=== PATIENT | female | born 1950 | race Caucasian/White ===

== ENCOUNTER 2022-05-03 10:42 | Inpatient (IN) | payer MEDICARE, SELFPAY ==
[2022-05-03] VITALS (8 sets, daily range): BP systolic 100–172; BP diastolic 61–92; PULSE 74–117; RESP 13–20; TEMP 36.4–37.1; O2SAT 96–98; BMI 41.6
--- NOTE | ~2022-05-03 | XR_ITS ---
EXAMINATION: XR CHEST CLINICAL INFORMATION: Weakness COMPARISON: None TECHNIQUE: 2 views of the chest were obtained. FINDINGS: Lungs are adequately expanded and clear. No consolidation, edema or pleural effusion. Cardiac silhouette is normal in size. The hilar contours are normal. The left diaphragm is mildly elevated. No acute skeletal findings. XR/XR chest 2V IMPRESSION: No acute cardiopulmonary disease.
--- NOTE | 2022-05-03 11:01 | ED_ITS ---
HPI - General Adult General Chief complaint: General Medical Stated complaint: Afib Time Seen by Provider: 05/03/22 11:01 Source: patient Mode of arrival: ambulatory Limitations: no limitations History of Present Illness HPI narrative: Patient is a 71 year old female presenting to the emergency department today with requesting a medication refill. Patient states that in November, her PCP retired and filled her prescriptions one last time. Patient states that she has a history of atrial fibrillation and is taking Warfarin, her last dose being last night. Patient states that she has called and talked to many PCP offices but she cannot get into a new PCP until September 2022. Patient states that she has been off of her blood pressure medications diltiazem and hydrochlorothyazide for multiple days now. Patient denies any dizziness, lightheadedness, abdominal pain, nausea, vomiting, fever, chills, blurry vision, double vision, loss of vision, chest pain, difficulty breathing, shortness of breath, back pain, night sweats, pain with urination, increased urinary frequency, increased urinary urgency, blood in her urine or stool, syncope or a near syncopal episode, recent trauma or falls, bowel incontinence, bladder incontinence, bowel retention, bladder retention, or any other complaints at this time. Exacerbating factors: none Associated symptoms: denies other symptoms Treatments prior to arrival: none Related Data Home Medications Medication Instructions Recorded Confirmed alprazolam 1 mg tablet,extended 1 tab PO DAILY 05/03/22 05/03/22 release 24 hr diltiazem HCl 240 mg 1 cap PO BID 05/03/22 05/03/22 capsule,extended release 24 hr duloxetine 60 mg capsule,delayed 1 cap PO DAILY 05/03/22 05/03/22 release ezetimibe 10 mg tablet 1 tab PO DAILY 05/03/22 05/03/22 hydrochlorothiazide 25 mg tablet 1 tab PO DAILY 05/03/22 05/03/22 warfarin 5 mg tablet (Jantoven) 5 mg PO SUTUTHSA@1800 05/03/22 05/03/22 warfarin 5 mg tablet (Jantoven) 7.5 mg PO MOWEFR@1800 05/03/22 05/03/22 Allergies Allergy/AdvReac Type Severity Reaction Status Date / Time Unable to Assess Allergy Verified 05/03/22 11:23 Review of Systems Constitutional: Constitutional: Reports no additional constitutional complain ts, Denies chills, Denies fever(s) and Denies night sweats Eyes: Eyes: Reports no additional eye complaints, Denies blurry vision, Denies change in vision, Denies diplopia, Denies eye discharge, Denies loss of vision and Denies eye pain ENT: Denies dizziness Cardiovascular: Cardiovascular: Reports no additional cardiovascular complaints, Denies chest pain, Denies lightheadedness, Denies Loss of Consciousness and Denies dyspnea Respiratory: Respiratory: Reports no additional respiratory complaints and De nies dyspnea Gastrointestinal: Gastrointestinal: Reports no additional gastrointestinal complaints, Denies abdominal pain, Denies melena, Denies hematochezia, Denies change in bowel habits and Denies change in stool character Genitourinary: Genitourinary: Denies hematuria, Denies urinary frequency, Denies dysuria, Denies urinary incontinence, Denies urinary hesitancy and Denies urinary urgency Musculoskeletal: Musculoskeletal: Reports no additional musculoskeletal complaints, Denies numbness and Denies tingling Neurologic: Denies dizziness, Denies loss of vision, Denies numbness and Denies tingling Psychiatric: Psychiatric: Reports no additional psychiatric complaints Endocrine: Endocrine: Reports no additional endocrine complaints Hematologic/Lymphatic: Hematologic/Lymphatic: Reports no additional hematologic/lymphatic complaints Allergic/Immunologic: Allergic/Immunologic: Reports no additional allergic/immunologic complaints PMFSH Past Medical History Attestation statement: The following information was validated with the patient. Source: old records reviewed Social History Social History Advance Directives: No Advance Directives Information Provided: Yes Physical Exam ED Vital Signs: Vital Signs - 24 hr 05/03/22 10:47 05/03/22 13:36 Pulse Rate 112 H 99 Respiratory Rate 19 16 Blood Pressure 134/92 H 122/68 Pulse Oximetry 98 98 Oxygen Delivery Method Room Air Room Air BMI result Body Mass Index 41.6 Const General: cooperative, no acute distress, alert and awake Nutritional Appearance: well nourished Orientation/consciousness: patient oriented x3 Limitations: no limitations HENMT Head: Yes normal to inspection and Yes atraumatic Ears: hearing grossly normal bilaterally and external ears normal General nose exam: Normal external nose present, no nasal discharge noted and no epistaxis Face and sinus: Yes normal facial exam, No abrasion and No laceration Mouth: Normal oral and palatal mucosa present, no drooling and no muffled voice Eyes General: appearance normal, both eyes and all related structures Periorbital: periorbital findings normal Eyelids: Yes eyelids normal Conjunctivae: conjunctivae normal Pupils: Equal, round and reactive pupils present EOM: EOMs intact bilaterally Neck Neck: Yes normal visual inspection, Yes full ROM and Yes no lymphadenopathy Chest Chest palpation & inspection: normal inspection of the chest Resp Effort & Inspection: normal respiratory effort and able to speak in complete sentences Auscultation: clear to auscultation bilaterally Cardio Rate: tachycardic Rhythm: abnormal rhythm irregularly irregular GI Inspection: Yes normal to inspection Neuro General: patient oriented x3 and moves all extremities Cranial nerves: Yes Equal, round and reactive pupils present Cognition (Neuro): normal cognition Motor exam (neuro): 5/5 motor strength present throughout Sensory Exam: Normal double simultaneous stimulation for sensation Coordination: [id number] test normal Extrem General: Yes normal to inspection, Yes full ROM and Yes capillary refill normal Psych Appearance: grossly normal Mental Status: mental status grossly normal Affect: normal affect Attitude: cooperative Thought process: Normal thought process present Thought content: Normal thought content present Insight: Good insight present (Psych) Medical Decision Making MDM Narrative Medical decision making narrative: Patient is a 71 year old female presenting to the emergency department today for a medication refill. Patient's physical exam showed a tachycardic, irregularly irregular, cardiac rhythm. Patient's blood work showed an INR of 2.8. Patient's EKG showed atrial fibrillation with RVR. I explained my physical exam findings as well as all test results to the patient. I answered all questions asked by the patient. Patient received IV Cardizem which decreased her heart rate. Spoke to Dr. Franklin who agreed to admission of the patient. Patient verbalized agreement and understanding with this treatment plan and admission. Differential Diagnosis Differential Diagnosis: atrial fibrillation, atrial fibrillation with rapid ventricular response Medical Records Medical records reviewed: Yes I reviewed the patient's medical records. Lab Data Lab results reviewed: Yes I reviewed the patient's lab results. Result diagrams: 05/03/22 11:33 05/03/22 11:33 Labs: Lab Results 05/03/22 05/03/22 05/03/22 Range/Units 11:33 11:33 11:33 WBC 7.9 (4.8-10.8) X10*3/uL RBC 5.26 (4.20-5.50) X10*6/uL Hgb 15.2 (12.0-16.0) g/dl Hct 47.2 H (37.0-47.0) % MCV 89.7 (80.0-98.0) fL MCH 28.9 (27.0-33.0) pg MCHC 32.2 (31.0-35.0) g/dl RDW 13.1 (11.0-16.0) % Plt Count 300 (160-400) X10*3/uL MPV 8.9 L (9.4-12.3) fL Immature Gran % (Auto) 0.3 (0.0-0.4) % Neut % (Auto) 65.1 (45-73) % Lymph % (Auto) 22.4 (20-40) % [place] % (Auto) 9.3 (2-11) % Eos % (Auto) 2.5 (0-4) % Baso % (Auto) 0.4 (0-2) % Lymph # (Auto) 1.8 (1.2-4.9) X10*3/uL [place] # (Auto) 0.7 (0.1-1.2) X10*3/uL Eos # (Auto) 0.2 (0.0-0.4) X10*3/uL Baso # (Auto) 0.0 (0.0-0.2) X10*3/uL Abs Immat Gran (auto) 0.02 (0.00-0.03) X10*3/uL Absolute Neuts (auto) 5.1 (2.0-8.3) x10*3/uL Absolute Nucleated RBC 0.000 (0.0-0.012) X10*3/uL Nucleated RBC % (auto) 0.0 (0.0-0.2) /100WBC PT 33.0 H (9.9-13.0) SEC INR 2.8 H (0.9-1.1) APTT 66.9 H* (24.1-38.0) SEC Sodium 143 (135-145) mmol/L Potassium 5.1 (3.3-5.1) mmol/L Chloride 101 (96-108) mmol/L Carbon Dioxide 31 H (22-29) mmol/L Anion Gap 16 (12-20) BUN 18 H (9-16) mg/dL Creatinine 1.28 (0.5-1.4) mg/dL Estim Creat Clear Calc 46.4 Estimated GFR 41 Random Glucose 80 (60-115) mg/dL Calcium 10.4 H (8.4-10.2) mg/dL Magnesium 2.3 (1.6-2.6) mg/dL Total Bilirubin 0.9 (0.0-1.0) mg/dL AST 17 (5-31) U/L ALT 13 (0-31) U/L Alkaline Phosphatase 62 (39-117) U/L Troponin I High Sens (<3.5-17.0) ng/L Total Protein 7.4 (6.5-8.0) g/dL Albumin 4.0 (3.5-5.0) g/dL 05/03/22 Range/Units 11:33 WBC (4.8-10.8) X10*3/uL RBC (4.20-5.50) X10*6/uL Hgb (12.0-16.0) g/dl Hct (37.0-47.0) % MCV (80.0-98.0) fL MCH (27.0-33.0) pg MCHC (31.0-35.0) g/dl RDW (11.0-16.0) % Plt Count (160-400) X10*3/uL MPV (9.4-12.3) fL Immature Gran % (Auto) (0.0-0.4) % Neut % (Auto) (45-73) % Lymph % (Auto) (20-40) % [place] % (Auto) (2-11) % Eos % (Auto) (0-4) % Baso % (Auto) (0-2) % Lymph # (Auto) (1.2-4.9) X10*3/uL [place] # (Auto) (0.1-1.2) X10*3/uL Eos # (Auto) (0.0-0.4) X10*3/uL Baso # (Auto) (0.0-0.2) X10*3/uL Abs Immat Gran (auto) (0.00-0.03) X10*3/uL Absolute Neuts (auto) (2.0-8.3) x10*3/uL Absolute Nucleated RBC (0.0-0.012) X10*3/uL Nucleated RBC % (auto) (0.0-0.2) /100WBC PT (9.9-13.0) SEC INR (0.9-1.1) APTT (24.1-38.0) SEC Sodium (135-145) mmol/L Potassium (3.3-5.1) mmol/L Chloride (96-108) mmol/L Carbon Dioxide (22-29) mmol/L Anion Gap (12-20) BUN (9-16) mg/dL Creatinine (0.5-1.4) mg/dL Estim Creat Clear Calc Estimated GFR Random Glucose (60-115) mg/dL Calcium (8.4-10.2) mg/dL Magnesium (1.6-2.6) mg/dL Total Bilirubin (0.0-1.0) mg/dL AST (5-31) U/L ALT (0-31) U/L Alkaline Phosphatase (39-117) U/L Troponin I High Sens 5.3 (<3.5-17.0) ng/L Total Protein (6.5-8.0) g/dL Albumin (3.5-5.0) g/dL Imaging Data Chest x-ray: Attestation: I personally reviewed and interpreted this imaging study as follows: My impression: No acute process. Radiologist's impression: EXAMINATION: XR CHEST CLINICAL INFORMATION: Weakness COMPARISON: None TECHNIQUE: 2 views of the chest were obtained. FINDINGS: Lungs are adequately expanded and clear. No consolidation, edema or pleural effusion. Cardiac silhouette is normal in size. The hilar contours are normal. The left diaphragm is mildly elevated. No acute skeletal findings. XR/XR chest 2V IMPRESSION: No acute cardiopulmonary disease. Dictated By: Lennox Abdullahi MD Signed By: Electronically signed by Lennox Abdullahi MD 05/03/22 8474 ECG Data Attestation: I personally reviewed and interpreted this ECG as follows: Prior ECG tracings: not available for review Interpretation: Vent. Rate: 143 BPM ? ? Atrial Rate: 000 BPM P-R Int: 000 ms? QRS Dur: 080 ms QT Int: 312 ms ? ? ? P-R-T Axes: 000 075 -54 degrees QTc Int: 481 ms ? Atrial fibrillation with rapid ventricular response Nonspecific ST and T wave abnormality Abnormal ECG No previous ECGs available DD/ 1128 Discharge Plan Discharge Clinical Impression: Atrial fibrillation with RVR Patient Disposition: Admitted As Inpatient Prescriptions: No Action diltiazem HCl 240 mg capsule,extended release 24hr 1 cap PO BID warfarin [Jantoven] 5 mg tablet 5 mg PO SUTUTHSA@1800 warfarin [Jantoven] 5 mg tablet 7.5 mg PO MOWEFR@1800 hydrochlorothiazide 25 mg tablet 1 tab PO DAILY ezetimibe 10 mg tablet 1 tab PO DAILY alprazolam 1 mg tablet extended release 24 hr 1 tab PO DAILY duloxetine 60 mg capsule,delayed release(DR/EC) 1 cap PO DAILY Print Language: Divehi
--- NOTE | 2022-05-03 11:24 | ECG_ITS ---
Test Reason : TACHY Blood Pressure : / mmHG Vent. Rate : 143 BPM Atrial Rate : 000 BPM P-R Int : 000 ms QRS Dur : 080 ms QT Int : 312 ms P-R-T Axes : 000 075 -54 degrees QTc Int : 481 ms Atrial fibrillation with rapid ventricular response Nonspecific ST and T wave abnormality Abnormal ECG No previous ECGs available Referred By: Marianne Russell Electronically Signed By:Adeel Philippe
[2022-05-03 11:38] LABS: MANUAL DIFF FLAG NO
[2022-05-03 11:39] LABS: Basophils Percent Auto 0.4 % (0-2); Eosinophils Absolute Auto 0.2 X10*3/uL (0.0-0.4); Eosinophils Percent Auto 2.5 % (0-4); Hematocrit 47.2 % (37.0-47.0); Hemoglobin 15.2 g/dl (12.0-16.0); Imm Gran Abs Auto 0.02 X10*3/uL (0.00-0.03); Imm Gran Pct Auto 0.3 % (0.0-0.4); Lymphocytes Absolute Auto 1.8 X10*3/uL (1.2-4.9); Lymphocytes Percent Auto 22.4 % (20-40); Mean Corpuscular HGB Conc 32.2 g/dl (31.0-35.0); Mean Corpuscular Hemoglobin 28.9 pg (27.0-33.0); Mean Corpuscular Volume 89.7 fL (80.0-98.0); Mean Platelet Volume 8.9 fL (9.4-12.3); Monocytes Absolute Auto 0.7 X10*3/uL (0.1-1.2); Monocytes Percent Auto 9.3 % (2-11); Neutrophils Absolute Auto 5.1 x10*3/uL (2.0-8.3); Neutrophils Percent Auto 65.1 % (45-73); Platelet Count 300 X10*3/uL (160-400); Red Blood Count 5.26 X10*6/uL (4.20-5.50); Red Cell Distribution Width 13.1 % (11.0-16.0); White Blood Count 7.9 X10*3/uL (4.8-10.8)
[2022-05-03 11:48] LABS: INTERNATIONAL NORM RATIO 2.8 (0.9-1.1)
[2022-05-03] MEDS: dilTIAZem HCL 50 MG/10 ML VIAL 10 MG IVPUSH (12:00)
--- NOTE | 2022-05-03 12:09 | PHA.MEDREC ---
Pharmacy Consult ? Medication Reconciliation Pharmacy has completed the medication reconciliation.
[2022-05-03 12:12] LABS: Partial Thromboplastin Time 66.9 SEC (24.1-38.0)
[2022-05-03 12:21] LABS: Alanine Aminotransferase 13 U/L (0-31); Alkaline Phosphatase 62 U/L (39-117); Anion Gap 16 (12-20); Aspartate Amino Transferase 17 U/L (5-31); Bilirubin Total 0.9 mg/dL (0.0-1.0); Blood Urea Nitrogen 18 mg/dL (9-16); Calcium 10.4 mg/dL (8.4-10.2); Carbon Dioxide 31 mmol/L (22-29); Chloride 101 mmol/L (96-108); Creatinine Clr Calc Pharmacy 46.4; Estimated Glomerular Filt Rate 41; Glucose Random 80 mg/dL (60-115); Magnesium 2.3 mg/dL (1.6-2.6); Potassium 5.1 mmol/L (3.3-5.1); Sodium 143 mmol/L (135-145); Total Protein 7.4 g/dL (6.5-8.0)
[2022-05-03 13:20] LABS: Troponin-I High Sensitivity 5.3 ng/L (<3.5-17.0)
--- NOTE | 2022-05-03 14:05 | P.HPHOSP_ITS ---
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 She reports that she ran out of her medications as she lost her primary care physician by November and does not have a primary until September this year. She did not other medications for the last 5 days and noticed worsening shortness of breath and episodes of palpitation for the last 2 days. Denies any chest pain, headache, lightheadedness, abdominal pain, nausea, vomiting or change in bowel habit but reports feeling of epigastric discomfort upon laying down at night time. She uses a cane at home to ambulate for short distances and does not do much during the day. Denies any falls this year. For the last 2 days she noticed more difficulty breathing upon walking for short distances associated with palpitations. She mention that she does not feel her heart racing most of times. In the emergency she was found to be in atrial fibrillation with rapid ventricular response requiring IV dose of Cardizem. Noticed to have mildly elevated calcium level. She will be admitted for monitoring overnight and establish care with contact center analyst. Review of Systems Review of Systems: No fever, chills but feeling increase weakness No chest pain, occasional palpitation No coughing but has dyspnea on exertion No abdominal pain, nausea or vomiting No urinary symptoms No any rash or wounds PMFSH Social History Advance Directives: No Advance Directives Information Provided: Yes Meds Allergies Allergy/AdvReac Type Severity Reaction Status Date / Time Unable to Assess Allergy Verified 05/03/22 11:23 Active Medications: Current Medications Acetaminophen (Acetaminophen 325 Mg Tablet) 650 mg PO Q6H PRN PRN Reason: Pain, Mild (Pain Scale 1-3) Diltiazem HCl (Diltiazem Hcl Cd 240 Mg Cap.Er.Deg) 240 mg PO BID VINNY; Protocol Duloxetine HCl (Duloxetine Hcl 60 Mg Capsule.Dr) 60 mg PO DAILY VINNY Ezetimibe (Ezetimibe 10 Mg Tablet) 10 mg PO DAILY VINNY Hydrochlorothiazide (Hydrochlorothiazide 25 Mg Tablet) 25 mg PO DAILY VINNY; Protocol Ondansetron HCl (Ondansetron Hcl 4 Mg/2 Ml Vial) 4 mg IVPUSH Q8H PRN PRN Reason: Nausea and Vomiting Pharmacy Consult (Consult Rx Perform Med Rec) 1 each MISCELLANE ONCE PRN PRN Reason: Consult order Sodium Chloride (0.9 % Sodium Chloride Flush 3 Ml Syringe) 3 ml IVFLUSH QSHIFT [facility] Warfarin Sodium (Warfarin Sodium 5 Mg Tablet) 5 mg PO SUTUTHSA@1800 [facility] Warfarin Sodium (Warfarin Sodium 7.5 Mg Tablet) 7.5 mg PO MOWEFR@1800 [facility] Home Medications Medication Instructions Recorded Confirmed Last Taken Type alprazolam 1 mg tablet,extended 1 tab PO DAILY 05/03/22 05/03/22 05/03/22 History release 24 hr diltiazem HCl 240 mg 1 cap PO BID 05/03/22 05/03/22 04/23/22 History capsule,extended release 24 hr duloxetine 60 mg capsule,delayed 1 cap PO DAILY 05/03/22 05/03/22 05/03/22 History release ezetimibe 10 mg tablet 1 tab PO DAILY 05/03/22 05/03/22 04/23/22 History hydrochlorothiazide 25 mg tablet 1 tab PO DAILY 05/03/22 05/03/22 05/03/22 History warfarin 5 mg tablet (Jantoven) 5 mg PO SUTUTHSA@1800 05/03/22 05/03/22 05/01/22 History warfarin 5 mg tablet (Jantoven) 7.5 mg PO MOWEFR@1800 05/03/22 05/03/22 05/02/22 History Physical Exam Vital Signs and Narrative: Vital Signs: Last Vital Signs Pulse 99 05/03/22 13:36 Resp 16 05/03/22 13:36 BP 122/68 05/03/22 13:36 Pulse Ox 98 05/03/22 13:36 O2 Del Method 05/03/22 13:36 BMI result Body Mass Index 41.6 Const: Other: Constitutional : Alert, oriented, not in distress Neck : Normal inspection, Supple Cardiovascular : Irregularly irregular, tachycardia, no JVP, no lower extremity edema Respiratory : fair bilateral air entry, no crackles, wheezes or rhonchi Gastrointestinal: soft, lax, Normal bowel sounds, Non tender Skin : Warm, Dry Neurological : Alert & oriented x3, No focal deficit , CN 2-12 within normal Results Labs CBC and Chem 7: 05/03/22 11:33 05/03/22 11:33 Labs: Laboratory Results - last 24 hr 05/03/22 05/03/22 05/03/22 11:33 11:33 11:33 MCV 89.7 MCH 28.9 MCHC 32.2 RDW 13.1 Plt Count 300 MPV 8.9 L Immature Gran % (Auto) 0.3 Neut % (Auto) 65.1 Lymph % (Auto) 22.4 [place] % (Auto) 9.3 Eos % (Auto) 2.5 Baso % (Auto) 0.4 Lymph # (Auto) 1.8 [place] # (Auto) 0.7 Eos # (Auto) 0.2 Baso # (Auto) 0.0 Abs Immat Gran (auto) 0.02 Absolute Neuts (auto) 5.1 Absolute Nucleated RBC 0.000 Nucleated RBC % (auto) 0.0 PT 33.0 H INR 2.8 H APTT 66.9 H* Anion Gap 16 Estim Creat Clear Calc 46.4 Estimated GFR 41 Random Glucose 80 Calcium 10.4 H Magnesium 2.3 Total Bilirubin 0.9 AST 17 ALT 13 Alkaline Phosphatase 62 Troponin I High Sens Total Protein 7.4 Albumin 4.0 05/03/22 11:33 MCV MCH MCHC RDW Plt Count MPV Immature Gran % (Auto) Neut % (Auto) Lymph % (Auto) [place] % (Auto) Eos % (Auto) Baso % (Auto) Lymph # (Auto) [place] # (Auto) Eos # (Auto) Baso # (Auto) Abs Immat Gran (auto) Absolute Neuts (auto) Absolute Nucleated RBC Nucleated RBC % (auto) PT INR APTT Anion Gap Estim Creat Clear Calc Estimated GFR Random Glucose Calcium Magnesium Total Bilirubin AST ALT Alkaline Phosphatase Troponin I High Sens 5.3 Total Protein Albumin Imaging Radiologist's Impressions: Impressions Chest X-Ray 05/03/22 13:12 IMPRESSION: No acute cardiopulmonary disease. 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 Dyspnea 2/2 Persistent Atrial fibrillation with rapid ventricular response Partially controlled with IV Cardizem Start oral Cardizem 240 CD b.i.d., home dose Continue warfarin, INR therapeutic Keep on telemetry get cardiology evaluation for establishment of care and medication advised HLD Continue Ezitimibe Hypertension Continue HCT Hypercalcemia, secondary Secondary to HCT Mild, monitor DVT PPX Warfarin The patient will likely need to stay 2 nights for management of atrial fibrillation with RVR and possible need for echocardiogram pending cardiology evaluation Quality Stroke Does the patient have a stroke diagnosis?: No VTE Prior VTE?: No VTE Risk Level:: Medical - moderate - high VTE Device Contraindication: Treatment Not Indicated VTE Drug Contraindication: N/A - Med Ordered
[2022-05-03] MEDS: hydroCHLOROthiazide 25 MG TABLET PO (14:59)
[2022-05-03] MEDS: dilTIAZem HCL CD 240 MG CAP.ER.DEG PO ×2 (14:59→22:28)
[2022-05-03] MEDS: DULoxetine HCl 60 MG CAPSULE.DR PO (14:59)
[2022-05-03] MEDS: 0.9 % Sodium Chloride Flush 3 ML SYRINGE IVFLUSH ×2 (16:07→22:30)
[2022-05-03 16:30] LABS: COVID-19 Test Negative (Negative)
--- NOTE | 2022-05-03 18:40 | PC.NURSE ---
called to give report, the floor will call back
[2022-05-03] MEDS: Warfarin Sodium 5 MG TABLET PO (20:11)
--- NOTE | 2022-05-03 20:16 | PC.NURSE ---
Report given to BOO Burroughs-patient to be transferred to room 445 bed 1.
[2022-05-04] VITALS (7 sets, daily range): BP systolic 102–120; BP diastolic 44–78; PULSE 56–80; RESP 18–21; TEMP 36–36.7; O2SAT 96–98
[2022-05-04 07:03] LABS: INTERNATIONAL NORM RATIO 3.4 (0.9-1.1); Prothrombin Time 40.2 SEC (9.9-13.0)
[2022-05-04] MEDS: dilTIAZem HCL CD 240 MG CAP.ER.DEG PO ×2 (07:43→21:00)
[2022-05-04] MEDS: Ezetimibe 10 MG TABLET PO (07:44)
[2022-05-04] MEDS: hydroCHLOROthiazide 25 MG TABLET PO (07:44)
[2022-05-04] MEDS: DULoxetine HCl 60 MG CAPSULE.DR PO (07:44)
[2022-05-04] MEDS: Acetaminophen 325 MG TABLET 650 MG PO ×2 (07:47→21:00)
[2022-05-04] MEDS: 0.9 % Sodium Chloride Flush 3 ML SYRINGE IVFLUSH ×3 (07:49→21:01)
--- NOTE | 2022-05-04 08:40 | MHC.CM.PN ---
CM met with Patient at bedside and addressed IMM with her, providing her with the original and placing a copy on the chart. Patient lives in an apartment with her and 2 Adult children and she uses a cane to assist with mobility. Home no services is the goal and CM has initiated and will follow for dc planning. Patient received Covid vax X2 and she has no PCP. Patient's Daughter is her HCP.
--- NOTE | 2022-05-04 10:09 | P.CONCA_ITS ---
History of Present Illness History of Present Illness Date of Service: 05/04/22 Requesting physician: Ga Franklin Chief complaint: sob, afib Narrative: 71-year-old female who has background history of chronic atrial fibrillation presenting for shortness of breath and AFib with RVR. She ran out of her medications after the of her daughter few months ago. She said she is trying to find a new primary care physician and currently had no medications av ailable. She was feeling short of breath with minimal exertion and finally decided to come to the emergency department. In the ER she was noted to be in AFib with RVR. She was started on her home dose of Cardizem 240 mg twice a day which has improved her heart rate. She is saying her breathing is good and she has not shortness of breath. [facility] Social History Social History Household Members: Spouse and Children Housing: Apartment Patient Tobacco Use Status: Tobacco use Unknown service: No Current occupational status: retired [employer] Allergies Allergy/AdvReac Type Severity Reaction Status Date / Time Unable to Assess Allergy Verified 05/03/22 11:23 Active Medications: Current Medications Acetaminophen (Acetaminophen 325 Mg Tablet) 650 mg PO Q6H PRN PRN Reason: Pain, Mild (Pain Scale 1-3) Last Admin: 05/04/22 07:47 Dose: 650 mg Diltiazem HCl (Diltiazem Hcl Cd 240 Mg Cap.Er.Deg) 240 mg PO BID [facility]; Protocol Last Admin: 05/04/22 07:43 Dose: 240 mg Duloxetine HCl (Duloxetine Hcl 60 Mg Capsule.Dr) 60 mg PO DAILY VINNY Last Admin: 05/04/22 07:44 Dose: 60 mg Ezetimibe (Ezetimibe 10 Mg Tablet) 10 mg PO DAILY VINNY Last Admin: 05/04/22 07:44 Dose: 10 mg Hydrochlorothiazide (Hydrochlorothiazide 25 Mg Tablet) 25 mg PO DAILY [facility]INNY; Protocol Last Admin: 05/04/22 07:44 Dose: 25 mg Ondansetron HCl (Ondansetron Hcl 4 Mg/2 Ml Vial) 4 mg IVPUSH Q8H PRN PRN Reason: Nausea and Vomiting Pharmacy Consult (Consult Rx Perform Med Rec) 1 each MISCELLANE ONCE PRN PRN Reason: Consult order Sodium Chloride (0.9 % Sodium Chloride Flush 3 Ml Syringe) 3 ml IVFLUSH QSHIFT [facility] Last Admin: 05/04/22 07:49 Dose: 3 ml Warfarin Sodium (Warfarin Sodium 5 Mg Tablet) 5 mg PO SUTUTHSA@1800 [facility] Last Admin: 05/03/22 20:11 Dose: 5 mg Warfarin Sodium (Warfarin Sodium 7.5 Mg Tablet) 7.5 mg PO MOWEFR@1800 [facility] Home Medications Medication Instructions Recorded Confirmed Last Taken Type alprazolam 1 mg tablet,extended 1 tab PO DAILY 05/03/22 05/03/22 05/03/22 Histo ry release 24 hr diltiazem HCl 240 mg 1 cap PO BID 05/03/22 05/03/22 04/23/22 History capsule,extended release 24 hr duloxetine 60 mg capsule,delayed 1 cap PO DAILY 05/03/22 05/03/22 05/03/22 History release ezetimibe 10 mg tablet 1 tab PO DAILY 05/03/22 05/03/22 04/23/22 History hydrochlorothiazide 25 mg tablet 1 tab PO DAILY 05/03/22 05/03/22 05/03/22 History warfarin 5 mg tablet (Jantoven) 5 mg PO SUTUTHSA@1800 05/03/22 05/03/22 05/01/22 History warfarin 5 mg tablet (Jantoven) 7.5 mg PO MOWEFR@1800 05/03/22 05/03/22 05/02/22 History Physical Exam Vital Signs: Vital Signs: Last Vital Signs Temp 97.3 F 05/04/22 08:00 Pulse 80 05/04/22 08:00 Resp 21 H 05/04/22 08:00 BP 120/76 05/04/22 08:00 Pulse Ox 96 05/04/22 08:00 O2 Del Method 05/04/22 08:00 BMI result Body Mass Index 41.6 GENERAL APPEARANCE: in no acute distress, pleasant. NECK: no carotid bruit, mild jugular venous distention. SKIN: no suspicious lesions, warm and dry. HEART: no murmurs, irregularly irregular rhythm. LUNGS: clear to auscultation bilaterally. ABDOMEN: soft, nontender. EXTREMITIES: no edema. PERIPHERAL PULSES: equal. NEUROLOGIC: No gross deficits, AAO X 3 Objective Labs and Meds Result diagrams: 05/03/22 11:33 05/03/22 11:33 Lab results: Laboratory Results - last 24 hr 05/03/22 05/03/22 05/03/22 11:33 11:33 11:33 WBC 7.9 RBC 5.26 Hgb 15.2 Hct 47.2 H MCV 89.7 MCH 28.9 MCHC 32.2 RDW 13.1 Plt Count 300 MPV 8.9 L Immature Gran % (Auto) 0.3 Neut % (Auto) 65.1 Lymph % (Auto) 22.4 [place] % (Auto) 9.3 Eos % (Auto) 2.5 Baso % (Auto) 0.4 Lymph # (Auto) 1.8 [place] # (Auto) 0.7 Eos # (Auto) 0.2 Baso # (Auto) 0.0 Abs Immat Gran (auto) 0.02 Absolute Neuts (auto) 5.1 Absolute Nucleated RBC 0.000 Nucleated RBC % (auto) 0.0 PT 33.0 H INR 2.8 H APTT 66.9 H* Sodium 143 Potassium 5.1 Chloride 101 Carbon Dioxide 31 H Anion Gap 16 BUN 18 H Creatinine 1.28 Estim Creat Clear Calc 46.4 Estimated GFR 41 Random Glucose 80 Calcium 10.4 H Magnesium 2.3 Total Bilirubin 0.9 AST 17 ALT 13 Alkaline Phosphatase 62 Troponin I High Sens Total Protein 7.4 Albumin 4.0 COVID-19 ([facility]ASQUEZ) COVID-19 Clin Com 05/03/22 05/03/22 05/04/22 11:33 16:03 06:19 WBC RBC Hgb Hct MCV MCH MCHC RDW Plt Count MPV Immature Gran % (Auto) Neut % (Auto) Lymph % (Auto) [place] % (Auto) Eos % (Auto) Baso % (Auto) Lymph # (Auto) [place] # (Auto) Eos # (Auto) Baso # (Auto) Abs Immat Gran (auto) Absolute Neuts (auto) Absolute Nucleated RBC Nucleated RBC % (auto) PT 40.2 H INR 3.4 H APTT Sodium Potassium Chloride Carbon Dioxide Anion Gap BUN Creatinine Estim Creat Clear Calc Estimated GFR Random Glucose Calcium Magnesium Total Bilirubin AST ALT Alkaline Phosphatase Troponin I High Sens 5.3 Total Protein Albumin COVID-19 ([facility]ASQUEZ) Negative COVID-19 Clin Com See Note Imaging Radiologist's impression: Impressions Chest X-Ray 05/03/22 13:12 IMPRESSION: No acute cardiopulmonary disease. Assessment and Plan (1) Atrial fibrillation with RVR: Status: Acute Plan [age] year female with chronic atrial fibrillation on diltiazem and Coumadin was presenting for shortness of breath and AFib with RVR because she was not getting her medications. She ran out of her medications and is in the process of getting a primary care physician. Her home medications were resumed and she is feeling much better. I think she can continue same medications for now. Echocardiography to assess LVEF as she has been in rapid AFib for some time. If LVEF is low then diltiazem should be stopped when she changed to beta-trey +/- digoxin. Thank you for allowing me to participate in the care of your patient. Please feel free to contact me if you have any questions. Procedures Date of Service Date of Service: 05/04/22
--- NOTE | 2022-05-04 11:14 | P.PNIM_ITS ---
Subjective Subjective Date of Service: 05/04/22 Interval History: the patient was seen and evaluated this morning Laying in bed, feels tired with no energy Heart rate better controlled Denies any fever, chills or shortness of breath No reported other overnight events. Review of Systems No fever, chills but feeling increase weakness No chest pain, occasional palpitation No coughing but has dyspnea on exertion No abdominal pain, nausea or vomiting No urinary symptoms No any rash or wounds Physical Exam Vital Signs: Vital Signs: Last Vital Signs Temp 97.3 F 05/04/22 08:00 Pulse 80 05/04/22 08:00 Resp 21 H 05/04/22 08:00 BP 120/76 05/04/22 08:00 Pulse Ox 96 05/04/22 08:00 O2 Del Method 05/04/22 08:00 BMI result Body Mass Index 41.6 Const: Other: Constitutional : Alert, oriented, not in distress Neck : Normal inspection, Supple Cardiovascular : Irregularly irregular, no JVP, no lower extremity edema Respiratory : fair bilateral air entry, no crackles, wheezes or rhonchi Gastrointestinal: soft, lax, Normal bowel sounds, Non tender Skin : Warm, Dry Neurological : Alert & oriented x3, No focal deficit , CN 2-12 within normal Objective Data Active Medications Acetaminophen (Acetaminophen 325 Mg Tablet) 650 mg PO Q6H PRN PRN Reason: Pain, Mild (Pain Scale 1-3) Last Admin: 05/04/22 07:47 Dose: 650 mg Documented By: ANTHONY Diltiazem HCl (Diltiazem Hcl Cd 240 Mg Cap.Er.Deg) [address] [facility]; Protocol Last Admin: 05/04/22 07:43 Dose: 240 mg Documented By: ANTHONY Duloxetine HCl (Duloxetine Hcl 60 Mg Capsule.Dr) [address] [facility] Last Admin: 05/04/22 07:44 Dose: 60 mg Documented By: ANTHONY Ezetimibe (Ezetimibe 10 Mg Tablet) [address] [facility] Last Admin: 05/04/22 07:44 Dose: 10 mg Documented By: ANTHONY Hydrochlorothiazide (Hydrochlorothiazide 25 Mg Tablet) [address] [facility]; Protocol Last Admin: 05/04/22 07:44 Dose: 25 mg Documented By: ANTHONY Ondansetron HCl (Ondansetron Hcl 4 Mg/2 Ml Vial) 4 mg IVPUSH Q8H PRN PRN Reason: Nausea and Vomiting Pharmacy Consult (Consult Rx Perform Med Rec) 1 each MISCELLANE ONCE PRN PRN Reason: Consult order Sodium Chloride (0.9 % Sodium Chloride Flush 3 Ml Syringe) [address] [facility] Last Admin: 05/04/22 07:49 Dose: 3 ml Documented By: ANTHONY Warfarin Sodium (Warfarin Sodium 5 Mg Tablet) 5 mg PO SUTUTHSA@1800 [facility] Last Admin: 05/03/22 20:11 Dose: 5 mg Documented By: NAVYA Warfarin Sodium (Warfarin Sodium 7.5 Mg Tablet) 7.5 mg PO MOWEFR@1800 [facility] Labs CBC & Chem 7: 05/03/22 11:33 05/03/22 11:33 Labs: Laboratory Results - last 24 hr 05/03/22 05/03/22 05/03/22 11:33 11:33 11:33 MCV 89.7 MCH 28.9 MCHC 32.2 RDW 13.1 Plt Count 300 MPV 8.9 L Immature Gran % (Auto) 0.3 Neut % (Auto) 65.1 Lymph % (Auto) 22.4 [place] % (Auto) 9.3 Eos % (Auto) 2.5 Baso % (Auto) 0.4 Lymph # (Auto) 1.8 [place] # (Auto) 0.7 Eos # (Auto) 0.2 Baso # (Auto) 0.0 Abs Immat Gran (auto) 0.02 Absolute Neuts (auto) 5.1 Absolute Nucleated RBC 0.000 Nucleated RBC % (auto) 0.0 PT 33.0 H INR 2.8 H APTT 66.9 H* Anion Gap 16 Estim Creat Clear Calc 46.4 Estimated GFR 41 Random Glucose 80 Calcium 10.4 H Magnesium 2.3 Total Bilirubin 0.9 AST 17 ALT 13 Alkaline Phosphatase 62 Troponin I High Sens Total Protein 7.4 Albumin 4.0 COVID-19 ([facility]) COVID-19 Clin Com 05/03/22 05/03/22 05/04/22 11:33 16:03 06:19 MCV MCH MCHC RDW Plt Count MPV Immature Gran % (Auto) Neut % (Auto) Lymph % (Auto) [place] % (Auto) Eos % (Auto) Baso % (Auto) Lymph # (Auto) [place] # (Auto) Eos # (Auto) Baso # (Auto) Abs Immat Gran (auto) Absolute Neuts (auto) Absolute Nucleated RBC Nucleated RBC % (auto) PT 40.2 H INR 3.4 H APTT Anion Gap Estim Creat Clear Calc Estimated GFR Random Glucose Calcium Magnesium Total Bilirubin AST ALT Alkaline Phosphatase Troponin I High Sens 5.3 Total Protein Albumin COVID-19 ([facility]) Negative COVID-19 Clin Com See Note Assessment and Plan (1) Hypercalcemia due to a drug: Status: Acute (2) Atrial fibrillation with RVR: Status: Acute Plan A 71 years old lady with PMH of atrial fibrillation, HTN, anxiety who presents to the hospital complaining of worsening shortness of breath and 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 Persistent Atrial fibrillation with rapid ventricular response Partially controlled with IV Cardizem Continue oral Cardizem 240 CD b.i.d., home dose Continue warfarin, INR therapeutic Keep on telemetry Pending cardiology evaluation for establishment of care and medication advised HLD Continue Ezitimibe Hypertension Continue HCT Hypercalcemia, secondary Secondary to HCT Mild, monitor DVT PPX Warfarin The patient will likely need to stay overnight pending PT evaluation as she does not feel strong enough to go back home and possible need for echocardiogram pending cardiology evaluation Quality Stroke Does the patient have a stroke diagnosis?: No VTE Prior VTE?: No VTE Risk Level:: Medical - moderate - high VTE Device Contraindication: Treatment Not Indicated VTE Drug Contraindication: N/A - Med Ordered
[2022-05-05] VITALS: BP 111/51; PULSE 64; RESP 18; TEMP 36.9; O2SAT 95
[2022-05-05 04:00] VITALS: BP 112/58; PULSE 58; RESP 18; TEMP 36.1; O2SAT 97
[2022-05-05 06:32] LABS: INTERNATIONAL NORM RATIO 3.4 (0.9-1.1); Prothrombin Time 39.4 SEC (9.9-13.0)
[2022-05-05 06:46] LABS: Anion Gap 12 (12-20); Blood Urea Nitrogen 18 mg/dL (9-16); Calcium 9.3 mg/dL (8.4-10.2); Carbon Dioxide 31 mmol/L (22-29); Chloride 101 mmol/L (96-108); Creatinine Clr Calc Pharmacy 63.9; Estimated Glomerular Filt Rate 59; Glucose Random 105 mg/dL (60-115); Potassium 3.6 mmol/L (3.3-5.1); Sodium 140 mmol/L (135-145)
[2022-05-05] MEDS: hydroCHLOROthiazide 25 MG TABLET PO (07:38)
[2022-05-05] MEDS: DULoxetine HCl 60 MG CAPSULE.DR PO (07:38)
[2022-05-05] MEDS: Ezetimibe 10 MG TABLET PO (07:38)
[2022-05-05] MEDS: 0.9 % Sodium Chloride Flush 3 ML SYRINGE IVFLUSH (07:39)
[2022-05-05 07:58] VITALS: BP 117/62; PULSE 82; RESP 18; TEMP 36.2; O2SAT 95
[2022-05-05] MEDS: dilTIAZem HCL CD 240 MG CAP.ER.DEG PO (08:21)
[2022-05-05 11:23] VITALS: BP 111/55; PULSE 76; RESP 18; TEMP 36; O2SAT 94
--- NOTE | 2022-05-05 11:46 | P.PNCA_ITS ---
Subjective Subjective Date of Service: 05/05/22 <DALJIT Win - Last Filed: 05/05/22 11:56> 05/05/22 <Joo Michelle MD - Last Filed: 05/05/22 12:47> Principal diagnosis: Afib <DALJIT Win - Last Filed: 05/05/22 11:56> Interval history: Seen at 0825. Today she reports feeling well. Will notice some heart palpitations when she is up walking. No sob, palpitation at rest, CPs, dizziness, swelling. Ate breakfast. Tele shows Afib with rate controlled at rest and afib RVR with activity. <DALJIT Win - Last Filed: 05/05/22 11:56> Review of Systems Review of Systems as above <DALJIT Win - Last Filed: 05/05/22 11:56> Yes all other systems are reviewed and are negative <DALJIT Win - Last Filed: 05/05/22 11:56> Physical Exam Vital Signs: Last Vital Signs Temp 96.8 F 05/05/22 11:23 Pulse 76 05/05/22 11:23 Resp 18 05/05/22 11:23 BP 111/55 L 05/05/22 11:23 Pulse Ox 94 05/05/22 11:23 O2 Del Method 05/05/22 11:23 BMI result Body Mass Index 41.6 <DALJIT Win - Last Filed: 05/05/22 11:56> Const General: cooperative, no acute distress, alert and awake <DALJIT Win - Last Filed: 05/05/22 11:56> Orientation/consciousness: patient oriented x3 <DALJIT Win - Last Filed: 05/05/22 11:56> Neck Neck: Yes normal visual inspection and Yes no JVD <DALJIT Win Last Filed: 05/05/22 11:56> Resp Effort & Inspection: normal respiratory effort, able to speak in complete sentences and not lab ored <DALJIT Win - Last Filed: 05/05/22 11:56> Auscultation: clear to auscultation bilaterally, no crackles, no rales, no rhonchi and no wheezes <Kajal LedbetterADELAIDA - Last Filed: 05/05/22 11:56> Cardio Jugular venous distension: JVD present <Kajal Ledbetter [facility] - Last Filed: 05/05/22 11:56> Palpation: normal PMI <Kajal Ledbetter [facility] - Last Filed: 05/05/22 11:56> Rate: regular rate <Kajal Anatoly [facility] Last Filed: 05/05/22 11:56> Rhythm: abnormal rhythm irregularly irregular <Kajal Anatoly [facility] Last Filed: 05/05/22 11:56> Heart sounds: S1 normal heart sound present and S2 normal heart sound present <Kajal Anatoly [facility] - Last Filed: 05/05/22 11:56> Peripheral pulses: Peripheral pulses 2+ throughout <Kajal Anatoly [facility] Last Filed: 05/05/22 11:56> Neuro General: patient oriented x3 <Kajal Anatoly [facility] Last Filed: 05/05/22 11:56> Extrem General: Yes normal to inspection and No edema <Kajal Ledbetter [facility] - Last Filed: 05/05/22 11:56> Objective Labs and Meds Result diagrams: : 05/03/22 11:33 05/05/22 05:38 <Kajal Ledbetter [facility] - Last Filed: 05/05/22 11:56> Lab results: Laboratory Results - last 24 hr 05/05/22 05/05/22 05:38 05:38 PT 39.4 H INR 3.4 H Sodium 140 Potassium 3.6 D Chloride 101 Carbon Dioxide 31 H Anion Gap 12 BUN 18 H Creatinine 0.93 Estim Creat Clear Calc 63.9 Estimated GFR 59 Random Glucose 105 Calcium 9.3 D <Kajal LedbetterADELAIDA - Last Filed: 05/05/22 11:56> Progress Note: A&P Assessment and plan (1) Atrial fibrillation with RVR: Status: Acute <[facility] Last Filed: 05/05/22 11:56> Assessment and Plan: Hx of chronic afib. Ran out of rate slowing meds in months prior to admit. ( PCP left and she does not have new PCP yet). Admit with sob and afib RVR. She was started back on her prior Diltiazem at 240mg bid. Tele is showing heart rate controlled during night, rate 50s, then with activity rate up to 160 this am. She can feel heart palpitations with activity. Breathing normal. Not in acute HF. Echo is ordered however will Cx and arrange for outpt echo. She is on coumadin for anticoagulation. INR was 2.8 on admit, so likely recent compliance as outpt. No bleeding issues. INR goal 2-3. INR 3.4 today. Coumadin being managed by hospitalist. At present will continue current Diltiazem. Dr Michelle to eval rate when he is rounding. If acceptable, can likely be discharged and we will arrange for outpt Holter, echo and cardiology follow up. <Kajal Ledbetter, ADELAIDA-C - Last Filed: 05/05/22 11:56> Hx of chronic afib. Ran out of rate slowing meds in months prior to admit. ( PCP left and she does not have new PCP yet). Admit with sob and afib RVR. She was started back on her prior Diltiazem at 240mg bid. Tele is showing heart rate controlled during night, rate 50s, then with activity rate up to 160 this am. She can feel heart palpitations with activity. Breathing normal. Not in acute HF. Echo is ordered however will Cx and arrange for outpt echo. She is on coumadin for anticoagulation. INR was 2.8 on admit, so likely recent compliance as outpt. No bleeding issues. INR goal 2-3. INR 3.4 today. Coumadin being managed by hospitalist. At present will continue current Diltiazem. Dr Michelle to eval rate when he is rounding. If acceptable, can likely be discharged and we will arrange for outpt Holter, echo and cardiology follow up. Patient seen and examined. Case discussed with Kajal Ledbetter. Patient continues to have labile heart rate response with low exercise going up to 140-150. Otherwise generally at rest heart rate well control and nighttime on the bradycardic side. She is tolerating Cardizem therapy at this point time. Continue the same. Came with significant shortness of breath could be related to rapid rate. Chronic long-standing atrial fibrillation, no recent workup. Currently on full oral anticoagulation warfarin. Discussed about switch to an alternative agent, discussed with case management about the cost either with Eliquis or Xarelto. For now patient can be discharged but she insisted on staying over to get an echocardiogram. Which is reasonable. Echocardiogram when it was done will review it. For now will pursue rate control may require rhythm control approach as outpatient remains significantly symptomatic. Will follow up as outpatient. <Joo Michelle MD - Last Filed: 05/05/22 12:47> (2) Anticoagulant long-term use: Status: Acute <DALJIT Win - Last Filed: 05/05/22 11:56> Time Spent With Patient Time: Total time spent is greater than 50% in coordination of care (as documented) at patient's floor/unit and/or counseling patient: 22 <DALJIT Win - Last Filed: 05/05/22 11:56> Progress Note: Quality Stroke Does the patient have a stroke diagnosis?: No <DALJIT Win - Last Filed: 05/05/22 11:56> Procedures Date of Service Date of Service: 05/05/22 <DALJIT Win - Last Filed: 05/05/22 11:56>
--- NOTE | 2022-05-05 12:32 | PM.DS ---
DS: Providers Provider Date of Service: 05/05/22 Date of admission: 05/03/22 14:00 Primary care physician: None Physician Consults: 05/03/22 14:00 Consult to Cardiology Routine Consulting Provider: Adeel Philippe Reason for consultation: Afib w RvR, med problem, establishment of care (pending PCP) DS: Diagnosis Discharge Diagnosis (1) Atrial fibrillation with RVR: Status: Acute (2) Anticoagulant long-term use: Status: Acute (3) Hypercalcemia due to a drug: Status: Acute DS: Summary Hospital Course Hospital Course: Admission note HPI A 71 years old lady with PMH of atrial fibrillation, HTN, anxiety who presents to the hospital complaining of worsening shortness of breath and 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 She reports that she ran out of her medications as she lost her primary care physician by November and does not have a primary until September this year.? She did not other medications for the last 5 days and noticed worsening shortness of breath and episodes of palpitation for the last 2 days.? Denies any chest pain, headache, lightheadedness, abdominal pain, nausea, vomiting or change in bowel habit but reports feeling of epigastric discomfort upon laying down at night time.? She uses a cane at home to ambulate for short distances and does not do much during the day.? Denies any falls this year.? For the last 2 days she noticed more difficulty breathing upon walking for short distances associated with palpitations.? She mention that she does not feel her heart racing most of times.? In the emergency she was found to be in atrial fibrillation with rapid ventricular response requiring IV dose of Cardizem.? Noticed to have mildly elevated calcium level.? 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 Hospital course The patient was admitted to the hospital for evaluation of dyspnea and atrial fibrillation with rapid ventricular response after running out of her home medications. Heart rate responded to IV and oral Cardizem with better rate controlled. Evaluated by Cardiology team who recommended continue current medication follow-up as outpatient for echo. INR was noted to be elevated and warfarin was held with recommendations to decrease the warfarin dose to 5 mg daily at time of discharge and to follow-up with cardiology clinic. Noted to have mild hypercalcemia believed to be secondary to hydrochlorothiazide which improved during the hospital stay. Continue home medications as prescribed Decrease warfarin to 5 mg only with goal of INR 2-3 to follow up with Cardiology as outpatient. Time Spent with Patient Time attestation: Total time spent providing and/or coordinating discharge services: Discharge coordination time: Greater than 30 minutes Quality: Safe Use of Opioids Does Pt have an Active Cancer Diagnosis on the Problem List?: No Quality: Stroke Does the patient have a stroke diagnosis?: No Physical Exam Vital Signs: Vital Signs: Last Vital Signs Temp 96.8 F 05/05/22 11:23 Pulse 76 05/05/22 11:23 Resp 18 05/05/22 11:23 BP 111/55 L 05/05/22 11:23 Pulse Ox 94 05/05/22 11:23 O2 Del Method 05/05/22 11:23 BMI result Body Mass Index 41.6 Const: Other: Constitutional : Alert, oriented, not in distress Neck : Normal inspection, Supple Cardiovascular : Irregularly irregular, no JVP, no lower extremity edema Respiratory : fair bilateral air entry, no crackles, wheezes or rhonchi Gastrointestinal: soft, lax, Normal bowel sounds, Non tender Skin : Warm, Dry Neurological : Alert & oriented x3, No focal deficit , CN 2-12 within normal DS: Data Data Completed and Pending Labs on day of discharge: Laboratory Results - last 24 hr 05/05/22 05/05/22 05:38 05:38 PT 39.4 H INR 3.4 H Sodium 140 Potassium 3.6 D Chloride 101 Carbon Dioxide 31 H Anion Gap 12 BUN 18 H Creatinine 0.93 Estim Creat Clear Calc 63.9 Estimated GFR 59 Random Glucose 105 Calcium 9.3 D Discharge Plan Discharge Patient Disposition: Home, Self-Care Discharge Diagnosis: Persistent atrial fibrillation Referrals: Physician,None [Primary Care Provider] - 1 Week Discharge Medications: Continued alprazolam 1 mg tablet extended release 24 hr 1 tab PO DAILY diltiazem HCl 240 mg capsule,extended release 24hr 1 cap PO BID 30 Days Qty: 60 5RF duloxetine 60 mg capsule,delayed release(DR/EC) 1 cap PO DAILY 30 Days Qty: 0 5RF Changed warfarin [Jantoven] 5 mg tablet 5 mg PO DAILY 30 Days Qty: 30 5RF ezetimibe 10 mg tablet 10 mg PO DAILY 30 Days Qty: 30 5RF hydrochlorothiazide 25 mg tablet 25 mg PO DAILY 30 Days Qty: 30 5RF Discontinued warfarin [Novtoven] 5 mg tablet 7.5 mg PO MOWEFR@1800 Diet: advance to usual diet Activity on Discharge: As tolerated Stand Alone Forms: Patient Portal Discharge page Print Language: Macanese Care Plan Goals: Read below Health Concerns: Read below Plan of Treatment: Read below Assessment: You were admitted to the hospital for evaluation of palpitation. Found to be in atrial fibrillation with rapid ventricular response. Controlled with IV and oral medications. Evaluated by Cardiology team who recommended an outpatient echo and to follow-up in the clinic. Continue home medications as prescribed Decrease warfarin to 5 mg only with goal of INR 2-3 to follow up with Cardiology as outpatient.
--- NOTE | 2022-05-05 12:52 | MHC.CM.PN ---
pt dcd home will no skilled servcies ordered by
--- NOTE | 2022-05-06 08:48 | P.CDIR_ITS ---
Documented by User: Vandana Dang CCS, CDIS 05/06/22 08:50 Retrospective Query PHYSICIAN'S DOCUMENTATION REQUEST Date of Query: 05/06/2248 Patient Name: Melissa Benson Admit Date: 05/03/22 Dear Doctor, A review of the medical record indicates additional documentation may be needed. Please review below and update the documentation accordingly. Clinical Indicators: Risk Factors/Clinical Indicators/Treatments Body Mass Index: 41.6 5' 3 in height If possible, please provide an associated diagnosis related to the abnormal BMI, such as: For a BMI >= 40: * Overweight * Obesity * Due to excess calories * Drug induced * Due to other cause * Severe or Morbid Obesity * With alveolar hypoventilation * Without alveolar hypoventilation Or: * BMI is not significant * Other (please specify) * Unable to determine Use of terms such as suspected, likely, concern for, or probable (associated with a specific diagnosis that is being evaluated, monitored, or treated as if it exists) are acceptable and can be coded in the inpatient setting, when documented at the time of discharge. Thank you, Vandana Dang CCS, CDIS Extension: [phone] Please use your independent medical judgment in providing your response. THIS QUERY IS PART OF THE PERMANENT MEDICAL RECORD Documented by User: Ga Franklin MD 05/06/22 14:51 Retrospective Query Provider Response: Morbid Obesity
== END 2022-05-05 14:24 | disposition home or self-care (01) | DRG 309 ==
LOC: HO.ED 14:03 → HO.EDOVER 14:10 → HO.IMC 18:34
PROVIDERS: Physician Assistant Medical; Admitting Provider Student in an Organized Health Care Education/Training Program; Emergency Provider Student in an Organized Health Care Education/Training Program; Visit Provider Student in an Organized Health Care Education/Training Program
DX: I48.91 Unspecified atrial fibrillation (principal); Z68.41 Body mass index [BMI] 40.0-44.9, adult; F41.9 Anxiety disorder, unspecified; T50.2X5A Adverse effect of carbonic-anhydrase inhibitors, benzothiadiazides and other diuretics, initial encounter; E78.5 Hyperlipidemia, unspecified; Z91.14 Patient's other noncompliance with medication regimen; E66.01 Morbid (severe) obesity due to excess calories; E83.52 Hypercalcemia; Z20.822 Contact with and (suspected) exposure to COVID-19; Z88.8 Allergy status to other drugs, medicaments and biological substances; Z79.01 Long term (current) use of anticoagulants; Z79.899 Other long term (current) drug therapy
CPT/HCPCS: 36415; 71046; 80048; 80053; 83735; 84484; 85025; 85610; 85730; 87635; 93005; 97161; 99219; 99284

== ENCOUNTER → 2022-05-09 12:53 | Outpatient (REF) | payer MEDICARE, SELFPAY ==
--- NOTE | 2022-05-09 12:57 | CA_ITS ---
Transthoracic Echocardiogram Patient (Last, First, Middle): Melissa Benson, Gender: Female Date of : 1950 Age: 71 Procedure Date: 05/09/2022 Procedure Type: Transthoracic Echocardiogram Location: OP Height: 160.02 cm Weight: 104.33 kg BSA: 2.05 m2 Heart Rate: 100 bpm BP: 111 / 60 mmHg Pond Scaler: SB Referring MD: Kajal Ledbetter TRANSPORTER DRIVER-Christi Floral Design Teacher: Joo Michelle MD Symptoms: I48.91 - Unspecified atrial fibrillation Study Quality: Adequate ECG Rhythm: Atrial Fibrillation Conclusions: - 1. Normal LV systolic function 2. Mild biatrial enlargement 3. Moderate mitral and calcification with normal cardiac valvular Dopplers 4. No gross pericardial effusion Findings Left Ventricle Normal left ventricular size, thickness, and systolic function. The visually estimated ejection fraction is between 55-60%. Diastolic function is indeterminate on the basis of available data. Right Ventricle Mildly increased right ventricular cavity size. There is normal right ventricular systolic function. Atria The left atrium is mildly dilated. There is lipomatous hypertrophy of the interatrial septum. There is no evidence of interatrial shunt. The right atrium is mildly dilated. Aortic Valve The aortic valve structure and function is likely normal. There is no aortic valve stenosis. There is no aortic valve regurgitation. Mitral Valve There is mild anterior and moderate posterior mitral leaflet thickening. There is moderate mitral annular calcification. There is trace mitral valve regurgitation. There is no mitral valve stenosis. Pulmonic Valve The pulmonic valve was not well visualized. Tricuspid Valve The tricuspid valve was not well visualized. Tricuspid regurgitation envelope is inadequate for calculation of right ventricular systolic pressure. Great Vessels All visible segments of the aorta are normal in size. The pulmonary artery was not well visualized. Venous The inferior vena cava was not well visualized. Pericardium/Pleural There is no evidence of pericardial effusion. Prior Study Comparison No prior study available for comparison. Measurements 2D Linear Measurements IVSd: 0.93 0.6-0.9/0.6-1.0 cm LVIDd: 4.49 3.9-5.3/4.2-5.9 cm LVIDd Index: 2.19 2.4-3.2/2.2-3.1 cm/m2 LVIDs: 2.43 2.0-3.6 cm LVPWd: 0.63 0.7-1.1 cm LA Diam: 4.70 2.7-3.8/3.0-4.0 cm LAIDs Index: 2.29 1.5-2.3 cm/m2 LV Mass: 136.05 67-162/88-224 g LV Mass Index: 66.37 43-95/49-115 g/m2 LVOT Diam: 2.10 3.0+(-)1.3 cm 2D Systolic Function EF 4C: 55.80 >55% Mitral Valve MV Pk E: 1.13 E'Medial: 9.17 E/E' Med: 12.30 Aortic Valve AoV Pk Channing: 1.24 AoV Mn Channing: 0.91 AoV VTI: 0.22 AoV Pk Grad: 6.00 Aov Mn Grad: 4.00 ORALIA Cont.VTI: 2.80 LVOT LVOT Pk Channing: 1.09 LVOT Mn Channing: 0.76 LVOT VTI: 0.18 LVOT Pk Grad: 5.00 LVOT Mn Grad: 3.00 LVOT Diam: 2.10 LVOT Area: 3.46 Diastolic Function MV Pk E: 1.13 E'Medial: 9.17 E/E' Med: 12.30 Right Ventricle TAPSE (mm): 18.00 TVS' Channing: 10.10 Great Vessels Aorta Sinus of Valsalva: 2.80 2.0-3.5 cm Ao Asc: 3.40 2.1-3.4 cm Pulmonary Valve PV Pk Channing: 0.85 Peak PV Grad: 3.00 Updated in Other Vendor System with Status of Final Joo Michelle MD electronically signed on 05/10/2022 2:14:16 PM with status of Final
== END ==
LOC: HO.CARD 12:53
PROVIDERS: Visit Provider Nurse Practitioner Family
DX: I48.91 Unspecified atrial fibrillation (principal)
CPT/HCPCS: 93306

== ENCOUNTER 2022-05-14 11:02 | Outpatient (REF) | payer MEDICARE, SELFPAY ==
[2022-05-14 14:24] LABS: Cholesterol 288 mg/dL; HDL Cholesterol 67 mg/dL; LDL Cholesterol Calculated 181 mg/dl; Triglycerides 200 mg/dL
[2022-05-14 14:46] LABS: TSH reflex Free T4 1.47 uIU/mL (0.32-4.0); Vitamin D 25-OH Total 32.4 ng/mL (>30)
== END 2022-05-14 11:03 | disposition home or self-care (01) ==
LOC: HO.HMGCLDS 11:02
PROVIDERS: PCP Internal Medicine; Visit Provider Internal Medicine
DX: E78.2 Mixed hyperlipidemia (principal); I48.91 Unspecified atrial fibrillation; Z78.0 Asymptomatic menopausal state
CPT/HCPCS: 36415; 80061; 82306; 84443

== ENCOUNTER → 2022-05-21 11:21 | Outpatient (REF) | payer MEDICARE, SELFPAY ==
--- NOTE | 2022-05-21 11:25 | HM_ITS ---
Conclusion: 1. Patient was monitor for total period of 3 days and 2 hours 2. Baseline rhythm is atrial fibrillation with average heart of 75 beats per minute which is well optimized with fastest heart rate of 174 beats per minute 3. 2 3 beat salvos of nonsustained VT, could represent aberrant conduction 4. Total of 19,079 PVCs accounting for 5.6% of total beats account for frequent PVCs 5. No patient reported events MTDD
== END ==
LOC: HO.CARD 11:21
PROVIDERS: Visit Provider Nurse Practitioner Family
DX: I48.91 Unspecified atrial fibrillation (principal)
CPT/HCPCS: 93242

== ENCOUNTER 2022-05-28 11:18 | Outpatient (REF) | payer MEDICARE, SELFPAY ==
--- NOTE | ~2022-05-28 | MM_ITS ---
EXAMINATION: MM SCREENING DIGITAL BREAST TOMOSYNTHESIS, BILATERAL CLINICAL INFORMATION: Screening. Asymptomatic. Family history breast cancer, sister. The lifetime risk of breast cancer based on the Tyrer-Cuzick Model is 7%. COMPARISON: None (current study represents new baseline exam). Prior outside exam from 01/11/2014 purged and no longer available. TECHNIQUE: Digital breast tomosynthesis is performed in both the craniocaudal and mediolateral oblique views along with computer-aided detection (CAD). Synthesized 2D images are generated from the tomosynthesis. Additional views are provided: Right CC, right MLO, left MLO x2. FINDINGS: The breasts are almost entirely fatty (ACR BI-RADS breast composition Category a). Background stromal markings are normal. There are no significant masses, abnormal calcifications, or other abnormalities. No architectural abnormality. The axilla and skin contours are unremarkable. MM/MM tomosynthesis screening BI IMPRESSION: No mammographic evidence of malignancy. ASSESSMENT: BI-RADS 1: Negative RECOMMENDATION: Routine annual mammography screening. This patient's information was entered into a reminder system with a target due date for their next mammogram.
== END 2022-05-28 11:19 | disposition home or self-care (01) ==
LOC: HO.MAMMO 11:18
PROVIDERS: PCP Internal Medicine; Visit Provider Internal Medicine
DX: Z12.31 Encounter for screening mammogram for malignant neoplasm of breast (principal)
CPT/HCPCS: 77063; 77067

== ENCOUNTER → 2022-08-06 14:38 | Outpatient (BNVA) | payer MEDICARE, SELFPAY | PROVIDERS: PCP Internal Medicine; Referring Provider Internal Medicine; Visit Provider Nurse Practitioner Family | DX: I48.20 Chronic atrial fibrillation, unspecified (principal); Z79.01 Long term (current) use of anticoagulants | CPT/HCPCS: 99212 ==

== ENCOUNTER → 2022-08-20 13:17 | Outpatient (BNVA) | payer MEDICARE, SELFPAY | PROVIDERS: PCP Internal Medicine; Visit Provider Internal Medicine | DX: I48.19 Other persistent atrial fibrillation (principal); Z79.01 Long term (current) use of anticoagulants; Z51.81 Encounter for therapeutic drug level monitoring | CPT/HCPCS: 85610; 99202 ==

== ENCOUNTER → 2022-08-26 13:21 | Outpatient (BNVA) | payer MEDICARE, SELFPAY | PROVIDERS: PCP Internal Medicine; Visit Provider Internal Medicine | DX: I48.19 Other persistent atrial fibrillation (principal); Z79.01 Long term (current) use of anticoagulants; Z51.81 Encounter for therapeutic drug level monitoring | CPT/HCPCS: 85610; 99211 ==

== ENCOUNTER → 2022-09-10 13:03 | Outpatient (BNVA) | payer MEDICARE, SELFPAY | PROVIDERS: PCP Internal Medicine; Visit Provider Internal Medicine | DX: I48.19 Other persistent atrial fibrillation (principal); Z79.01 Long term (current) use of anticoagulants; Z51.81 Encounter for therapeutic drug level monitoring | CPT/HCPCS: 85610; 99211 ==

== ENCOUNTER → 2022-10-13 13:06 | Outpatient (BNVA) | payer MEDICARE, SELFPAY | PROVIDERS: PCP Internal Medicine; Visit Provider Internal Medicine | DX: I48.19 Other persistent atrial fibrillation (principal); Z79.01 Long term (current) use of anticoagulants; Z51.81 Encounter for therapeutic drug level monitoring | CPT/HCPCS: 85610; 99211 ==

== ENCOUNTER → 2022-11-03 13:26 | Outpatient (BNVA) | payer MEDICARE, SELFPAY | PROVIDERS: PCP Internal Medicine; Visit Provider Internal Medicine | DX: I48.19 Other persistent atrial fibrillation (principal); Z79.01 Long term (current) use of anticoagulants; Z51.81 Encounter for therapeutic drug level monitoring | CPT/HCPCS: 85610; 99211 ==

== ENCOUNTER → 2022-11-24 13:11 | Outpatient (BNVA) | payer MEDICARE, SELFPAY | PROVIDERS: PCP Internal Medicine; Visit Provider Internal Medicine | DX: I48.19 Other persistent atrial fibrillation (principal); Z79.01 Long term (current) use of anticoagulants; Z51.81 Encounter for therapeutic drug level monitoring | CPT/HCPCS: 85610; 99211 ==

== ENCOUNTER 2023-01-01 10:16 | Outpatient (REF) | payer MEDICARE, SELFPAY ==
[2023-01-01 12:44] LABS: Alanine Aminotransferase 14 U/L (0-31); Aspartate Amino Transferase 16 U/L (5-31); Cholesterol 283 mg/dL; HDL Cholesterol 66 mg/dL; LDL Cholesterol Calculated 183 mg/dl; Triglycerides 170 mg/dL
== END 2023-01-01 10:17 | disposition home or self-care (01) ==
LOC: HO.HMGCLDS 10:16
PROVIDERS: PCP Internal Medicine; Visit Provider Internal Medicine
DX: E78.2 Mixed hyperlipidemia (principal); I48.19 Other persistent atrial fibrillation; Z51.81 Encounter for therapeutic drug level monitoring; Z79.01 Long term (current) use of anticoagulants
CPT/HCPCS: 36415; 80061; 84450; 84460; 85610; 99211

== ENCOUNTER 2023-01-12 09:47 | Outpatient (AMB) | payer MEDICARE, SELFPAY ==
--- NOTE | 2023-01-12 10:59 | A.OFFPC_ITS ---
Vital Signs 01/12/23 11:00 Height 5 ft 3.5 in Weight 242 lb BMI 42.2 BP 110/68 Blood Pressure Location Lt brachial Position Sitting Pulse 84 Pulse Source Pulse Oximeter Pulse Oximetry (%) 98 Oxygen Delivery Method Room Air Intake Visit Reasons: Follow up labs Intake Note: Pt is here to follow up on her recent lab work. Allergies metoprolol Adverse Reaction (Verified 08/04/23 13:31) Rash olmesartan [From Benicar] Adverse Reaction (Verified 08/04/23 13:31) Rash Medication List - Last Reconciled 01/12/23 by Norma Hinds MD cholecalciferol (vitamin D3) 50 mcg PO BID diltiazem HCl 240 mg PO BID 30 days duloxetine 60 mg PO DAILY ezetimibe 10 mg PO DAILY 30 days hydrochlorothiazide 25 mg PO DAILY 30 days warfarin (Jantoven) 5 mg See Protocol PO DAILY Tobacco use date assessed: 01/12/23 Fall risk assessment: No Falls in past year Last assessed Fall Risk: 01/12/23 HPI Follow up labs HPI Details 73-year-old lady here today for follow-u p on her recent labs. She has mixed dyslipidemia, currently taking only ezetimibe 10 mg once a day. Recent fasting labs however showed markedly elevated triglycerides and LDL cholesterol despite taking medication. 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 1. Little interest or pleasure in doing things: several days 2. Feeling down, depressed, or hopeless: several days 3. Trouble falling or staying asleep, or sleeping too much: not at all 4. Feeling tired or having little energy: several days 5. Poor appetite or overeating: not at all 6. Feeling bad about yourself - or that you are a failure or have let yourself or your family down: not at all 7. Trouble concentrating on things, such as reading the newspaper or watching television: several days 8. Moving or speaking so slowly that other people could have noticed. Or the opposite - being so fidgety or restless that you have been moving around a lot more than usual: not at all 9. Thoughts that you would be better off or of hurting yourself in some way: not at all Total score: 4 Depression Screening Interpretation: Positive Depression Screening Follow-up: Existing condition, In treatment and Community Mental Health Worker F/U 75026 - PHQ-9 Billing: Yes Source: Developed by Drs. Khris Stephenson, Muna Lopez, Preston Pace and colleagues, with an educational adam from [employer]. Thrive Questionnaire Declines Thrive assessment: No Date Thrive assessed: 01/12/23 I am a: Patient What is your living situation today?: I have a steady place to live Within the past 12 months, did the food you bought not last and you didn't have the money to get more?: Sometimes True Within the past 12 months, did you worry whether your food would run out before you got money to buy more?: Sometimes True Do you have trouble paying for medicines?: No Do you have trouble getting transportation to medical appointments?: No Do you have trouble paying your heating and electricity bill?: No Do you have trouble taking care of your child, family member or friend?: No Do you have trouble with day-to-day activities such as bathing, preparing meals, shopping, managing finances, etc.?: No Are you currently unemployed and looking for a job?: No Are you interested in more education?: No AUDIT C Alcohol Use Questionnaire (AUDIT-C) 1. How often do you have a drink containing alcohol?: Never 3. How often do you have six or more drinks on one occasion?: Never Total Score: 0 LINDSEY-7 AMB Questionnaire LINDSEY-7 Date LINDSEY - 7 assessed: 01/12/23 Feeling nervous, anxious, or on edge: 1 = Several days Not being able to stop or control worryin = Several days Worrying too much about different things: 1 = Several days Trouble relaxin = Not at all Being so restless that it is hard to sit still: 0 = Not at all Becoming easily annoyed or irritable: 1 = Several days Feeling afraid as if something awful might happen: 0 = Not at all Total LINDSEY-7 score (0-4 normal; 5-9 mild; 10-14 moderate; 15-21 severe): 4 Source: Developed by Drs. Khris Stephenson, Muna Lopez, Preston Pace and colleagues, with an educational adam from [employer]. LINDSEY-7 Assessment Billing LINDSEY-7 Assessment Tool: LINDSEY-7 Assessment 66522 Review of Systems Const All systems reviewed & are unremarkable except as noted in HPI and below Denies headache(s) and Denies weakness ENT Reports no additional complaints, Denies dizziness and Denies headache(s) Card Denies chest pain, Denies chest pain with activity, Denies rapid heart rate, Denies pedal edema, Denies lightheadedness, Denies palpitations, Denies dyspnea and Denies dyspnea on exertion Resp Denies cough, Denies dyspnea and Denies dyspnea on exertion GI Denies abdominal pain, Denies change in bowel habits and Denies heartburn Musc Denies muscle weakness, Denies numbness, Denies radiating pain into limb, Reports stiffness and Denies tingling Neuro Denies dizziness, Denies headache(s), Denies numbness, Denies tingling and Denies weakness Psych Reports no additional complaints Endo Denies palpitations Physical exam (Primary Care) Vital Signs: Last Vital Signs Pulse 84 01/12/23 11:00 BP 110/68 01/12/23 11:00 Pulse Ox 98 01/12/23 11:00 Oxygen Delivery Method Room Air 01/12/23 11:00 BMI result Body Mass Index 42.2 BMI Assessment/Plan discussion: High Tobacco/Smoking Status: Tobacco use Status Tobacco use date assessed 01/12/23 01/12/23 11:03 Patient Tobacco Use Status Former Tobacco user 01/12/23 11:03 Tobacco use type Cigarette 01/12/23 11:03 e-Cigarette/Vaping Use Never Used 01/12/23 11:03 PHQ-9: PHQ-9 Score PHQ-9: Total score 6 01/12/23 11:40 Depression Screening Interpretation: Positive Depression Screening Follow-up: Existing condition, In treatment and Community Mental Health Worker F/U Thrive Assessment: Date of Thrive Assessment Date Thrive assessed 01/12/23 01/12/23 11:05 Const Other: Alert elderly female, no acute distress noted ambulatory normal gait Orientation/consciousness: patient oriented x3 HENMT Head: Yes normocephalic General nose exam: Normal external nose present and No nasal discharge present Face and sinus: Yes face symmetric Mouth: Normal oral and palatal mucosa present and moist mucous membranes Eyes General: appearance normal, both eyes and all related structures Neck Other: Supple, no lymphadenopathy, thyroid gland nonpalpable Resp Auscultation: clear to auscultation bilaterally Cardio Other: Irregularly irregular rhythm noted GI Palpation (GI): Soft to palpation, nontender, no guarding and no masses Auscultation: normal bowel sounds Back/Spine/Pelvis Back: No back tenderness Neuro General: patient oriented x3, gait normal, tone normal, Normal light touch and pain sensation, no focal motor deficits and CN's II-XI intact bilaterally Extrem General: Yes full ROM, Yes no joint enlargement, Yes no pedal edema and Yes normal gait Psych Appearance: grossly normal and well kempt Mental Status: mental status grossly normal Speech and movement: Normal speech and movement present Affect: normal affect Thought process: Normal thought process present Results Reviewed Results Reviewed: Name: Melissa Benson Age/Sex: 72/F : 1950 Unit#: [id number] Attend Dr: Norma Hinds MD Re01/01/23 Status: DEP REF Location: [facility] Disch: SPEC : [id number] MARKEL: 01/01/23 STATUS: COMP REQ : [id number] RECD: 01/01/[address]: Norma Hinds MD COMP: 01/01/23 ENTERED: 01/01/[address]: ORDERED: AST, ALT, Lipid Panel Test Result Flag Reference Site AST (GOT) 16 5-31 U/L ALT (GPT) 14 0-31 U/L Triglyceride 170 mg/dL Desirable Triglyceride: less than 150 mg/dL Borderline High Triglyceride 150-199 mg/dL High Triglyceride: 200-499 mg/dL Very High Triglyceride: greater than or equal to 5OO mg/dL Chol 283 mg/dL Desirable Cholesterol: less than 200 mg/dL Borderline High Cholesterol: 200-239 mg/dL High Cholesterol: greater than 239 mg/dL LDL Calculated 183 mg/dl Desirable LDL: less than 100 mg/dL Near Optimal/Above Optimal LDL: 110-129 mg/dL Borderline High LDL: 130-159 mg/dL High LDL: 160-189 mg/dL Very High LDL: greater than or equal to 190 mg/dL HDL 66 mg/dL Desirable HDL: greater than 40 mg/dL Assessment and Plan Assessment & Plan (1) Mixed dyslipidemia: Code(s): E78.2 - Mixed hyperlipidemia Plan: Discontinued ezetimibe, will switch to rosuvastatin 5 mg 1 tablet once a day. Reinforced adherence to healthy eating habits and getting regular exercise. 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 of anticoagulants, F41.9 - Anxiety disorder, unspecified, I48.19 - Other persistent atrial fibrillation, E78.2 - Mixed hyperlipidemia, N95.9 - Unspecified menopausal and perimenopausal disorder Alanine Aminotransferase 03/27/23 Z79.01 - [facility] (current) use of anticoagulants, F41.9 - Anxiety disorder, unspecified, I48.19 - Other persistent atrial fibrillation, E78.2 - Mixed hyperlipidemia, N95.9 - Unspecified menopausal and perimenopausal disorder Vitamin D 25-OH Total 03/27/23 Z79.01 - [facility] (current) use of anticoagulants, F41.9 - Anxiety disorder, unspecified, I48.19 - Other persistent atrial fibrillation, E78.2 - Mixed hyperlipidemia, N95.9 - Unspecified menopausal and perimenopausal disorder Complete Blood Count Auto Diff 03/27/23 Z79.01 - [facility] (current) use of anticoagulants, F41.9 - Anxiety disorder, unspecified, I48.19 - Other persistent atrial fibrillation, E78.2 - Mixed hyperlipidemia, N95.9 - Unspecified menopausal and perimenopausal disorder Medications: New rosuvastatin 5 mg PO DAILY 30 tabs 5RF E78.2 - Mixed hyperlipidemia, I48.19 - Other persistent atrial fibrillation Refilled duloxetine 60 mg PO DAILY 90 caps 1RF Coding Level of Care Code Est Pt Level 3 (05007) Diagnoses Mixed dyslipidemia E78.2 Persistent atrial fibrillation I48.19 Anticoagulant long-term use Z79.01 Additional Codes LINDSEY-7 Assessment Billing - LINDSEY-7 Assessment Tool: LINDSEY-7 Assessment 02123 ([id number])
[2023-01-12 11:00] VITALS: BP 110/68; PULSE 84; O2SAT 98; BMI 42.2
== END 2023-01-12 12:28 | disposition home or self-care (01) ==
LOC: HO.HMGC 09:48
PROVIDERS: PCP Internal Medicine; Visit Provider Internal Medicine
DX: E78.2 Mixed hyperlipidemia (principal); I48.19 Other persistent atrial fibrillation; Z79.01 Long term (current) use of anticoagulants
CPT/HCPCS: 99213

== ENCOUNTER → 2023-01-22 13:02 | Outpatient (BNVA) | payer MEDICARE, SELFPAY | PROVIDERS: PCP Internal Medicine; Visit Provider Internal Medicine | DX: I48.19 Other persistent atrial fibrillation (principal); Z79.01 Long term (current) use of anticoagulants; Z51.81 Encounter for therapeutic drug level monitoring | CPT/HCPCS: 85610; 99211 ==

== ENCOUNTER 2023-02-04 13:04 | Outpatient (REF) | payer MEDICARE, SELFPAY ==
[2023-02-04 14:08] LABS: INTERNATIONAL NORM RATIO 2.4 (0.9-1.1)
== END 2023-02-04 13:05 | disposition home or self-care (01) ==
LOC: HO.LAB 13:04
PROVIDERS: PCP Internal Medicine; Referring Provider Nurse Practitioner Family; Visit Provider Internal Medicine
DX: I48.19 Other persistent atrial fibrillation (principal); Z51.81 Encounter for therapeutic drug level monitoring; Z79.01 Long term (current) use of anticoagulants
CPT/HCPCS: 36415; 85610; 99211

== ENCOUNTER → 2023-02-10 12:58 | Outpatient (BNVA) | payer MEDICARE, SELFPAY | PROVIDERS: PCP Internal Medicine; Referring Provider Internal Medicine; Visit Provider Nurse Practitioner Family | DX: I48.20 Chronic atrial fibrillation, unspecified (principal); Z79.01 Long term (current) use of anticoagulants | CPT/HCPCS: 99212 ==

== ENCOUNTER → 2023-03-04 13:01 | Outpatient (BNVA) | payer MEDICARE, SELFPAY | PROVIDERS: PCP Internal Medicine; Visit Provider Internal Medicine | DX: I48.19 Other persistent atrial fibrillation (principal); Z79.01 Long term (current) use of anticoagulants; Z51.81 Encounter for therapeutic drug level monitoring | CPT/HCPCS: 85610; 99211 ==

== ENCOUNTER 2023-03-30 10:26 | Outpatient (REF) | payer MEDICARE, SELFPAY ==
[2023-03-30 11:20] LABS: MANUAL DIFF FLAG NO
[2023-03-30 11:38] LABS: Basophils Absolute Auto 0.1 X10*3/uL (0.0-0.2); Basophils Percent Auto 0.7 % (0-2); Eosinophils Absolute Auto 0.2 X10*3/uL (0.0-0.4); Hemoglobin 14.8 g/dl (12.0-16.0); Imm Gran Abs Auto 0.03 X10*3/uL (0.00-0.03); Imm Gran Pct Auto 0.3 % (0.0-0.4); Lymphocytes Absolute Auto 2.8 X10*3/uL (1.2-4.9); Lymphocytes Percent Auto 28.9 % (20-40); Mean Corpuscular HGB Conc 32.2 g/dl (31.0-35.0); Mean Corpuscular Hemoglobin 29.8 pg (27.0-33.0); Mean Corpuscular Volume 92.7 fL (80.0-98.0); Mean Platelet Volume 9.5 fL (9.4-12.3); Monocytes Absolute Auto 0.8 X10*3/uL (0.1-1.2); Monocytes Percent Auto 8.6 % (2-11); Neutrophils Absolute Auto 5.8 x10*3/uL (2.0-8.3); Neutrophils Percent Auto 59.5 % (45-73); Platelet Count 389 X10*3/uL (160-400); Red Blood Count 4.96 X10*6/uL (4.20-5.50); White Blood Count 9.8 X10*3/uL (4.8-10.8)
[2023-03-30 12:14] LABS: Alanine Aminotransferase 12 U/L (0-31); Anion Gap 20 (12-20); Aspartate Amino Transferase 13 U/L (5-31); Blood Urea Nitrogen 19 mg/dL (9-16); Calcium 9.8 mg/dL (8.4-10.2); Carbon Dioxide 27 mmol/L (22-29); Chloride 100 mmol/L (96-108); Cholesterol 208 mg/dL; Estimated Glomerular Filt Rate 42; Glucose Fasting 120 mg/dL (60-99); HDL Cholesterol 66 mg/dL; LDL Cholesterol Calculated 113 mg/dl; Potassium 4.2 mmol/L (3.3-5.1); Sodium 143 mmol/L (135-145); Triglycerides 148 mg/dL
[2023-03-30 12:18] LABS: Vitamin D 25-OH Total 44.7 ng/mL (>30)
== END 2023-03-30 10:27 | disposition home or self-care (01) ==
LOC: HO.HMGCLDS 10:26
PROVIDERS: PCP Internal Medicine; Visit Provider Internal Medicine
DX: E78.2 Mixed hyperlipidemia (principal); F41.9 Anxiety disorder, unspecified; I48.19 Other persistent atrial fibrillation; N95.9 Unspecified menopausal and perimenopausal disorder; Z79.01 Long term (current) use of anticoagulants
CPT/HCPCS: 36415; 80048; 80061; 82306; 84450; 84460; 85025

== ENCOUNTER → 2023-04-03 13:30 | Outpatient (BNVA) | payer MEDICARE, SELFPAY | PROVIDERS: PCP Internal Medicine; Visit Provider Internal Medicine | DX: I48.19 Other persistent atrial fibrillation (principal); Z79.01 Long term (current) use of anticoagulants; Z51.81 Encounter for therapeutic drug level monitoring | CPT/HCPCS: 85610; 99211 ==

== ENCOUNTER → 2023-05-01 13:07 | Outpatient (BNVA) | payer MEDICARE, SELFPAY | PROVIDERS: PCP Internal Medicine; Visit Provider Internal Medicine | DX: I48.19 Other persistent atrial fibrillation (principal); Z79.01 Long term (current) use of anticoagulants; Z51.81 Encounter for therapeutic drug level monitoring | CPT/HCPCS: 85610; 99211 ==

== ENCOUNTER 2023-06-02 12:54 | Outpatient (REF) | payer MEDICARE, SELFPAY ==
--- NOTE | ~2023-06-02 | MM_ITS ---
EXAMINATION: MM SCREENING DIGITAL BREAST TOMOSYNTHESIS, BILATERAL CLINICAL INFORMATION: Screening. Asymptomatic. The lifetime risk of breast cancer based on the Tyrer-Cuzick Model is 6.6%. COMPARISON: Mammography: 05/28/2022 TECHNIQUE: Digital breast tomosynthesis is performed in both the craniocaudal and mediolateral oblique views along with computer-aided detection (CAD). Synthesized 2D images are generated from the tomosynthesis. FINDINGS: The breasts are almost entirely fatty (ACR BI-RADS breast composition Category a). There are no suspicious masses, no suspicious grouped calcifications, or areas of architectural distortion. There are mild benign vascular calcifications. There are a few scattered benign skin calcifications. MM/MM tomosynthesis screening BI IMPRESSION: No mammographic evidence of malignancy. ASSESSMENT: BI-RADS BI-RADS 2 - Benign Findings RECOMMENDATION: Routine annual mammography screening. 1 year F/U This examination should not preclude the clinical evaluation of a suspicious palpable abnormality. This patient's information was entered into a reminder system with a target due date for their next mammogram.
--- NOTE | ~2023-06-02 | MM_ITS ---
EXAMINATION: BONE DENSITOMETRY CLINICAL INDICATION: Screening. COMPARISON: This is the patient's baseline examination. TECHNIQUE: Using a Geek[employer] DXA System (software version: 13.1) manufactured by [employer], dual-energy x-ray absorptiometry was performed of the lumbar spine and left hip. The images are of good technical quality. Summary results are attached. FINDINGS: LEFT FEMUR, NECK: BMD 0.695 g/cm2, Z-score -1.4, T-score -2.5, osteoporosis. LEFT FEMUR, TOTAL: BMD 0.705 g/cm2, Z-score -1.6, T-score -2.4, osteopenia. AP SPINE L1-L4: BMD 1.179 g/cm2, Z-score 0.6, T-score 0.0, normal. IDENTIFIED RISK FACTORS: Menopause, recurrent falls. HISTORY OF FRACTURE: None listed. MEDICATIONS: Vitamin D. MM/XR DEXA axial skeleton IMPRESSION: 1. DIAGNOSIS: Osteoporosis based on the lowest T-score value of -2.5 in the femoral neck applying World Health Organization criteria. 2. 10-YEAR FRACTURE RISK PREDICTION, FRAX: According to the guidelines, FRAX calculation should only be performed on patients in the osteopenia bone density category. Therefore, FRAX was not performed on this patient. 3. Treatment Recommendations: NOF guidelines recommend consideration for treatment in postmenopausal women and men age 50 and older presenting with the following: -A hip or vertebral (clinical or morphometric) fracture. -T-score less than or equal to -2.5 at the femoral neck or spine after appropriate evaluation to exclude secondary causes. -Low bone mass at the hip or spine and a 10-year fracture probability by FRAX of greater than or equal to 3% for hip fracture or greater than or equal to 20% for major osteoporotic fracture based on the [place] adapted WHO algorithm. 4. Other Recommendations: All treatment decisions require clinical judgment and consideration of individual patient factors, including patient preferences, comorbidities, previous drug use, risk factors not captured in the FRAX model (e.g. frailty, falls, vitamin D deficiency, increased bone turnover, interval significant decline in bone density) and possible under or overestimation of fracture risk by FRAX. Additional medical evaluation for secondary cause of low bone mineral density may be appropriate. FUTURE SCAN RECOMMENDATION: People with diagnosed cases of osteoporosis or at high risk for fracture should have regular bone mineral density tests. For patients eligible for Medicare, routine testing is allowed once every 2 years. The testing frequency can be increased to one year for patients who have rapidly progressing disease, those who are receiving or discontinuing medical therapy to restore bone mass, or have additional risk factors.
== END 2023-06-02 12:55 | disposition home or self-care (01) ==
LOC: HO.MAMMO 12:54
PROVIDERS: PCP Internal Medicine; Visit Provider Internal Medicine
DX: Z12.31 Encounter for screening mammogram for malignant neoplasm of breast (principal); Z13.820 Encounter for screening for osteoporosis; Z78.0 Asymptomatic menopausal state
CPT/HCPCS: 77063; 77067; 77080

== ENCOUNTER → 2023-06-02 13:15 | Outpatient (BNV) | payer MEDICARE, SELFPAY | PROVIDERS: PCP Internal Medicine; Visit Provider Radiology Diagnostic Radiology | DX: Z12.31 Encounter for screening mammogram for malignant neoplasm of breast (principal) | CPT/HCPCS: 77063; 77067 ==

== ENCOUNTER 2023-06-08 13:04 | Outpatient (AMB) | payer MEDICARE, SELFPAY ==
--- NOTE | 2023-06-08 13:12 | MHC.OFFVISCO ---
Intake Intake Visit Reasons: Anticoagulation Allergies metoprolol Adverse Reaction (Verified 06/08/23 13:08) Rash olmesartan [From Benicar] Adverse Reaction (Verified 06/08/23 13:08) Rash Medication List - Last Reconciled 06/08/23 by Lynda Liu RN cholecalciferol (vitamin D3) 50 mcg PO BID diltiazem HCl 240 mg PO BID 90 days duloxetine 60 mg PO DAILY hydrochlorothiazide 25 mg PO DAILY 90 days rosuvastatin 5 mg PO DAILY warfarin (Chapintoven) 5 mg See Protocol PO DAILY Nursing Note INR: 2.7- in therapeutic range Medications and supplements reviewed- no changes No changes in health, diet, medications, or supplements, Denies any signs and symptoms of bleeding or bruising or clotting. Bleeding, bruising, clotting discussed Nutritional guidance given Dose: 7.5mg x 2, 5mg x 5 F/U INR: 4 weeks Patient verbalizes understanding of instructions given Anti-Coag Initial Assessment Social Hx Patient Tobacco Use Status: Former Tobacco user Tobacco use type: Cigarette alcohol intake: current Alcohol intake frequency: holidays/special occasions only Cardiovascular Hx: HTN and Arrhythmias Musculoskeletal Hx: Arthritis Blood Disorder Hx: Other (mixed dyslipidemia) GI Hx: Diverticulosis and Hemorrhoids Hx: Bladder Disorders (urinary incont) Cancer HX: No Psych. 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
[2023-06-08 13:13] LABS: Prothrombin Time Whole Bld POC 32.8 sec (11.1-13.5); ~PT, ~INR - Anti Coag Clinic 2.7 (0.9-1.1)
== END 2023-06-08 13:17 | disposition home or self-care (01) ==
LOC: HO.ACS 13:05
PROVIDERS: PCP Internal Medicine; Visit Provider Internal Medicine
DX: Z79.01 Long term (current) use of anticoagulants (principal)

== ENCOUNTER → 2023-06-08 13:04 | Outpatient (BNVA) | payer MEDICARE, SELFPAY | PROVIDERS: PCP Internal Medicine; Visit Provider Internal Medicine | DX: I48.19 Other persistent atrial fibrillation (principal); Z51.81 Encounter for therapeutic drug level monitoring; Z79.01 Long term (current) use of anticoagulants | CPT/HCPCS: 85610; 99211 ==

== ENCOUNTER 2023-08-04 12:52 | Outpatient (AMB) | payer MEDICARE, SELFPAY ==
--- NOTE | 2023-08-04 13:18 | MHC.PC.OV ---
Vital Signs 08/04/23 13:19 Height 5 ft 3.5 in Weight 243 lb BMI 42.4 BP 130/72 Blood Pressure Location Rt radial Position Sitting Pulse 69 Pulse Source Pulse Oximeter Pulse Oximetry (%) 95 Oxygen Delivery Method Room Air Intake Visit Reasons: 4m lipids,anxiety,htn Intake Note: Pt is here today for her f/u HTN Allergies metoprolol Adverse Reaction (Verified 08/04/23 13:31) Rash olmesartan [From Benicar] Adverse Reaction (Verified 08/04/23 13:31) Rash Medication List - Last Reconciled 08/04/23 by Norma Hinds MD cholecalciferol (vitamin D3) 50 mcg PO BID diltiazem HCl 240 mg PO BID 90 days duloxetine 60 mg PO DAILY hydrochlorothiazide 25 mg PO DAILY 90 days rosuvastatin 5 mg PO DAILY warfarin (Jantoven) 5 mg See Protocol PO DAILY Tobacco use date assessed: 08/04/23 Fall risk assessment: No Falls in past year Last assessed Fall Risk: 08/04/23 Dental Screening Dental Screen Date: 08/04/23 Did you have a dental visit in the last 12 months?: No Was dental information given to patient?: Patient declined HPI 4m lipids,anxiety,htn HPI Details 73-year-old lady with history of persistent atrial fibrillation currently on Coumadin, here today for follow-up on her mixed dyslipidemia , hypertension and anxiety disorder. She is currently taking diltiazem 240 mg daily, hydrochlorothiazide 25 mg daily rosuvastatin 5 mg daily and duloxetine 60 mg daily. She has been following recommended diet, forgot to get her fasting labs done prior to today's visit however. She had her baseline bone density scan done which showed presence of osteoporosis in her left femoral neck, osteopenia in her left femur and normal bone density in her spine . Has she has no history of fractures or frequent falls. [facility], [facility] Medical History (Updated 08/05/23 @ 00:29 by Norma Hinds MD) Osteoporosis Blurred vision, bilateral Family history of colon cancer in father Anxiety disorder Persistent atrial fibrillation Anticoagulant long-term use Social History Household Members: Spouse and Children Housing: Apartment Alcohol intake: current Alcohol intake frequency: holidays/special occasions only Alcohol type: wine Patient Tobacco Use Status: Former Tobacco user Tobacco use type: Cigarette e-Cigarette/Vaping Use: Never Used service: No Current occupational status: retired 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 1. Little interest or pleasure in doing things: not at all 2. Feeling down, depressed, or hopeless: several days 3. Trouble falling or staying asleep, or sleeping too much: several days 4. Feeling tired or having little energy: several days 5. Poor appetite or overeating: not at all 6. Feeling bad about yourself - or that you are a failure or have let yourself or your family down: not at all 7. Trouble concentrating on things, such as reading the newspaper or watching television: not at all 8. Moving or speaking so slowly that other people could have noticed. Or the opposite - being so fidgety or restless that you have been moving around a lot more than usual: not at all 9. Thoughts that you would be better off or of hurting yourself in some way: not at all Total score: 3 Depression Screening Interpretation: Positive Depression Screening Follow-up: Existing condition and In treatment 72175 - PHQ-9 Billing: Yes Source: Developed by Drs. Khris Stephenson, Muna Lopez, Preston Pace and colleagues, with an educational adam from [employer]. Thrive Questionnaire Date Thrive assessed: 01/12/23 AUDIT C Alcohol Use Questionnaire (AUDIT-C) 1. How often do you have a drink containing alcohol?: Never Total Score: 0 LINDSEY-7 AMB Questionnaire LINDSEY-7 Date LINDSEY - 7 assessed: 08/04/23 Feeling nervous, anxious, or on edge: 0 = Not at all Not being able to stop or control worryin = Not at all Worrying too much about different things: 0 = Not at all Trouble relaxin = Not at all Being so restless that it is hard to sit still: 0 = Not at all Becoming easily annoyed or irritable: 0 = Not at all Feeling afraid as if something awful might happen: 0 = Not at all Total LINDSEY-7 score (0-4 normal; 5-9 mild; 10-14 moderate; 15-21 severe): 0 Source: Developed by Drs. Khris Stephenson, Muna Lopez, Preston Pace and colleagues, with an educational adam from [employer]. LINDSEY-7 Assessment Billing LINDSEY-7 Assessment Tool: LINDSEY-7 Assessment 45702 Review of Systems Const Denies daytime sleepiness, Denies fever(s), Denies frequent falls, Denies headache(s), Denies lethargy, Denies night sweats and Denies weakness Eyes Reports change in vision and Reports other (has cataracts) ENT Denies headache(s) Card Denies chest pain, Denies chest pain with activity, Denies syncope, Denies rapid heart rate, Denies pedal edema, Denies lightheadedness, Denies palpitations and Denies dyspnea Resp Denies cough and Denies dyspnea GI Denies abdominal pain, Denies melena, Denies bloating, Denies hematochezia and Denies change in bowel habits Reports no additional complaints Musc Denies muscle weakness, Denies numbness and Denies tingling Neuro Denies syncope, Denies frequent falls, Denies headache(s), Denies numbness, Denies tingling and Denies weakness Psych Reports no additional complaints Endo Denies palpitations Dale/Lymph Reports no additional complaints Aller/Immun Reports no additional complaints Physical exam (Primary Care) Vital Signs: Last Vital Signs Pulse 69 08/04/23 13:19 BP 130/72 08/04/23 13:19 Pulse Ox 95 08/04/23 13:19 Oxygen Delivery Method Room Air 08/04/23 13:19 BMI result Body Mass Index 42.4 BMI Assessment/Plan discussion: High Tobacco/Smoking Status: Tobacco use Status Tobacco use date assessed 08/04/23 08/04/23 13:26 Patient Tobacco Use Status Former Tobacco user 08/04/23 13:19 Tobacco use type Cigarette 08/04/23 13:19 e-Cigarette/Vaping Use Never Used 08/04/23 13:19 Depression Screening Interpretation: Positive Depression Screening Follow-up: Existing condition and In treatment Thrive Assessment: Date of Thrive Assessment Date Thrive assessed 01/12/23 08/04/23 13:19 Const Other: Alert elderly female, no acute distress noted ambulatory normal gait Orientation/consciousness: patient oriented x3 HENNJ Head: Yes normocephalic General nose exam: Normal external nose present and No nasal discharge present Face and sinus: Yes face symmetric Mouth: Normal oral and palatal mucosa present and moist mucous membranes Eyes General: appearance normal, both eyes and all related structures Neck Other: Supple, no lymphadenopathy, thyroid gland nonpalpable Resp Auscultation: clear to auscultation bilaterally Cardio Other: Irregularly irregular rhythm noted GI Palpation (GI): Soft to palpation, nontender, no guarding and no masses Auscultation: normal bowel sounds Back/Spine/Pelvis Back: No back tenderness Neuro General: patient oriented x3, gait normal, tone normal, Normal light touch and pain sensation, no focal motor deficits and CN's II-XI intact bilaterally Extrem General: Yes full ROM, Yes no joint enlargement, Yes no pedal edema and Yes normal gait Psych Appearance: grossly normal and well kempt Mental Status: mental status grossly normal Speech and movement: Normal speech and movement present Affect: normal affect Attitude: cooperative Thought process: Normal thought process present Assessment and Plan Assessment & Plan (1) Osteoporosis: Code(s): M81.0 - Age-related osteoporosis without current pathological fracture Qualifiers: Osteoporosis type: age-related Presence of current pathological fracture: without current pathological fracture Qualified Code(s): M81.0 - Age-related osteoporosis without current pathological fracture Plan: Results of latest bone density scan discussed with patient which showed presence of osteoporosis in left femoral neck, osteopenia left femur will bone density in her lumbar spine. Advised to continue taking adequate calcium from dietary sources and continue with taking vitamin-D 3 supplements at least 2000 units daily. Other treatment options discussed with patient which includes alendronate. Patient however states that she could not stay upright for an hour after taking that medicine due to her bad back, will refer to endocrine clinic to discuss other treatment options other than alendronate. (2) Anxiety disorder: Code(s): F41.9 - Anxiety disorder, unspecified Qualifiers: Anxiety disorder type: generalized anxiety disorder Qualified Code(s): F41.1 - Generalized anxiety disorder Plan: Stable and controlled on duloxetine, will continue. (3) Mixed dyslipidemia: Code(s): E78.2 - Mixed hyperlipidemia Plan: Reminded to get her fasting labs done, already ordered In the meantime will continue with rosuvastatin 5 mg daily, adherence to healthy eating habits again reinforced. Orders: Referrals Endocrinology Referral M81.0 - Age-related osteoporosis without current pathological fracture Coding Level of Care Code Est Pt Level 4 (27706) Diagnoses Age-related osteoporosis without current pathological fracture M81.0 Osteoporosis type: age-related Presence of current pathological fracture: without current pathological fracture Generalized anxiety disorder F41.1 Anxiety disorder type: generalized anxiety disorder Mixed dyslipidemia E78.2 Additional Codes LINDSEY-7 Assessment Billing - LINDSEY-7 Assessment Tool: LINDSEY-7 Assessment 29345 ([id number])
[2023-08-04 13:19] VITALS: BP 130/72; PULSE 69; O2SAT 95; BMI 42.4
== END 2023-08-04 13:50 | disposition home or self-care (01) ==
PROVIDERS: Visit Provider Internal Medicine
DX: M81.0 Age-related osteoporosis without current pathological fracture (principal); F41.1 Generalized anxiety disorder; E78.2 Mixed hyperlipidemia
CPT/HCPCS: 99214

== ENCOUNTER 2023-08-13 13:12 | Outpatient (AMB) | payer MEDICARE, SELFPAY ==
--- NOTE | 2023-08-13 13:15 | A.OFFVIS_ITS ---
Intake Vital Signs 08/13/23 13:16 08/13/23 15:39 Height 5 ft 3.5 in Weight 241 lb 2.971 oz BMI 42.0 BP 130/72 120/72 Blood Pressure Location Lt brachial Position Sitting Pulse 115 H 86 Pulse Source Pulse Oximeter Intake Visit Reasons: 6 MON FUP Extension Course Coordinator Required: No Allergies metoprolol Adverse Reaction (Verified 08/13/23 13:22) Rash olmesartan [From Benicar] Adverse Reaction (Verified 08/13/23 13:22) Rash Medication List - Last Reconciled 08/13/23 by Kajal Ledbetter NP-C cholecalciferol (vitamin D3) 50 mcg PO BID diltiazem HCl 240 mg PO BID 90 days duloxetine 60 mg PO DAILY hydrochlorothiazide 25 mg PO DAILY 90 days rosuvastatin 5 mg PO DAILY warfarin (Jantoven) 5 mg See Protocol PO DAILY HPI 6 MON FUP HPI Details Melissa is a 73-year-old female with past medical history of hypertension, hyperlipidemia, chronic atrial fibrillation who presents for follow-up. Today she reports that she has been doing well since her last visit 6 months ago. She denies any heart palpitations. No chest discomfort at rest or with activity. She has some shortness of breath with activity which is not new. She has not been able to lose weight. She ambulates with a cane. No presyncope, syncope, falls. No PND, orthopnea or edema. No bleeding issues reported. Taking meds as directed. She has interest in switching from Coumadin to Eliquis. 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 Current occupational exposures/hazards: No Cognitive needs: No Hearing needs: No Vision needs: No Review of Systems Const All systems reviewed & are unremarkable except as noted in HPI and below ENT Denies dizziness Card Denies chest pain, Denies chest pain at rest, Denies chest pain with activity, Denies rapid heart rate, Denies pedal edema, Denies edema, Denies leg edema, Denies lightheadedness, Denies palpitations, Denies dyspnea, Denies dyspnea on exertion and Denies orthopnea Resp Denies cough, Denies dyspnea and Denies dyspnea on exertion GI Denies hematochezia and Denies change in stool character Musc Denies abnormal gait, Denies limited range of motion, Denies muscle cramps, Denies muscle weakness, Denies numbness, Denies radiating pain into limb, Denies stiffness and Denies tingling Neuro Denies abnormal gait, Denies dizziness, Denies numbness and Denies tingling Endo Denies palpitations Physical Exam Vital Signs: Last Vital Signs Pulse 86 08/13/23 15:39 BP 120/72 08/13/23 15:39 BMI result Body Mass Index 42.0 Const General: cooperative, healthy appearing, comfortable and no acute distress Orientation/consciousness: patient oriented x3 Neck Neck: Yes normal visual inspection Resp Effort & Inspection: normal respiratory effort Auscultation: clear to auscultation bilaterally, no crackles, no rales, no rhonchi and no wheezes Cardio Jugular venous distension: no JVD Rate: regular rate Rhythm: regular rhythm Heart sounds: S1 normal heart sound present, S2 normal heart sound present, no murmurs and no rubs Neuro General: patient oriented x3 Extrem General: Yes normal to inspection Psych Appearance: grossly normal Mental Status: mental status grossly normal Speech and movement: Normal speech and movement present Office Procedures EKG Details: Today, read by me, atrial fibrillation with rapid ventricular response, right axis, ST and T-wave abnormality inferior lateral leads, no significant change f rom prior with the exception of heart rate. QTC 4 9 millisecond [id number], Complete Assessment & Plan Assessment & Plan (1) Chronic atrial fibrillation: Code(s): I48.20 - Chronic atrial fibrillation, unspecified Plan: History of chronic atrial fibrillation. She is being treated with heart rate control using diltiazem. She had been on metoprolol in the past is tells me she did not feel well with fatigue. EKG done today showing AFib, rate 115. She tells me that when she 1st came into the office she was angry over the new check in system. Pulse recheck done by me in the office and when ambulating to the check out area her heart rate was in the 80s. She reports compliance with her diltiazem. Considered adding digoxin however with improvement in her heart rate will hold off at this time. She tells me that she is mostly sedentary and does not notice heart palpitations. She is on Coumadin for anticoagulation. She did check with her insurance and is now interested in switching over to Eliquis. Will send script to her pharmacy. Instructed to start Eliquis when INR is less than 2. She will work with the anticoagulation clinic on this. Last Echocardiogram done 05/09/2022 showed EF 55-60%, mild biatrial enlargement. Holter monitor done 05/21/2022 for 3 days shows atrial fibrillation with average heart rate 75, max heart rate 174, frequent PVCs, 5.6% of the time with two 3 beat salvos of NSVT. 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
[2023-08-13 13:16] VITALS: BP 130/72; PULSE 115; BMI 42.0
[2023-08-13 15:39] VITALS: BP 120/72; PULSE 86
== END 2023-08-13 13:40 | disposition home or self-care (01) ==
PROVIDERS: PCP Internal Medicine; Visit Provider Nurse Practitioner Family
DX: I48.20 Chronic atrial fibrillation, unspecified (principal); Z79.01 Long term (current) use of anticoagulants
CPT/HCPCS: 93010; 99213

== ENCOUNTER → 2023-08-13 13:12 | Outpatient (BNVA) | payer MEDICARE, SELFPAY | PROVIDERS: PCP Internal Medicine; Visit Provider Nurse Practitioner Family | DX: I48.20 Chronic atrial fibrillation, unspecified (principal); Z79.01 Long term (current) use of anticoagulants | CPT/HCPCS: 93005; 99212 ==

== ENCOUNTER 2023-09-07 13:02 | Outpatient (AMB) | payer MEDICARE, SELFPAY ==
[2023-09-07 13:11] LABS: Prothrombin Time Whole Bld POC 33.7 sec (11.1-13.5); ~PT, ~INR - Anti Coag Clinic 2.8 (0.9-1.1)
--- NOTE | 2023-09-07 13:19 | MHC.OFFVISCO ---
Intake Intake Visit Reasons: Anticoagulation Allergies metoprolol Adverse Reaction (Verified 09/07/23 13:06) Rash olmesartan [From Benicar] Adverse Reaction (Verified 09/07/23 13:06) Rash Medication List - Last Reconciled 09/07/23 by Carine Watt RN cholecalciferol (vitamin D3) 50 mcg PO BID diltiazem HCl 240 mg PO BID 90 days duloxetine 60 mg PO DAILY hydrochlorothiazide 25 mg PO DAILY 90 days rosuvastatin 5 mg PO DAILY warfarin (Jantoven) 5 mg See Protocol PO DAILY Nursing Note INR: 2.8 in therapeutic range Medications and supplements reviewed No changes in health, diet, medications, or supplements, Denies any signs and symptoms of bleeding or bruising or clotting. Bleeding, bruising, clotting discussed Nutritional guidance given - EAT A MIX OF FRUITS AND VEGETABLES AND REVIEW THE FOOD LIST WEEKLY Dose: 7.5MG X 2 DAYS/ 5MG X 5 DAYS F/U INR: 1 MONTH Patient verbalizes understanding of instructions given SHE WAS GIVEN PHONE NUMBERS FOR [facility] [employer] SERVICE AND OTHER LOCAL AREAS SUCH [employer] [facility] [employer] AND [employer] SHE DID NOT FEEL HER SPOUSE SHOULD DRIVE. SHE IS GOING TO HOLD OFF ON DOAC UNTIL THEY BECOME GENERIC Anti-Coag Initial Assessment Social Hx Patient Tobacco Use Status: Former Tobacco user Tobacco use type: Cigarette alcohol intake: current Alcohol intake frequency: holidays/special occasions only Cardiovascular Hx: HTN and Arrhythmias Musculoskeletal Hx: Arthritis Blood Disorder Hx: Other (mixed dyslipidemia) GI Hx: Diverticulosis and Hemorrhoids Hx: Bladder Disorders (urinary incont) Cancer HX: No Psych. 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
== END 2023-09-07 13:22 | disposition home or self-care (01) ==
LOC: HO.ACS 13:02
PROVIDERS: PCP Internal Medicine; Visit Provider Internal Medicine
DX: Z79.01 Long term (current) use of anticoagulants (principal)

== ENCOUNTER → 2023-09-07 13:02 | Outpatient (BNVA) | payer MEDICARE, SELFPAY | PROVIDERS: PCP Internal Medicine; Visit Provider Internal Medicine | DX: I48.20 Chronic atrial fibrillation, unspecified (principal); Z79.01 Long term (current) use of anticoagulants; Z51.81 Encounter for therapeutic drug level monitoring | CPT/HCPCS: 85610; 99211 ==

== ENCOUNTER 2023-10-12 13:20 | Outpatient (AMB) | payer MEDICARE, SELFPAY ==
--- NOTE | 2023-10-12 13:29 | MHC.OFFVISCO ---
Intake Intake Visit Reasons: Anticoagulation Allergies metoprolol Adverse Reaction (Verified 10/12/23 13:22) Rash olmesartan [From Benicar] Adverse Reaction (Verified 10/12/23 13:22) Rash Medication List - Last Reconciled 10/12/23 by Carine Watt RN cholecalciferol (vitamin D3) 50 mcg PO BID diltiazem HCl 240 mg PO BID 90 days duloxetine 60 mg PO DAILY hydrochlorothiazide 25 mg PO DAILY 90 days rosuvastatin 5 mg PO DAILY warfarin (Novtoven) 5 mg See Protocol PO DAILY Nursing Note INR: 2.4 in therapeutic range Medications and supplements reviewed No changes in health, diet, medications, or supplements, Denies any signs and symptoms of bleeding or bruising or clotting. Bleeding, bruising, clotting discussed Nutritional guidance given Dose: 7.5MG X 2 DAYS / 5MG X 5 DAYS F/U INR: 1 MONTH Patient verbalizes understanding of instructions given Anti-Coag Initial Assessment Social Hx Patient Tobacco Use Status: Former Tobacco user Tobacco use type: Cigarette alcohol intake: current Alcohol intake frequency: holidays/special occasions only Cardiovascular Hx: HTN and Arrhythmias Musculoskeletal Hx: Arthritis Blood Disorder Hx: Other (mixed dyslipidemia) GI Hx: Diverticulosis and Hemorrhoids Hx: Bladder Disorders (urinary incont) Cancer HX: No Psych. Illness/Depression: Yes Coding Level of Care Code Est Patient Level 1 Results AMB INR Fingerstick AMB INR Fingerstick 2.4 Last Edit by Carine Watt RN on 10/12/23 13:28 INTERFACE EXPANSE FAILURE MANUAL ENTRY
[2023-10-13 08:13] LABS: Prothrombin Time Whole Bld POC 28.6 sec (11.1-13.5); ~PT, ~INR - Anti Coag Clinic 2.4 (0.9-1.1)
== END 2023-10-12 13:34 | disposition home or self-care (01) ==
LOC: HO.ACS 13:20
PROVIDERS: PCP Internal Medicine; Visit Provider Internal Medicine
DX: Z79.01 Long term (current) use of anticoagulants (principal)

== ENCOUNTER → 2023-10-12 13:20 | Outpatient (BNVA) | payer MEDICARE, SELFPAY | PROVIDERS: PCP Internal Medicine; Visit Provider Internal Medicine | DX: I48.20 Chronic atrial fibrillation, unspecified (principal); Z79.01 Long term (current) use of anticoagulants; Z51.81 Encounter for therapeutic drug level monitoring | CPT/HCPCS: 85610; 99211 ==

== ENCOUNTER 2023-11-18 13:00 | Outpatient (AMB) | payer MEDICARE, SELFPAY ==
--- NOTE | 2023-11-18 13:06 | MHC.OFFVISCO ---
Intake Intake Visit Reasons: Anticoagulation Allergies metoprolol Adverse Reaction (Verified 11/18/23 13:03) Rash olmesartan [From Benicar] Adverse Reaction (Verified 11/18/23 13:03) Rash Medication List - Last Reconciled 11/18/23 by Lynda Liu, RN cholecalciferol (vitamin D3) 50 mcg PO BID diltiazem HCl 240 mg PO BID 90 days duloxetine 60 mg PO DAILY hydrochlorothiazide 25 mg PO DAILY 90 days rosuvastatin 5 mg PO DAILY warfarin (Chapintoven) 5 mg See Protocol PO DAILY Nursing Note INR: 2.2- in therapeutic range of 2-3 Medications and supplements reviewed- no changes No changes in health, diet, medications, or supplements, Denies any signs and symptoms of bleeding or bruising or clotting. Bleeding, bruising, clotting discussed Nutritional guidance given Dose: 7.5mg x 2, 5mg x 5 F/U INR: 4 weeks Patient verbalizes understanding of instructions given Anti-Coag Initial Assessment Social Hx Patient Tobacco Use Status: Former Tobacco user Tobacco use type: Cigarette alcohol intake: current Alcohol intake frequency: holidays/special occasions only Cardiovascular Hx: HTN and Arrhythmias Musculoskeletal Hx: Arthritis Blood Disorder Hx: Other GI Hx: Diverticulosis and Hemorrhoids Hx: Bladder Disorders Cancer HX: No Psych. 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
== END 2023-11-18 13:11 | disposition home or self-care (01) ==
LOC: HO.ACS 13:00
PROVIDERS: PCP Internal Medicine; Visit Provider Internal Medicine
DX: Z79.01 Long term (current) use of anticoagulants (principal)

== ENCOUNTER → 2023-11-18 13:00 | Outpatient (BNVA) | payer MEDICARE, SELFPAY | PROVIDERS: PCP Internal Medicine; Visit Provider Internal Medicine | DX: I48.20 Chronic atrial fibrillation, unspecified (principal); Z79.01 Long term (current) use of anticoagulants; Z51.81 Encounter for therapeutic drug level monitoring | CPT/HCPCS: 85610; 99211 ==

== ENCOUNTER 2023-12-23 13:04 | Outpatient (AMB) | payer MEDICARE, SELFPAY ==
[2023-12-23 13:10] LABS: Prothrombin Time Whole Bld POC 29.2 sec (11.1-13.5); ~PT, ~INR - Anti Coag Clinic 2.4 (0.9-1.1)
--- NOTE | 2023-12-23 13:11 | MHC.OFFVISCO ---
Intake Intake Visit Reasons: Anticoagulation Allergies metoprolol Adverse Reaction (Verified 12/23/23 13:05) Rash olmesartan [From Benicar] Adverse Reaction (Verified 12/23/23 13:05) Rash Medication List - Last Reconciled 12/23/23 by Carine Watt RN cholecalciferol (vitamin D3) 50 mcg PO BID diltiazem HCl 240 mg PO BID 90 days duloxetine 60 mg PO DAILY hydrochlorothiazide 25 mg PO DAILY 90 days rosuvastatin 5 mg PO DAILY warfarin (Chapintoven) 5 mg See Protocol PO DAILY Nursing Note INR: 2.4 in therapeutic range Medications and supplements reviewed No changes in health, diet, medications, or supplements, Denies any signs and symptoms of bleeding or bruising or clotting. Bleeding, bruising, clotting discussed Nutritional guidance given Dose: 7.5mg x 2 days/ 5mg x 5 days F/U INR: 1month Patient verbalizes understanding of instructions given Anti-Coag Initial Assessment Social Hx Patient Tobacco Use Status: Former Tobacco user Tobacco use type: Cigarette alcohol intake: current Alcohol intake frequency: holidays/special occasions only Cardiovascular Hx: HTN and Arrhythmias Musculoskeletal Hx: Arthritis Blood Disorder Hx: Other GI Hx: Diverticulosis and Hemorrhoids Hx: Bladder Disorders Cancer HX: No Psych. 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
== END 2023-12-23 13:15 | disposition home or self-care (01) ==
LOC: HO.ACS 13:04
PROVIDERS: PCP Internal Medicine; Visit Provider Internal Medicine
DX: Z79.01 Long term (current) use of anticoagulants (principal)

== ENCOUNTER → 2023-12-23 13:04 | Outpatient (BNVA) | payer MEDICARE, SELFPAY | PROVIDERS: PCP Internal Medicine; Visit Provider Internal Medicine | DX: I48.20 Chronic atrial fibrillation, unspecified (principal); Z79.01 Long term (current) use of anticoagulants; Z51.81 Encounter for therapeutic drug level monitoring | CPT/HCPCS: 85610; 99211 ==

== ENCOUNTER 2024-01-20 13:02 | Outpatient (AMB) | payer MEDICARE, SELFPAY ==
--- NOTE | 2024-01-20 13:09 | MHC.OFFVISCO ---
Intake Intake Visit Reasons: Anticoagulation Allergies metoprolol Adverse Reaction (Verified 01/20/24 13:05) Rash olmesartan [From Benicar] Adverse Reaction (Verified 01/20/24 13:05) Rash Medication List - Last Reconciled 01/20/24 by Lynda Liu RN cholecalciferol (vitamin D3) 50 mcg PO BID diltiazem HCl 240 mg PO BID 90 days duloxetine 60 mg PO DAILY hydrochlorothiazide 25 mg PO DAILY 90 days rosuvastatin 5 mg PO DAILY warfarin (Jantoven) 5 mg See Protocol PO DAILY Nursing Note INR: 2.3- in therapeutic range OF 2-3 Medications and supplements reviewed- no changes No changes in health, diet, medications, or supplements, Denies any signs and symptoms of bleeding or bruising or clotting. Bleeding, bruising, clotting discussed Nutritional guidance given Dose: 7.5mg x 2, 5mg x 5 F/U INR: 4 weeks Patient verbalizes understanding of instructions given pt amb with walker Anti-Coag Initial Assessment Social Hx Patient Tobacco Use Status: Former Tobacco user Tobacco use type: Cigarette alcohol intake: current Alcohol intake frequency: holidays/special occasions only Cardiovascular Hx: HTN and Arrhythmias Musculoskeletal Hx: Arthritis Blood Disorder Hx: Other GI Hx: Diverticulosis and Hemorrhoids Hx: Bladder Disorders Cancer HX: No Psych. Illness/Depression: Yes Coding Level of Care Code Est Patient Level 1 Diagnoses Current use of anticoagulant therapy Z79.01 Results AMB INR Fingerstick AMB INR Fingerstick 2.3 Last Edit by Lynda Liu RN on 01/20/24 13:18 Assessment & Plan Assessment & Plan (1) Current use of anticoagulant therapy: Code(s): Z79.01 - half-way (current) use of anticoagulants Category: Medical
[2024-01-20 13:18] LABS: Prothrombin Time Whole Bld POC 27.5 sec (11.1-13.5); ~PT, ~INR - Anti Coag Clinic 2.3 (0.9-1.1)
== END 2024-01-20 13:24 | disposition home or self-care (01) ==
LOC: HO.ACS 13:02
PROVIDERS: PCP Internal Medicine; Visit Provider Internal Medicine
DX: Z79.01 Long term (current) use of anticoagulants (principal)

== ENCOUNTER → 2024-01-20 13:02 | Outpatient (BNVA) | payer MEDICARE, SELFPAY | PROVIDERS: PCP Internal Medicine; Visit Provider Internal Medicine | DX: I48.20 Chronic atrial fibrillation, unspecified (principal); Z79.01 Long term (current) use of anticoagulants; Z51.81 Encounter for therapeutic drug level monitoring | CPT/HCPCS: 85610; 99211 ==

== ENCOUNTER → 2024-03-03 13:11 | Outpatient (BNVA) | payer MEDICARE, SELFPAY | PROVIDERS: PCP Internal Medicine; Visit Provider Internal Medicine | DX: I48.20 Chronic atrial fibrillation, unspecified (principal); Z79.01 Long term (current) use of anticoagulants; Z51.81 Encounter for therapeutic drug level monitoring | CPT/HCPCS: 85610 ==

== ENCOUNTER 2024-03-24 14:34 | Outpatient (AMB) | payer MEDICARE, SELFPAY ==
--- NOTE | 2024-03-24 14:44 | MHC.OFFVIS ---
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 Operator Present Allergies metoprolol Adverse Reaction (Verified 03/24/24 14:47) Rash olmesartan [From Benicar] Adverse Reaction (Verified 03/24/24 14:47) Rash Medication List - Last Reconciled 03/24/24 by Kajal Ledbetter NP-C cholecalciferol (vitamin D3) 50 mcg PO BID diltiazem HCl CD 240 mg PO BID 90 days duloxetine 60 mg PO DAILY hydrochlorothiazide 25 mg PO DAILY 90 days rosuvastatin 5 mg PO DAILY warfarin (Jantoven) 5 mg See Protocol PO DAILY HPI HPI 6 month follow up: Details: Melissa is a 73-year-old female with past medical history HTN, hyperlipidemia, chronic atrial fibrillation who presents for follow up. Today she reports that she has been noticing increasing heart palpitations. She is feeling strong beats in her chest. No dizziness, presyncope, syncope, falls. She has sob with activity which is not new. No PND, orthopnea or edema. No chest discomfort at rest or with activity. Does not sleep well due to frequent urination. Is supposed to wear CPAP but hasnt for years. No bleeding issues. Taking meds as directed. Going to [facility] anticoagulation clinic. 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 Current occupational exposures/hazards: No Cognitive needs: No Hearing needs: No Vision needs: No Review of Systems Const All systems reviewed & are unremarkable except as noted in HPI and below ENT Denies dizziness Card Details: Heart palpitations Denies chest pain, Denies chest pain at rest, Denies chest pain with activity, Denies rapid heart rate, Denies pedal edema, Denies edema, Denies leg edema, Denies lightheadedness, Reports palpitations, Denies dyspnea, Denies dyspnea on exertion and Denies orthopnea Resp Denies cough, Denies dyspnea and Denies dyspnea on exertion GI Denies hematochezia and Denies change in stool character Musc Details: Uses cane Reports abnormal gait, Denies limited range of motion, Denies muscle cramps, Denies muscle weakness, Denies numbness, Denies radiating pain into limb, Denies stiffness and Denies tingling Neuro Reports abnormal gait, Denies dizziness, Denies numbness and Denies tingling Endo Reports palpitations Physical Exam Vital Signs: Last Vital Signs Pulse 102 H 03/24/24 14:45 BP 124/62 03/24/24 14:45 BMI result Body Mass Index 42.7 Const Other: Morbidly obese General: cooperative, comfortable and no acute distress Orientation/consciousness: patient oriented x3 Neck Neck: Yes normal visual inspection Resp Effort & Inspection: normal respiratory effort Auscultation: clear to auscultation bilaterally, no crackles, no rales, no rhonchi and no wheezes Cardio Jugular venous distension: no JVD Rate: regular rate Rhythm: abnormal rhythm Heart sounds: S1 normal heart sound present, S2 normal heart sound present, no murmurs and no rubs Neuro General: patient oriented x3 Extrem Other: Soft, no pitting edema General: Yes normal to inspection Psych Appearance: grossly normal Mental Status: mental status grossly normal Speech and movement: Normal speech and movement present Office Procedures EKG Details: Today, read by me, atrial fibrillation, frequent PVCs/aberrant conducted beats, ST and T-wave abnormality inferior lateral leads, rate 102, QTC 458 milliseconds [id number], Complete Assessment & Plan Assessment & Plan (1) Chronic atrial fibrillation: Code(s): I48.20 - Chronic atrial fibrillation, unspecified Category: Medical Plan: History of chronic atrial fibrillation. She is being treated with heart rate control using diltiazem. She had been on metoprolol in the past is tells me she did not feel well with fatigue. Last Echocardiogram done 05/09/2022 showed EF 55-60%, mild biatrial enlargement. EKG done today showing AFib, frequent PVC/aberrant conducted complexes, rate 102. She reports compliance with her diltiazem. She has been noticing increasing heart palpitations. Unclear at present if this is related to the AFib or PVCs. Will check a Holter monitor to assess frequency of arrhythmia. Last Holter showed PVCs 5.6% of the time. She is on Coumadin for anticoagulation. She previously requested changed to Eliquis however due to cost she is now back on Coumadin. She follows with the [facility] anticoagulation Clinic. No bleeding issues reported. Continue current med management. Plan to call her with Holter results and any medication adjustments. Cardiology office visit in 3 months, sooner if needed. (2) Anticoagulant long-term use: Code(s): Z79.01 - [facility] (current) use of anticoagulants Category: Medical Plan: As above (3) PVC's (premature ventricular contractions): Code(s): I49.3 - Ventricular premature depolarization Category: Medical Plan: As above Plan Time spent on chart review, documentation, interview and assessment Orders: Orders ECG 3 day holter monitor 03/24/24 I48.19 - Other persistent atrial fibrillation, I49.3 - Ventricular premature depolarization Coding Level of Care Code Est Pt Level 3 (58328) Diagnoses Chronic atrial fibrillation I48.20 Anticoagulant long-term use Z79.01 PVC's (premature ventricular contractions) I49.3 CPT Codes EKG - CPT: [id number], Complete ([id number]) Time Spent (min) 26
[2024-03-24 14:45] VITALS: BP 124/62; PULSE 102; BMI 42.7
== END 2024-03-24 15:09 | disposition home or self-care (01) ==
PROVIDERS: PCP Internal Medicine; Visit Provider Nurse Practitioner Family
DX: I48.91 Unspecified atrial fibrillation (principal); I49.3 Ventricular premature depolarization
CPT/HCPCS: 93010; 99213

== ENCOUNTER → 2024-03-24 14:34 | Outpatient (BNVA) | payer MEDICARE, SELFPAY | PROVIDERS: PCP Internal Medicine; Visit Provider Nurse Practitioner Family | DX: I48.20 Chronic atrial fibrillation, unspecified (principal); I49.3 Ventricular premature depolarization; Z79.01 Long term (current) use of anticoagulants; R94.31 Abnormal electrocardiogram [ECG] [EKG] | CPT/HCPCS: 93005; 99212 ==

== ENCOUNTER 2024-04-01 12:06 | Outpatient (REF) | payer MEDICARE, SELFPAY ==
[2024-04-01 14:05] LABS: Alanine Aminotransferase 17 U/L (0-31); Anion Gap 20 (12-20); Aspartate Amino Transferase 18 U/L (5-31); Blood Urea Nitrogen 16 mg/dL (9-16); Calcium 9.6 mg/dL (8.4-10.2); Carbon Dioxide 27 mmol/L (22-29); Chloride 100 mmol/L (96-108); Cholesterol 191 mg/dL (<200); Estimated Glomerular Filt Rate 51; Glucose Fasting 134 mg/dL (60-99); HDL Cholesterol 65 mg/dL (>40); LDL Cholesterol Calculated 99 mg/dL (<100); Potassium 3.8 mmol/L (3.3-5.1); Sodium 143 mmol/L (135-145); Triglycerides 139 mg/dL (<150)
[2024-04-01 14:11] LABS: Vitamin D 25-OH Total 54.7 ng/mL (>30)
== END 2024-04-01 12:07 | disposition home or self-care (01) ==
LOC: HO.HMGCLDS 12:06
PROVIDERS: PCP Internal Medicine; Visit Provider Internal Medicine
DX: I48.20 Chronic atrial fibrillation, unspecified (principal); Z51.81 Encounter for therapeutic drug level monitoring; Z79.01 Long term (current) use of anticoagulants; E78.2 Mixed hyperlipidemia; F41.9 Anxiety disorder, unspecified; I48.19 Other persistent atrial fibrillation; Z78.0 Asymptomatic menopausal state
CPT/HCPCS: 36415; 80048; 80061; 82306; 84450; 84460; 85610; 99211

== ENCOUNTER 2024-04-01 13:06 | Outpatient (AMB) | payer MEDICARE, SELFPAY ==
--- NOTE | 2024-04-01 13:14 | MHC.OFFVISCO ---
Intake Intake Visit Reasons: Anticoagulation Allergies metoprolol Adverse Reaction (Verified 04/01/24 13:06) Rash olmesartan [From Benicar] Adverse Reaction (Verified 04/01/24 13:06) Rash Medication List - Last Reconciled 04/01/24 by Carine Watt RN cholecalciferol (vitamin D3) 50 mcg PO BID diltiazem HCl CD 240 mg PO BID 90 days duloxetine 60 mg PO DAILY hydrochlorothiazide 25 mg PO DAILY 90 days rosuvastatin 5 mg PO DAILY warfarin (Novtoven) 5 mg See Protocol PO DAILY Nursing Note INR: 2.7 in therapeutic range Medications and supplements reviewed No changes in health, diet, medications, or supplements, Denies any signs and symptoms of bleeding or bruising or clotting. Bleeding, bruising, clotting discussed Nutritional guidance given Dose: 7.5MG X 2 DAYS/ 5MG X 5 DAYS F/U INR: 1 MONTH Patient verbalizes understanding of instructions given Anti-Coag Initial Assessment Social Hx Patient Tobacco Use Status: Former Tobacco user Tobacco use type: Cigarette alcohol intake: current Alcohol intake frequency: holidays/special occasions only Cardiovascular Hx: HTN and Arrhythmias Musculoskeletal Hx: Arthritis Blood Disorder Hx: Other GI Hx: Diverticulosis and Hemorrhoids Hx: Bladder Disorders Cancer HX: No Psych. 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
[2024-04-01 15:48] LABS: Prothrombin Time Whole Bld POC 31.8 sec (11.1-13.5); ~PT, ~INR - Anti Coag Clinic 2.6 (0.9-1.1)
== END 2024-04-01 13:17 | disposition home or self-care (01) ==
LOC: HO.ACS 13:06
PROVIDERS: PCP Internal Medicine; Visit Provider Internal Medicine
DX: Z79.01 Long term (current) use of anticoagulants (principal)

== ENCOUNTER → 2024-04-12 14:50 | Outpatient (REF) | payer MEDICARE, SELFPAY ==
--- NOTE | 2024-04-12 14:53 | HM_ITS ---
Conclusion: 1. Patient was monitored for total period of 3 days 2. Baseline was atrial fibrillation with average heart rate of 79 beats per minute with overall good rate control 3. No significant pauses noted 4. Frequent wide complex is consistent with PVCs noted, 20% of the total beats. Aberrant conduction can not be entirely ruled out 5. Patient did not report any symptoms MTDD
--- NOTE | 2024-04-12 14:53 | HM_ITS ---
Conclusion: 1. Patient was monitored for total period of 3 days 2. Baseline was normal sinus rhythm with average heart rate of 79 beats per minute 3. No significant pauses noted 4. Frequent PVCs noted with total burden of 20% with frequent triplets as well as frequent couplets noted 5. No patient reported events MTDD
== END ==
LOC: HO.CARD 14:50
PROVIDERS: PCP Internal Medicine; Visit Provider Nurse Practitioner Family
DX: I48.19 Other persistent atrial fibrillation (principal); I49.3 Ventricular premature depolarization
CPT/HCPCS: 93242

== ENCOUNTER → 2024-04-12 14:53 | Outpatient (BNV) | payer MEDICARE, SELFPAY | PROVIDERS: PCP Internal Medicine; Visit Provider Internal Medicine Cardiovascular Disease | DX: I48.91 Unspecified atrial fibrillation (principal) | CPT/HCPCS: 93244 ==

== ENCOUNTER 2024-04-13 14:34 | Outpatient (AMB) | payer MEDICARE, SELFPAY ==
--- NOTE | 2024-04-13 14:41 | MHC.PC.OV ---
Vital Signs 04/13/24 14:54 Height 5 ft 3.5 in Weight 245 lb BMI 42.7 BP 100/70 Blood Pressure Location Rt brachial Position Sitting Pulse 77 Pulse Source Pulse Oximeter Pulse Oximetry (%) 96 Oxygen Delivery Method Room Air Intake Visit Reasons: PE - see comments Intake Note: Pt is here today for her PE: Allergies metoprolol Adverse Reaction (Verified 05/17/24 00:31) Rash olmesartan [From Benicar] Adverse Reaction (Verified 05/17/24 00:31) Rash Medication List - Last Reconciled 04/13/24 by Norma Hinds MD cholecalciferol (vitamin D3) 50 mcg PO BID diltiazem HCl CD 240 mg PO BID 90 days duloxetine 60 mg PO DAILY hydrochlorothiazide 25 mg PO DAILY 90 days rosuvastatin 5 mg PO DAILY warfarin (Jantoven) 5 mg See Protocol PO DAILY Tobacco use date assessed: 04/13/24 Fall risk assessment: No Falls in past year Dental Screening Dental Screen Date: 04/13/24 Did you have a dental visit in the last 12 months?: No Was dental information given to patient?: No HPI PE - see comments HPI Details 73-year-old lady with mixed dyslipidemia, persistent atrial fibrillation currently on ferrous, anxiety disorder and osteoporosis, here today for her physical exam. She is up-to-date with her screening mammogram and bone density scan done 05/2023, and has had screening colonoscopies in the past but does not want to do further testing.. PFSH Medical History (Updated 04/13/24 @ 15:32 by Norma Hinds MD) Osteoporosis Blurred vision, bilateral Family history of colon cancer in father Anxiety disorder Persistent atrial fibrillation Anticoagulant long-term use Surgical History (Updated 04/13/24 @ 15:19 by Norma Hinds MD) No pertinent past surgical history Social History Household Members: Spouse and Children Housing: Apartment Alcohol intake: current Alcohol intake frequency: holidays/special occasions only Alcohol type: wine Patient Tobacco Use Status: Former Tobacco user Tobacco use type: Cigarette e-Cigarette/Vaping Use: Never Used service: No Current occupational status: retired 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 1. Little interest or pleasure in doing things: not at all 2. Feeling down, depressed, or hopeless: not at all 3. Trouble falling or staying asleep, or sleeping too much: not at all 4. Feeling tired or having little energy: more than half the days 5. Poor appetite or overeating: more than half the days 6. Feeling bad about yourself - or that you are a failure or have let yourself or your family down: not at all 7. Trouble concentrating on things, such as reading the newspaper or watching television: not at all 8. Moving or speaking so slowly that other people could have noticed. Or the opposite - being so fidgety or restless that you have been moving around a lot more than usual: not at all 9. Thoughts that you would be better off or of hurting yourself in some way: not at all Total score: 4 Depression Screening Interpretation: Negative Depression Screening Done: Yes 72409 - PHQ-9 Billing: Yes Source: Developed by Drs. Khris Stephenson, Muna Lopez, Preston Pace and colleagues, with an educational adam from [employer]. Thrive Questionnaire Date Thrive assessed: 04/13/24 I am a: Patient What is your living situation today?: I have a steady place to live Within the past 12 months, did the food you bought not last and you didn't have the money to get more?: Sometimes True Within the past 12 months, did you worry whether your food would run out before you got money to buy more?: Sometimes True Do you have trouble paying for medicines?: No Do you have trouble getting transportation to medical appointments?: No Do you have trouble paying your heating and electricity bill?: No Do you have trouble taking care of your child, family member or friend?: No Do you have trouble with day-to-day activities such as bathing, preparing meals, shopping, managing finances, etc.?: Yes Are you currently unemployed and looking for a job?: Yes Are you interested in more education?: No THRIVE Score: 2 AUDIT C Alcohol Use Questionnaire (AUDIT-C) 1. How often do you have a drink containing alcohol?: Never Total Score: 0 LINDSEY-7 AMB Questionnaire LINDSEY-7 Date LINDSEY - 7 assessed: 04/13/24 Feeling nervous, anxious, or on edge: 1 = Several days Not being able to stop or control worryin = Several days Worrying too much about different things: 0 = Not at all Trouble relaxin = Not at all Being so restless that it is hard to sit still: 0 = Not at all Becoming easily annoyed or irritable: 0 = Not at all Feeling afraid as if something awful might happen: 0 = Not at all Total LINDSEY-7 score (0-4 normal; 5-9 mild; 10-14 moderate; 15-21 severe): 2 Source: Developed by Drs. Khris Stephenson, Muna Lopez, Preston Pace and colleagues, with an educational adam from [employer]. LINDSEY-7 Assessment Billing LINDSEY-7 Assessment Tool: LINDSEY-7 Assessment 41698 Review of Systems Const Reports no additional complaints Eyes Denies change in vision ENT Denies dizziness Card Details: Heart palpitations Denies chest pain at rest, Denies chest pain with activity, Denies rapid heart rate, Denies pedal edema, Denies edema, Denies leg edema, Denies lightheadedness, Denies dyspnea, Denies dyspnea on exertion and Denies orthopnea Resp Denies cough, Denies dyspnea and Denies dyspnea on exertion GI Denies hematochezia and Denies change in stool character Reports no additional complaints Musc Details: Uses cane Denies limited range of motion, Denies muscle cramps, Denies muscle weakness, Denies numbness, Denies radiating pain into limb, Denies stiffness and Denies tingling Skin/Breast Denies breast pain, Denies breast mass, Denies lesions and Denies rash Neuro Denies dizziness, Denies numbness and Denies tingling Psych Reports no additional complaints Endo Reports no additional complaints Dale/Lymph Denies easy bleeding and Denies easy bruising Aller/Immun Reports no additional complaints Physical exam (Primary Care) Vital Signs: Last Vital Signs Pulse 77 04/13/24 14:54 BP 100/70 04/13/24 14:54 Pulse Ox 96 04/13/24 14:54 Oxygen Delivery Method Room Air 04/13/24 14:54 BMI result Body Mass Index 42.7 Tobacco/Smoking Status: Tobacco use Status Tobacco use date assessed 04/13/24 04/13/24 14:57 Patient Tobacco Use Status Former Tobacco user 04/13/24 14:43 Tobacco use type Cigarette 04/13/24 14:43 e-Cigarette/Vaping Use Never Used 04/13/24 14:43 PHQ-9: PHQ-9 Score PHQ-9: Total score 4 04/13/24 15:21 Depression Screening Interpretation: Negative Thrive Assessment: Date of Thrive Assessment Date Thrive assessed 04/13/24 04/13/24 14:57 Const Other: Alert elderly female, no acute distress noted ambulatory normal gait Orientation/consciousness: patient oriented x3 HENMT Head: Yes normocephalic General nose exam: Normal external nose present and No nasal discharge present Face and sinus: Yes face symmetric Mouth: Normal oral and palatal mucosa present and moist mucous membranes Eyes General: appearance normal, both eyes and all related structures Neck Other: Supple, no lymphadenopathy, thyroid gland nonpalpable Chest Breast/axilla palpation: normal palpation of the breasts Resp Auscultation: clear to auscultation bilaterally Cardio Other: Irregularly irregular rhythm noted GI Palpation (GI): Soft to palpation, nontender, no guarding and no masses Auscultation: normal bowel sounds Back/Spine/Pelvis Back: No back tenderness Skin General skin exam: no rashes or lesions noted Neuro General: patient oriented x3, gait normal, tone normal, Normal light touch and pain sensation, no focal motor deficits and CN's II-XI intact bilaterally Extrem General: Yes full ROM, Yes no joint enlargement, Yes no pedal edema and Yes normal gait Psych Appearance: grossly normal and well kempt Mental Status: mental status grossly normal Speech and movement: Normal speech and movement present Affect: normal affect Attitude: cooperative Thought process: Normal thought process present Results AMB Hemoglobin A1c AMB Hemoglobin A1c 5.5 % Last Edit by Aliza Anaya CMA on 04/13/24 15:36 Results Reviewed Results Reviewed: Laboratory Last Values Hgb A1c (Clinic) 5.5 % (4.0-6.0) 04/13/24 15:29 Name: Melissa Benson Age/Sex: 73/F : 1950 Unit#: [id number] Attend Dr: Norma Hinds MD Re04/01/24 Status: DEP REF Location: [facility] Disch: SPEC : [id number] MARKEL: 04/01/24 STATUS: COMP REQ : [id number] RECD: 04/01/24-[address]: Norma Hinds MD COMP: 04/01/24-141 ENTERED: 04/01/24-1218 [facility] DR: ORDERED: Met Prof Fast, AST, ALT, Lipid Panel, Vitamin D 25-OH Test Result Flag Reference Sodium 143 135-145 mmol/L Potassium 3.8 3.3-5.1 mmol/L CL 100 96-108 mmol/L CO2 27 22-29 mmol/L Gap 20 12-20 BUN 16 9-16 mg/dL Creat 1.06 0.5-1.4 mg/dL EGFR 51 NOTE: For -Luxembourger individuals, multiply the result by 1.210. Chronic Kidney Disease: Estimated GFR < 60 mL/min/1.73m2 Severe Kidney Disease: Estimated GFR < 15 mL/min/1.73m2 FBS 134 H 60-99 mg/dL A fasting glucose of 126 mg/dl or greater on more than one occasion is considered diagnostic of diabetes. CA 9.6 8.4-10.2 mg/dL AST (GOT) 18 5-31 U/L ALT (GPT) 17 0-31 U/L Triglyceride 139 <150 mg/dL Desirable Triglyceride: less than 150 mg/dL Borderline High Triglyceride 150-199 mg/dL High Triglyceride: 200-499 mg/dL Very High Triglyceride: greater than or equal to 5OO mg/dL Cholesterol 191 <200 mg/dL Desirable Cholesterol: less than 200 mg/dL Borderline High Cholesterol: 200-239 mg/dL High Cholesterol: greater than 239 mg/dL LDL Calculated 99 <100 mg/dL Desirable LDL: less than 100 mg/dL Near Optimal/Above Optimal LDL: 110-129 mg/dL Borderline High LDL: 130-159 mg/dL High LDL: 160-189 mg/dL Very High LDL: greater than or equal to 190 mg/dL HDL 65 >40 mg/dL Desirable HDL: greater than 40 mg/dL Note: This HDL assay may give artificially low results in patients with liver disease. Vit D 25-OH Tot 54.7 >30 ng/mL Health Based Reference Values* < 20 ng/mL Deficient 20-30 ng/mL Insufficient > 30 ng/mL Sufficient Name: Melissa Benson Age/Sex: 72/F : 1950 Unit#: [id number] Attend Dr: Norma Hinds MD Re03/30/23 Status: DEP REF Location: [facility] Disch: SPEC : [id number] MARKEL: 03/30/23 STATUS: COMP REQ : [id number] RECD: 03/30/[address]: Norma Hinds MD COMP: 03/30/23 ENTERED: 03/30/23 [facility] DR: ORDERED: CBC Auto Diff Test Result Flag Reference WBC 9.8 4.8-10.8 X10*3/uL RBC 4.96 4.20-5.50 X10*6/uL HGB 14.8 12.0-16.0 g/dl HCT 46.0 37.0-47.0 % MCV 92.7 80.0-98.0 fL MCH 29.8 27.0-33.0 pg MCHC 32.2 31.0-35.0 g/dl RDW 13.0 11.0-16.0 % PLT 389 # 160-400 X10*3/uL MPV 9.5 9.4-12.3 fL Neut Pct Auto 59.5 45-73 % ImGran Pct Auto 0.3 0.0-0.4 % Lymp Pct Auto 28.9 20-40 % [place] Pct Auto 8.6 2-11 % Eos Pct Auto 2.0 0-4 % Baso Pct Auto 0.7 0-2 % NRBC Pct Auto 0.0 0.0-0.2 /100WBC ANC Neut Abs # 5.8 2.0-8.3 x10*3/uL ImGran Abs Auto 0.03 0.00-0.03 X10*3/uL Lymph Abs Auto 2.8 1.2-4.9 X10*3/uL [place] Abs Auto 0.8 0.1-1.2 X10*3/uL Eos Abs Auto 0.2 0.0-0.4 X10*3/uL Baso Abs Auto 0.1 0.0-0.2 X10*3/uL NRBC Abs Auto 0.000 0.0-0.012 X10*3/uL Assessment and Plan Assessment & Plan (1) Annual visit for general adult medical examination with abnormal findings: Code(s): Z00.01 - Encounter for general adult medical examination with abnormal findings Plan: Reviewed recent fasting lab results with patient.. Recommended dental visit every 6 months and regular eye exams, at least every 2 years, sees [facility]. Take adequate calcium in diet and vitamin-D 3 at 2000 IU per cap once a day Instructed to do self-breast exam, and recommended to get yearly mammogram but patient declined getting further testing. She also has osteoporosis in her left femoral neck , but does not want to start any treatment and does not want to repeat another bone density scan or treatment.. Patient also has history of tubular adenoma, but declined getting further colonoscopy screening. She has had 3 COVID vaccines does not want to get the booster, advised to get thought, vaccine, up-to-date with her Prevnar 20 and Tdap (2) Osteoporosis: Code(s): M81.0 - Age-related osteoporosis without current pathological fracture Qualifiers: Osteoporosis type: age-related Presence of current pathological fracture: without current pathological fracture Qualified Code(s): M81.0 - Age-related osteoporosis without current pathological fracture Plan: Declined further testing and treatment, advised to get adequate vitamin-D 3 supplements and get calcium from dietary sources, staying active, with regular weight-bearing exercise will help prevent further progression (3) Anxiety disorder: Code(s): F41.9 - Anxiety disorder, unspecified Qualifiers: Anxiety disorder type: generalized anxiety disorder Qualified Code(s): F41.1 - Generalized anxiety disorder Plan: Continue with duloxetine (4) Persistent atrial fibrillation: Code(s): I48.19 - Other persistent atrial fibrillation Plan: Currently on warfarin (5) Anticoagulant long-term use: Code(s): Z79.01 - [facility] (current) use of anticoagulants Plan: Currently on warfarin (6) Mixed dyslipidemia: Code(s): E78.2 - Mixed hyperlipidemia Plan: Continue rosuvastatin (7) Advanced directives, counseling/discussion: Code(s): Z71.89 - Other specified counseling Plan: Initiated the conversation about Advanced Directives. Advanced Directives help patients prepare for current and future decisions about their medical treatment and place of care. Discussed with patient that it is a process where a patients current condition and prognosis are reviewed, their wishes for information regarding their illness are elicited, and likely medical dilemmas are presented and options discussed. MOLST form and healthcare proxy form completed today. These forms can be amended as needed, reviewed yearly and make changes as needed Orders: Orders AMB Hemoglobin A1c 04/13/24 Z13.9 - Encounter for screening, unspecified Coding Level of Care Code Est Pt Prev Care >65y(45298) Diagnoses Annual visit for general adult medical examination with abnormal findings Z00.01 Age-related osteoporosis without current pathological fracture M81.0 Osteoporosis type: age-related Presence of current pathological fracture: without current pathological fracture Generalized anxiety disorder F41.1 Anxiety disorder type: generalized anxiety disorder Persistent atrial fibrillation I48.19 Anticoagulant long-term use Z79.01 Mixed dyslipidemia E78.2 Advanced directives, counseling/discussion Z71.89 Additional Codes LINDSEY-7 Assessment Billing - LINDSEY-7 Assessment Tool: LINDSEY-7 Assessment 36236 ([id number])
[2024-04-13 14:54] VITALS: BP 100/70; PULSE 77; O2SAT 96; BMI 42.7
== END 2024-04-13 15:44 | disposition home or self-care (01) ==
LOC: HO.HMGC 14:34
PROVIDERS: PCP Internal Medicine; Visit Provider Internal Medicine
DX: E78.2 Mixed hyperlipidemia (principal)
CPT/HCPCS: 83036; 99397

== ENCOUNTER 2024-05-10 14:21 | Outpatient (AMB) | payer MEDICARE, SELFPAY ==
[2024-05-10 14:29] LABS: Prothrombin Time Whole Bld POC 26.8 sec (11.1-13.5); ~PT, ~INR - Anti Coag Clinic 2.2 (0.9-1.1)
--- NOTE | 2024-05-10 14:38 | MHC.OFFVISCO ---
Intake Intake Visit Reasons: Anticoagulation Allergies metoprolol Adverse Reaction (Verified 05/10/24 14:22) Rash olmesartan [From Benicar] Adverse Reaction (Verified 05/10/24 14:22) Rash Medication List - Last Reconciled 05/10/24 by Carine Watt RN cholecalciferol (vitamin D3) 50 mcg PO BID diltiazem HCl CD 240 mg PO BID 90 days duloxetine 60 mg PO DAILY hydrochlorothiazide 25 mg PO DAILY 90 days rosuvastatin 5 mg PO DAILY warfarin (Novtoven) 5 mg See Protocol PO DAILY Nursing Note INR: 2.2 in therapeutic range Medications and supplements reviewed No changes in health, diet, medications, or supplements, Denies any signs and symptoms of bleeding or bruising or clotting. Bleeding, bruising, clotting discussed Nutritional guidance given Dose: 7.5MG X 2 DAYS/ 5MG X 5 DAYS F/U INR: 06/16/24 SAME DAY HER NUCLEAR STRESS TEST Patient verbalizes understanding of instructions given Anti-Coag Initial Assessment Social Hx Patient Tobacco Use Status: Former Tobacco user Tobacco use type: Cigarette alcohol intake: current Alcohol intake frequency: holidays/special occasions only Cardiovascular Hx: HTN and Arrhythmias Musculoskeletal Hx: Arthritis Blood Disorder Hx: Other GI Hx: Diverticulosis and Hemorrhoids Hx: Bladder Disorders Cancer HX: No Psych. Illness/Depression: Yes Coding Level of Care Code Est Patient Level 1 Diagnoses Current use of anticoagulant therapy Z79.01 Assessment & Plan Assessment & Plan (1) Current use of anticoagulant therapy: Code(s): Z79.01 - skilled nursing (current) use of anticoagulants
== END 2024-05-10 14:40 | disposition home or self-care (01) ==
LOC: HO.ACS 14:21
PROVIDERS: PCP Internal Medicine; Visit Provider Internal Medicine
DX: Z79.01 Long term (current) use of anticoagulants (principal)

== ENCOUNTER → 2024-05-10 14:41 | Outpatient (REF) | payer MEDICARE, SELFPAY ==
--- NOTE | 2024-05-10 14:45 | CA_ITS ---
Transthoracic Echocardiogram Patient (Last, First, Middle): Melissa Benson, Gender: Female Date of : 1950 Age: 73 Procedure Date: 05/10/2024 Procedure Type: Transthoracic Echocardiogram Location: OP Height: 160.02 cm Weight: 109.77 kg BSA: 2.10 m2 Heart Rate: bpm BP: 120 / 70 mmHg Annealing Operator: MELY Referring MD: Kajal Ledbetter [employer] [employer] Counselor: Joo Michelle MD Symptoms: I49.3 - Ventricular premature depolarization Study Quality: Adequate ECG Rhythm: Atrial Fibrillation Conclusions: - 1. Normal LV ejection fraction of 60 65% with mild LVH 2. At least moderate left atrial enlargement 3. Moderate mitral calcification with normal cardiac valvular Dopplers 4. Normal RV systolic pressure 5. No pericardial effusion Findings Left Ventricle Normal left ventricular size and systolic function. There is mildly increased left ventricular wall thickness. The visually estimated ejection fraction is between 60-65%. Diastolic function is indeterminate on the basis of available data. Right Ventricle Normal right ventricular cavity size and systolic function. Atria The left atrium is moderately dilated. There is no evidence of interatrial shunt. The right atrium is likely dilated. Aortic Valve Normal aortic valve structure and function. There is no aortic valve stenosis. There is no aortic valve regurgitation. Mitral Valve There is mild anterior and severe posterior mitral leaflet thickening. There is moderate mitral annular calcification. There is trace mitral valve regurgitation. There is no mitral valve stenosis. Tricuspid Valve Normal tricuspid valve structure. There is mild tricuspid valve regurgitation. The right ventricular systolic pressure is normal. The right ventricular systolic pressure is 23 mmHg. Normal right atrial pressure. There is no evidence of pulmonary hypertension. Great Vessels The aorta was not well visualized. The pulmonary artery was not well visualized. Venous The inferior vena cava is normal in size and collapses greater than 50% with inspiration. Pericardium/Pleural There is no evidence of pericardial effusion. Prior Study Comparison Changes noted compared to prior study dated: 05/09/2022. left atrial and further enlarged Measurements 2D Linear Measurements IVSd: 1.26 0.6-0.9/0.6-1.0 cm LVIDd: 3.97 3.9-5.3/4.2-5.9 cm LVIDd Index: 1.89 2.4-3.2/2.2-3.1 cm/m2 LVIDs: 2.39 2.0-3.6 cm LVPWd: 1.24 0.7-1.1 cm LA Diam: 4.70 2.7-3.8/3.0-4.0 cm LAIDs Index: 2.24 1.5-2.3 cm/m2 LV Mass: 216.60 67-162/88-224 g LV Mass Index: 103.14 43-95/49-115 g/m2 2D Systolic Function EF 4C: 69.10 >55% EF 2C: 49.90 >55% EF BiP: 63.10 >55% Mitral Valve MV VTI: 0.31 MV Pk Channing: 1.27 MV Mn Channing: 0.73 MV Pk Grad: 6.00 MV Mn Grad: 3.00 MV Pk E: 1.25 MV Decel Time: 257.00 E'Lateral: 11.50 E'Medial: 8.38 E/E' Med: 14.90 E/E' Lat: 10.90 PHT: 75.00 MVA PHT: 2.93 Decel Hand: 4.85 Aortic Valve AoV Pk Channing: 1.44 AoV Mn Channing: 0.96 AoV VTI: 0.30 AoV Pk Grad: 8.00 Aov Mn Grad: 4.00 LVOT LVOT Pk Channing: 1.05 LVOT Mn Channing: 0.67 LVOT VTI: 0.19 LVOT Pk Grad: 4.00 LVOT Mn Grad: 2.00 Diastolic Function MV Pk E: 1.25 E'Medial: 8.38 E/E' Med: 14.90 E' Laterial: 11.50 E/E' Lat: 10.90 Right Ventricle TAPSE (mm): 23.00 TVS' Channing: 12.00 Tricuspid Valve TR Pk Channing: 2.24 TR Pk Grad: 20.00 RA Press: 3.00 RVSP: 23.00 Pulmonary Valve PV Pk Channing: 0.92 Peak PV Grad: 3.00 Updated in Other Vendor System with Status of Final Joo Michelle MD electronically signed on 05/11/2024 2:02:23 PM with status of Final
== END ==
LOC: HO.CARD 14:41
PROVIDERS: PCP Internal Medicine; Visit Provider Nurse Practitioner Family
DX: I49.3 Ventricular premature depolarization (principal); I48.19 Other persistent atrial fibrillation
CPT/HCPCS: 85610; 93306; 99211

== ENCOUNTER → 2024-05-10 14:45 | Outpatient (BNV) | payer MEDICARE, SELFPAY | PROVIDERS: PCP Internal Medicine; Visit Provider Internal Medicine Cardiovascular Disease | DX: I36.1 Nonrheumatic tricuspid (valve) insufficiency (principal); I34.81 Nonrheumatic mitral (valve) annulus calcification | CPT/HCPCS: 93306 ==

== ENCOUNTER → 2024-06-16 09:21 | Outpatient (REF) | payer MEDICARE, SELFPAY ==
--- NOTE | ~2024-06-16 | NM_ITS ---
Myocardial perfusion study Indication: Jarrod for myocardial ischemia Technique: The patient was brought in for a Lexiscan perfusion study on 06/16/2024. Patient performed low-level exercise and was injected 0.4 mg of Lexiscan intravenously. Within a minute of injection, 40 mCi of sestamibi was given intravenously. Images were obtained using the SPECT gamma camera interlaced with the gating device. Images were obtained in supine position. Resting perfusion study was performed on 06/17/2024. Patient was administered 40 mCi of sestamibi intravenously at rest. Images were then obtained in supine position. Images obtained with and without CT attenuation. Total DLP 139 mGy-cm. Images were processed with the software and compared side to side in short axis, horizontal long axis and vertical long axis views. Findings: The stress perfusion study showed non attenuated images show moderately reduced uptake in the distal and mid lateral as well as anteroapical and apical wall of the LV myocardium. Remainder of the LV myocardium is normally perfused.. The gated study shows normal LV systolic function with calculated LVEF of 57%. LV cavity is normal in size. The gated study shows normal systolic wall thickening and contraction of segments. Resting study shows non attenuated images show normal uptake of radiotracer in all segments of LV myocardium. Gating at rest was not performed due to irregular heart beat. The findings are consistent with mild to moderate intensity distal and mid lateral as well as anteroapical and apical ischemia probably in mid to distal LAD territory. NE/NM cardiolite stress test Impression: 1. Myocardial perfusion imaging study shows mild to moderate intensity distal and mid lateral as well as anteroapical and apical ischemia 2. Gated LVEF is 57% 3. Transient ischemic dilatation not present EKG is nondiagnostic for ischemia
--- NOTE | 2024-06-16 09:24 | CA_ITS ---
Acquisition Time: 2024-06-16 09:34:10 Total Exercise Time: 00:02:00 Test Indications: Abnormal ECG AFIB Medications: DILTIAZEM DULOXETINE HCTZ WARFARIN ROSUVASTATIN Protocol: LEXISCAN Max HR: 113 BPM 77% of Pred: 146 BPM Max BP: 124/078 mmHG Max Work Load: 1.0 METS Pharmacological stress test with Lexiscan injection while sitting, without anginal symptoms, with isolated PVCs and venticular cuplet, with normotensive response to injection, with nondiagnoisitic EKGs. Aminophylline 75mg IVP given to reverse Lexiscan. Nuclear images pending. Test reviewed withg Dr. Philippe. Referred By: Kajal Ledbetter Overread By: Wanda Bejarano
== END ==
LOC: HO.CARD 09:21
PROVIDERS: PCP Internal Medicine; Visit Provider Nurse Practitioner Family
DX: I49.3 Ventricular premature depolarization (principal); I48.19 Other persistent atrial fibrillation; Z51.81 Encounter for therapeutic drug level monitoring; Z79.01 Long term (current) use of anticoagulants
CPT/HCPCS: 78452; 85610; 93017; 99211; A9500; J0280; J2785

== ENCOUNTER → 2024-06-16 09:24 | Outpatient (BNV) | payer MEDICARE, SELFPAY | PROVIDERS: PCP Internal Medicine; Visit Provider Nurse Practitioner | DX: I25.5 Ischemic cardiomyopathy (principal); Z95.811 Presence of heart assist device | CPT/HCPCS: 78452; 93016; 93018 ==

== ENCOUNTER 2024-06-16 10:49 | Outpatient (AMB) | payer MEDICARE, SELFPAY ==
[2024-06-16 10:56] LABS: Prothrombin Time Whole Bld POC 26.8 sec (11.1-13.5); ~PT, ~INR - Anti Coag Clinic 2.2 (0.9-1.1)
--- NOTE | 2024-06-16 10:59 | MHC.OFFVISCO ---
Intake Intake Visit Reasons: Anticoagulation Allergies metoprolol Adverse Reaction (Verified 06/16/24 10:49) Rash olmesartan [From Benicar] Adverse Reaction (Verified 06/16/24 10:49) Rash Medication List - Last Reconciled 06/16/24 by Carine Watt RN cholecalciferol (vitamin D3) 50 mcg PO BID diltiazem HCl CD 240 mg PO BID 90 days duloxetine 60 mg PO DAILY hydrochlorothiazide 25 mg PO DAILY 90 days rosuvastatin 5 mg PO DAILY warfarin (Novtoven) 5 mg See Protocol PO DAILY Nursing Note INR: 2.2 in therapeutic range Medications and supplements reviewed Recently had Echo and today a nuclear stress test - has second phase tomorrow Denies any signs and symptoms of bleeding or bruising or clotting. Bleeding, bruising, clotting discussed Nutritional guidance given - eat a mix of fruits and vegetables Dose: keep same dose 7.5mg x 2 days/ 5mg x 5 days F/U INR: 4 weeks unless there are health or med changes Patient verbalizes understanding of instructions given Anti-Coag Initial Assessment Social Hx Patient Tobacco Use Status: Former Tobacco user Tobacco use type: Cigarette alcohol intake: current Alcohol intake frequency: holidays/special occasions only Cardiovascular Hx: HTN and Arrhythmias Musculoskeletal Hx: Arthritis Blood Disorder Hx: Other GI Hx: Diverticulosis and Hemorrhoids Hx: Bladder Disorders Cancer HX: No Psych. 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
== END 2024-06-16 11:06 | disposition home or self-care (01) ==
LOC: HO.ACS 10:49
PROVIDERS: PCP Internal Medicine; Visit Provider Internal Medicine
DX: Z79.01 Long term (current) use of anticoagulants (principal)

== ENCOUNTER 2024-06-23 13:31 | Outpatient (AMB) | payer MEDICARE, SELFPAY ==
[2024-06-23 13:45] VITALS: BP 124/62; PULSE 102; BMI 42.9
--- NOTE | 2024-06-23 13:45 | A.OFFVIS_ITS ---
Vital Signs 06/23/24 13:45 Height 5 ft 3.5 in Weight 246 lb 0.574 oz BMI 42.9 BP 124/62 Blood Pressure Location Rt brachial Position Sitting Pulse 102 H Pulse Source Monitor Intake Visit Reasons: 3m follow up Second Cutter Required: No Allergies metoprolol Adverse Reaction (Verified 06/23/24 13:48) Rash olmesartan [From Benicar] Adverse Reaction (Verified 06/23/24 13:48) Rash Medication List - Last Reconciled 06/23/24 by Kajal Ledbetter NP-C cholecalciferol (vitamin D3) 50 mcg PO BID diltiazem HCl CD 240 mg PO BID 90 days duloxetine 60 mg PO DAILY hydrochlorothiazide 25 mg PO DAILY 90 days rosuvastatin 5 mg PO DAILY warfarin (Jantoven) 5 mg See Protocol PO DAILY HPI HPI 3m follow up: Details: Melissa is a 73-year-old female with past medical history HTN, hyperlipidemia, chronic atrial fibrillation who presents for follow up after recent Holter monitor, echocardiogram and stress test. Today she reports that she she does notice some heart palpitations. She can feel the strong beats in her chest. No dizziness, presyncope, syncope, falls. She has sob with activity which is not new. She does feel her shortness of pallavi th has worsened in the last 6 months. No PND, orthopnea or edema. No chest discomfort at rest or with activity. Does not sleep well due to frequent urination. Is supposed to wear CPAP but hasnt for years. No bleeding issues. Taking meds as directed. Going to [facility] [place]. 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 Current occupational exposures/hazards: No Cognitive needs: No Hearing needs: No Vision needs: No Review of Systems Const All systems reviewed & are unremarkable except as noted in HPI and below ENT Denies dizziness Card Denies chest pain, Denies chest pain at rest, Denies chest pain with activity, Denies rapid heart rate, Denies pedal edema, Denies edema, Denies leg edema, Denies lightheadedness, Denies palpitations, Reports dyspnea, Reports dyspnea on exertion and Denies orthopnea Resp Denies cough, Reports dyspnea and Reports dyspnea on exertion GI Denies hematochezia and Denies change in stool character Musc Reports abnormal gait (Uses walker), Denies limited range of motion, Denies muscle cramps, Denies muscle weakness, Denies numbness, Denies radiating pain into limb, Denies stiffness and Denies tingling Neuro Reports abnormal gait (Uses walker), Denies dizziness, Denies numbness and Denies tingling Endo Denies palpitations Physical Exam Vital Signs: Last Vital Signs Pulse 102 H 06/23/24 13:45 BP 124/62 06/23/24 13:45 BMI result Body Mass Index 42.9 Const Other: Morbidly obese General: cooperative, comfortable and no acute distress Orientation/consciousness: patient oriented x3 Neck Neck: Yes normal visual inspection Resp Effort & Inspection: normal respiratory effort Auscultation: clear to auscultation bilaterally, no crackles, no rales, no rhonchi and no wheezes Cardio Jugular venous distension: no JVD Rate: regular rate Rhythm: abnormal rhythm Heart sounds: S1 normal heart sound present, S2 normal heart sound present, no murmurs and no rubs Neuro General: patient oriented x3 Extrem Other: Soft, no pitting edema General: Yes normal to inspection Psych Appearance: grossly normal Mental Status: mental status grossly normal Speech and movement: Normal speech and movement present Office Procedures EKG Details: Today, read by me, atrial fibrillation with rapid ventricular response, ST and T-wave abnormality inferior and lateral leads, right axis, QTC 456 milliseconds, rate 102 [id number], Complete Assessment & Plan Assessment & Plan (1) PVC's (premature ventricular contractions): Code(s): I49.3 - Ventricular premature depolarization Category: Medical Plan: EKG done last visit did show PVCs. She was reporting heart palpitations consistent with extrasystoles. She underwent a Holter monitor on 04/12/2024 showing atrial fibrillation with average heart rate 79, PVCs 20% of the time, couplets and triplets, aberrant conduction not excluded. An echocardiogram was done 05/10/2024 showing EF 60-65%, mild LVH, moderate left atrial enlargement, moderate mitral annular calcification. She had a pharmacological nuclear stress test on 06/17/2024 showing mild to moderate distal to mid lateral wall, anterior apical and apical ischemia. Test results reviewed with her in detail. Informed her that she may have coronary artery blockage. Use postop to explain this finding with her. She does have some shortness of breath with physical activity which can be explained by sedentary lifestyle and morbid obesity. She has no known history of CAD. She does have cardiac risk factors of obesity, hyperlipidemia. Spent time discussing need for diagnostic cardiac catheterization with her. Risks of the procedure including bleeding, infection, ALEX, PR, stroke reviewed. At this time she is anxious and reluctant to proceed. Spent time reviewing the signs and symptoms of angina with her. Instructed to notify this office if she has any change in symptoms. Emergency care if ever needed. For her PVCs will try to settle with the addition of metoprolol tartrate 25 mg b.i.d.. Her allergy list includes metoprolol with a side effect of rash. She tells me she never had a rash from metoprolol but believes that she had some fatigue. She is willing to retry it at this time. Instructed on taking half a tablet at 1st to see if she has any reaction. If tolerates then increase dose up to 25 mg 2 times daily. Continue diltiazem at 240 mg b.i.d.. Continue rosuvastatin. She is not on aspirin as she is on warfarin. Cardiology follow-up in 4-6 weeks, sooner if needed. (2) Chronic atrial fibrillation: Code(s): I48.20 - Chronic atrial fibrillation, unspecified Category: Medical Plan: History of chronic atrial fibrillation. She is being treated with heart rate control using diltiazem. EKG done today showing AFib, frequent PVC/aberrant conducted complexes, rate 102. She reports compliance with her diltiazem. She does notice intermittent heart palpitations. Unclear at present if this is related to the AFib or PVCs. Holter as above does show good heart rate control however EKG today shows elevated rate. For her frequent PVCs I will be adding metoprolol as above. She is on Coumadin for anticoagulation. She previously requested changed to Eliquis however due to cost she is now back on Coumadin. She follows with the [facility] [place]. No bleeding issues reported. (3) Anticoagulant long-term use: Code(s): Z79.01 - halfway (current) use of anticoagulants Category: Medical Plan: As above (4) Abnormal nuclear stress test: Code(s): R94.39 - Abnormal result of other cardiovascular function study Category: Medical Plan: As above Plan Time spent on chart review, documentation, interview and assessment Medications: New metoprolol tartrate 25 mg PO BID 30 days 60 tabs 3RF Coding Level of Care Code Est Pt Level 4 (38855) Diagnoses PVC's (premature ventricular contractions) I49.3 Chronic atrial fibrillation I48.20 Anticoagulant long-term use Z79.01 Abnormal nuclear stress test R94.39 CPT Codes EKG - CPT: [id number], Complete ([id number]) Time Spent (min) 30
== END 2024-06-23 14:23 | disposition home or self-care (01) ==
PROVIDERS: PCP Internal Medicine; Visit Provider Nurse Practitioner Family
DX: I49.3 Ventricular premature depolarization (principal); I48.20 Chronic atrial fibrillation, unspecified; Z79.01 Long term (current) use of anticoagulants; R94.39 Abnormal result of other cardiovascular function study
CPT/HCPCS: 93010; 99214

== ENCOUNTER → 2024-06-23 13:31 | Outpatient (BNVA) | payer MEDICARE, SELFPAY | PROVIDERS: PCP Internal Medicine; Visit Provider Nurse Practitioner Family | DX: I49.3 Ventricular premature depolarization (principal); I48.20 Chronic atrial fibrillation, unspecified; R94.39 Abnormal result of other cardiovascular function study; Z79.01 Long term (current) use of anticoagulants | CPT/HCPCS: 93005; 99212 ==

== ENCOUNTER 2024-08-01 13:00 | Outpatient (AMB) | payer MEDICARE, SELFPAY ==
[2024-08-01 13:09] LABS: Prothrombin Time Whole Bld POC 35.9 sec (11.1-13.5)
--- NOTE | 2024-08-01 13:18 | MHC.OFFVISCO ---
Intake Intake Visit Reasons: Anticoagulation Allergies olmesartan [From Benicar] Adverse Reaction (Verified 06/23/24 13:48) Rash Medication List - Last Reconciled 08/01/24 by Kerri Hayes, RN cholecalciferol (vitamin D3) 50 mcg PO BID diltiazem HCl CD 240 mg PO BID 90 days duloxetine 60 mg PO DAILY hydrochlorothiazide 25 mg PO DAILY 90 days metoprolol tartrate 25 mg PO BID 30 days rosuvastatin 5 mg PO DAILY warfarin (Jantoven) 5 mg See Protocol PO DAILY Nursing Note Pt to ACS with use of walker INR: 3.0 in therapeutic range 2-3 Medications and supplements reviewed No changes in health, diet, medications, or supplements, Denies any signs and symptoms of bleeding or bruising or clotting. Bleeding, bruising, clotting discussed Nutritional guidance given Dose: 5mg X 5mg and 7.5mg X 2 days F/U INR: 1 month Patient verbalizes understanding of instructions given Anti-Coag Initial Assessment Social Hx Patient Tobacco Use Status: Former Tobacco user Tobacco use type: Cigarette alcohol intake: current Alcohol intake frequency: holidays/special occasions only Cardiovascular Hx: HTN and Arrhythmias Musculoskeletal Hx: Arthritis Blood Disorder Hx: Other GI Hx: Diverticulosis and Hemorrhoids Hx: Bladder Disorders Cancer HX: No Psych. Illness/Depression: Yes Coding Level of Care Code Est Patient Level 1 Diagnoses Current use of anticoagulant therapy Z79.01 Assessment & Plan Assessment & Plan (1) Current use of anticoagulant therapy: Code(s): Z79.01 - assisted (current) use of anticoagulants
== END 2024-08-01 13:24 | disposition home or self-care (01) ==
LOC: HO.ACS 13:00
PROVIDERS: PCP Internal Medicine; Visit Provider Internal Medicine
DX: Z79.01 Long term (current) use of anticoagulants (principal)

== ENCOUNTER → 2024-08-01 13:00 | Outpatient (BNVA) | payer MEDICARE, SELFPAY | PROVIDERS: PCP Internal Medicine; Visit Provider Internal Medicine | DX: I48.20 Chronic atrial fibrillation, unspecified (principal); Z79.01 Long term (current) use of anticoagulants; Z51.81 Encounter for therapeutic drug level monitoring | CPT/HCPCS: 85610; 99211 ==

== ENCOUNTER 2024-08-08 13:02 | Outpatient (AMB) | payer MEDICARE, SELFPAY ==
--- NOTE | 2024-08-08 13:11 | MHC.OFFVISCO ---
Intake Intake Visit Reasons: Anticoagulation Allergies olmesartan [From Benicar] Adverse Reaction (Verified 08/08/24 13:06) Rash Medication List - Last Reconciled 08/08/24 by Lynda Liu RN cholecalciferol (vitamin D3) 50 mcg PO BID diltiazem HCl CD 240 mg PO BID 90 days duloxetine 60 mg PO DAILY hydrochlorothiazide 25 mg PO DAILY 90 days metoprolol tartrate 25 mg PO BID 30 days rosuvastatin 5 mg PO DAILY warfarin (Jantoven) 5 mg See Protocol PO DAILY Nursing Note INR 1.6-?? out of therapeutic range of 2-3 Medications and supplements reviewed Patient status: pt states having dental extraction tomm, was instructed by acs to hold warfarin yesterday. Medications or supplements: no changes Diet: appetite good Denies any signs and symptoms of bleeding or clotting or unusual bruising Bleeding, bruising, clotting discussed Nutritional guidance given: avoid greens Dose: hold today per dentist, then 7.5mg tomm and thu if ok with dmd F/U INR Date : pt ref earlier than thu08/15/24? Patient verbalizing understanding of instructions given. dr yeison wood dentist called with low inr, req to fax inr from today, instruct pt to hold warfarin today as well per dental office, t/c to pt to inform composed note to pcp to inform of warfarin hold Anti-Coag Initial Assessment Social Hx Patient Tobacco Use Status: Former Tobacco user Tobacco use type: Cigarette alcohol intake: current Alcohol intake frequency: holidays/special occasions only Cardiovascular Hx: HTN and Arrhythmias Musculoskeletal Hx: Arthritis Blood Disorder Hx: Other GI Hx: Diverticulosis and Hemorrhoids Hx: Bladder Disorders Cancer HX: No Psych. 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
[2024-08-08 13:12] LABS: Prothrombin Time Whole Bld POC 19.3 sec (11.1-13.5); ~PT, ~INR - Anti Coag Clinic 1.6 (0.9-1.1)
== END 2024-08-08 16:09 | disposition home or self-care (01) ==
LOC: HO.ACS 13:02
PROVIDERS: PCP Internal Medicine; Visit Provider Internal Medicine
DX: Z79.01 Long term (current) use of anticoagulants (principal)

== ENCOUNTER → 2024-08-08 13:02 | Outpatient (BNVA) | payer MEDICARE, SELFPAY | PROVIDERS: PCP Internal Medicine; Visit Provider Internal Medicine | DX: I48.20 Chronic atrial fibrillation, unspecified (principal); Z79.01 Long term (current) use of anticoagulants; Z51.81 Encounter for therapeutic drug level monitoring | CPT/HCPCS: 85610; 99211 ==

== ENCOUNTER 2024-08-16 13:44 | Outpatient (AMB) | payer MEDICARE, SELFPAY ==
--- NOTE | 2024-08-16 13:48 | MHC.OFFVISCO ---
Intake Intake Visit Reasons: Anticoagulation Allergies olmesartan [From Benicar] Adverse Reaction (Verified 08/16/24 13:44) Rash Medication List - Last Reconciled 08/16/24 by Lynda Liu RN cholecalciferol (vitamin D3) 50 mcg PO BID diltiazem HCl CD 240 mg PO BID 90 days duloxetine 60 mg PO DAILY hydrochlorothiazide 25 mg PO DAILY 90 days metoprolol tartrate 25 mg PO BID 30 days rosuvastatin 5 mg PO DAILY warfarin (Jantoven) 5 mg See Protocol PO DAILY Nursing Note INR 1.8-?? out of therapeutic range 2-3 Medications and supplements reviewed Patient status: pt s/p dental extraction 08/09/24, held warfarin x 2 days Medications or supplements: no changes Diet: appetite is good Denies any signs and symptoms of bleeding or clotting or unusual bruising Bleeding, bruising, clotting discussed Nutritional guidance given: no greens for 2 days, eat a red to raise Dose: 7.5mg today and tomm then cont reg 7.5mg x 2, 5mg x 5 F/U INR Date : pt ref earlier appt than 2 weeks Patient verbalizing understanding of instructions given. Anti-Coag Initial Assessment Social Hx Patient Tobacco Use Status: Former Tobacco user Tobacco use type: Cigarette alcohol intake: current Alcohol intake frequency: holidays/special occasions only Cardiovascular Hx: HTN and Arrhythmias Musculoskeletal Hx: Arthritis Blood Disorder Hx: Other GI Hx: Diverticulosis and Hemorrhoids Hx: Bladder Disorders Cancer HX: No Psych. Illness/Depression: Yes Questionnaires HAS-BLED Does the patient had uncontrolled Hypertension?: No Does the patient have renal disease?: No Does the patient have liver disease?: No Does the patient have a history of stroke?: No Has the patient had major bleeding or predisposition to bleeding?: No Does the patient have labile INRs?: No Is the patient over 65 years of age?: Yes Is the patient on medications that gives them a predisposition to bleeding?: Yes Does the patient use alcohol?: No HAS-BLED Score: 2 CHADSVASC Age: 75 or over Gender: Female Does the patient have a history of CHF?: No Does the patient have a history of Hypertension?: Yes Does the patient have a history of Stroke/TIA/Thromboembolism?: No Does the patient have a history of Vascular Disease (prior [place], PAD or aortic plaque)?: No Does the patient have a history of Diabetes?: No CHADS VACS Score: 4 Ekaterina Prediction Score Rsk VTE Active Cancer: No Previous VTE, excluding superficial vein thrombosis: No Reduced mobility: Yes Already known Thrombophilic Condition: No With-in last month Trauma and/or Surgery: No Elderly 70 year or older: Yes Heart and/or Respiratory Failure: No Acute Myocardial infarction and/or Ischemic Stroke: No Acute Infection and/or Rheumatologic Disorder: No Obesity (BMI 30 or greater): Yes Ongoing Hormonal Treatment: No Score: 5 Ekaterina Score less than 4; Low Risk of VTE Ekaterina Score 4 or greater; High Risk of VTE Coding Level of Care Code Est Patient Level 1 Diagnoses Current use of anticoagulant therapy Z79.01 Assessment & Plan Assessment & Plan (1) Current use of anticoagulant therapy: 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
[2024-08-16 13:49] LABS: ~PT, ~INR - Anti Coag Clinic 1.8 (0.9-1.1)
== END 2024-08-16 13:58 | disposition home or self-care (01) ==
LOC: HO.ACS 13:44
PROVIDERS: PCP Internal Medicine; Visit Provider Internal Medicine
DX: Z79.01 Long term (current) use of anticoagulants (principal)

== ENCOUNTER → 2024-08-16 13:44 | Outpatient (BNVA) | payer MEDICARE, SELFPAY | PROVIDERS: PCP Internal Medicine; Visit Provider Internal Medicine | DX: I48.20 Chronic atrial fibrillation, unspecified (principal); Z79.01 Long term (current) use of anticoagulants; Z51.81 Encounter for therapeutic drug level monitoring | CPT/HCPCS: 85610; 99211 ==

== ENCOUNTER 2024-09-08 13:04 | Outpatient (AMB) | payer MEDICARE, SELFPAY ==
--- NOTE | 2024-09-08 13:18 | MHC.OFFVISCO ---
Intake Intake Visit Reasons: Anticoagulation Allergies olmesartan [From Benicar] Adverse Reaction (Verified 09/08/24 13:05) Rash Medication List - Last Reconciled 09/08/24 by Kerri Nava RN cholecalciferol (vitamin D3) 50 mcg PO BID diltiazem HCl CD 240 mg PO BID 90 days duloxetine 60 mg PO DAILY hydrochlorothiazide 25 mg PO DAILY 90 days metoprolol tartrate 25 mg PO BID 30 days rosuvastatin 5 mg PO DAILY warfarin (Jantoven) 5 mg See Protocol PO DAILY Nursing Note Amb to ACS using walker, feeling well Medications and supplements reviewed No changes in health, diet, medications, or supplements, Denies any signs and symptoms of bleeding, bruising, or clotting. Bleeding, bruising, clotting discussed INR 2.7 in therapeutic range Nutritional guidance given, balance greens and reds in diet Dose: continue usual dosing 7.5mg x 2 days and 5mg x 5 days F/U INR: 1 month Patient verbalizes understanding of instructions given Anti-Coag Initial Assessment Social Hx Patient Tobacco Use Status: Former Tobacco user Tobacco use type: Cigarette alcohol intake: current Alcohol intake frequency: holidays/special occasions only Cardiovascular Hx: HTN and Arrhythmias Musculoskeletal Hx: Arthritis Blood Disorder Hx: Other GI Hx: Diverticulosis and Hemorrhoids Hx: Bladder Disorders Cancer HX: No Psych. Illness/Depression: Yes Coding Level of Care Code Est Patient Level 1 Diagnoses Current use of anticoagulant therapy Z79.01 Time Spent (min) 15 Results AMB INR Fingerstick AMB INR Fingerstick 2.7 Last Edit by Kerri Nava RN on 09/08/24 13:13 interface failure Assessment & Plan Assessment & Plan (1) Current use of anticoagulant therapy: Code(s): Z79.01 - group home (current) use of anticoagulants
[2024-09-09 13:00] LABS: Prothrombin Time Whole Bld POC 32.1 sec (11.1-13.5); ~PT, ~INR - Anti Coag Clinic 2.7 (0.9-1.1)
== END 2024-09-08 13:22 | disposition home or self-care (01) ==
LOC: HO.ACS 13:04
PROVIDERS: PCP Internal Medicine; Visit Provider Internal Medicine
DX: Z79.01 Long term (current) use of anticoagulants (principal)

== ENCOUNTER → 2024-09-08 13:04 | Outpatient (BNVA) | payer MEDICARE, SELFPAY | PROVIDERS: PCP Internal Medicine; Visit Provider Internal Medicine | DX: I48.20 Chronic atrial fibrillation, unspecified (principal); Z79.01 Long term (current) use of anticoagulants; Z51.81 Encounter for therapeutic drug level monitoring | CPT/HCPCS: 85610; 99211 ==

== ENCOUNTER 2024-11-21 13:28 | Outpatient (AMB) | payer MEDICARE, SELFPAY ==
[2024-11-21 13:45] LABS: Prothrombin Time Whole Bld POC 37.1 sec (11.1-13.5); ~PT, ~INR - Anti Coag Clinic 3.1 (0.9-1.1)
--- NOTE | 2024-11-21 13:50 | MHC.OFFVISCO ---
Intake Intake Visit Reasons: Anticoagulation Allergies olmesartan [From Benicar] Adverse Reaction (Verified 11/21/24 13:39) Rash Medication List - Last Reconciled 11/21/24 by Kerri Hayes, RN cholecalciferol (vitamin D3) 50 mcg PO BID diltiazem HCl CD 240 mg PO BID 90 days duloxetine 60 mg PO DAILY hydrochlorothiazide 25 mg PO DAILY 90 days metoprolol tartrate 25 mg PO BID 90 days rosuvastatin 5 mg PO DAILY warfarin (Chapintoven) 5 mg See Protocol PO DAILY Nursing Note INR: 3.1 out of therapeutic range of 2-3 Medications and supplements reviewed No changes in health, diet, medications, or supplements, Denies any signs and symptoms of bleeding or bruising or clotting. Bleeding, bruising, clotting discussed Nutritional guidance given to have a serving of greens today. pt states she will have a serving of broccoli. Dose: 5mg X 5 days and 7.5mg X 2 days F/U INR: 4 weeks Patient verbalizes understanding of instructions given Anti-Coag Initial Assessment Social Hx Patient Tobacco Use Status: Former Tobacco user Tobacco use type: Cigarette alcohol intake: current Alcohol intake frequency: holidays/special occasions only Cardiovascular Hx: HTN and Arrhythmias Musculoskeletal Hx: Arthritis Blood Disorder Hx: Other GI Hx: Diverticulosis and Hemorrhoids Hx: Bladder Disorders Cancer HX: No Psych. Illness/Depression: Yes Coding Level of Care Code Est Patient Level 1 Diagnoses Current use of anticoagulant therapy Z79.01 Assessment & Plan Assessment & Plan (1) Current use of anticoagulant therapy: Code(s): Z79.01 - halfway (current) use of anticoagulants
== END 2024-11-21 13:55 | disposition home or self-care (01) ==
PROVIDERS: PCP Internal Medicine; Visit Provider Internal Medicine
DX: Z79.01 Long term (current) use of anticoagulants (principal)

== ENCOUNTER → 2024-11-21 13:28 | Outpatient (BNVA) | payer MEDICARE, SELFPAY | PROVIDERS: PCP Internal Medicine; Visit Provider Internal Medicine | DX: I48.20 Chronic atrial fibrillation, unspecified (principal); Z79.01 Long term (current) use of anticoagulants; Z51.81 Encounter for therapeutic drug level monitoring | CPT/HCPCS: 85610; 99211 ==

== ENCOUNTER 2024-12-04 22:41 | Inpatient (IN) | payer MEDICARE, SELFPAY ==
--- NOTE | 2024-12-04 | ECG_ITS ---
Test Reason : TACHY Blood Pressure : */* mmHG Vent. Rate : 121 BPM Atrial Rate : * BPM P-R Int : * ms QRS Dur : 82 ms QT Int : 318 ms P-R-T Axes : * 60 -82 degrees QTcB Int : 451 ms Atrial fibrillation with rapid ventricular response with premature ventricular or aberrantly conducted complexes ST & T wave abnormality, consider inferior ischemia ST & T wave abnormality, consider anterolateral ischemia Abnormal ECG When compared with ECG of 03-May-2022 11:28, T wave inversion now evident in Anterolateral leads Referred By: Libia Castro Electronically Signed By: LAMINE CUI MD
--- NOTE | ~2024-12-04 | CT_ITS ---
CLINICAL HISTORY: sepsis, abd pain CT abdomen and pelvis without contrast Comparison: None Findings: The gallbladder is not visualized, presumed surgically absent. Mild nonspecific thickening of the adrenal glands. The liver, spleen, and pancreas are within normal limits for appearance The solid organs are unremarkable in appearance. No renal stones. No hydronephrosis or hydroureter. No bowel obstruction, pneumoperitoneum, or pneumatosis. There is colonic diverticulosis. No convincing CT evidence for acute diverticulitis. Pelvic contents unremarkable. Normal appendix. The bones are intact. Multilevel degenerative endplate changes/degenerative disc disease present at the lumbar spine. There is grade 1 anterolisthesis of L4 on L5. Multilevel degenerative central canal stenosis present at the lumbar spine. Heterogeneously hyperattenuating structure present at the right rectus sheath, measuring up to 9.6 x 7.5 x 14.5 cm, consistent with a rectus sheath hematoma. There is adjacent edema within the anterior abdominal wall soft tissues. There appears to be a small amount of blood within the pelvis and also along the left pericolic gutter. Minimal blood present at the right pericolic gutter. IMPRESSION: 9.8 x 7.5 x 14.5 cm right rectus sheath hematoma visualized. A small amount of blood is identified within the pelvis, extending along the left pericolic gutter. Minimal blood present at the right pericolic gutter. No acute findings. Colonic diverticulosis without convincing CT evidence for acute diverticulitis. This document has been electronically signed by: David Shelley MD on 12/05/2024 01:00:35
--- NOTE | ~2024-12-04 | XR_ITS ---
CLINICAL HISTORY: sob 1 view chest x-ray Comparison: CR/SR - XR CHEST 2V - 05/03/22 13:13 EDT Findings: Normal size heart. Atherosclerotic vascular disease of aortic arch. Elevated left hemidiaphragm with left basilar linear opacities likely atelectasis. No significant pleural effusion or pneumothorax. No acute fracture. Unusual position of right humeral head relative to the glenoid could be positional but may represent dislocation. IMPRESSION: 1. Elevated left hemidiaphragm with left basilar atelectasis. 2. Apparent unusual position of right humeral head relative to the glenoid which could be positional but dislocation not excluded. Correlate clinically and if indicated dedicated x-rays of the right shoulder should be obtained. This document has been electronically signed by: Deloris Barbosa MD on 12/05/2024 00:18:05
--- NOTE | ~2024-12-04 | CT_ITS ---
CLINICAL HISTORY: sepsis, unclear source CT chest without contrast Comparison: None Findings: This examination is mildly degraded by artifact related to the patient's arms. Normal heart size. No significant pericardial effusion. Coronary artery calcifications and/or coronary artery stents are visualized. No thoracic aorta aneurysm. The main pulmonary artery is dilated up to 3.8 cm in diameter, suggesting pulmonary arterial hypertension. Minimal to mild streaky opacities are present at the bilateral lung bases. No pneumothorax or pleural effusion. There is [id number] elevation of the left hemidiaphragm. No acute fractures. Multilevel degenerative endplate changes are present at the thoracic spine. Impression: 1. [id number] elevation of the left hemidiaphragm with minimal to mild streaky bibasilar atelectasis. No pneumothorax or pleural effusion. 2. Dilation of the main pulmonary artery up to 3.8 cm in diameter, suggesting pulmonary arterial hypertension. This document has been electronically signed by: David Shelley MD on 12/05/2024 01:03:11
--- NOTE | 2024-12-04 22:56 | ED_ITS ---
HPI - General Adult General Chief complaint: Weakness Stated complaint: sob and weak, afib rvr 130s Source: patient and EMS Mode of arrival: EMS Limitations: other History of Present Illness ED Provider: Dr. Libia Castro HPI narrative: Patient comes to the emergency room via ambulance from home. Patient's called, stating that the patient was very weak. Patient has been complaining of URI symptoms for about a week including coughing, shortness of breath, generalized weakness. No mentioned of fever or chills. When EMS arrived, patient was found to be in AFib with RVR in the heart rate in the 130s. Patient denies any chest pain or shortness of breath. Related Data Home Medications ?Medication ?Instructions ?Recorded ?Confirmed cholecalciferol (vitamin D3) 50 50 mcg PO BID 08/26/22 11/21/24 mcg (2,000 unit) capsule Previous Rx's ?Medication ?Instructions ?Recorded diltiazem HCl 240 mg 240 mg PO BID 90 days #180 caps 05/05/24 capsule,extended release 24 hr hydrochlorothiazide 25 mg tablet 25 mg PO DAILY 90 days #90 tabs 05/25/24 duloxetine 60 mg capsule,delayed 60 mg PO DAILY #90 caps 07/04/24 release rosuvastatin 5 mg tablet 5 mg PO DAILY #90 tabs 07/04/24 metoprolol tartrate 25 mg tablet 25 mg PO BID 90 days #180 tabs 09/30/24 warfarin 5 mg tablet (Jantoven) 5 mg PO DAILY #90 tabs 12/02/24 Allergies Allergy/AdvReac Type Severity Reaction Status Date / Time olmesartan [[facility]] AdvReac Rash Verified 12/04/24 23:18 Review of Systems 2 Review of Systems: Constitutional : No Weight loss, No Fever, No Chills, No Night Sweats, complaining of fatigue, generalized malaise ENT/Mouth : No Hearing loss, No Ear Pain, No Nasal Congestion, No Sinus Pain, No Hoarseness, No sore throat, No Rhinorrhea, No Swallowing Difficulty Eyes: No Eye Pain, No Swelling, No Redness, No Foreign Body, No Discharge, No Vision Changes Cardiovascular : No Chest Pain, no orthopnea no edema no palpitations Respiratory : Complaining of cough, no wheezing, no significant shortness of breath Gastrointestinal : No Nausea, No Vomiting, No Diarrhea, No Constipation, No abdominal Pain, No Hematochezia, No Melena Genitourinary : no irregular bleeding, No Dysuria, No Urinary Frequency, No Hematuria, No Urinary Incontinence, No Urgency, No Flank Pain, No Urinary Flow Changes, No Hesitancy Musculoskeletal : No joint pain, No Myalgias, No Joint Swelling Skin : No Skin Lesions, No rash Neuro : No Weakness, No Numbness, No Paresthesias, No Loss of Consciousness, No Dizziness, No Headache Psych : No Anxiety/Panic, No Depression, No SI/HI/AH/VH, No Social Issues, Heme/Lymph: No Bruising, No Bleeding,No Lymphadenopathy Endocrine : No Polyuria, No Polydipsia, No Temperature Intolerance [facility] Past Medical History Medical History Osteoporosis Blurred vision, bilateral Family history of colon cancer in father Anxiety disorder Persistent atrial fibrillation Anticoagulant long-term use Surgical History No pertinent past surgical history Social History Social History Household Members: Spouse and Children Housing: Apartment Alcohol intake: current Alcohol intake frequency: holidays/special occasions only Alcohol type: wine Patient Tobacco Use Status: Former Tobacco user Tobacco use type: Cigarette Smoked in Last 30 Days: No e-Cigarette/Vaping Use: Never Used Use of substances other than those prescribed or required for medical reasons: No Advance Directives: No Advance Directives Information Provided: Yes Do you have a plan to hurt others: No Plan service: No Current occupational status: retired 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 Current occupational exposures/hazards: No Cognitive needs: No Hearing needs: No Vision needs: No Physical Exam ED Vital Signs: Vital Signs - 24 hr 12/04/24 23:00 12/04/24 23:54 12/05/24 01:01 Temperature 97.4 F 97.6 F Pulse Rate 137 H 85 77 Respiratory Rate 35 H 20 17 Blood Pressure 128/84 100/41 L 89/32 L Pulse Oximetry 93 95 94 Oxygen Delivery Method Room Air Room Air Room Air 12/05/24 01:35 12/05/24 01:47 12/05/24 01:58 Temperature 97.6 F Pulse Rate 65 68 69 Respiratory Rate 15 17 Blood Pressure 108/56 L 115/73 117/69 Pulse Oximetry 97 96 Oxygen Delivery Method Room Air Room Air BMI result Body Mass Index 42.6 Const Other: Appearance: Alert. Seems weak, no acute distress, answering questions Eyes: Pupils equal, round and reactive to light. ENT: Pharynx normal. Neck: Normal inspection. Neck supple. No lymph nodes noted. No crepitus CVS: Irregularly irregular heart rate 130s, Pulses normal. Normal S1 and S2 Respiratory: No respiratory distress. Breath sounds normal. No Wheezing. No rales Abdomen: Soft and nontender. No rigidity. No distention. Patient has no pain to palpation, patient has a small ecchymosis in the abdomen, denies pain to palpation Skin: Skin warm and dry. Normal skin color. Normal skin turgor. Extremities: No lower extremity edema. No Lacerations. No Rash Neuro: Oriented X 3. No motor deficit. No sensory deficit. Moving all extremities. No slurred speech. CN 2 through 12 grossly intact Psych: calm, cooperative Course Course Course Narrative: All of patient's labs pending Patient takes at home metoprolol, patient was given in the ED 5 mg of IV metoprolol. Patient had an episode of hypotension after the initial dose of IV metoprolol. Patient has no fever. All of patient's labs pending. X-rays pending. Patient states that she has been sick at home, reports nonspecific URI like symptoms for couple of weeks. Patient empirically being treated with IV fluids based on ideal weight of 50 kg and IV antibiotics. It was noted that patient has an ecchymosis in the abdomen, patient denies any trauma. Denies any pain. Medications Administered Discontinued Medications Generic Name Dose Route Start Last Admin Trade Name Freq PRN Reason Stop Dose Admin Ceftriaxone Sodium 1 gm 12/04/24 23:39 12/04/24 23:48 Ceftriaxone Sodium 1 Gm Vial IVPUSH 12/04/24 23:40 1 gm ONCE ONE Administration Sodium Chloride 2,000 mls @ 999 mls/hr 12/04/24 23:39 12/05/24 01:27 Ns IVCONT 12/05/24 01:39 Infused .Q2H1M ONE Infusion Lactated Ringer's 1,000 mls @ 999 mls/hr 12/05/24 01:00 12/05/24 02:03 Lr IV 12/05/24 02:00 Infused .Q1H1M VINNY Infusion Albumin Human 100 mls @ 100 mls/hr 12/05/24 01:00 12/05/24 03:03 Kedbumin 25 % IV 12/05/24 02:59 Infused Q1H VINNY Infusion Prothrombin Complex Concent ( 80 mls @ 480 mls/hr 12/05/24 03:00 12/05/24 03:45 Human) 2,000 unit/ IV IV 12/05/24 03:09 Infused Miscellaneous Supplies .Q10M ONE Infusion Loperamide HCl 4 mg 12/05/24 01:51 12/05/24 02:06 Loperamide Hcl 2 Mg Capsule PO 12/05/24 01:52 4 mg ONCE ONE Administration Metoprolol Tartrate 5 mg 12/04/24 22:56 12/04/24 23:16 Metoprolol Tartrate 5 Mg/5 Ml Vial IVPUSH 12/04/24 22:57 5 mg ONCE ONE Administration Protocol Phytonadione 10 mg 12/05/24 01:18 12/05/24 01:25 Phytonadione (Vit K1) Oral 10 Mg/Ml Ampul PO 12/05/24 01:19 10 mg ONCE ONE Administration Medical Decision Making Medical Decision Making MDM Narrative: My interpretation of EKG: Atrial fibrillation with RVR, heart rate 121, occasional PVCs, nonspecific T-wave changes, QTC 451 I was informed that the patient had low blood pressures. However, there was a connection issue with a blood pressure cuff. Manual blood pressures were taken, blood pressure is between 110 and 125 systolic. Patient received a dose of IV metoprolol. Shortly after, patient's blood pressure dropped to the 80s. This was likely secondary to medication. All of patient's labs and imaging pending At this time, 23:59 labs became available, patient's white blood cell count 15.6, creatinine 1.7, lactic acid 13.2, INR 8.5, patient positive for RSV. Sepsis alert was called at 00:00 Last set of vitals signs: Blood pressure 141, heart rate 85, respirations 20, temperature 97.4 degrees, oxygen saturation 95% on room air Patient's lactic acid is significantly elevated. Patient does not have any history of seizures and denies having any seizures. We will go ahead and ordered a CT scan of the chest abdomen and pelvis Patient has an INR of 8.5. Patient has a hematoma in the abdomen. Patient states that it is not painful at all. Patient was given a dose of p.o. vitamin K. after discussing this finding with Dr. Medeiros, with sedative would be best to treat with PCC I was informed by the patient's nurse that patient is having diarrhea. Patient is also hypotensive. Patient receiving a dose of lactated Ringer's. Albumin low, patient receiving IV albumin as well. Since the patient has had multiple L of IV fluids, is expected that when patient is CBCs drawn again, there may be a lower hemoglobin, secondary to hemodilution I discussed the patient with Dr. Hinton, patient being admitted. At 02:15, focused exam was done Patient is given blood pressure 115/46. I discussed the patient with Dr. Hinton, requesting surgery consult. I discussed the patient with Dr. Wright, especially the CT scan findings with a hematoma and the mouth pelvic bleeding. Okay for Medicine to admit the patient. As mentioned above, patient is awake, alert, no abdominal pain, stable. Patient requested to be discharged home because she feels well enough. However, I discussed with the patient that there are lot of abnormalities today that need to be addressed by the medicine team, patient and family agree with the plan for admission. Differential Diagnosis Differential Diagnoses: The differential diagnosis associated with the presentation includes (As above) Admission/Observation Consideration of admission/observation: Escalation of care including admission/observation considered Consult Healthcare Provider Management of the patient was discussed with: Hospitalist and Supervisor Chlorine Liquefaction Lab Data [facility] Lab Attestation statement: I reviewed the patient's lab results. 12/05/24 04:16 12/05/24 04:16 Labs: Lab Results 12/04/24 12/04/24 12/04/24 Range/Units 23:10 23:11 23:12 WBC (4.8-10.8) X10*3/uL RBC (4.20-5.50) X10*6/uL Hgb (12.0-16.0) g/dl Hct (37.0-47.0) % MCV (80.0-98.0) fL MCH (27.0-33.0) pg MCHC (31.0-35.0) g/dl RDW (11.0-16.0) % Plt Count (160-400) X10*3/uL MPV (9.4-12.3) fL Immature Gran % (Auto) (0.0-0.4) % Neut % (Auto) (45-73) % Lymph % (Auto) (20-40) % [place] % (Auto) (2-11) % Eos % (Auto) (0-4) % Baso % (Auto) (0-2) % Lymph # (Auto) (1.2-4.9) X10*3/uL [place] # (Auto) (0.1-1.2) X10*3/uL Eos # (Auto) (0.0-0.4) X10*3/uL Baso # (Auto) (0.0-0.2) X10*3/uL Abs Immat Gran (auto) (0.00-0.03) X10*3/uL Absolute Neuts (auto) (2.0-8.3) x10*3/uL Absolute Nucleated RBC (0.0-0.012) X10*3/uL Nucleated RBC % (auto) (0.0-0.2) /100WBC PT 99.4 H (10.9-12.4) SEC INR 8.5 H* D (0.9-1.1) VBG pH (7.32-7.43) VBG pCO2 mmHg VBG pO2 mmHg VBG HCO3 (22-26) mmol/L VBG O2 Saturation % VBG Base Excess mmol/L Sodium (135-145) mmol/L Potassium (3.3-5.1) mmol/L Chloride (96-108) mmol/L Carbon Dioxide (22-29) mmol/L Anion Gap (12-20) BUN (9-16) mg/dL Creatinine (0.5-1.4) mg/dL Estim Creat Clear Calc Estimated GFR Random Glucose (60-115) mg/dL Lactic Acid 13.2 H* (0.5-2.0) mmol/L Lactic Acid F/U @ 2Hr (0.5-2.0) mmol/L Calcium (8.4-10.2) mg/dL Magnesium (1.6-2.6) mg/dL Total Bilirubin (0.0-1.0) mg/dL Direct Bilirubin (0.0-0.5) mg/dL AST (5-31) U/L ALT (0-31) U/L Alkaline Phosphatase (39-117) U/L Troponin I High Sens 13.4 (<3.5-17.0) ng/L B-Natriuretic Peptide 77 (<100) pg/mL Total Protein (6.5-8.0) g/dL Albumin (3.5-5.0) g/dL TSH (0.32-4.0) uIU/mL Urine Color Urine Appearance Urine pH (5.0-9.0) Ur Specific [place] (1.005-1.025) Urine Protein (Neg-Trace) mg/dL Urine Glucose (UA) (Negative) mg/dL Urine Ketones (Negative) mg/dL Urine Blood (Negative) Urine Nitrite (Negative) Ur Leukocyte Esterase (Negative) Urine RBC (0-2) /HPF Urine WBC (0-5) /HPF Ur Squamous Epith Cells (0-2) /HPF Urine Bacteria (None Seen) Hyaline Casts (0-2) /LPF Influenza Type A (PCR) NEGATIVE (Negative) Influenza Type B (PCR) NEGATIVE (Negative) RSV RNA Qual (PCR) POSITIVE A (Negative) SARS-CoV-2 RNA (RT-PCR) NEGATIVE (Negative) 12/04/24 12/04/24 12/04/24 Range/Units 23:15 23:18 23:50 WBC 15.6 H (4.8-10.8) X10*3/uL RBC 3.18 L D (4.20-5.50) X10*6/uL Hgb 9.5 L D (12.0-16.0) g/dl Hct 29.1 L D (37.0-47.0) % MCV 91.5 (80.0-98.0) fL MCH 29.9 (27.0-33.0) pg MCHC 32.6 (31.0-35.0) g/dl RDW 13.1 (11.0-16.0) % Plt Count 359 (160-400) X10*3/uL MPV 9.9 (9.4-12.3) fL Immature Gran % (Auto) 4.0 H (0.0-0.4) % Neut % (Auto) 67.1 (45-73) % Lymph % (Auto) 24.3 (20-40) % [place] % (Auto) 4.1 (2-11) % Eos % (Auto) 0.2 (0-4) % Baso % (Auto) 0.3 (0-2) % Lymph # (Auto) 3.8 (1.2-4.9) X10*3/uL [place] # (Auto) 0.6 (0.1-1.2) X10*3/uL Eos # (Auto) 0.0 (0.0-0.4) X10*3/uL Baso # (Auto) 0.0 (0.0-0.2) X10*3/uL Abs Immat Gran (auto) 0.63 H (0.00-0.03) X10*3/uL Absolute Neuts (auto) 10.5 H (2.0-8.3) x10*3/uL Absolute Nucleated RBC 0.090 H (0.0-0.012) X10*3/uL Nucleated RBC % (auto) 0.6 H (0.0-0.2) /100WBC PT (10.9-12.4) SEC INR (0.9-1.1) VBG pH 7.37 (7.32-7.43) VBG pCO2 37 mmHg VBG pO2 36 mmHg VBG HCO3 21 L (22-26) mmol/L VBG O2 Saturation 48.0 % VBG Base Excess -2.9 mmol/L Sodium 132 L (135-145) mmol/L Potassium 4.1 (3.3-5.1) mmol/L Chloride 92 L (96-108) mmol/L Carbon Dioxide 18 L (22-29) mmol/L Anion Gap 26 H (12-20) BUN 30 H (9-16) mg/dL Creatinine 1.70 H (0.5-1.4) mg/dL Estim Creat Clear Calc 33.8 Estimated GFR 29 Random Glucose 238 H (60-115) mg/dL Lactic Acid (0.5-2.0) mmol/L Lactic Acid F/U @ 2Hr (0.5-2.0) mmol/L Calcium 8.7 D (8.4-10.2) mg/dL Magnesium 2.2 (1.6-2.6) mg/dL Total Bilirubin 1.2 H (0.0-1.0) mg/dL Direct Bilirubin 0.4 (0.0-0.5) mg/dL AST 42 H (5-31) U/L ALT 13 (0-31) U/L Alkaline Phosphatase 51 (39-117) U/L Troponin I High Sens (<3.5-17.0) ng/L B-Natriuretic Peptide (<100) pg/mL Total Protein 6.8 (6.5-8.0) g/dL Albumin 3.1 L (3.5-5.0) g/dL TSH 1.59 (0.32-4.0) uIU/mL Urine Color Dark Yellow Urine Appearance Turbid Urine pH 5.0 (5.0-9.0) Ur Specific [place] >= 1.030 H (1.005-1.025) Urine Protein 100 (2+) H (Neg-Trace) mg/dL Urine Glucose (UA) 100 H (Negative) mg/dL Urine Ketones Trace (Negative) mg/dL Urine Blood Trace H (Negative) Urine Nitrite Negative (Negative) Ur Leukocyte Esterase Moderate (2+) H (Negative) Urine RBC 11-20 H (0-2) /HPF Urine WBC >50 H (0-5) /HPF Ur Squamous Epith Cells >20 (0-2) /HPF Urine Bacteria 4+ (None Seen) Hyaline Casts 11-20 (0-2) /LPF Influenza Type A (PCR) (Negative) Influenza Type B (PCR) (Negative) RSV RNA Qual (PCR) (Negative) SARS-CoV-2 RNA (RT-PCR) (Negative) 12/05/24 12/05/24 Range/Units 01:20 01:21 WBC (4.8-10.8) X10*3/uL RBC (4.20-5.50) X10*6/uL Hgb (12.0-16.0) g/dl Hct (37.0-47.0) % MCV (80.0-98.0) fL MCH (27.0-33.0) pg MCHC (31.0-35.0) g/dl RDW (11.0-16.0) % Plt Count (160-400) X10*3/uL MPV (9.4-12.3) fL Immature Gran % (Auto) (0.0-0.4) % Neut % (Auto) (45-73) % Lymph % (Auto) (20-40) % [place] % (Auto) (2-11) % Eos % (Auto) (0-4) % Baso % (Auto) (0-2) % Lymph # (Auto) (1.2-4.9) X10*3/uL [place] # (Auto) (0.1-1.2) X10*3/uL Eos # (Auto) (0.0-0.4) X10*3/uL Baso # (Auto) (0.0-0.2) X10*3/uL Abs Immat Gran (auto) (0.00-0.03) X10*3/uL Absolute Neuts (auto) (2.0-8.3) x10*3/uL Absolute Nucleated RBC (0.0-0.012) X10*3/uL Nucleated RBC % (auto) (0.0-0.2) /100WBC PT (10.9-12.4) SEC INR (0.9-1.1) VBG pH (7.32-7.43) VBG pCO2 mmHg VBG pO2 mmHg VBG HCO3 (22-26) mmol/L VBG O2 Saturation % VBG Base Excess mmol/L Sodium 136 (135-145) mmol/L Potassium 3.7 (3.3-5.1) mmol/L Chloride 101 (96-108) mmol/L Carbon Dioxide 21 L (22-29) mmol/L Anion Gap 18 (12-20) BUN 30 H (9-16) mg/dL Creatinine 1.38 (0.5-1.4) mg/dL Estim Creat Clear Calc 41.7 Estimated GFR 37 Random Glucose 111 (60-115) mg/dL Lactic Acid (0.5-2.0) mmol/L Lactic Acid F/U @ 2Hr 6.3 H* (0.5-2.0) mmol/L Calcium 7.6 L D (8.4-10.2) mg/dL Magnesium (1.6-2.6) mg/dL Total Bilirubin (0.0-1.0) mg/dL Direct Bilirubin (0.0-0.5) mg/dL AST (5-31) U/L ALT (0-31) U/L Alkaline Phosphatase (39-117) U/L Troponin I High Sens (<3.5-17.0) ng/L B-Natriuretic Peptide (<100) pg/mL Total Protein (6.5-8.0) g/dL Albumin (3.5-5.0) g/dL TSH (0.32-4.0) uIU/mL Urine Color Urine Appearance Urine pH (5.0-9.0) Ur Specific [place] (1.005-1.025) Urine Protein (Neg-Trace) mg/dL Urine Glucose (UA) (Negative) mg/dL Urine Ketones (Negative) mg/dL Urine Blood (Negative) Urine Nitrite (Negative) Ur Leukocyte Esterase (Negative) Urine RBC (0-2) /HPF Urine WBC (0-5) /HPF Ur Squamous Epith Cells (0-2) /HPF Urine Bacteria (None Seen) Hyaline Casts (0-2) /LPF Influenza Type A (PCR) (Negative) Influenza Type B (PCR) (Negative) RSV RNA Qual (PCR) (Negative) SARS-CoV-2 RNA (RT-PCR) (Negative) Independent Interpretation I performed an independent interpretation of an: CT Scan Radiology Impression Discussion of test interpretation with radiology: I have reviewed the radiologist's reading. Radiologist Impression: This examination is mildly degraded by artifact related to the patient's arms. Normal heart size. No significant pericardial effusion. Coronary artery calcifications and/or coronary artery stents are visualized. No thoracic aorta aneurysm. The main pulmonary artery is dilated up to 3.8 cm in diameter, suggesting pulmonary arterial hypertension. Minimal to mild streaky opacities are present at the bilateral lung bases. No pneumothorax or pleural effusion. There is [id number] elevation of the left hemidiaphragm. No acute fractures. Multilevel degenerative endplate changes are present at the thoracic spine. Impression: 1. [id number] elevation of the left hemidiaphragm with minimal to mild streaky bibasilar atelectasis. No pneumothorax or pleural effusion. 2. Dilation of the main pulmonary artery up to 3.8 cm in diameter, suggesting pulmonary arterial hypertension. The gallbladder is not visualized, presumed surgically absent. Mild nonspecific thickening of the adrenal glands. The liver, spleen, and pancreas are within normal limits for appearance The solid organs are unremarkable in appearance. No renal stones. No hydronephrosis or hydroureter. No bowel obstruction, pneumoperitoneum, or pneumatosis. There is colonic diverticulosis. No convincing CT evidence for acute diverticulitis. Pelvic contents unremarkable. Normal appendix. The bones are intact. Multilevel degenerative endplate changes/degenerative disc disease present at the lumbar spine. There is grade 1 anterolisthesis of L4 on L5. Multilevel degenerative central canal stenosis present at the lumbar spine. Heterogeneously hyperattenuating structure present at the right rectus sheath, measuring up to 9.6 x 7.5 x 14.5 cm, consistent with a rectus sheath hematoma. There is adjacent edema within the anterior abdominal wall soft tissues. There appears to be a small amount of blood within the pelvis and also along the left pericolic gutter. Minimal blood present at the right pericolic gutter. IMPRESSION: 9.8 x 7.5 x 14.5 cm right rectus sheath hematoma visualized. A small amount of blood is identified within the pelvis, extending along the left pericolic gutter. Minimal blood present at the right pericolic gutter. No acute findings. Colonic diverticulosis without convincing CT evidence for acute diverticulitis. Critical Care Time Critical Care Time Critical Care Time: Yes Total Critical Care Time: 75 Attestation: I have personally provided critical care time. Time includes review of lab data, radiology results, discussion with consultants, and monitoring for potential decompensation. Intervention performed as documented. Discharge Plan Discharge Clinical Impression: Atrial fibrillation with RVR, Sepsis, RSV bronchitis, AICHA (acute kidney injury), Supratherapeutic INR, Hematoma, Diarrhea Patient Disposition: Admitted As Inpatient
[2024-12-04 23:00] VITALS: BP 128/84; PULSE 137; PULSE 145; RESP 35; TEMP 36.3; O2SAT 93; O2SAT 98; BMI 42.6
[2024-12-04] MEDS: Metoprolol Tartrate 5 MG/5 ML VIAL IVPUSH (23:16)
[2024-12-04 23:19] LABS: MANUAL DIFF FLAG NO
[2024-12-04 23:23] LABS: Basophils Percent Auto 0.3 % (0-2); Eosinophils Percent Auto 0.2 % (0-4); Hematocrit 29.1 % (37.0-47.0); Hemoglobin 9.5 g/dl (12.0-16.0); Imm Gran Abs Auto 0.63 X10*3/uL (0.00-0.03); Lymphocytes Absolute Auto 3.8 X10*3/uL (1.2-4.9); Lymphocytes Percent Auto 24.3 % (20-40); Mean Corpuscular HGB Conc 32.6 g/dl (31.0-35.0); Mean Corpuscular Hemoglobin 29.9 pg (27.0-33.0); Mean Corpuscular Volume 91.5 fL (80.0-98.0); Mean Platelet Volume 9.9 fL (9.4-12.3); Monocytes Absolute Auto 0.6 X10*3/uL (0.1-1.2); Monocytes Percent Auto 4.1 % (2-11); NRBC Pct Auto 0.6 /100WBC (0.0-0.2); Neutrophils Absolute Auto 10.5 x10*3/uL (2.0-8.3); Neutrophils Percent Auto 67.1 % (45-73); Platelet Count 359 X10*3/uL (160-400); Red Blood Count 3.18 X10*6/uL (4.20-5.50); Red Cell Distribution Width 13.1 % (11.0-16.0); White Blood Count 15.6 X10*3/uL (4.8-10.8)
[2024-12-04 23:23] LABS: Venous Blood Gas Refer to POC result
[2024-12-04 23:24] LABS: VBG Base Excess -2.9 mmol/L; VBG HCO3 21 mmol/L (22-26); VBG pCO2 37 mmHg; VBG pH 7.37 (7.32-7.43); VBG pO2 36 mmHg
[2024-12-04 23:35] LABS: Prothrombin Time 99.4 SEC (10.9-12.4)
[2024-12-04 23:39] LABS: B Type Natriuretic Peptide 77 pg/mL (<100)
[2024-12-04 23:39] LABS: INTERNATIONAL NORM RATIO 8.5 (0.9-1.1)
[2024-12-04 23:40] LABS: Troponin-I High Sensitivity 13.4 ng/L (<3.5-17.0)
--- NOTE | 2024-12-04 23:45 | PC.NURSE ---
pt biba from home, a&ox4, respirations even and unlabored. pt reports sitting on the toilet when she suddenly felt weak, pt reports she also had been feeling palpitations. on ems arrival pt was in rapid afib rvr 130-140s. pt did not receive any medications by ems. on arrival, pt noted to be in rapid afib, pt medicated per mar. 22G placed in right hand and 18G in left ac, labs obtained. pt straight cath per provider order, dark yellow urine voided, urine sample sent. after medication administration, pt normal sinus at 84bpm.
[2024-12-04] MEDS: 0.9 % Sodium Chloride 2,000 ML 999 ML IVCONT (23:48)
[2024-12-04] MEDS: cefTRIAXone sodium 1 GM VIAL IVPUSH (23:48)
[2024-12-04 23:54] VITALS: BP 100/41; PULSE 85; RESP 20; O2SAT 95
[2024-12-04 23:58] LABS: Lactic Acid 13.2 mmol/L (0.5-2.0)
[2024-12-04 23:58] LABS: Alanine Aminotransferase 13 U/L (0-31); Albumin Level 3.1 g/dL (3.5-5.0); Alkaline Phosphatase 51 U/L (39-117); Anion Gap 26 (12-20); Aspartate Amino Transferase 42 U/L (5-31); Bilirubin Direct 0.4 mg/dL (0.0-0.5); Bilirubin Total 1.2 mg/dL (0.0-1.0); Blood Urea Nitrogen 30 mg/dL (9-16); Calcium 8.7 mg/dL (8.4-10.2); Carbon Dioxide 18 mmol/L (22-29); Chloride 92 mmol/L (96-108); Creatinine Clr Calc Pharmacy 33.8; Estimated Glomerular Filt Rate 29; Glucose Random 238 mg/dL (60-115); Magnesium 2.2 mg/dL (1.6-2.6); Potassium 4.1 mmol/L (3.3-5.1); Sodium 132 mmol/L (135-145); Total Protein 6.8 g/dL (6.5-8.0)
[2024-12-04 23:59] LABS: Influenza A PCR NEGATIVE (Negative); Influenza B PCR NEGATIVE (Negative); Resp Syncy Virus RNA Qual PCR POSITIVE (Negative); SARS COV2 PCR INHOUSE NEGATIVE (Negative)
[2024-12-05] VITALS (16 sets, daily range): BP systolic 89–136; BP diastolic 32–78; PULSE 54–89; RESP 15–24; TEMP 36.2–37; O2SAT 94–98
--- NOTE | 2024-12-05 | PC.NURSE ---
sepsis alert called by provider at this time, 2L normal saline admin per order, antibiotics administered. pt to ct at this time.
[2024-12-05 00:36] LABS: Appearance Urine Turbid; Color Urine Dark Yellow; Glucose Urine UA 100 mg/dL (Negative); Leukocyte Esterase Urine Moderate (2+) (Negative); Nitrite Urine Negative (Negative); Specific Gravity - Urine >= 1.030 (1.005-1.025); UMIC TRIGGER UACC YES; Urine Blood Trace (Negative); Urine Ketones Trace mg/dL (Negative); Urine Protein 100 (2+) mg/dL (Neg-Trace)
[2024-12-05 00:44] LABS: Bacteria Urine 4+ (None Seen); Squamous Epithelial Cell Urine >20 /HPF (0-2); UACC Culture Trigger YES; WBC Urine >50 /HPF (0-5)
--- NOTE | 2024-12-05 01:01 | PC.NURSE ---
provider aware of pt bp, new orders as follows.
[2024-12-05] MEDS: Lactated Ringers 1,000 ML 999 ML IV (01:04)
[2024-12-05] MEDS: Albumin Human 25 % 100 ML IV ×2 (01:06→02:03)
[2024-12-05 01:12] LABS: TSH reflex Free T4 1.59 uIU/mL (0.32-4.0)
[2024-12-05 01:16] LABS: Reflex Lactate? Lactic Acid Added
--- NOTE | 2024-12-05 01:22 | MHC.EDTECH ---
T/W assisted with the repeat lactic,drawn and sent to lab
[2024-12-05] MEDS: Phytonadione (Vit K1) Oral 10 MG/ML AMPUL PO (01:25)
[2024-12-05 01:47] LABS: ~Lactic Acid-LAB USE ONLY 6.3 mmol/L (0.5-2.0)
[2024-12-05 01:50] LABS: Anion Gap 18 (12-20); Blood Urea Nitrogen 30 mg/dL (9-16); Calcium 7.6 mg/dL (8.4-10.2); Carbon Dioxide 21 mmol/L (22-29); Chloride 101 mmol/L (96-108); Glucose Random 111 mg/dL (60-115); Potassium 3.7 mmol/L (3.3-5.1); Sodium 136 mmol/L (135-145)
[2024-12-05] MEDS: Loperamide HCl 2 MG CAPSULE 4 MG PO (02:06)
--- NOTE | 2024-12-05 02:09 | PC.NURSE ---
pt passed nursing bedside swallow eval, pt medicated per mar at this time, tolerated well whole with water.
[2024-12-05 02:21] LABS: Creatinine Clr Calc Pharmacy 41.7; Estimated Glomerular Filt Rate 37
--- NOTE | 2024-12-05 03:02 | P.HPHOSP_ITS ---
History of Present Illness Date of Service: 12/05/24 Chief Complaint: Weakness This is a 74-year-old female with pertinent history of persistent atrial fibrillation on Coumadin, hypertension, mixed hyperlipidemia, mood disorder who presents to the emergency department for evaluation of weakness. Patient states that for the last few days she has been having dry cough, runny nose. Patient with poor p.o. intake over the last 2 days and had been feeling weak on the day of presentation. Does endorse increased urinary frequency and urgency. No sick contacts. Is compliant with her p.o. medications. Denies fever, chills, chest pain, abdominal pain, changes in bowel habits. When EMS arrived, patient was in AFib with RVR with heart rate in the 130s. In the emergency department, imaging with rectus sheath hematoma and INR found to be elevated at 8.5. Lactic acidosis present with leukocytosis. Urine concerning for UTI. AICHA with creatinine elevated at 1.7 Review of Systems 2 Constitutional: Constitutional: Reports fatigue, Reports malaise, Reports poor appetite and Reports weakness Cardiovascular: Cardiovascular: Reports dyspnea on exertion Respiratory: Respiratory: Reports cough and Reports dyspnea on exertion Gastrointestinal: Gastrointestinal: Reports no additional gastrointestinal complaints Genitourinary: Genitourinary: Reports urinary urgency Neurologic: Reports weakness Endocrine: Endocrine: Reports fatigue [facility] Medical History Osteoporosis Blurred vision, bilateral Family history of colon cancer in father Anxiety disorder Persistent atrial fibrillation Anticoagulant long-term use Surgical History No pertinent past surgical history Social History Household Members: Spouse and Children Housing: Apartment Alcohol intake: current Alcohol intake frequency: holidays/special occasions only Alcohol type: wine Patient Tobacco Use Status: Former Tobacco user Tobacco use type: Cigarette Smoked in Last 30 Days: No e-Cigarette/Vaping Use: Never Used Use of substances other than those prescribed or required for medical reasons: No Advance Directives: No Advance Directives Information Provided: Yes Do you have a plan to hurt others: No Plan service: No Current occupational status: retired 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 Current occupational exposures/hazards: No Cognitive needs: No Hearing needs: No Vision needs: No Meds Allergies Allergy/AdvReac Type Severity Reaction Status Date / Time olmesartan [From Benicar] AdvReac Rash Verified 12/04/24 23:18 Active Medications: Current Medications Prothrombin Complex Concent ( Human) 2,000 unit/ IV Miscellaneous Supplies 80 mls @ 480 mls/hr IV .Q10M ONE Stop: 12/05/24 03:09 Home Medications ?Medication ?Instructions ?Recorded ?Confirmed ?Last Taken ?Type cholecalciferol (vitamin D3) 50 50 mcg PO BID 08/26/22 11/21/24 Unknown History mcg (2,000 unit) capsule Physical Exam 2 Vital Signs and Narrative: Vital Signs: Last Vital Signs Temp 97.6 F 12/05/24 01:58 Pulse 69 12/05/24 01:58 Resp 17 12/05/24 01:58 BP 117/69 12/05/24 01:58 Pulse Ox 96 12/05/24 01:58 O2 Del Method Room Air 12/05/24 01:58 BMI result Body Mass Index 42.6 Middle-aged female lying in bed in no distress Neck supple, no JVD, dry mucous membrane Regular rate and rhythm, S1-S2 heard Regular breath sounds bilaterally, no wheezing or crackles appreciated Abdomen soft nontender, ecchymosis seen, no guarding, no rigidity Patient is awake, alert and oriented to self, place, time and person ; no focal motor deficit Psych: Normal mood No pedal edema Results Labs 12/04/24 23:15 12/05/24 01:20 Labs: Laboratory Results - last 24 hr 12/04/24 12/04/24 12/04/24 23:10 23:11 23:12 MCV MCH MCHC RDW Plt Count MPV Immature Gran % (Auto) Neut % (Auto) Lymph % (Auto) [place] % (Auto) Eos % (Auto) Baso % (Auto) Lymph # (Auto) [place] # (Auto) Eos # (Auto) Baso # (Auto) Abs Immat Gran (auto) Absolute Neuts (auto) Absolute Nucleated RBC Nucleated RBC % (auto) PT 99.4 H INR 8.5 H* D VBG pH VBG pCO2 VBG pO2 VBG HCO3 VBG O2 Saturation VBG Base Excess Anion Gap Estim Creat Clear Calc Estimated GFR Random Glucose Lactic Acid 13.2 H* Lactic Acid F/U @ 2Hr Calcium Magnesium Total Bilirubin Direct Bilirubin AST ALT Alkaline Phosphatase Troponin I High Sens 13.4 B-Natriuretic Peptide 77 Total Protein Albumin TSH Urine Color Urine Appearance Urine pH Ur Specific [place] Urine Protein Urine Glucose (UA) Urine Ketones Urine Blood Urine Nitrite Ur Leukocyte Esterase Urine RBC Urine WBC Ur Squamous Epith Cells Urine Bacteria Hyaline Casts Influenza Type A (PCR) NEGATIVE Influenza Type B (PCR) NEGATIVE RSV RNA Qual (PCR) POSITIVE A SARS-CoV-2 RNA (RT-PCR) NEGATIVE 12/04/24 12/04/24 12/04/24 23:15 23:18 23:50 MCV 91.5 MCH 29.9 MCHC 32.6 RDW 13.1 Plt Count 359 MPV 9.9 Immature Gran % (Auto) 4.0 H Neut % (Auto) 67.1 Lymph % (Auto) 24.3 [place] % (Auto) 4.1 Eos % (Auto) 0.2 Baso % (Auto) 0.3 Lymph # (Auto) 3.8 [place] # (Auto) 0.6 Eos # (Auto) 0.0 Baso # (Auto) 0.0 Abs Immat Gran (auto) 0.63 H Absolute Neuts (auto) 10.5 H Absolute Nucleated RBC 0.090 H Nucleated RBC % (auto) 0.6 H PT INR VBG pH 7.37 VBG pCO2 37 VBG pO2 36 VBG HCO3 21 L VBG O2 Saturation 48.0 VBG Base Excess -2.9 Anion Gap 26 H Estim Creat Clear Calc 33.8 Estimated GFR 29 Random Glucose 238 H Lactic Acid Lactic Acid F/U @ 2Hr Calcium 8.7 D Magnesium 2.2 Total Bilirubin 1.2 H Direct Bilirubin 0.4 AST 42 H ALT 13 Alkaline Phosphatase 51 Troponin I High Sens B-Natriuretic Peptide Total Protein 6.8 Albumin 3.1 L TSH 1.59 Urine Color Dark Yellow Urine Appearance Turbid Urine pH 5.0 Ur Specific [place] >= 1.030 H Urine Protein 100 (2+) H Urine Glucose (UA) 100 H Urine Ketones Trace Urine Blood Trace H Urine Nitrite Negative Ur Leukocyte Esterase Moderate (2+) H Urine RBC 11-20 H Urine WBC >50 H Ur Squamous Epith Cells >20 Urine Bacteria 4+ Hyaline Casts 11-20 Influenza Type A (PCR) Influenza Type B (PCR) RSV RNA Qual (PCR) SARS-CoV-2 RNA (RT-PCR) 12/05/24 12/05/24 01:20 01:21 MCV MCH MCHC RDW Plt Count MPV Immature Gran % (Auto) Neut % (Auto) Lymph % (Auto) [place] % (Auto) Eos % (Auto) Baso % (Auto) Lymph # (Auto) [place] # (Auto) Eos # (Auto) Baso # (Auto) Abs Immat Gran (auto) Absolute Neuts (auto) Absolute Nucleated RBC Nucleated RBC % (auto) PT INR VBG pH VBG pCO2 VBG pO2 VBG HCO3 VBG O2 Saturation VBG Base Excess Anion Gap 18 Estim Creat Clear Calc 41.7 Estimated GFR 37 Random Glucose 111 Lactic Acid Lactic Acid F/U @ 2Hr 6.3 H* Calcium 7.6 L D Magnesium Total Bilirubin Direct Bilirubin AST ALT Alkaline Phosphatase Troponin I High Sens B-Natriuretic Peptide Total Protein Albumin TSH Urine Color Urine Appearance Urine pH Ur Specific [place] Urine Protein Urine Glucose (UA) Urine Ketones Urine Blood Urine Nitrite Ur Leukocyte Esterase Urine RBC Urine WBC Ur Squamous Epith Cells Urine Bacteria Hyaline Casts Influenza Type A (PCR) Influenza Type B (PCR) RSV RNA Qual (PCR) SARS-CoV-2 RNA (RT-PCR) Assessment and Plan (1) Sepsis: Status: Acute (2) UTI (urinary tract infection): Status: Acute (3) Hematoma: Status: Acute (4) Supratherapeutic INR: Status: Acute (5) AICHA (acute kidney injury): Status: Acute (6) RSV bronchitis: Status: Acute (7) Atrial fibrillation with RVR: Status: Acute Plan This is a 74-year-old female with pertinent history of persistent atrial fibrillation on Coumadin, hypertension, mixed hyperlipidemia, mood disorder who presents to the emergency department for evaluation of weakness. #. Severe sepsis due to acute UTI: Resuscitated with IV crystalloids. Lactic acid and blood culture obtained. Follow urine culture. Initiating empiric IV ceftriaxone. #. Rectus sheath hematoma, spontaneous: General surgery consulted from the ER, appreciate assistance. Closely monitor H&H. #. Supratherapeutic INR leading to above: Vitamin K and PCC given in the ER. Monitor in a.m. #. Persistent AFib with RVR: Rate controlled with IV Lopressor in the ER. Hold Coumadin #. Acute kidney injury stage I, prerenal: Improving with crystalloid resuscitation. Avoid nephrotoxins #. Acute lactic acidosis due to sepsis and hypoperfusion #. RSV infection: Maintain oxygen saturation on room air. Symptomatic treatment and DuoNebs p.r.n. #. Hypertension: Hold hydrochlorothiazide in the setting of AICHA. Hold remaining antihypertensives in the setting of sepsis #. Mood disorder: Continue home mood stabilizers Med rec pending DVT prophylaxis: Mechanical Full code. Discussed with patient at bedside Admit as inpatient and will require two night minimum hospital stay for IV antibiotics, monitoring of CBC, INR, kidney function (as above), which is not possible in a lesser acute setting. Surgical consult pending Quality Stroke Does the patient have a stroke diagnosis?: No VTE Prior VTE?: No VTE Risk Level:: Medical - moderate - high VTE Device Contraindication: N/A - Device Ordered VTE Drug Contraindication: Treatment Not Indicated
[2024-12-05 03:24] LABS: Reflex Lactate? 2 Y
[2024-12-05] MEDS: Hum Prothrombin Cplx(PCC)4Fact 2,000 UNIT in Container,Empty 0 ML 480 UNIT IV (03:32)
[2024-12-05 04:33] LABS: Mean Corpuscular HGB Conc 33.3 g/dl (31.0-35.0); Mean Corpuscular Volume 90.1 fL (80.0-98.0); NRBC Pct Auto 0.3 /100WBC (0.0-0.2); Platelet Count 256 X10*3/uL (160-400); Red Blood Count 2.33 X10*6/uL (4.20-5.50); Red Cell Distribution Width 13.2 % (11.0-16.0); White Blood Count 18.6 X10*3/uL (4.8-10.8)
[2024-12-05 04:38] LABS: INTERNATIONAL NORM RATIO 1.5 (0.9-1.1); Prothrombin Time 17.9 SEC (10.9-12.4)
[2024-12-05 04:48] LABS: Anion Gap 16 (12-20); Blood Urea Nitrogen 32 mg/dL (9-16); Calcium 8.5 mg/dL (8.4-10.2); Carbon Dioxide 25 mmol/L (22-29); Chloride 100 mmol/L (96-108); Creatinine Clr Calc Pharmacy 37.9; Estimated Glomerular Filt Rate 33; Glucose Random 124 mg/dL (60-115); Potassium 4.2 mmol/L (3.3-5.1); Sodium 137 mmol/L (135-145)
[2024-12-05 04:51] LABS: ~Lactic Acid-LAB USE ONLY 3.4 mmol/L (0.5-2.0)
--- NOTE | 2024-12-05 06:08 | PC.NURSE ---
initial 15 minutes of blood transfusion began at this time, vss, pt tolerating well, lung sounds clear bilaterally.
--- NOTE | 2024-12-05 06:19 | PC.NURSE ---
initial 15 minutes completed, pt tolerated well, no acute distress noted, vss.
--- NOTE | 2024-12-05 06:52 | PC.NURSE ---
pt assisted with bed change due to large incontinent loose stool.
--- NOTE | 2024-12-05 07:48 | P.CONGS_ITS ---
History of Present Illness Consult details Consult date: 12/05/24 Narrative: Patient was a 74-year-old female with a plethora of comorbidities intercurrent medical problems. She had recently been feeling unwell with upper respiratory tract symptoms. She also has had significant coughing and had associated weakness. Patient among other medications as on Coumadin. Under workup in the emergency room including exam and CT scan she was found to have a moderately sized left rectus sheath hematoma. She herself has no abdominal symptoms or complaints aside from feeling a fullness in the abdominal wall in her left side. Chart was reviewed and patient evaluated. Patient had a modest drop in her H&H. [facility] Past Medical History Medical History Osteoporosis Blurred vision, bilateral Family history of colon cancer in father Anxiety disorder Persistent atrial fibrillation Anticoagulant long-term use Surgical History Surgical History No pertinent past surgical history Social History Social History Household Members: Spouse and Children Housing: Apartment Alcohol intake: current Alcohol intake frequency: holidays/special occasions only Alcohol type: wine Patient Tobacco Use Status: Former Tobacco user Tobacco use type: Cigarette Smoked in Last 30 Days: No e-Cigarette/Vaping Use: Never Used Use of substances other than those prescribed or required for medical reasons: No Advance Directives: No Advance Directives Information Provided: Yes Do you have a plan to hurt others: No Plan Nutrition Risks: No Nutritional Risk service: No Current occupational status: retired 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 Current occupational exposures/hazards: No Cognitive needs: No Hearing needs: No Vision needs: No Meds Allergies Allergy/AdvReac Type Severity Reaction Status Date / Time olmesartan [From Benicar] AdvReac Rash Verified 12/04/24 23:18 Active Medications: Current Medications Acetaminophen (Acetaminophen 325 Mg Tablet) 650 mg PO Q6H PRN PRN Reason: Pain, Mild 1-3,fever,headache Albuterol/Ipratropium (Albuterol/Iprat 2.5/0.5mg 3 Ml Ampul.Neb) 3 ml INHALE Q4H PRN PRN Reason: Wheezing Benzonatate (Benzonatate 100 Mg Capsule) 200 mg PO TID PRN PRN Reason: Cough Calcium Carbonate (Calcium Carbonate 750 Mg Tab.Chew) 750 mg PO Q4H PRN PRN Reason: Heartburn Ceftriaxone Sodium (Ceftriaxone Sodium 1 Gm Vial) 1 gm IVPUSH Q24H [facility] Guaifenesin/Codeine Phosphate (Guaifen/Codeine Sf 200/20/10ml 10 Ml Liquid) 5 ml PO Q6H PRN PRN Reason: Cough Magnesium Hydroxide (Milk Of Magnesia 30 Ml Oral.Susp) 30 ml PO DAILY PRN PRN Reason: Constipation Melatonin (Melatonin 3 Mg Tablet) 6 mg PO BEDTIME PRN PRN Reason: Insomnia Ondansetron HCl (Ondansetron Hcl 4 Mg/2 Ml Vial) 4 mg IVPUSH Q8H PRN PRN Reason: Nausea and Vomiting Sodium Chloride (0.9 % Sodium Chloride Flush 3 Ml Syringe) 3 ml IVFLUSH QSHIFT [facility] Home Medications ?Medication ?Instructions ?Recorded ?Confirmed ?Last Taken ?Type cholecalciferol (vitamin D3) 50 50 mcg PO BID 08/26/22 11/21/24 Unknown History mcg (2,000 unit) capsule Physical Exam 2 Vital Signs: Vital Signs: Last Vital Signs Temp 97.6 F 12/05/24 06:19 Pulse 65 12/05/24 06:19 Resp 20 12/05/24 06:19 BP 100/78 12/05/24 06:19 Pulse Ox 98 12/05/24 03:05 O2 Del Method Room Air 12/05/24 03:05 BMI result Body Mass Index 42.6 Const: Other: Corpulent elderly female in no acute distress. GI: Other: Very corpulent abdomen. Patient has a left lower quadrant area of fullness and overlying ecchymosis consistent with her underlying rectus sheath hematoma. Abdominal exam is otherwise benign. No evidence of any guarding, rebound, or rigidity. Results Labs 12/05/24 04:16 12/05/24 04:16 Labs: Abnormal lab results 12/04/24 12/04/24 12/04/24 Range/Units 23:11 23:12 23:15 WBC 15.6 H (4.8-10.8) X10*3/uL RBC 3.18 L D (4.20-5.50) X10*6/uL Hgb 9.5 L D (12.0-16.0) g/dl Hct 29.1 L D (37.0-47.0) % Immature Gran % (Auto) 4.0 H (0.0-0.4) % Abs Immat Gran (auto) 0.63 H (0.00-0.03) X10*3/uL Absolute Neuts (auto) 10.5 H (2.0-8.3) x10*3/uL Absolute Nucleated RBC 0.090 H (0.0-0.012) X10*3/uL Nucleated RBC % (auto) 0.6 H (0.0-0.2) /100WBC PT 99.4 H (10.9-12.4) SEC INR 8.5 H* D (0.9-1.1) VBG HCO3 (22-26) mmol/L Sodium 132 L (135-145) mmol/L Chloride 92 L (96-108) mmol/L Carbon Dioxide 18 L (22-29) mmol/L Anion Gap 26 H (12-20) BUN 30 H (9-16) mg/dL Creatinine 1.70 H (0.5-1.4) mg/dL Random Glucose 238 H (60-115) mg/dL Lactic Acid 13.2 H* (0.5-2.0) mmol/L Lactic Acid F/U @ 2Hr (0.5-2.0) mmol/L Lactic Acid F/U @ 4Hr (0.5-2.0) mmol/L Calcium (8.4-10.2) mg/dL Total Bilirubin 1.2 H (0.0-1.0) mg/dL AST 42 H (5-31) U/L Albumin 3.1 L (3.5-5.0) g/dL Ur Specific [place] (1.005-1.025) Urine Protein (Neg-Trace) mg/dL Urine Glucose (UA) (Negative) mg/dL Urine Blood (Negative) Ur Leukocyte Esterase (Negative) Urine RBC (0-2) /HPF Urine WBC (0-5) /HPF RSV RNA Qual (PCR) POSITIVE A (Negative) Crossmatch 12/04/24 12/04/24 12/05/24 Range/Units 23:18 23:50 01:20 WBC (4.8-10.8) X10*3/uL RBC (4.20-5.50) X10*6/uL Hgb (12.0-16.0) g/dl Hct (37.0-47.0) % Immature Gran % (Auto) (0.0-0.4) % Abs Immat Gran (auto) (0.00-0.03) X10*3/uL Absolute Neuts (auto) (2.0-8.3) x10*3/uL Absolute Nucleated RBC (0.0-0.012) X10*3/uL Nucleated RBC % (auto) (0.0-0.2) /100WBC PT (10.9-12.4) SEC INR (0.9-1.1) VBG HCO3 21 L (22-26) mmol/L Sodium (135-145) mmol/L Chloride (96-108) mmol/L Carbon Dioxide 21 L (22-29) mmol/L Anion Gap (12-20) BUN 30 H (9-16) mg/dL Creatinine (0.5-1.4) mg/dL Random Glucose (60-115) mg/dL Lactic Acid (0.5-2.0) mmol/L Lactic Acid F/U @ 2Hr (0.5-2.0) mmol/L Lactic Acid F/U @ 4Hr (0.5-2.0) mmol/L Calcium 7.6 L D (8.4-10.2) mg/dL Total Bilirubin (0.0-1.0) mg/dL AST (5-31) U/L Albumin (3.5-5.0) g/dL Ur Specific [place] >= 1.030 H (1.005-1.025) Urine Protein 100 (2+) H (Neg-Trace) mg/dL Urine Glucose (UA) 100 H (Negative) mg/dL Urine Blood Trace H (Negative) Ur Leukocyte Esterase Moderate (2+) H (Negative) Urine RBC 11-20 H (0-2) /HPF Urine WBC >50 H (0-5) /HPF RSV RNA Qual (PCR) (Negative) Crossmatch 12/05/24 12/05/24 12/05/24 Range/Units 01:21 04:16 04:57 WBC 18.6 H (4.8-10.8) X10*3/uL RBC 2.33 L D (4.20-5.50) X10*6/uL Hgb 7.0 L* D (12.0-16.0) g/dl Hct 21.0 L* D (37.0-47.0) % Immature Gran % (Auto) (0.0-0.4) % Abs Immat Gran (auto) (0.00-0.03) X10*3/uL Absolute Neuts (auto) (2.0-8.3) x10*3/uL Absolute Nucleated RBC 0.060 H (0.0-0.012) X10*3/uL Nucleated RBC % (auto) 0.3 H (0.0-0.2) /100WBC PT 17.9 H D (10.9-12.4) SEC INR 1.5 H D (0.9-1.1) VBG HCO3 (22-26) mmol/L Sodium (135-145) mmol/L Chloride (96-108) mmol/L Carbon Dioxide (22-29) mmol/L Anion Gap (12-20) BUN 32 H (9-16) mg/dL Creatinine 1.52 H (0.5-1.4) mg/dL Random Glucose 124 H (60-115) mg/dL Lactic Acid (0.5-2.0) mmol/L Lactic Acid F/U @ 2Hr 6.3 H* (0.5-2.0) mmol/L Lactic Acid F/U @ 4Hr 3.4 H* (0.5-2.0) mmol/L Calcium (8.4-10.2) mg/dL Total Bilirubin (0.0-1.0) mg/dL AST (5-31) U/L Albumin (3.5-5.0) g/dL Ur Specific [place] (1.005-1.025) Urine Protein (Neg-Trace) mg/dL Urine Glucose (UA) (Negative) mg/dL Urine Blood (Negative) Ur Leukocyte Esterase (Negative) Urine RBC (0-2) /HPF Urine WBC (0-5) /HPF RSV RNA Qual (PCR) (Negative) Crossmatch See Detail Short CBC 12/04/24 12/05/24 Range/Units 23:15 04:16 WBC 15.6 H 18.6 H (4.8-10.8) X10*3/uL Hgb 9.5 L D 7.0 L* D (12.0-16.0) g/dl Hct 29.1 L D 21.0 L* D (37.0-47.0) % Plt Count 359 256 D (160-400) X10*3/uL BMP 12/04/24 12/05/24 12/05/24 23:15 01:20 04:16 Sodium 132 L 136 137 Potassium 4.1 3.7 4.2 Chloride 92 L 101 100 Carbon Dioxide 18 L 21 L 25 BUN 30 H 30 H 32 H Creatinine 1.70 H 1.38 1.52 H Calcium 8.7 D 7.6 L D 8.5 D Liver Function 12/04/24 Range/Units 23:15 Total Bilirubin 1.2 H (0.0-1.0) mg/dL Direct Bilirubin 0.4 (0.0-0.5) mg/dL AST 42 H (5-31) U/L ALT 13 (0-31) U/L Alkaline Phosphatase 51 (39-117) U/L Albumin 3.1 L (3.5-5.0) g/dL Urine 12/04/24 Range/Units 23:50 Urine Color Dark Yellow Urine Appearance Turbid Urine pH 5.0 (5.0-9.0) Ur Specific [place] >= 1.030 H (1.005-1.025) Urine Protein 100 (2+) H (Neg-Trace) mg/dL Urine Glucose (UA) 100 H (Negative) mg/dL All other labs normal. Assessment and Plan (1) Hematoma: Status: Acute Plan Patient was currently being treated for respiratory issues as well as receiving interrupted of blood secondary to rectus sheath hematoma. Once her anticoagulation is fully reverse, this process usually self tamponades and is self-limiting. Continue restorative measures, serial exams and serial H&H. Procedures Date of Service Date of Service: 12/05/24
[2024-12-05] MEDS: 0.9 % Sodium Chloride Flush 3 ML SYRINGE IVFLUSH ×2 (09:45→20:38)
--- NOTE | 2024-12-05 10:28 | PC.NURSE ---
During rounds, Pts IV pump for blood transfusion noted to be beeping reporting a downstream occlusion. Pt reports pump had been beeping for a while. Pt checked for proper positioning and adjusted. Pump restarted with good result. Blood transfusion now noted to behind scheduled infusion time d/t the occurrence of an occlusion at an unknown time.
--- NOTE | 2024-12-05 10:29 | PM.EVENT ---
Event Note Date of Service: 12/05/24 Event Note: Day Team follow up S Seen and examined denies abd pain reports cough O vitals - last documented, low normal BP gen - NAD cvs - s1s2, not tachycardic abd - soft and NT with ecchymosis present neuro - aaox3; non-focal A/P Acute blood loss anemia due to rectus sheet hematoma (non-traumatic) due to supratherapeutic INR H/H dropped -- being transfused 2u prbcs monitor h/h gen surg input appreciated AICHA/HypoNa likely hypovoluemic being given blood, monitor Possible UTI leading to sepsis UA with pyuria+bacteremia empiric rocephin f/u cultures Persistent A. fib on coumadin Supratherapeutic INR given vit K and PCC in the ED INR below 2 now monitor hold rate control drugs in light of low bp RSV symptomatic Rx O2 wnl HTN hold bp meds Mood continue baseline meds Full Code DVT pptx - mechanical due to acute blood loss anemia Time Spent With Patient Time: Total time managing care of this patient today ____ minutes.
--- NOTE | 2024-12-05 11:08 | MHC.CM.PN ---
IMM 12/05/24, Pt lives with her and dtr. She does not have home health services. PCP confirmed: Dr. Hinds. HCP is her dtr Melonie, copy requested. FOr DME:, she has a cane, walker and shower chair. Pt. said she can arrange transport home at [place], but may need assistance. She said she could use home health services at home for herself and her . CM discussed contacting [facility] when she is better to have an intake for their services. DCP: home, with services. CM to follow for DC needs.
--- NOTE | 2024-12-05 11:22 | PHA.MEDREC ---
Pharmacy Consult ? Medication Reconciliation Pharmacy has completed the medication reconciliation.
[2024-12-05 19:06] LABS: Hematocrit 28.1 % (37.0-47.0); Hemoglobin 9.5 g/dl (12.0-16.0); Mean Corpuscular HGB Conc 33.8 g/dl (31.0-35.0); Mean Corpuscular Hemoglobin 30.5 pg (27.0-33.0); Mean Corpuscular Volume 90.4 fL (80.0-98.0); Mean Platelet Volume 9.7 fL (9.4-12.3); NRBC Pct Auto 0.6 /100WBC (0.0-0.2); Platelet Count 269 X10*3/uL (160-400); Red Blood Count 3.11 X10*6/uL (4.20-5.50); Red Cell Distribution Width 13.5 % (11.0-16.0); White Blood Count 17.3 X10*3/uL (4.8-10.8)
[2024-12-05 20:02] LABS: Hematocrit 26.4 % (37.0-47.0); Hemoglobin 9.2 g/dl (12.0-16.0)
[2024-12-05] MEDS: Cholecalciferol (Vitamin D3) 25 MCG TABLET 50 MCG PO (20:37)
[2024-12-05] MEDS: cefTRIAXone sodium 1 GM VIAL IVPUSH (20:37)
[2024-12-06 03:10] VITALS: BP 124/56; PULSE 88; RESP 20; TEMP 36.3; O2SAT 94
[2024-12-06 07:17] VITALS: BP 123/54; PULSE 86; RESP 16; TEMP 36.6; O2SAT 96
[2024-12-06 07:42] LABS: INTERNATIONAL NORM RATIO 1.3 (0.9-1.1); Prothrombin Time 14.7 SEC (10.9-12.4)
[2024-12-06 07:45] LABS: Anion Gap 13 (12-20); Blood Urea Nitrogen 20 mg/dL (9-16); Calcium 8.9 mg/dL (8.4-10.2); Carbon Dioxide 28 mmol/L (22-29); Chloride 101 mmol/L (96-108); Creatinine Clr Calc Pharmacy 67.7; Estimated Glomerular Filt Rate > 60; Glucose Random 104 mg/dL (60-115); Potassium 3.4 mmol/L (3.3-5.1); Sodium 139 mmol/L (135-145)
[2024-12-06 07:50] LABS: MANUAL DIFF FLAG NO
[2024-12-06 07:53] LABS: Basophils Percent Auto 0.2 % (0-2); Eosinophils Absolute Auto 0.1 X10*3/uL (0.0-0.4); Eosinophils Percent Auto 0.7 % (0-4); Hemoglobin 9.1 g/dl (12.0-16.0); Imm Gran Abs Auto 0.28 X10*3/uL (0.00-0.03); Imm Gran Pct Auto 2.1 % (0.0-0.4); Lymphocytes Percent Auto 14.6 % (20-40); Mean Corpuscular HGB Conc 33.7 g/dl (31.0-35.0); Mean Corpuscular Hemoglobin 30.7 pg (27.0-33.0); Mean Corpuscular Volume 91.2 fL (80.0-98.0); Mean Platelet Volume 9.4 fL (9.4-12.3); Monocytes Absolute Auto 1.3 X10*3/uL (0.1-1.2); Monocytes Percent Auto 9.4 % (2-11); NRBC Pct Auto 0.5 /100WBC (0.0-0.2); Platelet Count 282 X10*3/uL (160-400); Red Blood Count 2.96 X10*6/uL (4.20-5.50); Red Cell Distribution Width 13.9 % (11.0-16.0); White Blood Count 13.6 X10*3/uL (4.8-10.8)
[2024-12-06] MEDS: Cholecalciferol (Vitamin D3) 25 MCG TABLET 50 MCG PO ×2 (08:46→20:30)
[2024-12-06] MEDS: DULoxetine HCl 60 MG CAPSULE.DR PO (08:46)
[2024-12-06] MEDS: Atorvastatin Calcium 20 MG TABLET PO (08:46)
[2024-12-06] MEDS: 0.9 % Sodium Chloride Flush 3 ML SYRINGE IVFLUSH ×3 (08:47→20:30)
[2024-12-06 11:07] VITALS: BP 121/59; PULSE 94; RESP 18; TEMP 36.6; O2SAT 98
--- NOTE | 2024-12-06 11:48 | PM.PNGS ---
Subjective Subjective Date of Service: 12/06/24 Interval history: Feels a little improved. Physical Exam Vital Signs: Vital Signs: Last Vital Signs Temp 97.8 F 12/06/24 11:07 Pulse 94 12/06/24 11:07 Resp 18 12/06/24 11:07 BP 121/59 L 12/06/24 11:07 Pulse Ox 98 12/06/24 11:07 O2 Del Method Room Air 12/06/24 11:07 BMI result Body Mass Index 42.6 Const: Orientation/consciousness: patient oriented x3 GI: Other: ecchymosis and fullness of midabdomen, mildly tender Neuro: General: patient oriented x3 Objective Data Active Medications Acetaminophen (Acetaminophen 325 Mg Tablet) 650 mg PO Q6H PRN PRN Reason: Pain, Mild 1-3,fever,headache Albuterol/Ipratropium (Albuterol/Iprat 2.5/0.5mg 3 Ml Ampul.Neb) 3 ml INHALE Q4H PRN PRN Reason: Wheezing Atorvastatin Calcium (Atorvastatin Calcium 20 Mg Tablet) 20 mg PO DAILY [facility] Last Admin: 12/06/24 08:46 Dose: 20 mg Documented By: SHOSHANA Benzonatate (Benzonatate 100 Mg Capsule) 200 mg PO TID PRN PRN Reason: Cough Calcium Carbonate (Calcium Carbonate 750 Mg Tab.Chew) 750 mg PO Q4H PRN PRN Reason: Heartburn Ceftriaxone Sodium (Ceftriaxone Sodium 1 Gm Vial) 1 gm IVPUSH Q24H COUNT [facility]CLUD[facility] Last Admin: 12/05/24 20:37 Dose: 1 gm Documented By: BECCA Duloxetine HCl (Duloxetine Hcl 60 Mg Capsule.) 60 mg PO DAILY [facility] Last Admin: 12/06/24 08:46 Dose: 60 mg Documented By: SHOSHANA Guaifenesin/Codeine Phosphate (Guaifen/Codeine Sf 200/20/10ml 10 Ml Liquid) 5 ml PO Q6H PRN PRN Reason: Cough Magnesium Hydroxide (Milk Of Magnesia 30 Ml Oral.Susp) 30 ml PO DAILY PRN PRN Reason: Constipation Melatonin (Melatonin 3 Mg Tablet) 6 mg PO BEDTIME PRN PRN Reason: Insomnia Nystatin (Nystatin Powder 15 Gm Bottle) 1 appl TOPICAL BID [facility]; Protocol Ondansetron HCl (Ondansetron Hcl 4 Mg/2 Ml Vial) 4 mg IVPUSH Q8H PRN PRN Reason: Nausea and Vomiting Sodium Chloride (0.9 % Sodium Chloride Flush 3 Ml Syringe) 3 ml IVFLUSH QSHIFT COUNT [facility]CLUDES [facility] Last Admin: 12/06/24 08:47 Dose: 3 ml Documented By: SHOSHANA Vitamin D (Cholecalciferol (Vitamin D3) 25 Mcg Tablet) 50 mcg PO BID [facility] Last Admin: 12/06/24 08:46 Dose: 50 mcg Documented By: SHOSHANA Labs 12/06/24 07:15 12/06/24 07:15 Labs: Laboratory Results - last 24 hr 12/05/24 12/05/24 12/06/24 04:57 18:57 07:15 MCV 90.4 91.2 MCH 30.5 30.7 MCHC 33.8 33.7 RDW 13.5 13.9 Plt Count 269 282 MPV 9.7 9.4 Immature Gran % (Auto) 2.1 H Neut % (Auto) 73.0 Lymph % (Auto) 14.[address] [place] % (Auto) 9.4 Eos % (Auto) 0.7 Baso % (Auto) 0.2 Lymph # (Auto) 2.0 [place] # (Auto) 1.3 H Eos # (Auto) 0.1 Baso # (Auto) 0.0 Abs Immat Gran (auto) 0.28 H Absolute Neuts (auto) 10.0 H Absolute Nucleated RBC 0.100 H 0.070 H Nucleated RBC % (auto) 0.6 H 0.5 H Hold Purple Top SEE NOTE SEE NOTE PT 14.7 H INR 1.3 H Anion Gap 13 Estim Creat Clear Calc 67.7 Estimated GFR > 60 Random Glucose 104 Calcium 8.9 Blood Type O Positive Antibody Screen NEGATIVE Crossmatch See Detail Microbiology Microbiology Results: Microbiology 12/05/24 Unknown Urine Culture - Preliminary Urine Catheterized - Leroy Catheter Gram negative lady 12/04/24 23:12 Blood Culture - Preliminary Blood - Venous No growth after 24 hours. 12/04/24 23:12 Blood Culture - Preliminary Blood - Venous No growth after 24 hours. Procedures Date of Service Date of Service: 12/06/24 Progress Note: A&P Assessment and plan (1) Supratherapeutic INR: Status: Acute (2) Hematoma: Status: Acute Plan INR reversed, transfused 2U PRBC yesterday, H/H stable this morning. Hemodynamically stable. Continue supportive measures for rectus sheath hematoma. Time Spent With Patient Time: Total time managing care of this patient today ____ minutes. Quality Stroke Does the patient have a stroke diagnosis?: No VTE Prior VTE?: No VTE Risk Level:: Medical - moderate - high VTE Device Contraindication: N/A - Device Ordered VTE Drug Contraindication: Treatment Not Indicated
--- NOTE | 2024-12-06 12:01 | P.PNIM_ITS ---
Subjective Subjective Date of Service: 12/06/24 Interval History: seen and examined this AM reports feeling generalized malaise no abd pain reports cough Review of Systems Negative except HPI/interval history. Physical Exam 2 Vital Signs: Vital Signs: Last Vital Signs Temp 97.8 F 12/06/24 11:07 Pulse 94 12/06/24 11:07 Resp 18 12/06/24 11:07 BP 121/59 L 12/06/24 11:07 Pulse Ox 98 12/06/24 11:07 O2 Del Method Room Air 12/06/24 11:07 BMI result Body Mass Index 42.6 Const: Other: vitals - last documented, bp improved gen - NAD cvs - s1s2, not tachycardic abd - soft and NT with ecchymosis present neuro - aaox3; non-focal Objective Data Active Medications Acetaminophen (Acetaminophen 325 Mg Tablet) 650 mg PO Q6H PRN PRN Reason: Pain, Mild 1-3,fever,headache Albuterol/Ipratropium (Albuterol/Iprat 2.5/0.5mg 3 Ml Ampul.Neb) 3 ml INHALE Q4H PRN PRN Reason: Wheezing Atorvastatin Calcium (Atorvastatin Calcium 20 Mg Tablet) 20 mg PO DAILY [facility] Last Admin: 12/06/24 08:46 Dose: 20 mg Documented By: SHOSHANA Benzonatate (Benzonatate 100 Mg Capsule) 200 mg PO TID PRN PRN Reason: Cough Calcium Carbonate (Calcium Carbonate 750 Mg Tab.Chew) 750 mg PO Q4H PRN PRN Reason: Heartburn Ceftriaxone Sodium (Ceftriaxone Sodium 1 Gm Vial) 1 gm IVPUSH Q24H [facility] Last Admin: 12/05/24 20:37 Dose: 1 gm Documented By: BECCA Duloxetine HCl (Duloxetine Hcl 60 Mg Capsule.) 60 mg PO DAILY [facility] Last Admin: 12/06/24 08:46 Dose: 60 mg Documented By: SHOSHANA Guaifenesin/Codeine Phosphate (Guaifen/Codeine Sf 200/20/10ml 10 Ml Liquid) 5 ml PO Q6H PRN PRN Reason: Cough Magnesium Hydroxide (Milk Of Magnesia 30 Ml Oral.Susp) 30 ml PO DAILY PRN PRN Reason: Constipation Melatonin (Melatonin 3 Mg Tablet) 6 mg PO BEDTIME PRN PRN Reason: Insomnia Nystatin (Nystatin Powder 15 Gm Bottle) 1 appl TOPICAL BID [facility]; Protocol Ondansetron HCl (Ondansetron Hcl 4 Mg/2 Ml Vial) 4 mg IVPUSH Q8H PRN PRN Reason: Nausea and Vomiting Sodium Chloride (0.9 % Sodium Chloride Flush 3 Ml Syringe) 3 ml IVFLUSH QSHIFT [facility] Last Admin: 12/06/24 08:47 Dose: 3 ml Documented By: SHOSHANA Vitamin D (Cholecalciferol (Vitamin D3) 25 Mcg Tablet) 50 mcg PO BID [facility] Last Admin: 12/06/24 08:46 Dose: 50 mcg Documented By: SHOSHANA Labs 12/06/24 07:15 12/06/24 07:15 Labs: Laboratory Results - last 24 hr 12/05/24 12/05/24 12/06/24 04:57 18:57 07:15 MCV 90.4 91.2 MCH 30.5 30.7 MCHC 33.8 33.7 RDW 13.5 13.9 Plt Count 269 282 MPV 9.7 9.4 Immature Gran % (Auto) 2.1 H Neut % (Auto) 73.0 Lymph % (Auto) 14.6 L [place] % (Auto) 9.4 Eos % (Auto) 0.7 Baso % (Auto) 0.2 Lymph # (Auto) 2.0 [place] # (Auto) 1.3 H Eos # (Auto) 0.1 Baso # (Auto) 0.0 Abs Immat Gran (auto) 0.28 H Absolute Neuts (auto) 10.0 H Absolute Nucleated RBC 0.100 H 0.070 H Nucleated RBC % (auto) 0.6 H 0.5 H Hold Purple Top SEE NOTE SEE NOTE PT 14.7 H INR 1.3 H Anion Gap 13 Estim Creat Clear Calc 67.7 Estimated GFR > 60 Random Glucose 104 Calcium 8.9 Blood Type O Positive Antibody Screen NEGATIVE Crossmatch See Detail Microbiology Microbiology Results: Microbiology 12/05/24 Unknown Urine Culture - Preliminary Urine Catheterized - Leroy Catheter Gram negative lady 12/04/24 23:12 Blood Culture - Preliminary Blood - Venous No growth after 24 hours. 12/04/24 23:12 Blood Culture - Preliminary Blood - Venous No growth after 24 hours. Assessment and Plan (1) Hypercalcemia due to a drug: Status: Resolved (2) Atrial fibrillation with RVR: Status: Resolved Plan 74 yo F on coumadin for a. fib presenting with weakness and found to have Acute blood loss anemia due to rectus sheet hematoma (non-traumatic) due to supratherapeutic INR H/H dropped -- s/p 2 units PRBC with stability of h/h gen surg input appreciated continue holding coumadin AICHA/HypoNa presented with SCr 1.7 now 0.85 Gram neg UTI leading to sepsis urine showing GNR continue rocephin f/u infal cultures Persistent A. fib on coumadin Supratherapeutic INR given vit K and PCC in the ED BP rebounding, will start rate control drugs (on multiple, will start with metoprolol) continue holding coumadin RSV symptomatic Rx O2 wnl HTN slowly restarting -- metoprolol as above Mood continue baseline meds Full Code DVT pptx - mechanical due to acute blood loss anemia Quality Stroke Does the patient have a stroke diagnosis?: No VTE Prior VTE?: No VTE Risk Level:: Medical - moderate - high VTE Device Contraindication: N/A - Device Ordered VTE Drug Contraindication: Treatment Not Indicated
[2024-12-06] MEDS: Metoprolol Tartrate 25 MG TABLET PO ×2 (13:12→20:30)
[2024-12-06] MEDS: Nystatin Powder 15 GM BOTTLE 1 APPL TOPICAL ×2 (13:12→20:34)
[2024-12-06 15:40] VITALS: BP 118/55; PULSE 93; RESP 18; TEMP 36.2; O2SAT 95
[2024-12-06 20:00] VITALS: BP 115/56; PULSE 85; RESP 20; TEMP 36.2; O2SAT 96
[2024-12-06] MEDS: cefTRIAXone sodium 1 GM VIAL IVPUSH (20:30)
[2024-12-07] VITALS (9 sets, daily range): BP systolic 102–138; BP diastolic 56–71; PULSE 78–97; RESP 16–21; TEMP 35.9–36.7; O2SAT 93–97
[2024-12-07] MEDS: Benzonatate 100 MG CAPSULE 200 MG PO ×2 (00:11→21:22)
[2024-12-07] MEDS: guaiFEN/Codeine SF 200/20/10ML 10 ML LIQUID 5 ML PO ×3 (02:56→21:22)
[2024-12-07 07:15] LABS: Hematocrit 28.9 % (37.0-47.0); Hemoglobin 9.5 g/dl (12.0-16.0); Mean Corpuscular HGB Conc 32.9 g/dl (31.0-35.0); Mean Corpuscular Hemoglobin 30.4 pg (27.0-33.0); Mean Corpuscular Volume 92.6 fL (80.0-98.0); Mean Platelet Volume 9.6 fL (9.4-12.3); NRBC Pct Auto 0.4 /100WBC (0.0-0.2); Platelet Count 314 X10*3/uL (160-400); Red Blood Count 3.12 X10*6/uL (4.20-5.50); Red Cell Distribution Width 14.2 % (11.0-16.0); White Blood Count 11.8 X10*3/uL (4.8-10.8)
[2024-12-07 07:27] LABS: INTERNATIONAL NORM RATIO 1.2 (0.9-1.1); Prothrombin Time 13.6 SEC (10.9-12.4)
[2024-12-07 07:29] LABS: Anion Gap 14 (12-20); Blood Urea Nitrogen 18 mg/dL (9-16); Calcium 9.1 mg/dL (8.4-10.2); Carbon Dioxide 29 mmol/L (22-29); Chloride 100 mmol/L (96-108); Creatinine Clr Calc Pharmacy 74.8; Estimated Glomerular Filt Rate > 60; Glucose Random 102 mg/dL (60-115); Potassium 3.5 mmol/L (3.3-5.1); Sodium 139 mmol/L (135-145)
[2024-12-07] MEDS: 0.9 % Sodium Chloride Flush 3 ML SYRINGE IVFLUSH ×2 (08:28→17:09)
[2024-12-07] MEDS: Cholecalciferol (Vitamin D3) 25 MCG TABLET 50 MCG PO ×2 (08:29→21:22)
[2024-12-07] MEDS: DULoxetine HCl 60 MG CAPSULE.DR PO (08:29)
[2024-12-07] MEDS: Metoprolol Tartrate 25 MG TABLET PO ×2 (08:29→21:22)
[2024-12-07] MEDS: Atorvastatin Calcium 20 MG TABLET PO (08:29)
--- NOTE | 2024-12-07 11:40 | HO.PM.IMPN ---
Subjective Subjective Date of Service: 12/07/24 Interval History: wakness, cough Physical Exam Vital Signs: Vital Signs: Last Vital Signs Temp 97.9 F 12/07/24 07:33 Pulse 85 12/07/24 07:33 Resp 18 12/07/24 07:33 BP 121/56 L 12/07/24 07:33 Pulse Ox 96 12/07/24 07:33 O2 Del Method Room Air 12/07/24 07:33 BMI result Body Mass Index 42.6 General: AO X 3, no acute distress Resp: diminsihed bilateral, no accessory muscles used CVS: S1,S2,RRR GI: soft, non tender, non distended Neuro: motor grossly intact, alert Psych: appropriate affect, appropriate insight hematoma over abdomen Objective Data Active Medications Acetaminophen (Acetaminophen 325 Mg Tablet) 650 mg PO Q6H PRN PRN Reason: Pain, Mild 1-3,fever,headache Albuterol/Ipratropium (Albuterol/Iprat 2.5/0.5mg 3 Ml Ampul.Neb) 3 ml INHALE Q4H PRN PRN Reason: Wheezing Atorvastatin Calcium (Atorvastatin Calcium 20 Mg Tablet) 20 mg PO DAILY [facility] Last Admin: 12/07/24 08:29 Dose: 20 mg Documented By: DALY Benzonatate (Benzonatate 100 Mg Capsule) 200 mg PO TID PRN PRN Reason: Cough Last Admin: 12/07/24 00:11 Dose: 200 mg Documented By: HARJIT Calcium Carbonate (Calcium Carbonate 750 Mg Tab.Chew) 750 mg PO Q4H PRN PRN Reason: Heartburn Ceftriaxone Sodium (Ceftriaxone Sodium 1 Gm Vial) 1 gm IVPUSH Q24H [facility] Last Admin: 12/06/24 20:30 Dose: 1 gm Documented By: HARJIT Duloxetine HCl (Duloxetine Hcl 60 Mg Capsule.Dr) 60 mg PO DAILY [facility] Last Admin: 12/07/24 08:29 Dose: 60 mg Documented By: DALY Guaifenesin/Codeine Phosphate (Guaifen/Codeine Sf 200/20/10ml 10 Ml Liquid) 5 ml PO Q6H PRN PRN Reason: Cough Last Admin: 12/07/24 02:56 Dose: 5 ml Documented By: HARJIT Magnesium Hydroxide (Milk Of Magnesia 30 Ml Oral.Susp) 30 ml PO DAILY PRN PRN Reason: Constipation Melatonin (Melatonin 3 Mg Tablet) 6 mg PO BEDTIME PRN PRN Reason: Insomnia Metoprolol Tartrate (Metoprolol Tartrate 25 Mg Tablet) 25 mg PO BID [facility]; Protocol Last Admin: 12/07/24 08:29 Dose: 25 mg Documented By: DALY Nystatin (Nystatin Powder 15 Gm Bottle) 1 appl TOPICAL BID [facility]; Protocol Last Admin: 12/06/24 20:34 Dose: 1 appl Documented By: HARJIT Ondansetron HCl (Ondansetron Hcl 4 Mg/2 Ml Vial) 4 mg IVPUSH Q8H PRN PRN Reason: Nausea and Vomiting Sodium Chloride (0.9 % Sodium Chloride Flush 3 Ml Syringe) 3 ml IVFLUSH QSHIFT [facility] Last Admin: 12/07/24 08:28 Dose: 3 ml Documented By: DALY Vitamin D (Cholecalciferol (Vitamin D3) 25 Mcg Tablet) 50 mcg PO BID [facility] Last Admin: 12/07/24 08:29 Dose: 50 mcg Documented By: DALY Labs 12/07/24 06:22 12/07/24 06:22 Labs: Laboratory Results - last 24 hr 12/07/24 06:22 MCV 92.6 MCH 30.4 MCHC 32.9 RDW 14.2 Plt Count 314 MPV 9.6 Absolute Nucleated RBC 0.050 H Nucleated RBC % (auto) 0.4 H PT 13.6 H INR 1.2 H Anion Gap 14 Estim Creat Clear Calc 74.8 Estimated GFR > 60 Random Glucose 102 Calcium 9.1 Microbiology Microbiology Results: Microbiology 12/05/24 Unknown Urine Culture - Final Urine Catheterized - Leroy Catheter Klebsiella pneumoniae 12/04/24 23:12 Blood Culture - Preliminary Blood - Venous No growth after 48 hours. 12/04/24 23:12 Blood Culture - Preliminary Blood - Venous No growth after 48 hours. Assessment and Plan (1) Anxiety disorder: Status: Acute Plan 74F PMH morbid obesity, persistent AFib on Coumadin, hypertension, hyperlipidemia, disorder presented with weakness found to have acute anemia due to rectus sheath hematoma and supratherapeutic INR, RSV, UTI Acute blood loss anemia due to rectus sheath hematoma due to supratherapeutic INR Hemoglobin improved after 2 units PRBC and has remained stable. Continue to monitor Coumadin on hold, INR reversed Acute kidney injury Resolved Sepsis due to Klebsiella UTI Continue ceftriaxone Persistent atrial fibrillation Coumadin on hold due to hematoma Continue metoprolol RSV Continue cough suppressant, symptomatic management PT eval Morbid obesity Weight loss recommended DVT prophylaxis-mechanical due to rectus sheath hematoma Full code reason for continued hospitalization: Still feeling unwell weak Quality Stroke Does the patient have a stroke diagnosis?: No VTE Prior VTE?: No VTE Risk Level:: Medical - moderate - high VTE Device Contraindication: N/A - Device Ordered VTE Drug Contraindication: Treatment Not Indicated
[2024-12-07] MEDS: Nystatin Powder 15 GM BOTTLE 1 APPL TOPICAL ×2 (13:18→21:23)
--- NOTE | 2024-12-07 13:23 | MHC.CM.PN ---
EMR reviewed and per MD rounds, pt is not medically cleared for discharge today due to continued weakness. PT eval was done, they are recommending home with PT services.
[2024-12-07] MEDS: Acetaminophen 325 MG TABLET 650 MG PO (17:09)
[2024-12-07] MEDS: cefTRIAXone sodium 1 GM VIAL IVPUSH (21:22)
[2024-12-08] VITALS (8 sets, daily range): BP systolic 99–129; BP diastolic 52–64; PULSE 82–99; RESP 18–20; TEMP 35.7–37.1; O2SAT 92–99
[2024-12-08] MEDS: guaiFEN/Codeine SF 200/20/10ML 10 ML LIQUID 5 ML PO ×3 (02:59→21:13)
[2024-12-08 07:03] LABS: Hematocrit 29.6 % (37.0-47.0); Hemoglobin 9.6 g/dl (12.0-16.0); Mean Corpuscular HGB Conc 32.4 g/dl (31.0-35.0); Mean Corpuscular Hemoglobin 30.7 pg (27.0-33.0); Mean Corpuscular Volume 94.6 fL (80.0-98.0); Mean Platelet Volume 9.6 fL (9.4-12.3); NRBC Pct Auto 0.2 /100WBC (0.0-0.2); Platelet Count 311 X10*3/uL (160-400); Red Blood Count 3.13 X10*6/uL (4.20-5.50); Red Cell Distribution Width 14.8 % (11.0-16.0); White Blood Count 11.5 X10*3/uL (4.8-10.8)
[2024-12-08 07:07] LABS: Anion Gap 13 (12-20); Blood Urea Nitrogen 17 mg/dL (9-16); Carbon Dioxide 29 mmol/L (22-29); Chloride 101 mmol/L (96-108); Creatinine Clr Calc Pharmacy 81.2; Estimated Glomerular Filt Rate > 60; Glucose Random 102 mg/dL (60-115); Potassium 3.3 mmol/L (3.3-5.1); Sodium 140 mmol/L (135-145)
[2024-12-08] MEDS: Benzonatate 100 MG CAPSULE 200 MG PO ×3 (09:17→23:11)
[2024-12-08] MEDS: DULoxetine HCl 60 MG CAPSULE.DR PO (09:17)
[2024-12-08] MEDS: Cholecalciferol (Vitamin D3) 25 MCG TABLET 50 MCG PO ×2 (09:17→21:13)
[2024-12-08] MEDS: 0.9 % Sodium Chloride Flush 3 ML SYRINGE IVFLUSH ×3 (09:18→21:16)
[2024-12-08] MEDS: Metoprolol Tartrate 25 MG TABLET PO ×2 (09:18→21:13)
[2024-12-08] MEDS: Nystatin Powder 15 GM BOTTLE 1 APPL TOPICAL ×2 (09:18→21:16)
[2024-12-08] MEDS: Atorvastatin Calcium 20 MG TABLET PO (09:18)
--- NOTE | 2024-12-08 14:32 | MHC.CM.PN ---
EMR REVIEWED, PER PT'S RN PT REQUESTING STR, P.T. TO SEE PT AND CM TO PLACE BROAD REFERRAL AND CONT TO FOLLOW DC NEEDS.
--- NOTE | 2024-12-08 19:24 | P.PNIM_ITS ---
Subjective Subjective Date of Service: 12/08/24 Interval History: wakness, cough, rectus sheet hematoma anemia, improving Physical Exam 2 Vital Signs: Vital Signs: Last Vital Signs Temp 96.3 F L 12/08/24 16:00 Pulse 85 12/08/24 16:00 Resp 19 12/08/24 16:00 BP 99/59 L 12/08/24 16:00 Pulse Ox 96 12/08/24 16:00 O2 Del Method Room Air 12/08/24 16:00 BMI result Body Mass Index 42.6 General: AO X 3, no acute distress Resp: diminsihed bilateral, no accessory muscles used CVS: S1,S2,RRR GI: soft, non tender, non distended Neuro: motor grossly intact, alert Psych: appropriate affect, appropriate insight hematoma over abdomen Objective Data Active Medications Acetaminophen (Acetaminophen 325 Mg Tablet) 650 mg PO Q6H PRN PRN Reason: Pain, Mild 1-3,fever,headache Last Admin: 12/07/24 17:09 Dose: 650 mg Documented By: DALY Albuterol/Ipratropium (Albuterol/Iprat 2.5/0.5mg 3 Ml Ampul.Neb) 3 ml INHALE Q4H PRN PRN Reason: Wheezing Atorvastatin Calcium (Atorvastatin Calcium 20 Mg Tablet) 20 mg PO DAILY [facility] Last Admin: 12/08/24 09:18 Dose: 20 mg Documented By: NIKO Benzonatate (Benzonatate 100 Mg Capsule) 200 mg PO TID PRN PRN Reason: Cough Last Admin: 12/08/24 16:02 Dose: 200 mg Documented By: NIKO Calcium Carbonate (Calcium Carbonate 750 Mg Tab.Chew) 750 mg PO Q4H PRN PRN Reason: Heartburn Ceftriaxone Sodium (Ceftriaxone Sodium 1 Gm Vial) 1 gm IVPUSH Q24H [facility] Last Admin: 12/07/24 21:22 Dose: 1 gm Documented By: KIRBY Duloxetine HCl (Duloxetine Hcl 60 Mg Capsule.Dr) 60 mg PO DAILY [facility] Last Admin: 12/08/24 09:17 Dose: 60 mg Documented By: NIKO Guaifenesin/Codeine Phosphate (Guaifen/Codeine Sf 200/20/10ml 10 Ml Liquid) 5 ml PO Q6H PRN PRN Reason: Cough Last Admin: 12/08/24 09:17 Dose: 5 ml Documented By: NIKO Magnesium Hydroxide (Milk Of Magnesia 30 Ml Oral.Susp) 30 ml PO DAILY PRN PRN Reason: Constipation Melatonin (Melatonin 3 Mg Tablet) 6 mg PO BEDTIME PRN PRN Reason: Insomnia Metoprolol Tartrate (Metoprolol Tartrate 25 Mg Tablet) 25 mg PO BID [facility]; Protocol Last Admin: 12/08/24 09:18 Dose: 25 mg Documented By: NIKO Nystatin (Nystatin Powder 15 Gm Bottle) 1 appl TOPICAL BID [facility]; Protocol Last Admin: 12/08/24 09:18 Dose: 1 appl Documented By: NIKO Ondansetron HCl (Ondansetron Hcl 4 Mg/2 Ml Vial) 4 mg IVPUSH Q8H PRN PRN Reason: Nausea and Vomiting Sodium Chloride (0.9 % Sodium Chloride Flush 3 Ml Syringe) 3 ml IVFLUSH QSHIFT [facility] Last Admin: 12/08/24 16:03 Dose: 3 ml Documented By: NIKO Vitamin D (Cholecalciferol (Vitamin D3) 25 Mcg Tablet) 50 mcg PO BID [facility] Last Admin: 12/08/24 09:17 Dose: 50 mcg Documented By: NIKO Labs 12/08/24 05:41 12/08/24 05:41 Labs: Laboratory Results - last 24 hr 12/08/24 05:41 MCV 94.6 MCH 30.7 MCHC 32.4 RDW 14.8 Plt Count 311 MPV 9.6 Absolute Nucleated RBC 0.020 H Nucleated RBC % (auto) 0.2 Anion Gap 13 Estim Creat Clear Calc 81.2 Estimated GFR > 60 Random Glucose 102 Calcium 9.0 Assessment and Plan (1) Anxiety disorder: Status: Acute Plan 74F PMH morbid obesity, persistent AFib on Coumadin, hypertension, hyperlipidemia, disorder presented with weakness found to have acute anemia due to rectus sheath hematoma and supratherapeutic INR, RSV, UTI Acute blood loss anemia due to rectus sheath hematoma due to supratherapeutic INR Hemoglobin improved after 2 units PRBC and has remained stable. Continue to monitor Coumadin on hold, INR reversed, maybe restart in a week Acute kidney injury d/t above Resolved Sepsis due to Klebsiella UTI Continue ceftriaxone, change to ceftin at sc for total 5 days Persistent atrial fibrillation Coumadin on hold due to hematoma Continue metoprolol RSV Continue cough suppressant, symptomatic management Morbid obesity Weight loss recommended Deconditioning, PT recom STR, she is agreable DVT prophylaxis-mechanical due to rectus sheath hematoma Full code reason for continued hospitalization: Still feeling unwell weak Quality Stroke Does the patient have a stroke diagnosis?: No VTE Prior VTE?: No VTE Risk Level:: Medical - moderate - high VTE Device Contraindication: N/A - Device Ordered VTE Drug Contraindication: Treatment Not Indicated
[2024-12-08] MEDS: cefTRIAXone sodium 1 GM VIAL IVPUSH (23:05)
[2024-12-09] VITALS (7 sets, daily range): BP systolic 109–133; BP diastolic 53–68; PULSE 75–89; RESP 18–20; TEMP 36–36.8; O2SAT 94–97
[2024-12-09] MEDS: Benzonatate 100 MG CAPSULE 200 MG PO (08:25)
[2024-12-09] MEDS: Cholecalciferol (Vitamin D3) 25 MCG TABLET 50 MCG PO ×2 (08:25→21:53)
[2024-12-09] MEDS: Atorvastatin Calcium 20 MG TABLET PO (08:25)
[2024-12-09] MEDS: DULoxetine HCl 60 MG CAPSULE.DR PO (08:25)
[2024-12-09] MEDS: Metoprolol Tartrate 25 MG TABLET PO ×2 (08:25→21:53)
[2024-12-09] MEDS: 0.9 % Sodium Chloride Flush 3 ML SYRINGE IVFLUSH ×2 (08:26→21:54)
[2024-12-09] MEDS: Nystatin Powder 15 GM BOTTLE 1 APPL TOPICAL ×2 (08:26→21:53)
--- NOTE | 2024-12-09 09:17 | P.PNIM_ITS ---
Subjective Subjective Date of Service: 12/09/24 Interval History: Persistent cough and weakness Physical Exam 2 Vital Signs: Vital Signs: Last Vital Signs Temp 98.0 F 12/09/24 08:00 Pulse 88 12/09/24 08:00 Resp 20 12/09/24 08:00 BP 121/64 12/09/24 08:00 Pulse Ox 96 12/09/24 08:00 O2 Del Method Room Air 12/09/24 08:00 BMI result Body Mass Index 42.6 General: AO X 3, no acute distress Resp: diminsihed bilateral, no accessory muscles used CVS: S1,S2,RRR GI: soft, non tender, non distended Neuro: motor grossly intact, alert Psych: appropriate affect, appropriate insight hematoma over abdomen Objective Data Active Medications Acetaminophen (Acetaminophen 325 Mg Tablet) 650 mg PO Q6H PRN PRN Reason: Pain, Mild 1-3,fever,headache Last Admin: 12/07/24 17:09 Dose: 650 mg Documented By: DALY Albuterol/Ipratropium (Albuterol/Iprat 2.5/0.5mg 3 Ml Ampul.Neb) 3 ml INHALE Q4H PRN PRN Reason: Wheezing Atorvastatin Calcium (Atorvastatin Calcium 20 Mg Tablet) 20 mg PO DAILY [facility] Last Admin: 12/09/24 08:25 Dose: 20 mg Documented By: DICKCILUTHER Benzonatate (Benzonatate 100 Mg Capsule) 200 mg PO TID PRN PRN Reason: Cough Last Admin: 12/09/24 08:25 Dose: 200 mg Documented By: NIKO Calcium Carbonate (Calcium Carbonate 750 Mg Tab.Chew) 750 mg PO Q4H PRN PRN Reason: Heartburn Ceftriaxone Sodium (Ceftriaxone Sodium 1 Gm Vial) 1 gm IVPUSH Q24H [facility] Last Admin: 12/08/24 23:05 Dose: 1 gm Documented By: ZARI Duloxetine HCl (Duloxetine Hcl 60 Mg Capsule.) 60 mg PO DAILY [facility] Last Admin: 12/09/24 08:25 Dose: 60 mg Documented By: NIKO Guaifenesin/Codeine Phosphate (Guaifen/Codeine Sf 200/20/10ml 10 Ml Liquid) 5 ml PO Q6H PRN PRN Reason: Cough Last Admin: 12/08/24 21:13 Dose: 5 ml Documented By: ZARI Comments: requested for cough Magnesium Hydroxide (Milk Of Magnesia 30 Ml Oral.Susp) 30 ml PO DAILY PRN PRN Reason: Constipation Melatonin (Melatonin 3 Mg Tablet) 6 mg PO BEDTIME PRN PRN Reason: Insomnia Metoprolol Tartrate (Metoprolol Tartrate 25 Mg Tablet) 25 mg PO BID [facility]; Protocol Last Admin: 12/09/24 08:25 Dose: 25 mg Documented By: NIKO Nystatin (Nystatin Powder 15 Gm Bottle) 1 appl TOPICAL BID [facility]; Protocol Last Admin: 12/09/24 08:26 Dose: 1 appl Documented By: NIKO Ondansetron HCl (Ondansetron Hcl 4 Mg/2 Ml Vial) 4 mg IVPUSH Q8H PRN PRN Reason: Nausea and Vomiting Sodium Chloride (0.9 % Sodium Chloride Flush 3 Ml Syringe) 3 ml IVFLUSH QSHIFT [facility] Last Admin: 12/09/24 08:26 Dose: 3 ml Documented By: NIKO Vitamin D (Cholecalciferol (Vitamin D3) 25 Mcg Tablet) 50 mcg PO BID [facility] Last Admin: 12/09/24 08:25 Dose: 50 mcg Documented By: NIKO Labs 12/08/24 05:41 12/08/24 05:41 Assessment and Plan (1) Anxiety disorder: Status: Acute Plan 74/F PMH morbid obesity, persistent AFib on Coumadin, hypertension, hyperlipidemia, disorder presented with weakness found to have acute anemia due to rectus sheath hematoma and supratherapeutic INR, RSV, UTI Acute blood loss anemia due to rectus sheath hematoma from supratherapeutic INR Hemoglobin improved after 2 units PRBC and has remained stable. Continue to monitor Coumadin on hold, INR reversed, maybe restart in a week Acute kidney injury d/t above Resolved Sepsis due to Klebsiella UTI Continue ceftriaxone d5/5, stop Persistent atrial fibrillation Coumadin on hold due to hematoma Continue metoprolol RSV Continue cough suppressant, symptomatic management Morbid obesity Weight loss recommended Deconditioning, PT recom STR, she is agreeable DVT prophylaxis-mechanical due to rectus sheath hematoma Full code reason for continued hospitalization: awaiting rehab bed Quality Stroke Does the patient have a stroke diagnosis?: No VTE Prior VTE?: No VTE Risk Level:: Medical - moderate - high VTE Device Contraindication: N/A - Device Ordered VTE Drug Contraindication: Treatment Not Indicated
--- NOTE | 2024-12-09 09:54 | MHC.CM.PN ---
Addendum entered by Izzy Layne, RN 12/09/24 12:59: [facility] OFFERING BED AND WILL GO FOR INSURANCE AUTH Original Note: IMM 12/09/24, EMR REVIEWED, CM MET W/PT TO DISCUSS DISPO, PT REPORTS SHE PREFERS [facility], REF EXPANDED, CM STILL WAITING FOR BED OFFER, PT WILL NEED [employer] AUTH AND BLS TRANSPORT
--- NOTE | 2024-12-09 10:02 | P.DS_ITS ---
DS: Providers Provider Date of admission: 12/05/24 03:01 Primary care physician: Norma Hinds MD Consults: 12/05/24 03:01 Consult to General Surgery Routine Consulting Provider: [facility] General Surgeons Reason for consultation: rectus sheath hematoma 12/06/24 10:32 Consult to Wound Care Routine Reason for consultation: ?fungal rash to folds, breasts, buttocks DS: Diagnosis Discharge Diagnosis (1) Anxiety disorder: Status: Acute DS: Summary Hospital Course Hospital Course: Chief Complaint: Weakness This is a 74-year-old female with pertinent history of persistent atrial fibrillation on Coumadin, hypertension, mixed hyperlipidemia, mood disorder who presents to the emergency department for evaluation of weakness. Patient states that for the last few days she has been having dry cough, runny nose. Patient with poor p.o. intake over the last 2 days and had been feeling weak on the day of presentation. Does endorse increased urinary frequency and urgency. No sick contacts. Is compliant with her p.o. medications. Denies fever, chills, chest pain, abdominal pain, changes in bowel habits. When EMS arrived, patient was in AFib with RVR with heart rate in the 130s. In the emergency department, imaging with rectus sheath hematoma and INR found to be elevated at 8.5. Lactic acidosis present with leukocytosis. Urine concerning for UTI. AICHA with creatinine elevated at 1.7. Hospital course: 74/F PMH morbid obesity, persistent AFib on Coumadin, hypertension, hyperlipidemia, disorder presented with weakness found to have acute anemia due to rectus sheath hematoma and supratherapeutic INR, RSV, UTI Acute blood loss anemia due to rectus sheath hematoma from supratherapeutic INR. She was transfused 2 units of RBC with good effect, and hemoglobin has been stable around 9 for last 3 days. Coumadin has been on hold, was given vitamin K for high INR. She was evaluated by surgery with no indication for intervention. It is advised to hold coumadin for Acute kidney injury d/t above Resolved Sepsis due to Klebsiella UTI, Sepsis resolved, treated x 5 days with Ceftriaxone and no symptoms at moment, no fever Persistent atrial fibrillation Coumadin on hold due to hematoma and singificant blood lass Continue metoprolol RSV with cough Continue cough suppressant, symptomatic management Morbid obesity Weight loss recommended Deconditioning, PT recom STR, she is agreeable Time Attestation Discharge Coordination Time (in mins): 45 Quality: Safe Use of Opioids Does Pt have an Active Cancer Diagnosis on the Problem List?: No Quality: Stroke Does the patient have a stroke diagnosis?: No Physical Exam Vital Signs: Vital Signs: Last Vital Signs Temp 98.0 F 12/09/24 08:00 Pulse 88 12/09/24 08:00 Resp 20 12/09/24 08:00 BP 121/64 12/09/24 08:00 Pulse Ox 96 12/09/24 08:00 O2 Del Method Room Air 12/09/24 08:00 BMI result Body Mass Index 42.6 DS: Data Data Completed and Pending Labs on day of discharge: Preliminary micro results at discharge 12/04/24 23:12 Blood Culture - Preliminary Blood - Venous No growth after 48 hours. 12/04/24 23:12 Blood Culture - Preliminary Blood - Venous No growth after 48 hours. Discharge Plan Discharge Patient Disposition: er SNF Discharge Diagnosis: Acute blood loss anemia, rectus sheath hematoma, RSV, AICHA Referrals: Norma Hinds MD [Primary Care Provider] - 1 Week Discharge Medications: Continued diltiazem HCl 240 mg capsule,extended release 24hr 240 mg PO BID 90 Days Qty: 180 3RF hydrochlorothiazide 25 mg tablet 25 mg PO DAILY 90 Days Qty: 90 3RF duloxetine 60 mg capsule,delayed release(DR/EC) 60 mg PO DAILY Qty: 90 1RF rosuvastatin 5 mg tablet 5 mg PO DAILY Qty: 90 1RF metoprolol tartrate 25 mg tablet 25 mg PO BID 90 Days Qty: 180 3RF warfarin [Jantoven] 5 mg tablet 5 mg PO DAILY Qty: 90 3RF Protocol: Dose Management Condition: Thursday (Week One) Dose/Route: 5 mg Instruction: 1 x 5 mg tablet Condition: Thursday Dose/Route: 5 mg Instruction: 1 x 5 mg tablet Condition: Thursday Dose/Route: 7.5 mg Instruction: 1.5 x 5 mg tablets Condition: Thursday Dose/Route: 5 mg Instruction: 1 x 5 mg tablet Condition: Dose/Route: 5 mg Instruction: 1 x 5 mg tablet Condition: Thursday Dose/Route: 7.5 mg Instruction: 1.5 x 5 mg tablets Condition: Thursday Dose/Route: 5 mg Instruction: 1 x 5 mg tablet Condition: Thursday (Week Two) Dose/Route: 5 mg Instruction: 1 x 5 mg tablet Condition: Thursday Dose/Route: 5 mg Instruction: 1 x 5 mg tablet Condition: Thursday Dose/Route: 7.5 mg Instruction: 1.5 x 5 mg tablets Condition: Thursday Dose/Route: 5 mg Instruction: 1 x 5 mg tablet Condition: Dose/Route: 5 mg Instruction: 1 x 5 mg tablet Condition: Thursday Dose/Route: 7.5 mg Instruction: 1.5 x 5 mg tablets Condition: Thursday Dose/Route: 5 mg Instruction: 1 x 5 mg tablet Protocol Text: Adjustment Start Date: Thursday11/21/24 INR Value: 3.1 INR Date: 11/21/24 Recheck Date: 12/19/24 cholecalciferol (vitamin D3) 50 mcg (2,000 unit) capsule 50 mcg PO BID Discontinued warfarin 5 mg Tablet 7.5 mg PO warfarin [Jantoven] 5 mg tablet 5 mg PO SUMOWETHSA Diet: Advance to usual diet Activity on Discharge: As tolerated Stand Alone Forms: Patient Portal Discharge page Print Language: Haitian Care Plan Goals: recovery from weakness from RSV infection, acute blood loss anemia d/t rectus sheath hematoma, acute kidney inuury Health Concerns: RSV infection, acute blood loss anemia d/t rectus sheath hematoma, acute kidney injury Plan of Treatment: hold coumadin to short term rehab Assessment: see above
--- NOTE | 2024-12-09 14:47 | HO.WOUND ---
Wound Consult: Initial 74yr old?female admitted to [facility] on12/06/24 - See progress notes and H&P for detailed history.? Wound consult placed for skin folds and buttock.? Patient agreeable to assessment and photo documentation.?Patient reports significant improvment since staff started to treat with nystatin powder. She reports powder is not used on the buttock area. She reports this areas continues to be itching and sore. The breast folds and abdominal skin fold was assessed for fngal dermaittis and evidence of nystatin powder in place. No open wounds noted. Buttock and intergluteal area assessed for fungal dermatitis. Buttock and Intergluteal area Etiology: ?MASD - Fungal Dermatitis ?Present on Admission Wound Bed: red pink moist tissue with red pink macular papular advancing borders noted. dry desquamation noted Drainage / Odor: none noted - yeast odor noted Edges: ? mirrored and advancing Mouna wound: Intact ? No Induration, Fluctuance or Warmth noted Pain: denies pain reports itching Goals of Treatment: ? Nystatin powder to other antifungal treatment twice daily Recommendations: 1. Turn and Reposition every 2 hours and as needed for patient comfort.? Use pillows or wedges to support off loading positions. 2. Off Load all bony prominences with use of pillows and heel boots if needed.? Apply Preventative foams where needed. ? 3. Monitor for incontinence and moisture control, use barrier creams when needed for prevention and treatment. 4. Provide adequate and supplemental nutrition.? 5. Order low air loss mattress. 6. When applicable maintain blood glucose levels per Providers order. 7. Skin folds and buttock - Cleanse with PH balance wipes, pat dry with soft cloth.? Apply antifungal power to assist with moisture management.? Be sure to dust of excess powder to prevent caking on skin and in folds. Apply per provider orders. Tuck Interdry AG Sheet into skin fold to wick and translocate moisture away from skin fold.? Be sure to leave at least 2 inch of fabric exposed outside of skin fold.? Change after 5 days or when soiled. Re-consult wound care Nurse for wound deterioration or wound changes.
[2024-12-09] MEDS: guaiFEN/Codeine SF 200/20/10ML 10 ML LIQUID 5 ML PO (21:56)
[2024-12-10] VITALS: BP 111/56; PULSE 95; RESP 20; TEMP 36.3; O2SAT 96
[2024-12-10 03:35] VITALS: BP 109/58; PULSE 86; RESP 18; TEMP 36.3; O2SAT 93
[2024-12-10 07:29] VITALS: BP 115/58; PULSE 85; RESP 18; TEMP 36.4; O2SAT 94
[2024-12-10 09:44] VITALS: BP 115/58; PULSE 85
[2024-12-10] MEDS: Metoprolol Tartrate 25 MG TABLET PO (09:44)
[2024-12-10] MEDS: 0.9 % Sodium Chloride Flush 3 ML SYRINGE IVFLUSH (09:44)
[2024-12-10] MEDS: Atorvastatin Calcium 20 MG TABLET PO (09:44)
[2024-12-10] MEDS: Cholecalciferol (Vitamin D3) 25 MCG TABLET 50 MCG PO (09:45)
[2024-12-10] MEDS: DULoxetine HCl 60 MG CAPSULE.DR PO (09:45)
[2024-12-10] MEDS: Nystatin Powder 15 GM BOTTLE 1 APPL TOPICAL (09:53)
[2024-12-10 11:51] VITALS: BP 134/58; PULSE 92; RESP 18; TEMP 36.6; O2SAT 96
--- NOTE | 2024-12-10 14:48 | MHC.CM.PN ---
Pt is medically cleared for discharge to [facility] today (insurance auth obtained), she will transport there via BLS/[facility]. Pt in agreement with discharge plan, and per pts request, this CM called her daughter Cassidy to notify her of the discharge.
--- NOTE | 2024-12-10 14:50 | PM.DS ---
DS: Providers Provider Date of Service: 12/10/24 Date of admission: 12/05/24 03:01 Date of discharge: 12/10/24 Primary care physician: Norma Hinds MD Consults: 12/05/24 03:01 Consult to General Surgery Routine Consulting Provider: [facility] General Surgeons Reason for consultation: rectus sheath hematoma 12/06/24 10:32 Consult to Wound Care Routine Reason for consultation: ?fungal rash to folds, breasts, buttocks DS: Diagnosis Discharge Diagnosis (1) Supratherapeutic INR: Status: Acute (2) AICHA (acute kidney injury): Status: Acute (3) Hematoma: Status: Acute (4) RSV bronchitis: Status: Acute (5) Anticoagulant long-term use: Status: Acute (6) Persistent atrial fibrillation: Status: Acute (7) Sepsis: Status: Acute (8) UTI (urinary tract infection): Status: Acute (9) Morbid obesity: Status: Acute DS: Summary Hospital Course Hospital Course: from admission H+P by hospitalist Re Hinton 12/05/24: Chief Complaint: Weakness This is a 74-year-old female with pertinent history of persistent atrial fibrillation on Coumadin, hypertension, mixed hyperlipidemia, mood disorder who presents to the emergency department for evaluation of weakness. Patient states that for the last few days she has been having dry cough, runny nose. Patient with poor p.o. intake over the last 2 days and had been feeling weak on the day of presentation. Does endorse increased urinary frequency and urgency. No sick contacts. Is compliant with her p.o. medications. Denies fever, chills, chest pain, abdominal pain, changes in bowel habits. When EMS arrived, patient was in AFib with RVR with heart rate in the 130s. In the emergency department, imaging with rectus sheath hematoma and INR found to be elevated at 8.5. Lactic acidosis present with leukocytosis. Urine concerning for UTI. AICHA with creatinine elevated at 1.7. Hospital course: 74yo M with morbid obesity, persistent AFib on Coumadin, hypertension, hyperlipidemia, and mood disorder who presented with weakness and was found to have acute anemia due to rectus sheath hematoma due to supratherapeutic INR. Hospitalization also complicated by RSV infection and Klebsiella UTI. Hospital course by problem: Acute blood loss anemia due to rectus sheath hematoma from supratherapeutic INR: She was transfused 2 units of RBC with good effect, and hemoglobin has been stable around 9 for last 3 days. Coumadin has been on hold; she was was given vitamin K for high INR. She was evaluated by Gen Surgery with no indication for intervention. It is advised to hold Coumadin for 1 week and resume at lower dosing with close INR monitoring. Acute kidney injury: Resolved after transfusion. Sepsis due to Klebsiella UTI: Treated x 5 days with ceftriaxone with resolution of fever and symptoms. Persistent atrial fibrillation: Coumadin on hold due to hematoma and singificant blood loss as above. Metoprolol continued for rate control. RSV infection: Not hypoxic. Treated symptomatically. Due to deconditioning, she was discharged to [facility] for short-term rehabiltation. Time Attestation Discharge Coordination Time (in mins): 35 Quality: Safe Use of Opioids Does Pt have an Active Cancer Diagnosis on the Problem List?: No Quality: Stroke Does the patient have a stroke diagnosis?: No Physical Exam Vital Signs: Vital Signs: Last Vital Signs Temp 97.9 F 12/10/24 11:51 Pulse 92 12/10/24 11:51 Resp 18 12/10/24 11:51 BP 134/58 L 12/10/24 11:51 Pulse Ox 96 12/10/24 11:51 O2 Del Method Room Air 12/10/24 11:51 BMI result Body Mass Index 42.6 Gen: in no acute distress HEENT: sclera anicteric, moist mucus membranes Neck: supple Lungs: clear to auscultation bilaterally Heart: irregular, no murmurs Abd: soft, non-tender, non-distended, extensive bruising in multiple stages of resolution across middle of abdomen, obese Ext: no edema Skin: warm/well-perfused Neuro: alert and oriented x3, no focal findings Psych: appropriate affect DS: Data Data Completed and Pending Completed studies during hospitalization [Text1]: Laboratory Results WBC 11.5 X10*3/uL (4.8-10.8) H 12/08/24 05:41 RBC 3.13 X10*6/uL (4.20-5.50) L 12/08/24 05:41 Hgb 9.6 g/dl (12.0-16.0) L 12/08/24 05:41 Hct 29.6 % (37.0-47.0) L 12/08/24 05:41 MCV 94.6 fL (80.0-98.0) 12/08/24 05:41 MCH 30.7 pg (27.0-33.0) 12/08/24 05:41 MCHC 32.4 g/dl (31.0-35.0) 12/08/24 05:41 RDW 14.8 % (11.0-16.0) 12/08/24 05:41 Plt Count 311 X10*3/uL (160-400) 12/08/24 05:41 MPV 9.6 fL (9.4-12.3) 12/08/24 05:41 Immature Gran % (Auto) 2.1 % (0.0-0.4) H 12/06/24 07:15 Neut % (Auto) 73.0 % (45-73) 12/06/24 07:15 Lymph % (Auto) 14.6 % (20-40) L 12/06/24 07:15 [place] % (Auto) 9.4 % (2-11) 12/06/24 07:15 Eos % (Auto) 0.7 % (0-4) 12/06/24 07:15 Baso % (Auto) 0.2 % (0-2) 12/06/24 07:15 Lymph # (Auto) 2.0 X10*3/uL (1.2-4.9) 12/06/24 07:15 [place] # (Auto) 1.3 X10*3/uL (0.1-1.2) H 12/06/24 07:15 Eos # (Auto) 0.1 X10*3/uL (0.0-0.4) 12/06/24 07:15 Baso # (Auto) 0.0 X10*3/uL (0.0-0.2) 12/06/24 07:15 Abs Immat Gran (auto) 0.28 X10*3/uL (0.00-0.03) H 12/06/24 07:15 Absolute Neuts (auto) 10.0 x10*3/uL (2.0-8.3) H 12/06/24 07:15 Absolute Nucleated RBC 0.020 X10*3/uL (0.0-0.012) H 12/08/24 05:41 Nucleated RBC % (auto) 0.2 /100WBC (0.0-0.2) 12/08/24 05:41 Smear Path Review SEE NOTE 12/05/24 04:16 Hold Purple Top SEE NOTE 12/06/24 07:15 PT 13.6 SEC (10.9-12.4) H 12/07/24 06:22 INR 1.2 (0.9-1.1) H 12/07/24 06:22 VBG pH 7.37 (7.32-7.43) 12/04/24 23:18 VBG pCO2 37 mmHg 12/04/24 23:18 VBG pO2 36 mmHg 12/04/24 23:18 VBG HCO3 21 mmol/L (22-26) L 12/04/24 23:18 VBG O2 Saturation 48.0 % 12/04/24 23:18 VBG Base Excess -2.9 mmol/L 12/04/24 23:18 Sodium 140 mmol/L (135-145) 12/08/24 05:41 Potassium 3.3 mmol/L (3.3-5.1) 12/08/24 05:41 Chloride 101 mmol/L (96-108) 12/08/24 05:41 Carbon Dioxide 29 mmol/L (22-29) 12/08/24 05:41 Anion Gap 13 (12-20) 12/08/24 05:41 BUN 17 mg/dL (9-16) H 12/08/24 05:41 Creatinine 0.71 mg/dL (0.5-1.4) 12/08/24 05:41 Estim Creat Clear Calc 81.2 12/08/24 05:41 Estimated GFR > 60 12/08/24 05:41 Random Glucose 102 mg/dL (60-115) 12/08/24 05:41 Lactic Acid 13.2 mmol/L (0.5-2.0) H* 12/04/24 23:11 Lactic Acid F/U @ 2Hr 6.3 mmol/L (0.5-2.0) H* 12/05/24 01:21 Lactic Acid F/U @ 4Hr 3.4 mmol/L (0.5-2.0) H* 12/05/24 04:16 Calcium 9.0 mg/dL (8.4-10.2) 12/08/24 05:41 Magnesium 2.2 mg/dL (1.6-2.6) 12/04/24 23:15 Total Bilirubin 1.2 mg/dL (0.0-1.0) H 12/04/24 23:15 Direct Bilirubin 0.4 mg/dL (0.0-0.5) 12/04/24 23:15 AST 42 U/L (5-31) H 12/04/24 23:15 ALT 13 U/L (0-31) 12/04/24 23:15 Alkaline Phosphatase 51 U/L (39-117) 12/04/24 23:15 Troponin I High Sens 13.4 ng/L (<3.5-17.0) 12/04/24 23:11 B-Natriuretic Peptide 77 pg/mL (<100) 12/04/24 23:10 Total Protein 6.8 g/dL (6.5-8.0) 12/04/24 23:15 Albumin 3.1 g/dL (3.5-5.0) L 12/04/24 23:15 TSH 1.59 uIU/mL (0.32-4.0) 12/04/24 23:15 Urine Color Dark Yellow 12/04/24 23:50 Urine Appearance Turbid 12/04/24 23:50 Urine pH 5.0 (5.0-9.0) 12/04/24 23:50 Ur Specific [place] >= 1.030 (1.005-1.025) H 12/04/24 23:50 Urine Protein 100 (2+) mg/dL (Neg-Trace) H 12/04/24 23:50 Urine Glucose (UA) 100 mg/dL (Negative) H 12/04/24 23:50 Urine Ketones Trace mg/dL (Negative) 12/04/24 23:50 Urine Blood Trace (Negative) H 12/04/24 23:50 Urine Nitrite Negative (Negative) 12/04/24 23:50 Ur Leukocyte Esterase Moderate (2+) (Negative) H 12/04/24 23:50 Urine RBC 11-20 /HPF (0-2) H 12/04/24 23:50 Urine WBC >50 /HPF (0-5) H 12/04/24 23:50 Ur Squamous Epith Cells >20 /HPF (0-2) 12/04/24 23:50 Urine Bacteria 4+ (None Seen) 12/04/24 23:50 Hyaline Casts 11-20 /LPF (0-2) 12/04/24 23:50 Influenza Type A (PCR) NEGATIVE (Negative) 12/04/24 23:12 Influenza Type B (PCR) NEGATIVE (Negative) 12/04/24 23:12 RSV RNA Qual (PCR) POSITIVE (Negative) A 12/04/24 23:12 SARS-CoV-2 RNA (RT-PCR) NEGATIVE (Negative) 12/04/24 23:12 Blood Type O Positive 12/05/24 04:57 Antibody Screen NEGATIVE 12/05/24 04:57 Crossmatch See Detail 12/05/24 04:57 CXR 12/05/24 1. Elevated left hemidiaphragm with left basilar atelectasis. 2. Apparent unusual position of right humeral head relative to the glenoid which could be positional but dislocation not excluded. Correlate clinically and if indicated dedicated x-rays of the right shoulder should be obtained. CT chest 12/05/24 1. [id number] elevation of the left hemidiaphragm with minimal to mild streaky bibasilar atelectasis. No pneumothorax or pleural effusion. 2. Dilation of the main pulmonary artery up to 3.8 cm in diameter, suggesting pulmonary arterial hypertension. CT A/P 12/05/24 9.8 x 7.5 x 14.5 cm right rectus sheath hematoma visualized. A small amount of blood is identified within the pelvis, extending along the left pericolic gutter. Minimal blood present at the right pericolic gutter. No acute findings. Colonic diverticulosis without convincing CT evidence for acute diverticulitis. Discharge Plan Discharge Anticipated Discharge Date/Time: 12/10/24 14:44 Patient Disposition: Xfer SNF Discharge Diagnosis: Acute blood loss anemia due to rectus sheath hematoma due to high INR, RSV, AICHA Referrals: [facility] [Outside] - 1 Week Norma Hinds MD [Primary Care Provider] - 1 Week Discharge Medications: New warfarin 2.5 mg tablet 2.5 mg PO DAILY Qty: 30 0RF Rx Instructions: Start on 12/17/24 Continued diltiazem HCl 240 mg capsule,extended release 24hr 240 mg PO BID 90 Days Qty: 180 3RF hydrochlorothiazide 25 mg tablet 25 mg PO DAILY 90 Days Qty: 90 3RF duloxetine 60 mg capsule,delayed release(DR/EC) 60 mg PO DAILY Qty: 90 1RF rosuvastatin 5 mg tablet 5 mg PO DAILY Qty: 90 1RF metoprolol tartrate 25 mg tablet 25 mg PO BID 90 Days Qty: 180 3RF cholecalciferol (vitamin D3) 50 mcg (2,000 unit) capsule 50 mcg PO BID Discontinued warfarin [Novtoven] 5 mg tablet 5 mg PO DAILY Qty: 90 3RF Protocol: Dose Management Condition: Thursday (Week One) Dose/Route: 5 mg Instruction: 1 x 5 mg tablet Condition: Thursday Dose/Route: 5 mg Instruction: 1 x 5 mg tablet Condition: Thursday Dose/Route: 7.5 mg Instruction: 1.5 x 5 mg tablets Condition: Thursday Dose/Route: 5 mg Instruction: 1 x 5 mg tablet Condition: Dose/Route: 5 mg Instruction: 1 x 5 mg tablet Condition: Thursday Dose/Route: 7.5 mg Instruction: 1.5 x 5 mg tablets Condition: Thursday Dose/Route: 5 mg Instruction: 1 x 5 mg tablet Condition: Thursday (Week Two) Dose/Route: 5 mg Instruction: 1 x 5 mg tablet Condition: Thursday Dose/Route: 5 mg Instruction: 1 x 5 mg tablet Condition: Thursday Dose/Route: 7.5 mg Instruction: 1.5 x 5 mg tablets Condition: Thursday Dose/Route: 5 mg Instruction: 1 x 5 mg tablet Condition: Dose/Route: 5 mg Instruction: 1 x 5 mg tablet Condition: Thursday Dose/Route: 7.5 mg Instruction: 1.5 x 5 mg tablets Condition: Thursday Dose/Route: 5 mg Instruction: 1 x 5 mg tablet Protocol Text: Adjustment Start Date: Thursday11/21/24 INR Value: 3.1 INR Date: 11/21/24 Recheck Date: 12/19/24 No Action warfarin 5 mg Tablet 7.5 mg PO warfarin [Novtoven] 5 mg tablet 5 mg PO SUMOWETHSA Discharge Orders: Discharge Order (Routine); Ordered 12/10/24 Ordered By: Yousif Small Diet: Advance to usual diet Activity on Discharge: As tolerated Stand Alone Forms: Patient Portal Discharge page Print Language: Frisian Other Ambulatory Orders: Prothrombin Time INR (DAILY) Timeframe: 20241218 Facility: [facility] - Location: Laboratory Ordered By: Yousif Small Prothrombin Time INR (DAILY) Timeframe: 20241219 Facility: [facility] - Location: Laboratory Ordered By: Yousif Small Prothrombin Time INR (DAILY) Timeframe: 20241220 Facility: [facility] - Location: Laboratory Ordered By: Yousif Small Prothrombin Time INR (DAILY) Timeframe: 20241221 Facility: [facility] - Location: Laboratory Ordered By: Yousif Small Prothrombin Time INR (DAILY) Timeframe: 20241222 Facility: [facility] - Location: Laboratory Ordered By: Yousif Small Care Plan Goals: recovery from acute illness Health Concerns: Acute blood loss anemia due to rectus sheath hematoma due to high INR, RSV, AICHA Plan of Treatment: HOLD warfarin; resume at lower dose of 2.5 mg daily 12/17/24 with daily INR monitoring until therapeutic at 2-3 to short-term rehabilitation at [facility] Please follow up with your primary care doctor within 1 week of discharge from rehabilitation. Return to the hospital if you experience recurrent or worsening symptoms. Assessment: see above
[2024-12-10 15:15] VITALS: BP 118/56; PULSE 84; RESP 18; TEMP 36.6; O2SAT 95
== END 2024-12-10 16:44 | disposition skilled nursing facility (03) | DRG 690 ==
LOC: HO.ED 12-05 02:57 → HO.EDOVER 12-05 03:06 → HO.IMC 12-05 16:55
PROVIDERS: Family Medicine; Internal Medicine; Admitting Provider Student in an Organized Health Care Education/Training Program; Emergency Provider Emergency Medicine; PCP Internal Medicine; Visit Provider Family Medicine
DX: N39.0 Urinary tract infection, site not specified (principal); D62 Acute posthemorrhagic anemia; I48.19 Other persistent atrial fibrillation; N17.9 Acute kidney failure, unspecified; E87.1 Hypo-osmolality and hyponatremia; Z68.41 Body mass index [BMI] 40.0-44.9, adult; B97.4 Respiratory syncytial virus as the cause of diseases classified elsewhere; B96.1 Klebsiella pneumoniae [K. pneumoniae] as the cause of diseases classified elsewhere; E66.01 Morbid (severe) obesity due to excess calories; E78.2 Mixed hyperlipidemia; F39 Unspecified mood [affective] disorder; R79.1 Abnormal coagulation profile; I10 Essential (primary) hypertension; M79.81 Nontraumatic hematoma of soft tissue; Z87.891 Personal history of nicotine dependence; Z79.01 Long term (current) use of anticoagulants; Z79.899 Other long term (current) drug therapy
CPT/HCPCS: 0241U; 36415; 71045; 71250; 74176; 80048; 80076; 81001; 82803; 83605; 83735; 83880; 84443; 84484; 85014; 85018; 85025; 85027; 85610; 86850; 86900; 86901; 86923; 87040; 87086; 87088; 87186; 93005; 97116; 97162; 97530; 99285; J0696; J7120; J7168; P9016; P9047

== ENCOUNTER → 2024-12-04 22:51 | Outpatient (BNV) | payer MEDICARE, SELFPAY | PROVIDERS: Admitting Provider Student in an Organized Health Care Education/Training Program; Emergency Provider Emergency Medicine; PCP Internal Medicine; Visit Provider Internal Medicine Cardiovascular Disease | DX: R94.31 Abnormal electrocardiogram [ECG] [EKG] (principal) | CPT/HCPCS: 93010 ==

== ENCOUNTER → 2024-12-04 22:55 | Outpatient (BNV) | payer MEDICARE, SELFPAY | PROVIDERS: Emergency Provider Emergency Medicine; PCP Internal Medicine; Visit Provider Specialist | DX: J98.11 Atelectasis (principal) | CPT/HCPCS: 71045 ==

== ENCOUNTER → 2024-12-05 03:01 | Outpatient (BNV) | payer MEDICARE, SELFPAY | PROVIDERS: Admitting Provider Student in an Organized Health Care Education/Training Program; Emergency Provider Emergency Medicine; PCP Internal Medicine; Visit Provider Surgery | DX: R79.1 Abnormal coagulation profile (principal); T14.8XXA Other injury of unspecified body region, initial encounter | CPT/HCPCS: 99222; 99232 ==

== ENCOUNTER → 2024-12-05 03:01 | Outpatient (BNV) | payer MEDICARE, SELFPAY | PROVIDERS: Admitting Provider Student in an Organized Health Care Education/Training Program; Emergency Provider Emergency Medicine; PCP Internal Medicine; Visit Provider Student in an Organized Health Care Education/Training Program | DX: R79.1 Abnormal coagulation profile (principal); N17.9 Acute kidney failure, unspecified; T14.8XXA Other injury of unspecified body region, initial encounter; J20.5 Acute bronchitis due to respiratory syncytial virus; Z79.01 Long term (current) use of anticoagulants; I48.19 Other persistent atrial fibrillation; A41.9 Sepsis, unspecified organism; N39.0 Urinary tract infection, site not specified; E66.01 Morbid (severe) obesity due to excess calories | CPT/HCPCS: 99232; 99233; 99239 ==

== ENCOUNTER → 2024-12-05 | Outpatient (BNV) | payer MEDICARE, SELFPAY | PROVIDERS: Emergency Provider Emergency Medicine; PCP Internal Medicine; Visit Provider Radiology Diagnostic Radiology | DX: K62.5 Hemorrhage of anus and rectum (principal); K57.30 Diverticulosis of large intestine without perforation or abscess without bleeding; J98.11 Atelectasis | CPT/HCPCS: 71250; 74176 ==

== ENCOUNTER → 2024-12-27 15:56 | Outpatient (BNVA) | payer MEDICARE, SELFPAY | PROVIDERS: PCP Internal Medicine; Visit Provider Internal Medicine ==

== ENCOUNTER → 2025-01-17 11:22 | Outpatient (BNVA) | payer MEDICARE, SELFPAY | PROVIDERS: PCP Internal Medicine; Visit Provider Internal Medicine ==

== ENCOUNTER → 2025-01-24 13:34 | Outpatient (BNVA) | payer MEDICARE, SELFPAY | PROVIDERS: PCP Internal Medicine; Visit Provider Internal Medicine ==

== ENCOUNTER → 2025-02-07 15:04 | Outpatient (BNVA) | payer MEDICARE, SELFPAY | PROVIDERS: PCP Internal Medicine; Visit Provider Internal Medicine Medical Oncology ==

== ENCOUNTER → 2025-02-21 10:49 | Outpatient (BNVA) | payer MEDICARE, SELFPAY | PROVIDERS: PCP Internal Medicine; Visit Provider Internal Medicine Medical Oncology ==

== ENCOUNTER → 2025-03-31 15:50 | Outpatient (BNVA) | payer MEDICARE, SELFPAY | PROVIDERS: PCP Internal Medicine; Visit Provider Internal Medicine Medical Oncology ==

== ENCOUNTER → 2025-04-06 11:59 | Outpatient (BNVA) | payer MEDICARE, SELFPAY | PROVIDERS: PCP Internal Medicine; Visit Provider Internal Medicine Medical Oncology | DX: Z13.89 Encounter for screening for other disorder (principal) ==

== ENCOUNTER 2025-04-08 11:15 | Outpatient (REF) | payer MEDICARE, SELFPAY ==
--- OUTSIDE RECORDS SUMMARY | 2025-04-08 11:16 | XMS_ITS | Encounter Summary ---
Author Organization [facility] Address [address] [place] [address] Care Team Providers Care Change Management Facilitator Name Role Phone Chet Causey MD Primary Care Provider [phone] Encounter Details Date Type Department Care Team (Late st Contact Info) Description 12/19/2024 Lab Requisition [facility] - Main Lab 299 [facility] [place] [address] Chet Causey MD [address] [place] [address] [address] [place], [phone] Unspecified atrial fibrillation (CMS/HCC V24, CMS/HCC V28); Acute kidney failure, unspecified (CMS/HCC V24); Iron deficiency anemia secondary to blood loss (chronic) Social History Tobacco Use Types Packs/Day Years Used Date Smoking Tobacco: Never Assessed Comments Unknown Sex and Gender Information Value Date Recorded Sex Assigned at Not on file Legal Sex Female 9:31 PM EST Gender Identity Not on file Sexual Orientation Not on file documented as of this encounter Plan of Treatment Not on file documented as of this encounter Procedures Procedure Name Priority Date/Time Associated Diagnosis Comments PROTHROMBIN TIME WITH INR Routine 12/20/2024 5:18 AM EST Unspecified atrial fibrillation (CMS/HCC) Acute kidney failure, unspecified (CMS/HCC) Iron deficiency anemia secondary to blood loss (chronic) COMPLETE BLOOD COUNT Routine 12/20/2024 5:18 AM EST Unspecified atrial fibrillation (CMS/HCC) Acute kidney failure, unspecified (CMS/HCC) Iron deficiency anemia secondary to blood loss (chronic) BASIC METABOLIC PANEL Routine 12/20/2024 5:18 AM EST Unspecified atrial fibrillation (CMS/HCC) Acute kidney failure, unspecified (CMS/HCC) Iron deficiency anemia secondary to blood loss (chronic) documented in this encounter Results * Prothrombin time with INR (12/20/2024 5:18 AM EST) Protime 13.1 10.6 - 13.9 sec LAB COAGULATION METHOD 12/20/2024 10:55 AM EST [facility] INR 1.0 LAB COAGULATION METHOD 12/20/2024 10:55 AM [facility] Blood Venous blood specimen / Unknown 12/20/2024 5:18 AM EST 12/20/2024 10:29 AM EST us Chet Causey MD LAB BLOOD ORDERABLES Final Resul t [facility] [address] [place] [address], * (ABNORMAL) Basic metabolic panel (12/20/2024 5:18 AM EST) Pathologist [facility] Sodium 138 133 - 145 mmol/L LAB CHEMISTRY METHOD 12/20/2024 9:57 AM [facility] Potassium 4.2 3.5 - 5.5 mmol/L LAB CHEMISTRY METHOD 12/20/2024 9:57 AM [facility] Chloride 99 96 - 110 mmol/L LAB CHEMISTRY METHOD 12/20/2024 9:57 AM [facility] CO2 35(H) 21 - 32 mmol/L LAB CHEMISTRY METHOD 12/20/2024 9:57 AM [facility] Anion Gap 4 3 - 11 LAB CHEMISTRY METHOD 12/20/2024 9:57 AM [facility] Glucose 92 70 - 100 mg/dL LAB CHEMISTRY METHOD 12/20/2024 9:57 AM [facility] BUN 15 5 - 25 mg/dL LAB CHEMISTRY METHOD 12/20/2024 9:57 AM [facility] Creatinine 0.99 0.50 - 1.10 mg/dL LAB CHEMISTRY METHOD 12/20/2024 9:57 AM [facility] eGFR 60 >=60 mL/min/1. 73m2 LAB CHEMISTRY METHOD 12/20/2024 9:57 AM [facility] Comment:Calculation based on the??Chronic Kidney Disease Epidemiology Collaboration (CKD-EPI) equation refit??without adjustment for race. BUN/Creatinine Ratio 15.2 LAB CHEMISTRY METHOD 12/20/2024 9:57 AM [facility] Calcium 9.2 8.5 - 10.5 mg/dL LAB CHEMISTRY METHOD 12/20/2024 9:57 AM [facility] Blood Venous blood specimen / Unknown Venipuncture / Unknown 12/20/2024 5:18 AM EST 12/20/2024 9:22 AM EST us Chet Causey MD LAB BLOOD ORDERABLES Final Resul t [facility] [address] [place] [address], * (ABNORMAL) Complete blood count (12/20/2024 5:18 AM EST) WBC 7.3 4.8 - 10.8 K/mcL LAB HEMETOLOGY METHOD 12/20/2024 9:36 AM [facility] RBC 3.60(L) 3.80 - 4.80 M/mcL LAB HEMETOLOGY METHOD 12/20/2024 9:36 AM [facility] Hemoglobin 11.0(L) 11.5 - 16.0 g/dL LAB HEMETOLOGY METHOD 12/20/2024 9:36 AM [facility] Hematocrit 35.6 35.0 - 47.0 % LAB HEMETOLOGY METHOD 12/20/2024 9:36 AM EST [facility] MCV 100.0(H) 79.0 - 98.0 FL LAB HEMETOLOGY METHOD 12/20/2024 9:36 AM [facility] MCH 30.9 27.0 - 32.0 pcg LAB HEMETOLOGY METHOD 12/20/2024 9:36 AM [facility] MCHC 30.9(L) 32.0 - 37.0 g/dL LAB HEMETOLOGY METHOD 12/20/2024 9:36 AM [facility] RDW 16.7(H) 11.0 - 15.0 % LAB HEMETOLOGY METHOD 12/20/2024 9:36 AM [facility] Platelets 345 130 - 400 K/mcL LAB HEMETOLOGY METHOD 12/20/2024 9:36 AM [facility] MPV 9.7 7.0 - 11.0 FL LAB HEMETOLOGY METHOD 12/20/2024 9:36 AM EST [facility] NRBC 0.0 <1.0 % LAB HEMETOLOGY METHOD 12/20/2024 9:36 AM [facility] NRBC Absolute 0.00 <0.10 K/mcL LAB HEMETOLOGY METHOD 12/20/2024 9:36 AM [facility] Blood Venous blood specimen / Unknown Venipuncture / Unknown 12/20/2024 5:18 AM EST 12/20/2024 9:22 AM EST us Chet Causey MD LAB BLOOD ORDERABLES Final Resul t [facility] [address] [place] [address], documented in this encounter Visit Diagnoses Diagnosis Unspecified atrial fibrillation (CMS/HCC V24, CMS/HCC V28) Acute kidney failure, unspecified (CMS/HCC V24) Acute kidney failure, unspecified Iron deficiency anemia secondary to blood loss (chronic) documented in this encounter Care Teams Change Management Facilitator Relationship Specialty Start Date End Date Chet Causey MD [address] [place] [address], [phone] PCP - General Family Medicine 12/13/24 documented as of this encounter
[2025-04-08 13:41] LABS: MANUAL DIFF FLAG NO
[2025-04-08 13:43] LABS: Basophils Absolute Auto 0.1 X10*3/uL (0.0-0.2); Basophils Percent Auto 0.8 % (0-2); Eosinophils Absolute Auto 0.2 X10*3/uL (0.0-0.4); Eosinophils Percent Auto 2.3 % (0-4); Hematocrit 44.7 % (37.0-47.0); Hemoglobin 14.8 g/dl (12.0-16.0); Imm Gran Abs Auto 0.03 X10*3/uL (0.00-0.03); Imm Gran Pct Auto 0.3 % (0.0-0.4); Lymphocytes Absolute Auto 2.7 X10*3/uL (1.2-4.9); Mean Corpuscular HGB Conc 33.1 g/dl (31.0-35.0); Mean Corpuscular Hemoglobin 30.6 pg (27.0-33.0); Mean Corpuscular Volume 92.4 fL (80.0-98.0); Mean Platelet Volume 9.7 fL (9.4-12.3); Monocytes Absolute Auto 0.8 X10*3/uL (0.1-1.2); Monocytes Percent Auto 9.4 % (2-11); Neutrophils Absolute Auto 4.9 x10*3/uL (2.0-8.3); Neutrophils Percent Auto 56.2 % (45-73); Platelet Count 367 X10*3/uL (160-400); Red Blood Count 4.84 X10*6/uL (4.20-5.50); Red Cell Distribution Width 13.7 % (11.0-16.0); White Blood Count 8.7 X10*3/uL (4.8-10.8)
[2025-04-08 14:03] LABS: Alanine Aminotransferase 22 U/L (0-31); Anion Gap 21 (12-20); Aspartate Amino Transferase 26 U/L (5-31); Blood Urea Nitrogen 14 mg/dL (9-16); Calcium 9.9 mg/dL (8.4-10.2); Carbon Dioxide 25 mmol/L (22-29); Chloride 101 mmol/L (96-108); Cholesterol 217 mg/dL (<200); Estimated Glomerular Filt Rate 47; Glucose Fasting 137 mg/dL (60-99); HDL Cholesterol 58 mg/dL (>40); Iron 148 mcg/dL (30-160); LDL Cholesterol Calculated 120 mg/dL (<100); Percent Iron Saturation 50 % (15-50); Potassium 4.2 mmol/L (3.3-5.1); Sodium 143 mmol/L (135-145); Total Iron Binding Capacity 296 mcg/dL (228-428); Triglycerides 199 mg/dL (<150); Unsaturated Iron Binding 148 ug/dL
[2025-04-08 14:17] LABS: Vitamin D 25-OH Total 62.2 ng/mL (>30)
== END 2025-04-08 11:16 | disposition home or self-care (01) ==
LOC: HO.HMGCLDS 11:15
PROVIDERS: PCP Internal Medicine; Visit Provider Internal Medicine
DX: E66.01 Morbid (severe) obesity due to excess calories (principal); Z79.01 Long term (current) use of anticoagulants; E78.2 Mixed hyperlipidemia; I48.19 Other persistent atrial fibrillation; Z78.0 Asymptomatic menopausal state; D64.9 Anemia, unspecified
CPT/HCPCS: 36415; 80048; 80061; 82306; 83540; 84450; 84460; 85025

== ENCOUNTER → 2025-04-13 17:29 | Outpatient (BNVA) | payer MEDICARE, SELFPAY | PROVIDERS: PCP Internal Medicine; Visit Provider Internal Medicine Medical Oncology ==

== ENCOUNTER → 2025-04-20 14:40 | Outpatient (BNVA) | payer MEDICARE, SELFPAY | PROVIDERS: PCP Internal Medicine; Visit Provider Internal Medicine Medical Oncology | DX: Z13.89 Encounter for screening for other disorder (principal) ==

== ENCOUNTER → 2025-04-27 14:32 | Outpatient (BNVA) | payer MEDICARE, SELFPAY | PROVIDERS: PCP Internal Medicine; Visit Provider Internal Medicine Medical Oncology ==

== ENCOUNTER → 2025-05-04 15:14 | Outpatient (BNVA) | payer MEDICARE, SELFPAY | PROVIDERS: PCP Internal Medicine; Visit Provider Internal Medicine Medical Oncology ==

== ENCOUNTER → 2025-05-11 16:14 | Outpatient (BNVA) | payer MEDICARE, SELFPAY | PROVIDERS: PCP Internal Medicine; Visit Provider Internal Medicine Medical Oncology | DX: Z13.89 Encounter for screening for other disorder (principal) ==

== ENCOUNTER 2025-07-14 13:39 | Outpatient (AMB) | payer MEDICARE, SELFPAY ==
--- OUTSIDE RECORDS SUMMARY | 2025-07-14 13:43 | XMS_ITS | Encounter Summary ---
Author Organization [facility] Address [address] [place] [address] Care Team Providers Care Radial Saw Operator Name Role Phone Chet Causey MD Primary Care Provider [phone] Encounter Details Date Type Department Care Team (Late st Contact Info) Description 12/24/2024 Lab Requisition [facility] - Main Lab 299 [facility] [place] [address] Chet Causey MD 38 [facility] 204 [facility] [phone] Iron deficiency anemia secondary to blood loss (chronic); Unspecified atrial fibrillation (CMS/HCC V24, CMS/HCC V28) Social History Tobacco Use Types Packs/Day Years Used Date Smoking Tobacco: Never Assessed Comments Unknown Sex and Gender Information Value Date Recorded Sex Assigned at Not on file Legal Sex Female 9:31 PM EST Gender Identity Not on file Sexual Orientation Not on file documented as of this encounter Plan of Treatment Not on file documented as of this encounter Visit Diagnoses Diagnosis Iron deficiency anemia secondary to blood loss (chronic) Unspecified atrial fibrillation (CMS/HCC V24, CMS/HCC V28) documented in this encounter Care Teams Radial Saw Operator Relationship Specialty Start Date End Date Chet Causey MD 38 [facility] 204 [facility] [phone] PCP - General Family Medicine 12/13/24 documented as of this encounter
--- OUTSIDE RECORDS SUMMARY | 2025-07-14 13:43 | XMS_ITS | Encounter Summary ---
Author Organization [facility] Address [address] [place] [address] Care Team Providers Care Generator Operator Name Role Phone Chet Causey MD Primary Care Provider [phone] Encounter Details Date Type Department Care Team (Late st Contact Info) Description 12/21/2024 Lab Requisition [facility] - Main Lab [address] [place] [address] Chet Causey MD [address] [place] [address] [address] [place], [phone] Iron deficiency anemia secondary to blood [...] Diagnosis Comments PROTHROMBIN TIME WITH INR Routine 12/22/2024 5:09 AM EST Iron deficiency anemia secondary to blood loss (chronic) Unspecified atrial fibrillation (CMS/HCC) documented in this encounter Results * (ABNORMAL) Prothrombin time with INR (12/22/2024 5:09 AM EST) Protime 19.5(H) 10.6 - 13.9 sec LAB COAGULATION METHOD 12/22/2024 11:26 AM EST [facility] INR 1.6 LAB COAGULATION METHOD 12/22/2024 11:26 AM EST [facility] Blood Venous blood specimen / Unknown Venipuncture / Unknown 12/22/2024 5:09 AM EST 12/22/2024 9:36 AM EST us Chet Causey MD LAB BLOOD ORDERABLES Final Resul t [facility] [address] [place] [address], documented in this encounter Visit Diagnoses Diagnosis Iron deficiency anemia secondary to blood loss (chronic) Unspecified atrial fibrillation (CMS/HCC V24, CMS/HCC V28) documented in this encounter Care Teams Generator Operator Relationship Specialty Start Date End Date Chet Causey MD [address] [place] [address], [phone] PCP - General Family Medicine 12/13/24 documented as of this encounter
--- OUTSIDE RECORDS SUMMARY | 2025-07-14 13:43 | XMS_ITS | Encounter Summary ---
Author Organization [facility] Address [address] [place] [address] Care Team Providers Care Db2 Dba Name Role Phone Chet Causey MD Primary Care Provider [phone] Encounter Details Date Type Department Care Team (Late st Contact Info) Description 12/24/2024 Lab Requisition [facility] - Main Lab 299 [facility] [place] [address] Chet Causey MD 38 [facility] 204 [facility] [phone] Iron deficiency anemia secondary to blood [...] V28) documented in this encounter Care Teams Db2 Dba Relationship Specialty Start Date End Date Chet Causey MD 38 [facility] 204 [facility] [phone] PCP - General Family Medicine 12/13/24 documented as of this encounter
--- OUTSIDE RECORDS SUMMARY | 2025-07-14 13:43 | XMS_ITS | Encounter Summary ---
Author Organization [facility] Address [address] [place] [address] Care Team Providers Care Marbleizer Name Role Phone Chet Causey MD Primary Care Provider [phone] Encounter Details Date Type Department Care Team (Late st Contact Info) Description 12/19/2024 Lab Requisition [facility] - Main Lab 299 [facility] [place] [address] Chet Causey MD [address] [place] [address] [address] [place], [phone] Unspecified atrial fibrillation (CMS/HCC V24, CMS/HCC [...] LAB COAGULATION METHOD 12/20/2024 10:55 AM EST [facility] INR 1.0 LAB COAGULATION METHOD 12/20/2024 10:55 AM [facility] Blood Venous blood specimen / Unknown 12/20/2024 5:18 AM EST 12/20/2024 10:29 AM EST us Chet Causey MD LAB BLOOD ORDERABLES Final Resul t [facility] [address] [place] [address], * (ABNORMAL) Basic metabolic panel (12/20/2024 5:18 AM EST) Pathologist [facility] Sodium 138 133 - 145 mmol/L LAB CHEMISTRY METHOD 12/20/2024 9:57 AM [facility] Potassium 4.2 3.5 - 5.5 mmol/L LAB CHEMISTRY METHOD 12/20/2024 9:57 AM [facility] Chloride 99 96 - 110 mmol/L LAB CHEMISTRY METHOD 12/20/2024 9:57 AM [facility] CO2 35(H) 21 - 32 mmol/L LAB CHEMISTRY METHOD 12/20/2024 9:57 AM [facility] Anion Gap 4 3 - 11 LAB CHEMISTRY METHOD 12/20/2024 9:57 AM [facility] Glucose 92 70 - 100 mg/dL LAB CHEMISTRY METHOD 12/20/2024 9:57 AM [facility] BUN 15 5 - 25 mg/dL LAB CHEMISTRY METHOD 12/20/2024 9:57 AM [facility] Creatinine 0.99 0.50 - 1.10 mg/dL LAB CHEMISTRY METHOD 12/20/2024 9:57 AM [facility] eGFR 60 >=60 mL/min/1. 73m2 LAB CHEMISTRY METHOD 12/20/2024 9:57 AM [facility] Comment:Calculation based on the Chronic Kidney Disease Epidemiology Collaboration (CKD-EPI) equation refit without adjustment for race. BUN/Creatinine Ratio 15.2 LAB CHEMISTRY METHOD 12/20/2024 9:57 AM [facility] Calcium 9.2 8.5 - 10.5 mg/dL LAB CHEMISTRY METHOD 12/20/2024 9:57 AM [facility] Blood Venous blood specimen / Unknown Venipuncture / Unknown 12/20/2024 5:18 AM EST 12/20/2024 9:22 AM EST us Chet Causey MD LAB BLOOD ORDERABLES Final Resul t [facility] [address] [place] [address], * (ABNORMAL) Complete blood count (12/20/2024 5:18 AM EST) WBC 7.3 4.8 - 10.8 K/mcL LAB HEMETOLOGY METHOD 12/20/2024 9:36 AM [facility] RBC 3.60(L) 3.80 - 4.80 M/mcL LAB HEMETOLOGY METHOD 12/20/2024 9:36 AM [facility] Hemoglobin 11.0(L) 11.5 - 16.0 g/dL LAB HEMETOLOGY METHOD 12/20/2024 9:36 AM [facility] Hematocrit 35.6 35.0 - 47.0 % LAB HEMETOLOGY METHOD 12/20/2024 9:36 AM EST [facility] MCV 100.0(H) 79.0 - 98.0 FL LAB HEMETOLOGY METHOD 12/20/2024 9:36 AM EST [facility] MCH 30.9 27.0 - 32.0 pcg LAB HEMETOLOGY METHOD 12/20/2024 9:36 AM [facility] MCHC 30.9(L) 32.0 - 37.0 g/dL LAB HEMETOLOGY METHOD 12/20/2024 9:36 AM EST [facility] RDW 16.7(H) 11.0 - 15.0 % LAB HEMETOLOGY METHOD 12/20/2024 9:36 AM [facility] Platelets 345 130 - 400 K/mcL LAB HEMETOLOGY METHOD 12/20/2024 9:36 AM [facility] MPV 9.7 7.0 - 11.0 FL LAB HEMETOLOGY METHOD 12/20/2024 9:36 AM EST [facility] NRBC 0.0 <1.0 % LAB HEMETOLOGY METHOD 12/20/2024 9:36 AM [facility] NRBC Absolute 0.00 <0.10 K/mcL LAB HEMETOLOGY METHOD 12/20/2024 9:36 AM [facility] Blood Venous blood specimen / Unknown Venipuncture / Unknown 12/20/2024 5:18 AM EST 12/20/2024 9:22 AM EST us Chet Causey MD LAB BLOOD ORDERABLES Final Resul t [facility] [address] [place] [address], documented in this encounter Visit Diagnoses Diagnosis Unspecified atrial fibrillation (CMS/HCC V24, CMS/HCC V28) Acute kidney failure, unspecified (CMS/HCC V24) Acute kidney failure, unspecified Iron deficiency anemia secondary to blood loss (chronic) documented in this encounter Care Teams Marbleizer Relationship Specialty Start Date End Date Chet Causey MD [address] [place] [address], [phone] PCP - General Family Medicine 12/13/24 documented as of this encounter
--- OUTSIDE RECORDS SUMMARY | 2025-07-14 13:43 | XMS_ITS | Encounter Summary ---
Author Organization [facility] Address [address] [place] [address] Care Team Providers Care Sales Service Representative Name Role Phone Chet Causey MD Primary Care Provider [phone] Encounter Details Date Type Department Care Team (Late st Contact Info) Description 12/25/2024 Lab Requisition [facility] - Main Lab 299 [facility] [place] [address] Chet Causey MD 38 [facility] 204 [facility] [phone] Unspecified atrial fibrillation (CMS/HCC V24, CMS/HCC V28); Iron deficiency anemia secondary to blood loss [...] as of this encounter Visit Diagnoses Diagnosis Unspecified atrial fibrillation (CMS/HCC V24, CMS/HCC V28) Iron deficiency anemia secondary to blood loss (chronic) documented in this encounter Care Teams Sales Service Representative Relationship Specialty Start Date End Date Chet Causey MD 38 [facility] 204 [facility] [phone] PCP - General Family Medicine 12/13/24 documented as of this encounter
--- OUTSIDE RECORDS SUMMARY | 2025-07-14 13:43 | XMS_ITS | Encounter Summary ---
Author Organization [facility] Address [address] [place] [address] Care Team Providers Care Roof Technician Name Role Phone Chet Causey MD Primary Care Provider [phone] Encounter Details Date Type Department Care Team (Late st Contact Info) Description 12/16/2024 Lab Requisition [facility] - Main Lab 299 [facility] [place] [address] Chet Causey MD 38 [facility] 204 [place], [phone] Acute kidney failure, unspecified (CMS/HCC V24) Social History Tobacco Use Types Packs/Day Years [...] Diagnosis Comments PROTHROMBIN TIME WITH INR Routine 12/19/2024 5:28 AM EST Acute kidney failure, unspecified (CMS/HCC) documented in this encounter Results * Prothrombin time with INR (12/19/2024 5:28 AM EST) Protime 12.4 10.6 - 13.9 sec LAB COAGULATION METHOD 12/19/2024 11:52 AM EST [facility] INR 1.0 LAB COAGULATION METHOD 12/19/2024 11:52 AM [facility] Blood Venous blood specimen / Unknown Venipuncture / Unknown 12/19/2024 5:28 AM EST 12/19/2024 11:38 AM EST Chet Causey MD LAB BLOOD ORDERABLES Final Resul t [facility] [address] [place] [address], documented in this encounter Visit Diagnoses Diagnosis Acute kidney failure, unspecified (CMS/HCC V24) Acute kidney failure, unspecified documented in this encounter Care Teams Roof Technician Relationship Specialty Start Date End Date Chet Causey MD [address] [place] [address], [phone] PCP - General Family Medicine 12/13/24 documented as of this encounter
--- OUTSIDE RECORDS SUMMARY | 2025-07-14 13:43 | XMS_ITS | Encounter Summary ---
Author Organization [facility] Address [address] [place] [address] Care Team Providers Care Provider Contracting Consultant Name Role Phone Chet Causey MD Primary Care Provider [phone] Encounter Details Date Type Department Care Team (Late st Contact Info) Description 12/13/2024 Lab Requisition [facility] - Main Lab 299 [facility] [place] [address] Chet Causey MD [address] [place] [address] [address] [place], [phone] Acute kidney failure, unspecified (CMS/HCC V24); Iron [...] Procedure Name Priority Date/Time Associated Diagnosis Comments COMPLETE BLOOD COUNT Routine 12/13/2024 5:04 AM EST Acute kidney failure, unspecified (CMS/HCC) Iron deficiency anemia secondary to blood loss (chronic) BASIC METABOLIC PANEL Routine 12/13/2024 5:04 AM EST Acute kidney failure, unspecified (CMS/HCC) Iron deficiency anemia secondary to blood loss (chronic) documented in this encounter Results * (ABNORMAL) Basic metabolic panel (12/13/2024 5:04 AM EST) Sodium 138 133 - 145 mmol/L LAB CHEMISTRY METHOD 12/13/2024 9:38 AM [facility] Potassium 3.9 3.5 - 5.5 mmol/L LAB CHEMISTRY METHOD 12/13/2024 9:38 AM [facility] Chloride 101 96 - 110 mmol/L LAB CHEMISTRY METHOD 12/13/2024 9:38 AM [facility] CO2 34(H) 21 - 32 mmol/L LAB CHEMISTRY METHOD 12/13/2024 9:38 AM [facility] Anion Gap 3 3 - 11 LAB CHEMISTRY METHOD 12/13/2024 9:38 AM [facility] Glucose 93 70 - 100 mg/dL LAB CHEMISTRY METHOD 12/13/2024 9:38 AM [facility] BUN 20 5 - 25 mg/dL LAB CHEMISTRY METHOD 12/13/2024 9:38 AM [facility] Creatinine 0.88 0.50 - 1.10 mg/dL LAB CHEMISTRY METHOD 12/13/2024 9:38 AM [facility] eGFR 69 >=60 mL/min/1. 73m2 LAB CHEMISTRY METHOD 12/13/2024 9:38 AM [facility] LAB Comment:Calculation based on the Chronic Kidney Disease Epidemiology Collaboration (CKD-EPI) equation refit without adjustment for race. BUN/Creatinine Ratio 22.7 LAB CHEMISTRY METHOD 12/13/2024 9:38 AM [facility] Calcium 9.0 8.5 - 10.5 mg/dL LAB CHEMISTRY METHOD 12/13/2024 9:38 AM [facility] Blood Venous blood specimen / Unknown Venipuncture / Unknown 12/13/2024 5:04 AM EST 12/13/2024 8:46 AM EST us Chet Causey MD LAB BLOOD ORDERABLES Final Resul t [facility] [address] [place] [address], * (ABNORMAL) Complete blood count (12/13/2024 5:04 AM EST) [facility] WBC 10.6 4.8 - 10.8 K/mcL LAB HEMETOLOGY METHOD 12/13/2024 9:18 AM [facility] RBC 3.10(L) 3.80 - 4.80 M/mcL LAB HEMETOLOGY METHOD 12/13/2024 9:18 AM [facility] Hemoglobin 9.6(L) 11.5 - 16.0 g/dL LAB HEMETOLOGY METHOD 12/13/2024 9:18 AM [facility] Hematocrit 30.8(L) 35.0 - 47.0 % LAB HEMETOLOGY METHOD 12/13/2024 9:18 AM [facility] MCV 99.4(H) 79.0 - 98.0 FL LAB HEMETOLOGY METHOD 12/13/2024 9:18 AM [facility] MCH 31.0 27.0 - 32.0 pcg LAB HEMETOLOGY METHOD 12/13/2024 9:18 AM [facility] MCHC 31.2(L) 32.0 - 37.0 g/dL LAB HEMETOLOGY METHOD 12/13/2024 9:18 AM [facility] RDW 16.5(H) 11.0 - 15.0 % LAB HEMETOLOGY METHOD 12/13/2024 9:18 AM [facility] Platelets 330 130 - 400 K/mcL LAB HEMETOLOGY METHOD 12/13/2024 9:18 AM [facility] MPV 9.6 7.0 - 11.0 FL LAB HEMETOLOGY METHOD 12/13/2024 9:18 AM [facility] NRBC 0.0 <1.0 % LAB HEMETOLOGY METHOD 12/13/2024 9:18 AM [facility] NRBC Absolute 0.00 <0.10 K/mcL LAB HEMETOLOGY METHOD 12/13/2024 9:[address] [facility] Blood Venous blood specimen / Unknown Venipuncture / Unknown 12/13/2024 5:04 AM EST 12/13/2024 8:46 AM EST us Chet Causey MD LAB BLOOD ORDERABLES Final Resul t [facility] [address] [place] [address], documented in this encounter Visit Diagnoses Diagnosis Acute kidney failure, unspecified (CMS/HCC V24) Acute kidney failure, unspecified Iron deficiency anemia secondary to blood loss (chronic) documented in this encounter Care Teams Provider Contracting Consultant Relationship Specialty Start Date End Date Chet Causey MD [address] [place] [phone] PCP - General Family Medicine 12/13/24 documented as of this encounter
--- OUTSIDE RECORDS SUMMARY | 2025-07-14 13:43 | XMS_ITS | Clinical Summary ---
Author Organization [address] Address [address] [place] [address] Phone Care Team Providers Care Respiratory Therapist Assistant Name Role Phone Chet Causey MD Primary Care Provider Social History Tobacco Use Types Packs/Day Years Used Date Smoking Tobacco: Never Assessed Comments Unknown Sex and Gender Information Value Date Recorded Sex Assigned at Not on file Legal Sex Female 9:31 PM EST Gender Identity Not on file Sexual Orientation Not on file Plan of Treatment Health Maintenance Due Date Last Done Comments DTaP,Tdap,and Td Vaccines (1 - Tdap) 1968 Pneumococcal Vaccine: 50+ Ye ars (1 of 1 - PCV) 1999 Zoster Vaccines (1 of 2) 1999 RSV Immunization Adult Patie nts (1 - 1-dose 75+ series) 2024 COVID-19 Vaccine (1 - 2023-2 5 season) 2024 Depression Screening 11/16/2024 Falls Risk Assessment 12/13/2024 Hepatitis C Screening 12/13/2024 Medicare Annual Wellness Visit 12/13/2024 Osteoporosis Screening (Bone Density Screening) 12/13/2024 Social Influencers of Health Screening 12/13/2024 Influenza Vaccine (#1) 2025 HIB Vaccines Aged Out No longer eligi ble based on patient's age to complete this topic HPV Vaccines Aged Out No longer eligi ble based on patient's age to complete this topic Hepatitis A Vaccines Aged Out No long er eligible based on patient's age to complete this topic Hepatitis B Vaccines Aged Out No long er eligible based on patient's age to complete this topic IPV Vaccines Aged Out No longer eligi ble based on patient's age to complete this topic MMR Vaccines Aged Out No longer eligi ble based on patient's age to complete this topic Meningococcal ACWY Vaccine Aged Out N o longer eligible based on patient's age to complete this topic Meningococcal B Vaccine Aged Out No l onger eligible based on patient's age to complete this topic RSV Immunization Patients Un shannon 20 months Aged Out No longer eligible b ased on patient's age to complete this topic Varicella Vaccines Aged Out No longer eligible based on patient's age to complete this topic Insurance [place] [address] Care Teams Respiratory Therapist Assistant Relationship Specialty Start Date End Date Chet Causey MD [address] [place] [address] [address] [place], [phone] PCP - General Family Medicine 12/13/24
--- OUTSIDE RECORDS SUMMARY | 2025-07-14 13:43 | XMS_ITS | Encounter Summary ---
Author Organization [facility] Address [address] [place] [address] Care Team Providers Care Piece Dyeing Machine Tender Name Role Phone Chet Causey MD Primary Care Provider [phone] Encounter Details Date Type Department Care Team (Late st Contact Info) Description 12/20/2024 Lab Requisition [facility] - Main Lab [address] [place] [address] Chet Causey MD [address] [place] [address] [address] [place], [phone] Iron deficiency anemia secondary to blood [...] Diagnosis Comments PROTHROMBIN TIME WITH INR Routine 12/21/2024 4:53 AM EST Iron deficiency anemia secondary to blood loss (chronic) Unspecified atrial fibrillation (CMS/HCC) documented in this encounter Results * (ABNORMAL) Prothrombin time with INR (12/21/2024 4:53 AM EST) Protime 15.9(H) 10.6 - 13.9 sec LAB COAGULATION METHOD 12/21/2024 11:[address] [facility] INR 1.3 LAB COAGULATION METHOD 12/21/2024 11:[address] [facility] Blood Venous blood specimen / Unknown Venipuncture / Unknown 12/21/2024 4:53 AM EST 12/21/2024 9:29 AM EST us Chet Causey MD LAB BLOOD ORDERABLES Final Resul t [facility] [address] [place] [address], documented in this encounter Visit Diagnoses Diagnosis Iron deficiency anemia secondary to blood loss (chronic) Unspecified atrial fibrillation (CMS/HCC V24, CMS/HCC V28) documented in this encounter Care Teams Piece Dyeing Machine Tender Relationship Specialty Start Date End Date Chet Causey MD [address] [place] [address], [phone] PCP - General Family Medicine 12/13/24 documented as of this encounter
--- OUTSIDE RECORDS SUMMARY | 2025-07-14 13:43 | XMS_ITS | Encounter Summary ---
Author Organization [facility] Address [address] [place] [address] Care Team Providers Care Loading Machine Adjuster Name Role Phone Chet Causey MD Primary Care Provider [phone] Encounter Details Date Type Department Care Team (Late st Contact Info) Description 12/22/2024 Lab Requisition [facility] - Main Lab [address] [facility] [place] [address] Chet Causey MD [address] [place] [address] [address] [place], [phone] Iron deficiency anemia secondary to blood [...] Diagnosis Comments PROTHROMBIN TIME WITH INR Routine 12/23/2024 5:15 AM EST Iron deficiency anemia secondary to blood loss (chronic) Unspecified atrial fibrillation (CMS/HCC) documented in this encounter Results * (ABNORMAL) Prothrombin time with INR (12/23/2024 5:15 AM EST) Protime 26.7(H) 10.6 - 13.9 sec LAB COAGULATION METHOD 12/23/2024 10:43 AM EST [facility] INR 2.2 LAB COAGULATION METHOD 12/23/2024 10:43 AM EST [facility] Blood Venous blood specimen / Unknown Venipuncture / Unknown 12/23/2024 5:15 AM EST 12/23/2024 10:19 AM EST us Chet Causey MD LAB BLOOD ORDERABLES Final Resul t [facility] [address] [place] [address], documented in this encounter Visit Diagnoses Diagnosis Iron deficiency anemia secondary to blood loss (chronic) Unspecified atrial fibrillation (CMS/HCC V24, CMS/HCC V28) documented in this encounter Care Teams Loading Machine Adjuster Relationship Specialty Start Date End Date Chet Causey MD [address] [place] [address], [phone] PCP - General Family Medicine 12/13/24 documented as of this encounter
[2025-07-14 13:55] VITALS: BP 120/62; PULSE 85; BMI 41.9
--- NOTE | 2025-07-14 13:55 | MHC.OFFVIS ---
Vital Signs 07/14/25 13:55 Height 5 ft 3 in Weight 236 lb 5.369 oz BMI 41.9 BP 120/62 Blood Pressure Location Rt brachial Position Sitting Pulse 85 Pulse Source Monitor Intake Visit Reasons: Follow up Shag Truck Driver Required: No Allergies olmesartan (From Benicar) Adverse Reaction (Verified 07/14/25 13:58) Rash Medication List - Last Reconciled 07/14/25 by Kajal Ledbetter NP-C cholecalciferol (vitamin D3) 50 mcg PO BID diltiazem HCl CD 240 mg PO BID duloxetine 60 mg PO DAILY hydrochlorothiazide 25 mg PO DAILY 90 days metoprolol tartrate 25 mg PO BID 90 days rosuvastatin 10 mg PO DAILY warfarin (Jantoven) 5 mg See Protocol PO SUMOWETHSA HPI HPI Follow up: Details: Melissa is a 75-year-old female with past medical history obesity, HTN, hyperlipidemia, chronic atrial fibrillation, frequent PVCs who presents for follow-up. Her last prior visit was 06/23/2024. Today she reports that she has not had any cardiac issues over the last year. She did have a hospitalization in November with a rectus sheath hematoma, anemia requiring 2 units of pack cells. Her Coumadin was temporarily held then restarted. She has not had any bleeding issues since that time. She has not been experiencing any chest discomfort at rest or with activity. She does not feel heart palpitations, no lightheadedness, presyncope, syncope, falls. She ambulates only short distances with the use of a walker. She has some shortness of breath with activity which is not new or changing. No PND, orthopnea or edema. She is taking meds as directed. Daughter is present. Follows with [facility] anticoagulation clinic. [facility] Medical History Anemia Atrial fibrillation with RVR Osteoporosis Blurred vision, bilateral Family history of colon cancer in father Anxiety disorder Persistent atrial fibrillation Anticoagulant long-term use Surgical History No pertinent past surgical history Social History Household Members: Spouse and Family Housing: House Alcohol intake: current Alcohol intake frequency: holidays/special occasions only Alcohol type: wine Patient Tobacco Use Status: Former Tobacco user Tobacco use type: Cigarette e-Cigarette/Vaping Use: Never Used service: No Current occupational status: retired 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 Current occupational exposures/hazards: No Cognitive needs: No Hearing needs: No Vision needs: No Review of Systems Const All systems reviewed & are unremarkable except as noted in HPI and below ENT Denies dizziness Card Denies chest pain, Denies chest pain at rest, Denies chest pain with activity, Denies rapid heart rate, Denies pedal edema, Denies edema, Denies leg edema, Denies lightheadedness, Denies palpitations, Denies dyspnea, Denies dyspnea on exertion and Denies orthopnea Resp Denies cough, Denies dyspnea and Denies dyspnea on exertion GI Denies hematochezia and Denies change in stool character Musc Denies abnormal gait, Denies limited range of motion, Denies muscle cramps, Denies muscle weakness, Denies numbness, Denies radiating pain into limb, Denies stiffness and Denies tingling Neuro Denies abnormal gait, Denies dizziness, Denies numbness and Denies tingling Endo Denies palpitations Physical Exam Vital Signs: Last Vital Signs Pulse 85 07/14/25 13:55 BP 120/62 07/14/25 13:55 BMI result Body Mass Index 41.9 Const Other: Morbidly obese General: cooperative, comfortable and no acute distress Orientation/consciousness: patient oriented x3 Neck Neck: Yes normal visual inspection Resp Effort & Inspection: normal respiratory effort Auscultation: clear to auscultation bilaterally, no crackles, no rales, no rhonchi and no wheezes Cardio Jugular venous distension: no JVD Rate: regular rate Rhythm: abnormal rhythm Heart sounds: S1 normal heart sound present, S2 normal heart sound present, no murmurs and no rubs Neuro General: patient oriented x3 Extrem Other: Soft, no pitting edema General: Yes normal to inspection Psych Appearance: grossly normal Mental Status: mental status grossly normal Speech and movement: Normal speech and movement present Office Procedures EKG Details: Today, read by me, atrial fibrillation with 3 PVCs on tracing, nonspecific T-wave abnormality, unchanged from prior, rate 85, QTC 435 milliseconds [id number], Complete Assessment & Plan Assessment & Plan (1) PVC's (premature ventricular contractions): Code(s): I49.3 - Ventricular premature depolarization Category: Medical Plan: History of frequent PVCs, asymptomatic. Last Holter monitor on 04/12/2024 showing atrial fibrillation with average heart rate 79, PVCs 20% of the time, couplets and triplets, aberrant conduction not excluded. An echocardiogram was done 05/10/2024 showing EF 60-65%, mild LVH, moderate left atrial enlargement, moderate mitral annular calcification. She had a pharmacological nuclear stress test on 06/17/2024 showing mild to moderate distal to mid lateral wall, anterior apical and apical ischemia. Cardiac catheterization has been discussed with her and she did not pursue. At this time she denies any anginal symptoms. Her EKG today shows atrial fibrillation with 3 PVCs, rate 85. In the absence of symptoms will continue with med management. Continue metoprolol and diltiazem for heart rate/PVC control. Will update echocardiogram to re-evaluate EF, wall motion. She is not interested in pursuing cardiac catheterization currently. (2) Chronic atrial fibrillation: Code(s): I48.20 - Chronic atrial fibrillation, unspecified Category: Medical Plan: History of chronic atrial fibrillation. She is being treated with heart rate control using diltiazem and metoprolol. EKG done today showing AFib, rate 85. She is on Coumadin for anticoagulation and follows with the [facility] anticoagulation Clinic. She was previously unable to afford the cost of Eliquis. (3) Anticoagulant long-term use: Code(s): Z79.01 - senior care (current) use of anticoagulants Category: Medical Plan: As above (4) Abnormal nuclear stress test: Code(s): R94.39 - Abnormal result of other cardiovascular function study Category: Medical Plan: Abnormal nuclear stress test, asymptomatic. Presumed CAD. Will continue with med management. She is not on aspirin as she is on Coumadin. She is on rosuvastatin with ideal LDL goal less than 70. Continue metoprolol and diltiazem. Signs and symptoms of angina reviewed with her. (5) Mixed dyslipidemia: Code(s): E78.2 - Mixed hyperlipidemia Category: Medical Plan: [place] LDL goal less than 70. Labs done 04/08/2025 showed LDL 120. Will increase her rosuvastatin from 5 mg up to 10 mg daily. Will have her recheck fasting lipid in the near future. Plan We discussed the management of atrial fibrillation, PVCs and Possible coronary artery disease, emphasizing the importance of medication adherence to prevent complications. The patient is on Coumadin and rosuvastatin to manage cardiovascular risk factors. We reviewed the abnormal stress test results and the decision not to pursue cardiac catheterization at this time due to her preference and stable symptoms. Follow-up is planned in seven months, with an echocardiogram to monitor heart function. Orders: Orders Lipid Panel Today E78.2 - Mixed hyperlipidemia CA echo transthoracic complete Today I49.3 - Ventricular premature depolarization, R94.39 - Abnormal result of other cardiovascular function study Medications: New rosuvastatin dose increased 10 mg PO DAILY 90 tabs 3RF Discontinued rosuvastatin Discontinued Reason: Doctor's Order 5 mg PO DAILY 90 tabs 1RF E78.2 - Mixed hyperlipidemia, I48.19 - Other persistent atrial fibrillation Patient Instructions: - Continue taking prescribed medications, including Coumadin and rosuvastatin. - Monitor for any new symptoms such as chest pain or changes in breathing and report them immediately. - Echocardiogram and repeat labs in near future - Follow up in seven months for routine check-up, sooner if needed. Patient was informed and verbally consented to the use of an ambient scribe for clinic note documentation during this visit. Visit time spent on chart review, interview, assessment, orders, documentation. Coding Level of Care Code Est Pt Level 4 (99663) Complex EM visit Add On G2211 Diagnoses PVC's (premature ventricular contractions) I49.3 Chronic atrial fibrillation I48.20 Anticoagulant long-term use Z79.01 Abnormal nuclear stress test R94.39 Mixed dyslipidemia E78.2 CPT Codes EKG - CPT: [id number], Complete ([id number]) Time Spent (min) 32
== END 2025-07-14 14:36 | disposition home or self-care (01) ==
LOC: HO.HCS 13:40
PROVIDERS: PCP Internal Medicine; Visit Provider Nurse Practitioner Family
DX: I49.3 Ventricular premature depolarization (principal); I48.20 Chronic atrial fibrillation, unspecified; Z79.01 Long term (current) use of anticoagulants; R94.39 Abnormal result of other cardiovascular function study; E78.2 Mixed hyperlipidemia
CPT/HCPCS: 93010; 99214; G2211

== ENCOUNTER → 2025-07-14 13:39 | Outpatient (BNVA) | payer MEDICARE, SELFPAY | PROVIDERS: PCP Internal Medicine; Visit Provider Nurse Practitioner Family | DX: I49.3 Ventricular premature depolarization (principal); I48.20 Chronic atrial fibrillation, unspecified; R94.39 Abnormal result of other cardiovascular function study; R94.31 Abnormal electrocardiogram [ECG] [EKG]; E78.2 Mixed hyperlipidemia; Z79.01 Long term (current) use of anticoagulants | CPT/HCPCS: 93005; 99212 ==

== ENCOUNTER 2025-09-14 13:19 | Outpatient (AMB) | payer MEDICARE, SELFPAY ==
[2025-09-14 13:40] LABS: Prothrombin Time Whole Bld POC 31.7 sec (11.1-13.5); ~PT, ~INR - Anti Coag Clinic 2.6 (0.9-1.1)
--- NOTE | 2025-09-14 13:40 | MHC.OFFVISCO ---
Intake Intake Visit Reasons: Anticoagulation Allergies olmesartan (From Benicar) Adverse Reaction (Verified 09/14/25 13:50) Rash Medication List - Last Reconciled 09/14/25 by Kerri Hayes, BOO cholecalciferol (vitamin D3) 50 mcg PO BID diltiazem HCl CD 240 mg PO BID duloxetine 60 mg PO DAILY hydrochlorothiazide 25 mg PO DAILY 90 days metoprolol tartrate 25 mg PO BID 90 days rosuvastatin 10 mg PO DAILY warfarin (Jantoven) 5 mg See Protocol PO SUMOWETHSA Nursing Note Pt to ACS for meter to meter check accompanied by daughter. Meds reviewed. No changes noted. Pt denies recent illness. Pt's meter reviewed for right date and time. Previous INR's checked and match what ACS has received from [employer]. Pt performed POC without difficulty. Pt result 2.8. ACS result 2.6. Therapeutic range 2-3 No changes in health, diet, supplements or meds No signs and symptoms of bleeding or bruising or clotting Dose: 5mg daily Retest: 1 week Anti-Coag Initial Assessment Social Hx Patient Tobacco Use Status: Former Tobacco user Tobacco use type: Cigarette alcohol intake: current Alcohol intake frequency: holidays/special occasions only Cardiovascular Hx: HTN and Arrhythmias Musculoskeletal Hx: Arthritis Blood Disorder Hx: Other GI Hx: Diverticulosis and Hemorrhoids Hx: Bladder Disorders Cancer HX: No Psych. Illness/Depression: Yes Questionnaires HAS-BLED Does the patient had uncontrolled Hypertension?: No Does the patient have renal disease?: No Does the patient have liver disease?: No Does the patient have a history of stroke?: No Has the patient had major bleeding or predisposition to bleeding?: Yes (Rectus sheath hematoma Nov 2024 requiring 2 units of blood) Does the patient have labile INRs?: No Is the patient over 65 years of age?: Yes Is the patient on medications that gives them a predisposition to bleeding?: Yes Does the patient use alcohol?: No HAS-BLED Score: 3 CHADSVASC Age: 75 or over Gender: Female Does the patient have a history of CHF?: No Does the patient have a history of Hypertension?: Yes Does the patient have a history of Stroke/TIA/Thromboembolism?: No Does the patient have a history of Vascular Disease (prior NE, PAD or aortic plaque)?: No Does the patient have a history of Diabetes?: No CHADS VACS Score: 4 Ekaterina Prediction Score Rsk VTE Active Cancer: No Previous VTE, excluding superficial vein thrombosis: No Reduced mobility: Yes Already known Thrombophilic Condition: No With-in last month Trauma and/or Surgery: No Elderly 70 year or older: Yes Heart and/or Respiratory Failure: No Acute Myocardial infarction and/or Ischemic Stroke: No Acute Infection and/or Rheumatologic Disorder: No Obesity (BMI 30 or greater): Yes Ongoing Hormonal Treatment: No Score: 5 Ekaterina Score less than 4; Low Risk of VTE Ekaterina Score 4 or greater; High Risk of VTE Coding Level of Care Code Est Patient Level 1 Diagnoses Current use of anticoagulant therapy Z79.01 Time Spent (min) 30 Comment meter to meter check, risk scores done, meds reviewed Results AMB INR Fingerstick AMB INR Fingerstick 2.8 Last Edit by Kerri Hayes RN on 09/14/25 13:56 pt's own meter pt here for meter to meter check Assessment & Plan Assessment & Plan (1) Current use of anticoagulant therapy: Code(s): Z79.01 - MCFP (current) use of anticoagulants
--- OUTSIDE RECORDS SUMMARY | 2025-09-14 16:18 | XMS_ITS | Encounter Summary ---
Author Organization [facility] Address [address] [place] [address] Care Team Providers Care Railroad Car Checker Name Role Phone Chte Causey MD Primary Care Provider [phone] Encounter Details Date Type Department Care Team (Late st Contact Info) Description 12/20/2024 Lab Requisition [facility] - Main Lab [address] [place] [address] Chet Causey MD [address] [place] [address] [address] [place], [phone] Iron deficiency anemia secondary to blood [...] LAB COAGULATION METHOD 12/21/2024 11:10 AM EST [facility] INR 1.3 LAB COAGULATION METHOD 12/21/2024 11:10 AM EST [facility] Blood Venous blood specimen / Unknown Venipuncture / Unknown 12/21/2024 4:53 AM EST 12/21/2024 9:29 AM EST us Chet Causey MD LAB BLOOD ORDERABLES Final Resul t [facility] [address] [place] [address], documented in this encounter Visit Diagnoses Diagnosis Iron deficiency anemia secondary to blood loss (chronic) Unspecified atrial fibrillation (CMS/HCC V24, CMS/HCC V28) documented in this encounter Care Teams Railroad Car Checker Relationship Specialty Start Date End Date Chet Causey MD [address] [place] [address], [phone] PCP - General Family Medicine 12/13/24 documented as of this encounter
--- OUTSIDE RECORDS SUMMARY | 2025-09-14 16:18 | XMS_ITS | Encounter Summary ---
Author Organization [facility] Address [address] [place] [address] Care Team Providers Care Silver Steward Name Role Phone Chet Causey MD Primary Care Provider [phone] Encounter Details Date Type Department Care Team (Late st Contact Info) Description 12/19/2024 Lab Requisition [facility] - Main Lab [address] [facility] [place] [address] Chet Causey MD [address] [place] [address] [address] [place], [address] Unspecified atrial fibrillation (CMS/HCC V24, CMS/HCC [...] LAB COAGULATION METHOD 12/20/2024 10:55 AM EST [facility] INR 1.0 LAB COAGULATION METHOD 12/20/2024 10:55 AM [facility] Blood Venous blood specimen / Unknown 12/20/2024 5:18 AM EST 12/20/2024 10:29 AM EST us Chet Causey MD LAB BLOOD ORDERABLES Final Resul t [facility] [address] [place] [address], * (ABNORMAL) Basic metabolic panel (12/20/2024 5:18 AM EST) Pathologist [facility] Sodium 138 133 - 145 mmol/L LAB CHEMISTRY METHOD 12/20/2024 9:57 AM [facility] Potassium 4.2 3.5 - 5.5 mmol/L LAB CHEMISTRY METHOD 12/20/2024 9:57 AM [facility] Chloride 99 96 - 110 mmol/L LAB CHEMISTRY METHOD 12/20/2024 9:57 AM [facility] CO2 35(H) 21 - 32 mmol/L LAB CHEMISTRY METHOD 12/20/2024 9:57 AM [facility] Anion Gap 4 3 - 11 LAB CHEMISTRY METHOD 12/20/2024 9:57 AM [facility] Glucose 92 70 - 100 mg/dL LAB CHEMISTRY METHOD 12/20/2024 9:57 AM [facility] BUN 15 5 - 25 mg/dL LAB CHEMISTRY METHOD 12/20/2024 9:57 AM [facility] Creatinine 0.99 0.50 - 1.10 mg/dL LAB CHEMISTRY METHOD 12/20/2024 9:57 AM [facility] eGFR 60 >=60 mL/min/1. 73m2 LAB CHEMISTRY METHOD 12/20/2024 9:57 AM [facility] Comment:Calculation based on the Chronic Kidney Disease Epidemiology Collaboration (CKD-EPI) equation refit without adjustment for race. BUN/Creatinine Ratio 15.2 LAB CHEMISTRY METHOD 12/20/2024 9:57 AM [facility] Calcium 9.2 8.5 - 10.5 mg/dL LAB CHEMISTRY METHOD 12/20/2024 9:57 AM [facility] Blood Venous blood specimen / Unknown Venipuncture / Unknown 12/20/2024 5:18 AM EST 12/20/2024 9:22 AM EST us Chet Causey MD LAB BLOOD ORDERABLES Final Resul t [facility] [address] [place] [address], * (ABNORMAL) Complete blood count (12/20/2024 5:18 AM EST) WBC 7.3 4.8 - 10.8 K/mcL LAB HEMETOLOGY METHOD 12/20/2024 9:36 AM [facility] RBC 3.60(L) 3.80 - 4.80 M/mcL LAB HEMETOLOGY METHOD 12/20/2024 9:36 AM [facility] Hemoglobin 11.0(L) 11.5 - 16.0 g/dL LAB HEMETOLOGY METHOD 12/20/2024 9:36 AM [facility] Hematocrit 35.6 35.0 - 47.0 % LAB HEMETOLOGY METHOD 12/20/2024 9:36 AM EST [facility] MCV 100.0(H) 79.0 - 98.0 FL LAB HEMETOLOGY METHOD 12/20/2024 9:36 AM EST [facility] MCH 30.9 27.0 - 32.0 pcg LAB HEMETOLOGY METHOD 12/20/2024 9:36 AM [facility] MCHC 30.9(L) 32.0 - 37.0 g/dL LAB HEMETOLOGY METHOD 12/20/2024 9:36 AM EST [facility] RDW 16.7(H) 11.0 - 15.0 % LAB HEMETOLOGY METHOD 12/20/2024 9:36 AM [facility] Platelets 345 130 - 400 K/mcL LAB HEMETOLOGY METHOD 12/20/2024 9:36 AM [facility] MPV 9.7 7.0 - 11.0 FL LAB HEMETOLOGY METHOD 12/20/2024 9:36 AM EST [facility] NRBC 0.0 <1.0 % LAB HEMETOLOGY METHOD 12/20/2024 9:36 AM [facility] NRBC Absolute 0.00 <0.10 K/mcL LAB HEMETOLOGY METHOD 12/20/2024 9:36 AM [facility] Blood Venous blood specimen / Unknown Venipuncture / Unknown 12/20/2024 5:18 AM EST 12/20/2024 9:22 AM EST us Chet Causey MD LAB BLOOD ORDERABLES Final Resul t [facility] [address] [place] [address], documented in this encounter Visit Diagnoses Diagnosis Unspecified atrial fibrillation (CMS/HCC V24, CMS/HCC V28) Acute kidney failure, unspecified (CMS/HCC V24) Acute kidney failure, unspecified Iron deficiency anemia secondary to blood loss (chronic) documented in this encounter Care Teams Silver Steward Relationship Specialty Start Date End Date Chet Causey MD [address] [place] [address], [phone] PCP - General Family Medicine 12/13/24 documented as of this encounter
--- OUTSIDE RECORDS SUMMARY | 2025-09-14 16:18 | XMS_ITS | Encounter Summary ---
Author Organization [facility] Address [address] [place] [address] Care Team Providers Care Relay Tester Name Role Phone Chet Causey MD Primary Care Provider [phone] Encounter Details Date Type Department Care Team (Late st Contact Info) Description 12/24/2024 Lab Requisition [facility] - Main Lab [address] [facility] [place] [address] Chet Causey MD [address] [facility] 204 [facility] [phone] Iron deficiency anemia secondary to blood [...] V28) documented in this encounter Care Teams Relay Tester Relationship Specialty Start Date End Date Chet Causey MD [address] [facility] 204 [facility] [phone] PCP - General Family Medicine 12/13/24 documented as of this encounter
--- OUTSIDE RECORDS SUMMARY | 2025-09-14 16:18 | XMS_ITS | Encounter Summary ---
Author Organization [facility] Address [address] [place] [address] Care Team Providers Care Solutions Manager Name Role Phone Chet Causey MD Primary Care Provider [phone] Encounter Details Date Type Department Care Team (Late st Contact Info) Description 12/21/2024 Lab Requisition [facility] - Main Lab [address] [place] [address] Chet Causey MD [address] [place] [address] [address] [place], [phone] Iron deficiency anemia secondary to blood [...] LAB COAGULATION METHOD 12/22/2024 11:26 AM EST [facility] LAB INR 1.6 LAB COAGULATION METHOD 12/22/2024 11:26 AM EST [facility] LAB Blood Venous blood specimen / Unknown Venipuncture / Unknown 12/22/2024 5:09 AM EST 12/22/2024 9:36 AM EST us Chet Causey MD LAB BLOOD ORDERABLES Final Resul t [facility] LAB [address] [place] [address], documented in this encounter Visit Diagnoses Diagnosis Iron deficiency anemia secondary to blood loss (chronic) Unspecified atrial fibrillation (CMS/HCC V24, CMS/HCC V28) documented in this encounter Care Teams Solutions Manager Relationship Specialty Start Date End Date Chet Casuey MD [address] [place] [address], [phone] PCP - General Family Medicine 12/13/24 documented as of this encounter
--- OUTSIDE RECORDS SUMMARY | 2025-09-14 16:18 | XMS_ITS | Encounter Summary ---
Author Organization [facility] Address [address] [place] [address] Care Team Providers Care Vice President Of Human Resources Name Role Phone Chet Causey MD Primary Care Provider [phone] Encounter Details Date Type Department Care Team (Late st Contact Info) Description 12/22/2024 Lab Requisition [facility] - Main Lab [address] [place] [address] Chet Causey MD [address] [place] [address] [address] [place], [phone] Iron deficiency anemia secondary to blood [...] LAB COAGULATION METHOD 12/23/2024 10:43 AM EST [facility] LAB INR 2.2 LAB COAGULATION METHOD 12/23/2024 10:43 AM EST [facility] LAB Blood Venous blood specimen / Unknown Venipuncture / Unknown 12/23/2024 5:15 AM EST 12/23/2024 10:19 AM EST us Chet Causey MD LAB BLOOD ORDERABLES Final Resul t [facility] LAB [address] [place] [address], documented in this encounter Visit Diagnoses Diagnosis Iron deficiency anemia secondary to blood loss (chronic) Unspecified atrial fibrillation (CMS/HCC V24, CMS/HCC V28) documented in this encounter Care Teams Vice President Of Human Resources Relationship Specialty Start Date End Date Chet Causey MD [address] [place] [address], [phone] PCP - General Family Medicine 12/13/24 documented as of this encounter
--- OUTSIDE RECORDS SUMMARY | 2025-09-14 16:18 | XMS_ITS | Encounter Summary ---
Author Organization [facility] Address [address] [place] [address] Care Team Providers Care Air Hose Coupler Name Role Phone Chet Causey MD Primary Care Provider [phone] Encounter Details Date Type Department Care Team (Late st Contact Info) Description 12/25/2024 Lab Requisition [facility] - Main Lab [address] [facility] [place] [address] Chet Causey MD [address] [place] [address] [address] [facility] [phone] Unspecified atrial fibrillation (CMS/HCC V24, CMS/HCC [...] (chronic) documented in this encounter Care Teams Air Hose Coupler Relationship Specialty Start Date End Date Chet Causey MD [address] [facility] 204 [facility] [phone] PCP - General Family Medicine 12/13/24 documented as of this encounter
--- OUTSIDE RECORDS SUMMARY | 2025-09-14 16:18 | XMS_ITS | Data Portability ---
Author Organization [facility], Main Office Address [address], [address] [place] [address] Care Team Providers Care Judo Instructor Name Role Phone [facility] OTHER KAYCEE EDWARDS Primary Care Provider Assessment Encounter Date Assessment Date Assessment LastModified by Organization Details LastModified Time 12/21/2024 12/21/2024 Labs 12/13: na 138-K 3.9-Bun 20- Cr 0.88-wbc10.6- hgb 9.6-hct 30.8-plt 330 Labs 12/20: Na 138- K 4.2-Bun 15- Cr 0.99-wbc 7.3-hgb 11.0-hct 35.6-plt 345 Not available 12/21/2024 18:13:12 12/23/2024 12/23/2024 Labs 12/20: Na 138-K 4.2-Bun 15-Cr 0.9-wbc 7.3-hgb 11.0-hct 35-plt 305 Not available 12/23/2024 07:53:18 Plan of Treatment Reminders Order Date Submit Date Provider Last Modified By Organization Details Last Modified Time Details Appointments None record ed. Lab None record ed. Referral None record ed. Procedures None record ed. Surgeries None record ed. Imaging None record ed. Medication Orders None record ed. Patient TargetsNo targets recorded. Patient InstructionsNo instructions recorded. Reason for Referral None Reported. Problems Name Problem SNOMED Code Status Onset Date Resolution Date Notes Provider Name and Address Organization Details Recorded Time Longstanding persistent atrial fibrillation 543192274 Active 2024 Not Available [facility] 07:45:05 Iron deficiency anemia due to blood loss 074029351 Active 2024 Not Available [facility] 19:43:08 Requires respiratory syncytial virus vaccination 591628733 Active 2024 Not Available [facility] 19:50:26 Acute kidney injury 14433691 Active 2024 Not Available [facility] 19:54:59 Anxiety disorder 392726240 Active 2024 Not Available [facility] 19:57:00 Essential hypertension 23587081 Active 2024 Not Available [facility] 20:07:59 Mixed hyperlipidemi a 257590816 Active 2024 Not Available [facility] 20:08:45 Mood disorder 95674103 Active 2024 Not Available [facility] 20:15:46 Body mass index 40+ - severely obese 488719910 Active 2024 Not Available [facility] 07:46:26 Respiratory syncytial virus infection 21567257 Active 2024 Not Available [facility] 07:47:17 Acute bronchiolitis caused by respiratory syncytial virus 878238157 Active 2024 Not Available [facility] 07:48:51 Contusion of anterior abdominal wall 152235888 Active 2024 Not Available [facility] 12:14:17 Osteoporosis 28833989 Active 2024 Not Available [facility] 12:14:50 Muscle weakness 79477821 Active 2024 Not Available [facility] 5 09:50:47 Difficulty walking 358714066 Active 2024 Not Available [facility] 09:51:07 Asthenia 04390900 Active 2024 MYLES CUEVAS NP [address] [facility], [address], [place], [address] , [facility] [employer] 5 13:49:47 Hematoma of rectus sheath 625999977 Active 2024 MYLES CUEVAS NP [address] [facility], [address], [place], [address] , [facility] [employer] [facility] 5 14:19:44 Urinary tract infectious disease 21870126 Active 2024 MYLES CUEVAS NP [address] [facility], [facility] [address], [place], [address] , [facility] [employer] [facility] 5 14:20:47 Vitamin D deficiency 57214994 Active 2024 MYLES CUEVAS NP [address] [facility], [facility] [address], [place], [address] , [facility] [employer] 5 14:26:01 Problem Notes None recorded. Medical Equipment None Reported. Allergies Allergen ID Allergen Name Allergen Category Reaction Reaction Severity Criticality Documentation Date Start Date Code Code System Note Provider Name and Address Organization Details Recorded Time 18213 olmesarta n medicatio n rash Not available Not available 12/13/20242024 84694 4 RxNorm Paulette Jalloh MD [address] [facility], [facility] [address], [place], [address], [facility] [employer] 5 12:53:49 Medications Name Sig Start Date Stop Date Status Note LastModified by Organization Details LastModified Time warfarin 7.5 mg tablet Give 1 tablet by mouth in the evening for blood thinner until 5 23:59 12/26 completed Not Available Not Available Not Available benzonatate 100 mg capsule Give 1 capsule by mouth every 6 hours as needed for cough 2024 active Not Available Not Available Not Avai lable warfarin 5 mg tablet Give 5 mg by mouth in the evening for coumadin therapy for 2 Days 12/19 completed Not Available Not Available Not Available Esidrix 25 mg tablet Give 1 tablet by mouth one time a day 2024 active Not Available Not Available Not Avai lable Laxative (sennosides ) 8.6 mg tablet Give 1 tablet by mouth every 24 hours as needed for Constipat ion 2024 active Not Available Not Available Not Avai lable Coumadin 10 mg tablet Give 1 tablet by mouth in the evening for blood thunner until 5 23:59 12/23 completed Not Available Not Available Not Available rosuvastati n 5 mg tablet Give 1 tablet by mouth one time a day 2024 active Not Available Not Available Not Avai lable metoprolol tartrate 25 mg tablet Give 1 tablet by mouth two times a day 2024 active Not Available Not Available Not Avai lable DILT-CD 120 mg capsule,ext ended release Give 2 capsule by mouth two times a day Do not crush 2024 active Not Available Not Available Not Avai lable duloxetine 60 mg capsule,del ayed release Give 1 capsule by mouth one time a day 2024 active Not Available Not Available Not Avai lable D3-2000 50 mcg (2,000 unit) capsule Give 50 mcg by mouth one time a day 2024 active Not Available Not Available Not Avai lable sodium phosphates 19 gram-7 gram/197 mL enema Insert 1 unit rectally every 24 hours as needed for Constipat ion Use only if Bisacodyl Supposito ry is ineffecti ve 2024 active Not Available Not Available Not Avai lable OneLAX Bisacodyl 10 mg rectal suppository Insert 1 supposito ry rectally every 24 hours as needed for constipat ion Use if Senna is Ineffecti ve 2024 active Not Available Not Available Not Avai lable Vitals Date Recorded Heart rate Respiratory rate Body temperature Oxygen saturation Oxygen saturation in Arterial blood by Pulse oximetry Systolic And Diastolic Provider Name and Address Organization Details Last Updated DateTime 5 84 /min 19 /min 98.2 [degF] 97 % 97 % 107/71 mm[Hg] MYLES CUEVAS NP [address] [facility], [address], [place], [address] [place] [facility] [employer] 5 13:49:00 Date Recorded Body height Body mass index (BMI) Body weight Heart rate Respiratory rate Body temperature Oxygen saturation Oxygen saturation in Arterial blood by Pulse oximetry Systolic And Diastolic Provider Name and Address Organization Details Last Updated DateTime 5 161.54 cm 41.7 kg/m2 488028. 17 g 59 /min 18 /min 97.8 [degF] 98 % 98 % 110/50 mm[Hg] Pauletet Jalloh MD [address] [facility], [address], [place], [address], [facility] 5 12:57:38 Date Recorded Body height Body mass index (BMI) Body weight Heart rate Respiratory rate Body temperature Oxygen saturation Oxygen saturation in Arterial blood by Pulse oximetry Systolic And Diastolic Provider Name and Address Organization Details Last Updated DateTime 5 161.54 cm 41.1 kg/m2 038315. 24 g 51 /min 18 /min 97.1 [degF] 96 % 96 % 111/58 mm[Hg] BURAK BOWEN [address] [facility], [address], [place], [address], [facility] 5 07:19:32 Social History Question Answer Notes LastModified by Organizat ion Details LastModified Time Tobacco Smoking Status Former Smoker quit 44 yrs ago Paulette Jalloh MD [address] [facility], [address], [place], [address], [facility] 12/13/2024 20:19:52 Do You Have An Advance Directive? Yes Information not available 12/13/2024 What Is Your Code Status? DNI No G Tube, No IVF Information not available 12/12/2024 Where Do You Live? Apartment [address], Thinks There Are [address] To [address]; Lives With Daughter And , But Daughter Works Elder Assistant Information not available 12/13/2024 Legal Guardian? No Informati on not available 12/13/2024 Do You Have A Medical Power Of Home Restoration Service Cleaner? Yes Information not available 12/13/2024 What Was The Date Of Your Most Recent Tobacco Screening? 12/13/2024 Information not available 12/13/2024 Do You Have An Out Of Hospital DNR? Yes Information not available 12/12/2024 Have You Ever Been Counseled For Unhealthy Alcohol Use? No Information not available 12/13/2024 What Is Your Relationship Status? Information not available 12/13/2024 How Much Tobacco Do You Smoke? No Information not available 12/13/2024 Has Tobacco Cessation Counseling Been Provided? No N/a As Pt No Longer Smokes Information not available 12/13/2024 Sex: Unknown Functional Status Question Answer Note LastModified by Organizat ion Details LastModified Time How many times per week do you consume alcohol? Less than 1 time per week special occasions only Information not available 12/13/2024 Do you use any illicit or recreational drugs? No [email or web address] Information not available 12/12/2024 Do you or have you ever used any other forms of tobacco or nicotine? No [email or web address] Information not available 12/12/2024 What is your level of alcohol consumption? Occasional Information not available 12/13/2024 Mental Status None recorded. Family History Relationship Description Onset Age of this Age Resolved Age Notes LastModified by Organization Details LastModified Time Mother Hypertensive disorder [email or web address] Not available 2024 14:12:12 Father Heart disease [email or web address] Not available 2024 14:12:21 Father Malignant neoplastic disease Not available 2024 14:12:29 Medical History No medical history recorded. Gynecological HistoryNo gynecological history recorded. Obstetrics History GPAL:G 0 P 0 0 0 0 Immunizations Vaccine Type Date Status Note Provider Nam e and Address Organization Details Recorded Time Pneumococcal conjugate PCV 13 3 completed Pina [facility] 12/16/2024 13:18:47 SARS-COV-2 (COVID-19) vaccine, UNSPECIFIED 1 completed Pina Lentz [facility] 12/16/2024 13:19:05 SARS-COV-2 (COVID-19) vaccine, UNSPECIFIED 1 navya Lentz [facility] 12/16/2024 13:19:14 SARS-COV-2 (COVID-19) [facility], [facility]PEC[facility]IED [facility] 12/16/2024 13:19:25 Past Encounters Encounter ID Performer Location Encounter Start Date Encounter Closed Date Diagnosis/Indication Diagnosis SNOMED-CT Code Diagnosis ICD10 Code Diagnosis IMO Codes Diagnosis Note [id number] MYLES CUEVAS, ADELAIDA [facility] [address] [place] [address] 12/12/2024 13:46:25 12/14/2024 11:42:00 Hematoma of rectus sheath 363617819 S30.1XXD Noted upon admission to [facility].INR 8.5H/H lowVit K given, coumadin held, transfused with 2 U PRBCsSeen by Surg. - no surgical interventi on needed.Rem ains off coumadin at this time - monitor if/when to restart Iron defic iency anemia due to blood loss 571329284 D50.0 See above, due to hematoma and suprathera putic INR.Hgb. stablized, around 9Does not appear CBC was done todayWill check q tues x 3 to trendMonit or s/s active bleed. Longstandi ng persistent atrial fibrillation 302912677 I48.11 Continue:D iltiazem ER 240 mg qdMetoprol ol 25 mg bidCoumadi n stopped due to hematoma - monitor when to restart. Home dose 5 mg 5xwk, 7.5 mg q Tu and Fri Respirator y syncytial virus infection 08749575 B97.4 Treated symptomati bang, now clinically improved.M onitor, continue supportive care. Acute kidney injury 1466 9001 N17.9 Labs improvedBM P x tues x 3Back on HCTZ 25 gm qdAvoid other nephrotoxi cs Asthenia 61396854 R53.1 Deconditio toñito due to recent illness and hospitaliz ation.PT OT eval and tx.Goal is to return homeMonito r for increased needs in community Essential hypertension 48153725 I10 Continue:D iltiazem ER 240 mgHCTZ 25 mg qdmetoprol ol 25 mg bidMonitor VS, labs Mixed hyperlipidemia 267 303792 E78.2 Continue rosuvastat in 5 mg qd Anxiety disorder 7317751 06 F41.9 Continue duloxetine 60 mg qdMonitor mood, behaviors Mood disorder 20835658 F 39 Continue duloxetine 60 mg qdMonitor mood, behaviors Urinary tr act infectious disease 76847530 N39.0 Klebsiella Treated with 5 days ceftriaxon eMonitor VS, labs, sx.Maintai n hydration Vitamin D deficiency 347 48151 E55.9 Continue D3 2000 U bid [id number] Paulette Jalloh MD [facility] [address] [place] [address] 12/13/2024 12:44:46 12/15/2024 14:05:57 Hematoma of rectus sheath 020108527 S30.1XXD Resolving. Per d/c summary, can restart coumadin in 1 wk. which would be 2/1Monitor for complete resolution .Monitor hgb as above. Iron defic iency anemia due to blood loss 426500482 D50.0 With severe drop in hgb due to hematoma, caused by markedly elevated INR.Hgb stable since transfusio n.Unclear what current baseline is, but last hgb in system was from 2021 and was 15.2Will check iron and ferritin and start iron if needed.Mon itor labs. Longstandi ng persistent atrial fibrillation 387268354 I48.11 Rate in good control on meds as above.Will restart coumadin on 12/17, titrated to INR 2-3.Previo usly on 5 mg 5 days/wk and 7.5 mg 2 days/wk.Wi ll restart at 5 mg qd and check daily INRs starting suspect that pt may not have been taking meds correctly, as she had been stable on previous dose for a long time.Monit or HR and bleeding risk. Respirator y syncytial virus infection 31553543 B97.4 With some residual cough, otherwise resolved.M onitor resp status. Acute kidney injury 1466 9001 N17.8 Back to baseline.C ontinue to avoid nephrotoxi c meds as able.Monit or labs.Renal consult prn. Asthenia 69924076 R53.1 Very deconditio toñito.Needs PT/OT for strengthen ing, balance, gait training, safety and function.C ontinue fall precaution s.Monitor for safety. Essential hypertension 75844008 I10 BP in good control.Co ntinue diltiazem ER 240 mg qd, HCTZ 25 mg qd and metoprolol 25 mg BID.Monito r VS, labs Mixed hyperlipidemia 267 144521 E78.2 Continue rosuvastat in 5 mg qdMonitor labs as outpt. Mood disorder 20661933 F 34.89 Continue duloxetine 60 mg qdMonitor mood and behaviors. Psych consult prn. Vitamin D deficiency 347 77349 E56.8 Continue vitamin D3 2000 IU qd. (says BID on d/c summary, entered into [facility] as qd, will leave at that for now).Monit or levels as outpt. Sepsis due to urinary tract infection 544149878 A41.59 N30.01 B96.1 Completed abxs inpt.Labs normalized .Monitor for recurrence [id number] BURAK BOWEN [address] [place] [address] 12/21/2024 11:07:27 12/26/2024 11:01:33 Cough 99782216 R05.9 will add benzonatat e 100 mg at HS prnincreas e hydrationc onsider cxr for worsening sx/changes in LS. Acute kidney injury 1466 9001 N17.9 Cr 0.9hydrati on encouraged avoid nephrotoxi ns Asthenia 09567394 R53.1 improved she is progressin g toward PLOFPT OT contGoal is to [facility] Essential hypertension 22553080 I10 Continue:D iltiazem ER 240 mgHCTZ 25 mg qdmetoprol ol 25 mg bidMonitor VS, labs Longstandi ng persistent atrial fibrillation 573279761 I48.11 rate controlled restarted back on coumadin, per nursing she has been taking 5 mg for 2 daysINR sub-therap uetic 1.0( / ord to receive 10 mg x2 doses)rech alla inr on 12/22 Iron defic iency anemia due to blood loss 410685564 D50.0 H/H stableimpr abel from last weekcontin ue to monitor [id number] [place] [address] 12/23/2024 06:34:36 12/26/2024 12:58:50 Hematoma of rectus sheath 342957308 S30.1XXD Noted upon admission to [facility].INR 8.5H/H lowVit K given, coumadin held, transfused with 2 U PRBCsSeen by Surg. - no surgical interventi on needed.Res tarted on coumadin 2/3 now on 5 mg daily Iron defic iency anemia due to blood loss 249268898 D50.0 See above, due to hematoma and suprathera putic INR.Hgb. stablized, around 9Does not appear CBC was done todayWill check q tues x 3 to trendMonit or s/s active bleed. Longstandi ng persistent atrial fibrillation 146047583 I48.11 Continue:D iltiazem ER 240 mg qdMetoprol ol 25 mg bidCoumadi n stopped due to hematoma - restarted on 12/19 at 5mg daily with daily checkconti nue coumadin 5 mg daily recheck PT/INR on 12/26/24pre vious Home dose 5 mg 5xwk, 7.5 mg q and Thu Respirator y syncytial virus infection 00697378 B97.4 resolvedco ntinue supportive care. Acute kidney injury 1466 9001 N17.9 resolvedBa ck on HCTZ 25 gm qdAvoid other nephrotoxi csmonitor labs prn Essential hypertension 00996930 I10 Continue:D iltiazem ER 240 mgHCTZ 25 mg qdmetoprol ol 25 mg bidMonitor VS, labs outpatient Mixed hyperlipidemia 267 438420 E78.2 Continue rosuvastat in 5 mg qd Anxiety disorder 6490297 06 F41.9 Continue duloxetine 60 mg qd Mood disorder 38233458 F 39 Continue duloxetine 60 mg qd Urinary tr act infectious disease 19702227 N39.0 resolvedcu rrently without sx Vitamin D deficiency 347 46361 E55.9 Continue D3 2000 U bid Cough 35656211 R05.9 cont benzonatat e 100 mg at HS prnincreas e hydration Health Concerns Section Related Observation LastModified by Organization Detai ls LastModified Time None Recorded Concern Status LastModified by Organization Details LastModified Time None Recorded Advance Directives Directive Y: Payers Insurance Date Sequence Insurance Name Policy Number Policy Conway Covered Member ID Conway Member ID Guarantor Name 12/21/2024 1 [facility] (MEDICARE REPLACEMENT/A DVANTAGE - PPO) [id number] Melissa Benson [id number] Melissa Benson Notes Date Note Type Note Provider Name and Address Organization Details Recorded Time 12/12/2024 text/html Melissa is seen today for initial intake. She is a 74 you lady, admitted to [facility] 12/10/24 from [facility] for continued care and rehab after a hosp. related to sepsis, UTI, RSV, rectus sheath hematoma, and acute blood loss anemia,She presented to the ER with weakness on 12/05/24. Dry, cough, runny nose, poor intake, increased urination/frequency. Per acid loader was in A fib with RVR with HR in 130s.In ER, scanning revealed a rectus sheath hematoma and INR of 8.5 as well as acute blood loss anemia. Lactic acidosis present with leukocytosis. UA concerning for UTI. AICHA with Creat. 1.7. Viral swab positive for RSV.Coumadin held, given Vit K and 2 U PRBCs with improvement in Hgb. around 9. Seen by surgery, no intervention needed. UTI treated with ceftriaxone x 5d. RSV treated with supportive care. No instruction on d/c note if/when to restart AC. Upon exam, Melissa is up in a w/c in her room. Alert, NAD, in good spirits, feeling better overall. Occ. lightheaded, but not too bad. No cough, SOB, CP. Intake ok, No GI upset. Abd. a little sore, bruising present due to hematoma. No issues with urination, usual aches and pains. SOLORIO: mod fall risk PMH: anxiety, mood d/o, AF, severely obese, HTN, HLD.MOLST: DNI, no g tube, no IVF. MYLES CUEVAS, ADELAIDA [address] [facility], [address], [place], [address], [facility] [employer] 12/12/2024 14:32:30 12/13/2024 text/html This is a 74 yo woman who is here for rehab after an acute hospitalization for multiple problems including RSV, severe anemia from rectus sheath hematoma due to supratherapeutic INR, Afib with RVR, and sepsis from UTI. [facility] with c/o of cough, SOB and generalized weakness for about a week.EMS found her to be inAfib with RVR.In ED her HR was initially 137 with RR of 35, BP 128/4, and O2 sat of 93% on RA.She gotIV metoprolol and HR came down.BP then dropped and she wasstarted on IV fluid and ceftriaxone.HerWBC was 18.6, lactic acid 13.2, Cr-1.7 (baseline 1.2), INR-8.5 and hgb-7.RSV was +Venous pH was 7.37Alb was 3.1 and she was given IV albumin.Lactic acid came down to 6.3 after IV fluid.She was noted to have anabd hematoma.Surgery consulted, no intervention needed.Given vit Kto reverse coumadin.Urine was contaminated, but with high WBCs, so txed as UTI.Urine cx grew >100,000 Klebsiellares to amp and nitrofurantoin.She completed 5 days of ceftriaxone. Blood cxs remained neg.She had no hypoxia.CXR was non-acute.Abd CT showed 9.8 x 7.5 x 14.5 cm right rectus sheath hematoma Chest CT showed: 1. Vtix-zz-romxgzex elevation of the left hemidiaphragm with minimal tomild streaky bibasilar atelectasis. No pneumothorax or pleural effusion.2. Dilation of the main pulmonary artery up to 3.8 cm in diameter,suggesting pulmonary arterial hypertension. She got2U PRBCs and hgb came up to 9.5.Hgb remained stable for rest of hospitalization.WBC gradually improved.Renal function normalized.She was advised to hold coumadin for 1 wk, then restart at lower dose and with close monitoring. She was transferred here for STR due to continued weakness on 12/10.Since here she has been working with rehab.She is supervision for transfers, but continues to need mod assist for ambulation.She tells me she is feeling a little better each day. Doesn't remember much about the 1st day in the hospital. She says she is still an intermittent cough. Last night she got a tickle in her throat and had a coughing fit , she thinks it's from the dry air here. Her PMH includes HTN, Afib-usually on coumadin, morbid obesity, HLD, and mood disorder. Paulette Jalloh MD [address] [place] [address], [address], [place], [address], [facility] - [employer] 12/13/2024 20:25:16 12/21/2024 text/html ROS as noted in the HPI This is a 74 yr old female patient seen for acute rounding visit. Patient seen lying in bed, reports that she is doing ok, Patient reports feeling more tired than usual due to coughing last night interrupting her sleep. She states that therapy is going well. per therapy she is doing well, she is independent with most adls, she ambulates with a rolling walker. she is anticipated to be discharge to home, she has family support, her dtrs will assist with laundry and cooking, she will receive VNA services. BURAK BOWEN [address] [facility], [address], [place], [address], [facility] [employer] [facility] 12/23/2024 07:45:27 12/23/2024 text/html ROS as noted in the HPI Discharge summary: Per H&P Laron is a 74 yo woman who is here for rehab after an acute hospitalization for multiple problems including RSV, severe anemia from rectus sheath hematoma due to supratherapeutic INR, Afib with RVR, and sepsis from UTI.She presented to the [facility] ED on 12/04 with c/o of cough, SOB and generalized weakness for about a week. EMS found her to be in Afib with RVR. In ED her HR was initially 137 with RR of 35, BP 128/4, and O2 sat of 93% on RA. She got IV metoprolol and HR came down. BP then dropped and she was started on IV fluid and ceftriaxone. Her WBC was 18.6, lactic acid 13.2, Cr-1.7 (baseline 1.2), INR-8.5 and hgb-7. RSV was + Venous pH was 7.37 Alb was 3.1 and she was given IV albumin. Lactic acid came down to 6.3 after IV fluid. She was noted to have an abd hematoma. Surgery consulted, no intervention needed. Given vit K to reverse coumadin. Urine was contaminated, but with high WBCs, so txed as UTI.Urine cx grew >100,000 Klebsiella res to amp and nitrofurantoin.She completed 5 days of ceftriaxone. Her stay has been uneventful,per therapy she is doing well, she is independent with most adls, she ambulates with a rolling walker. she has family support, her dtrs will assist with laundry and cooking. She is cleared for discharge with meds and services in place. PMH: anxiety, mood d/o, AF, severely obese, HTN, HLD BURAK BOWEN [address] [facility], [address], [place], [address], [facility] 12/23/2024 11:53:49 OBGyn Episode No OBEpisode recorded.
--- OUTSIDE RECORDS SUMMARY | 2025-09-14 16:18 | XMS_ITS | Encounter Summary ---
Author Organization [facility] Address [address] [place] [address] Care Team Providers Care Microbiology Technologist Name Role Phone Chet Causey MD Primary Care Provider [phone] Encounter Details Date Type Department Care Team (Late st Contact Info) Description 12/24/2024 Lab Requisition [facility] - Main Lab [address] [facility] [place] [address] Chet Causey MD [address] [facility] 204 [facility] [phone] Iron deficiency anemia secondary to [...] V28) documented in this encounter Care Teams Microbiology Technologist Relationship Specialty Start Date End Date Chet Causey MD [address] [facility] 204 [facility] [phone] PCP - General Family Medicine 12/13/24 documented as of this encounter
--- OUTSIDE RECORDS SUMMARY | 2025-09-14 16:18 | XMS_ITS | Clinical Summary ---
Author Organization [address] Address [address] [place] [address] Phone Care Team Providers Care Theatre Director Name Role Phone Chet Causey MD Primary Care Provider [phone] Social History Tobacco Use Types Packs/Day Years [...] nts (1 - 1-dose 75+ series) 2024 Depression Screening 11/16/2024 Falls Risk Assessment 12/13/2024 Hepatitis C Screening 12/13/2024 Medicare Annual Wellness Visit 12/13/2024 Osteoporosis Screening (Bone Density Screening) 12/13/2024 Social Influencers of Health Screening 12/13/2024 COVID-19 Vaccine (1 - 2023-2 5 season) 2025 Influenza Vaccine (#1) 2025 HIB Vaccines Aged [...] complete this topic Insurance [employer] MEDICARE Care Teams Theatre Director Relationship Specialty Start Date End Date Chet Causey MD [address] [place] [address] [address] [place], [phone] PCP - General Family Medicine 12/13/24
--- OUTSIDE RECORDS SUMMARY | 2025-09-14 16:18 | XMS_ITS | Encounter Summary ---
Author Organization [facility] Address [address] [place] [address] Care Team Providers Care Rural Sociologist Name Role Phone Chet Causey MD Primary Care Provider [phone] Encounter Details Date Type Department Care Team (Late st Contact Info) Description 12/16/2024 Lab Requisition [facility] - Main Lab [address] [facility] [place] [address] Chet Causey MD [address] [place] [address] [address] [place], [phone] Acute kidney failure, unspecified (CMS/HCC V24) [...] LAB COAGULATION METHOD 12/19/2024 11:[address] [facility] INR 1.0 LAB COAGULATION METHOD 12/19/2024 11:52 AM [facility] Blood Venous blood specimen / Unknown Venipuncture / Unknown 12/19/2024 5:28 AM EST 12/19/2024 11:38 AM EST Chet Causey MD LAB BLOOD ORDERABLES Final Resul t [facility] [address] [place] [address], documented in this encounter Visit Diagnoses Diagnosis Acute kidney failure, unspecified (CMS/HCC V24) Acute kidney failure, unspecified documented in this encounter Care Teams Rural Sociologist Relationship Specialty Start Date End Date Chet Causey MD [address] [place] [address], [phone] PCP - General Family Medicine 12/13/24 documented as of this encounter
--- OUTSIDE RECORDS SUMMARY | 2025-09-14 16:18 | XMS_ITS | Encounter Summary ---
Author Organization [facility] Address [address] [place] [address] Care Team Providers Care Recycle Driver Name Role Phone Chet Causey MD Primary Care Provider [phone] Encounter Details Date Type Department Care Team (Late st Contact Info) Description 12/13/2024 Lab Requisition [facility] - Main Lab [address] [facility] [place] [address] Chet Causey MD [address] [place] [address] [address] [place], [phone] Acute kidney failure, unspecified (CMS/HCC V24); [...] mmol/L LAB CHEMISTRY METHOD 12/13/2024 9:38 AM [facility] Potassium 3.9 3.5 - 5.5 mmol/L LAB CHEMISTRY METHOD 12/13/2024 9:38 AM [facility] Chloride 101 96 - 110 mmol/L LAB CHEMISTRY METHOD 12/13/2024 9:38 AM [facility] CO2 34(H) 21 - 32 mmol/L LAB CHEMISTRY METHOD 12/13/2024 9:38 AM [facility] Anion Gap 3 3 - 11 LAB CHEMISTRY METHOD 12/13/2024 9:38 AM [facility] Glucose 93 70 - 100 mg/dL LAB CHEMISTRY METHOD 12/13/2024 9:38 AM [facility] BUN 20 5 - 25 mg/dL LAB CHEMISTRY METHOD 12/13/2024 9:38 AM [facility] Creatinine 0.88 0.50 - 1.10 mg/dL LAB CHEMISTRY METHOD 12/13/2024 9:38 AM [facility] eGFR 69 >=60 mL/min/1. 73m2 LAB CHEMISTRY METHOD 12/13/2024 9:38 AM [facility] Comment:Calculation based on the Chronic Kidney Disease Epidemiology Collaboration (CKD-EPI) equation refit without adjustment for race. BUN/Creatinine Ratio 22.7 LAB CHEMISTRY METHOD 12/13/2024 9:38 AM [facility] Calcium 9.0 8.5 - 10.5 mg/dL LAB CHEMISTRY METHOD 12/13/2024 9:38 AM [facility] Blood Venous blood specimen / Unknown Venipuncture / Unknown 12/13/2024 5:04 AM EST 12/13/2024 8:46 AM EST us hCet Causey MD LAB BLOOD ORDERABLES Final Resul t [facility] [address] [place] [address], * (ABNORMAL) Complete blood count (12/13/2024 5:04 AM EST) [facility] WBC 10.6 4.8 - 10.8 K/mcL LAB HEMETOLOGY METHOD 12/13/2024 9:18 AM [facility] RBC 3.10(L) 3.80 - 4.80 M/mcL LAB HEMETOLOGY METHOD 12/13/2024 9:18 AM [facility] Hemoglobin 9.6(L) 11.5 - 16.0 g/dL LAB HEMETOLOGY METHOD 12/13/2024 9:18 AM [facility] Hematocrit 30.8(L) 35.0 - 47.0 % LAB HEMETOLOGY METHOD 12/13/2024 9:18 AM [facility] MCV 99.4(H) 79.0 - 98.0 FL LAB HEMETOLOGY METHOD 12/13/2024 9:18 AM [facility] MCH 31.0 27.0 - 32.0 pcg LAB HEMETOLOGY METHOD 12/13/2024 9:18 AM [facility] MCHC 31.2(L) 32.0 - 37.0 g/dL LAB HEMETOLOGY METHOD 12/13/2024 9:18 AM [facility] RDW 16.5(H) 11.0 - 15.0 % LAB HEMETOLOGY METHOD 12/13/2024 9:18 AM [facility] Platelets 330 130 - 400 K/mcL LAB HEMETOLOGY METHOD 12/13/2024 9:18 AM [facility] MPV 9.6 7.0 - 11.0 FL LAB HEMETOLOGY METHOD 12/13/2024 9:18 AM [facility] NRBC 0.0 <1.0 % LAB HEMETOLOGY METHOD 12/13/2024 9:18 AM [facility] NRBC Absolute 0.00 <0.10 K/mcL LAB HEMETOLOGY METHOD 12/13/2024 9:18 AM EST [facility] Blood Venous blood specimen / Unknown Venipuncture / Unknown 12/13/2024 5:04 AM EST 12/13/2024 8:46 AM EST us Chet Causey MD LAB BLOOD ORDERABLES Final Resul t [facility] [address] [place] [address], documented in this encounter Visit Diagnoses Diagnosis Acute kidney failure, unspecified (CMS/HCC V24) Acute kidney failure, unspecified Iron deficiency anemia secondary to blood loss (chronic) documented in this encounter Care Teams Recycle Driver Relationship Specialty Start Date End Date Chet Causey MD [address] [place] [phone] PCP - General Family Medicine 12/13/24 documented as of this encounter
== END 2025-09-14 14:51 | disposition home or self-care (01) ==
LOC: HO.ACS 13:19
PROVIDERS: PCP Internal Medicine; Visit Provider Internal Medicine Medical Oncology
DX: Z79.01 Long term (current) use of anticoagulants (principal)

== ENCOUNTER → 2025-09-14 13:19 | Outpatient (BNVA) | payer MEDICARE, SELFPAY | PROVIDERS: PCP Internal Medicine; Visit Provider Internal Medicine Medical Oncology | DX: I48.20 Chronic atrial fibrillation, unspecified (principal); Z79.01 Long term (current) use of anticoagulants; Z51.81 Encounter for therapeutic drug level monitoring | CPT/HCPCS: 85610; 99211 ==